=== PATIENT | male | born 1930 | race Caucasian/White ===

== ENCOUNTER 2018-05-27 07:17 | Day surgery (SDC) | payer OTHER, MEDICARE ==
[2018-05-24 15:03] VITALS: BMI 25.7
[2018-05-27 07:59] VITALS: BP 140/59; PULSE 53; TEMP 97.9
== END 2018-05-27 08:35 | disposition home or self-care (01) ==
LOC: JRADIR 07:17
PROVIDERS: ATTEND Internal Medicine
PROC: BB24YZZ Computerized Tomography (CT Scan) of Bilateral Lungs using Other Contrast (ICD-10-PCS; principal; 2018-05-27)
PROC: 0BBC3ZX Excision of Right Upper Lung Lobe, Percutaneous Approach, Diagnostic (ICD-10-PCS; 2018-05-27)
DX: D38.1 Neoplasm of uncertain behavior of trachea, bronchus and lung (principal); Z53.8 Procedure and treatment not carried out for other reasons
CPT/HCPCS: 32405; 71250-TC

== ENCOUNTER 2018-07-06 11:39 | Emergency (ER) | payer OTHER, MEDICARE ==
[2018-07-06 11:49] VITALS: BP 132/54; PULSE 60; TEMP 98.2; BMI 25.4
--- NOTE | 2018-07-06 12:06 | PDOC ---
History of Present Illness - General Chief Complaint: Wound Stated Complaint: WOUND Time Seen by Provider: 07/06/18 12:06 History Source: Patient - History of Present Illness Initial Comments: 07/06/18 12:49 88-year-old male who received an aortic valve replacement one month ago, on Coumadin and Plavix, presented to the Emergency Department for skin bleeding since yesterday. He states that he was seen by his it security engineer on Sunday, had a skin growth removed, and the wound began to bleed yesterday. He states that he was able to just use one dressing overnight. He denies chest pain, shortness of breath, lightheadedness, dizziness, palpitations. He states he was seen by Dr. Peña office yesterday, INR was checked, and it was normal. Allergies - PCN, codeine PCP - [facility] Past History - Past Medical History Allergies/Adverse Reactions: Allergies Allergy/AdvReac Type Severity Reaction Status Date / Time codeine [Codeine] Allergy Verified 05/24/18 15:03 Penicillins Allergy Verified 05/24/18 15:03 Home Medications: Ambulatory Orders Dorzolamide HCl/Timolol Maleat [Cosopt Eye Drops] 1 drop OU BID 07/21/15 Travoprost [Travatan Z] 1 drop OU HS 04/15/16 Amlodipine Besylate [Norvasc -] 5 mg PO DAILY tablet 05/01/18 Brimonidine Tartrate [Alphagan 0.15% -] 1 drop OU BID drops 05/01/18 Rivaroxaban [Xarelto -] 20 mg PO DAILY@1800 tablet 05/01/18 Tamsulosin HCl [Flomax -] 0.4 mg PO DAILY@0830 cap.er.24h 05/01/18 Anemia: No Asthma: No Cancer: Yes (LYMPHOMA) Cardiac Disorders: Yes (aortic stenosis) CVA: No COPD: No CHF: No DVT: No Dementia: No Diabetes: No GI Disorders: No Disorders: Yes (BPH) HTN: Yes Hypercholesterolemia: Yes Liver Disease: No Seizures: No Thyroid Disease: No - Surgical History Abdominal Surgery: Yes (HERNIA.) Appendectomy: Yes GI Surgery: Yes (SPLENECTOMY.) - Immunization History Immunization Up to Date: Yes - Suicide/Smoking/Psychosocial Hx Smoking Status: No Smoking History: Never smoked Have you smoked in the past 12 months: No Number of Cigarettes Smoked Daily: 0 Information on smoking cessation initiated: No Hx Alcohol Use: No Drug/Substance Use Hx: No Substance Use Type: None Hx Substance Use Treatment: No Review of Systems - Review of Systems Able to Perform ROS?: Yes Comments:: 07/06/18 12:49 General: denies fever, chills, night sweats, generalized weakness. HEENT: denies sore throat, rhinorrhea, ear pain. Heart: denies chest pain, palpitations, syncope, lower extremity swelling, diaphoresis. Respiratory: denies shortness of breath, cough, sputum production, hemoptysis. Abdomen: denies abdominal pain, nausea, vomiting, diarrhea, constipation, blood in stool. : denies dysuria, increased urinary frequency, hematuria, urinary incontinence , flank pain. Back: denies back pain. Musculoskeletal: denies joint pain, muscle pain, joint swelling. Neurological: denies headache, dizziness, numbness, tingling, weakness. Skin: admits to wound bleeding. denies rash, laceration, abrasion. *Physical Exam - Vital Signs Last Vital Signs Temp Pulse Resp BP Pulse Ox 98.2 F 60 20 132/54 L 99 07/06/18 11:43 07/06/18 11:43 07/06/18 11:43 07/06/18 11:43 07/06/18 11:43 - Physical Exam Comments: 07/06/18 12:50 Constitutional: Well-nourished, Well-developed, appearing stated age. HEENT: head is normocephalic, atraumatic. EOMI. PERRLA. Neck: supple. Full ROM. Heart: regular rhythm. gallop noted. Lungs: clear to auscultation bilaterally. no crackles, rhonchi or wheezing. no stridor. Abdomen: soft, nontender. normal bowel sounds. no rebound, guarding, masses. Extremities: Peripheral pulses intact. No lower extremity edema. Neurological: CN 2-12 grossly intact. Moves all four extremities. Psych: awake, alert, oriented x3. Follows commands. Answers questions appropriately. Skin: <1 cm puncture wound to right scapular area, oozing slowly. no surrounding erythema. no foul smell. Medical Decision Making - Medical Decision Making 07/06/18 12:36 88-year-old male who received an aortic valve replacement one month ago, on Coumadin and Plavix, presented to the Emergency Department for skin bleeding since yesterday. He states that he was seen by his it security engineer on Sunday, had a skin growth removed, and the wound began to bleed yesterday. He states that he was able to just use one dressing overnight. He denies chest pain, shortness of breath, lightheadedness, dizziness, palpitations. He states he was seen by Dr. Peña office yesterday, INR was checked, and it was normal. Initial Vital Signs Temp Pulse Resp BP Pulse Ox 98.2 F 60 20 132/54 L 99 07/06/18 11:43 07/06/18 11:43 07/06/18 11:43 07/06/18 11:43 07/06/18 11:43 Afebrile. Wound infection unlikely. No tachycardia. No hypotension. No hypoxia on room air. No indication for blood work at this time. Pt had INR checked yesterday at Dr. Solano's office, stated it was normal. Pt can ambulate well unassisted. Surgicel applied to wound site with dressing over top. Pt was observed for 10 minutes, no blood soaked through the dressing. Pt will be discharged with wound care instructions, follow up instructions and strict return precautions. I discussed the plan for care, and wound care instructions with the patient and his , they stated they understood and would have the patient follow up with his PCP. *DC/Admit/Observation/Transfer Diagnosis at time of Disposition: Mucosal bleeding, History of anticoagulant use - Discharge Dispostion Disposition: HOME Condition at time of disposition: Stable Decision to Admit order: No - Referrals Referrals: Venkatesh Sanches MD [Primary Care Provider] - - Patient Instructions Additional Instructions: DOCTOR'S INSTRUCTIONS: You were seen today for skin bleeding. We applied surgicel to the wound site, this will help the wound to clot. The surgicel will turn BLACK, this is normal. Do not remove the dressing for 24-48 hours, 48 is preferred. Do not get the dressing wet. You can apply bacitracin to the wound after the dressing is removed. As your wound heals, it will itch, this is normal. Return to the Emergency Department if the dressing is completely soaked with blood, chest pain, shortness of breath, lightheadedness, passing out, dizziness , palpitations, redness of the skin surrounding the wound site, foul smelling wound or any other new, worsening or concerning symptoms. Follow up with your primary care doctor within 3 days. Call their office Sunday and let them know you were seen in the Emergency Department. Make an appointment for as soon as available. Your care is not complete until you follow up. - Post Discharge Activity
--- NOTE | 2018-07-06 12:26 | PDOC ---
Attending Attestation - Resident Resident Name: Vivi Gaspar - ED Attending Attestation I have performed the following: I have examined & evaluated the patient, The case was reviewed & discussed with the resident, I agree w/resident's findings & plan, Exceptions are as noted - Medical Decision Making 07/06/18 12:26 I, Dr. Gloria Jamison, DO, attest that this document has been prepared under my direction and personally reviewed by me in its entirety. I further attest, that it accurately reflects all work, treatment, procedures and medical decision -making performed by me. 07/06/18 12:30 a/p: 88yo male with slow bleeding from biopsy site performed at dermatology earlier this week -on plavix and coumadin -INR checked yesterday and was normal at [facility] -no active bleeding -no surrounding erythema or subcut hematoma -will apply surgical, dressing, and pressure 07/06/18 12:46 no longer with bleeding from the site discussed local wound care discussed all reasons to return to the ed -no lightheaded or dizziness -no cp/sob -no somatic complaints stable for d/c to home and pt agree with the plan <Gloria Jamison - Last Filed: 07/06/18 12:45> - HPI HPI: 07/06/18 12:58 The patient is an 88-year-old male with past medical history significant for hx of splenic lymphoma (s/p splenectomy), Atria Valve Replacement (on Plavix and coumadin) presents to the emergency department with a bleeding wound. The patient is s/p a skin growth removed from the R. scapula region, by patients forklift technician on Sunday. The patient presents with bleeding from the biopsy site since yesterday. The patient reports following up with Dr. Solano a day prior, at the office patients INR was check, with normal result. Allergies: codeine and penicillins Social history:No past or present use of tobacco, alcohol or recreational drug use. Surgical history: Hernia, appendectomy, and splenectomy. PCP: Venkatesh Sanches MD - Physicial Exam PE: 07/06/18 12:53 GENERAL: Awake, alert, and fully oriented, in no acute distress HEAD: No signs of trauma EYES: PERRLA, EOMI, sclera anicteric, conjunctiva clear ENT: Auricles normal inspection, hearing grossly normal, nares patent, oropharynx clear without exudates. Moist mucosa NECK: Normal ROM, supple, no lymphadenopathy, JVD, or masses LUNGS: Breath sounds equal, clear to auscultation bilaterally. No wheezes, and no crackles HEART: gallop heart sounds. Regular rate and rhythm, normal S1 and S2, no murmurs, rubs or gallops ABDOMEN: Soft, nontender, normoactive bowel sounds. No guarding, no rebound. No masses EXTREMITIES: Normal range of motion, no edema. No clubbing or cyanosis. No cords, erythema, or tenderness NEUROLOGICAL: Cranial nerves II through XII grossly intact. Normal speech, normal gait SKIN: (+) R. subscapular region small biopsy from dermatology, with mild oozing. Warm, Dry, normal turgor, no rashes or lesions noted. - Medical Decision Making 07/06/18 12:55 Documentation prepared by Heide Alberts, acting as medical officer for Gloria Jamison DO. <Heide Alberts - Last Filed: 07/06/18 12:58>
== END 2018-07-06 12:55 | disposition home or self-care (01) ==
LOC: JER 11:39
PROC: 0HQBXZZ Repair Right Upper Arm Skin, External Approach (ICD-10-PCS; principal; 2018-07-06)
DX: S41.031A Puncture wound without foreign body of right shoulder, initial encounter (principal); R58 Hemorrhage, not elsewhere classified; I10 Essential (primary) hypertension; I35.0 Nonrheumatic aortic (valve) stenosis; E78.00 Pure hypercholesterolemia, unspecified; N40.0 Benign prostatic hyperplasia without lower urinary tract symptoms; C85.90 Non-Hodgkin lymphoma, unspecified, unspecified site; Z79.01 Long term (current) use of anticoagulants; Z88.0 Allergy status to penicillin; Z88.8 Allergy status to other drugs, medicaments and biological substances; X58.XXXA Exposure to other specified factors, initial encounter; Y93.89 Activity, other specified; Y92.018 Other place in single-family (private) house as the place of occurrence of the external cause
CPT/HCPCS: 12001; 99281-25

== ENCOUNTER 2018-08-02 04:46 | Inpatient (IN) | payer OTHER, MEDICARE ==
--- NOTE | 2018-08-02 05:16 | PDOC ---
History of Present Illness - General Chief Complaint: Hematuria Stated Complaint: BLOOD IN URINE Time Seen by Provider: 08/02/18 05:16 - History of Present Illness Initial Comments: 08/02/18 05:18 Mr. Magaña is an 88 yo male w/ pmh of aortic stenosis (s/p aortic valve replacement 2 months ago on coumadin and plavix until yesterday), HTN, tri- fascicular block (s/p pacemaker), lymphoma (s/p nephrectomy/splenectomy), BPH (s /o TURP 3 or 4 years ago) who presents for evaluation of hematuria. Per patient this started 5 days ago with blood noticed in urine while voiding. Patient was evaluated by urologist 2 days ago and put on ABX for UTI, also told to stop plavix (last dose yesterday, INR was 2.5 yesterday). Patient has continued to have blood in urine however presents as he has now had 1 day of very frequent urination compounded with inability to hold his urine and dysuria. Urine looked like blood. The patient denies chest pain, shortness of breath, headache and dizziness. Denies fever, chills, nausea, vomit, diarrhea and constipation. Past History - Past Medical History Allergies/Adverse Reactions: Allergies Allergy/AdvReac Type Severity Reaction Status Date / Time Penicillins Allergy Unknown Verified 08/02/18 05:37 codeine [Codeine] Allergy Verified 08/02/18 05:37 Home Medications: Ambulatory Orders Dorzolamide HCl/Timolol Maleat [Cosopt Eye Drops] 1 drop OU BID 07/21/15 Travoprost [Travatan Z] 1 drop OU HS 04/15/16 Brimonidine Tartrate [Alphagan 0.15% -] 1 drop OU BID drops 05/01/18 Tamsulosin HCl [Flomax -] 0.4 mg PO DAILY@0830 cap.er.24h 05/01/18 Amlodipine Besylate [Norvasc -] 10 mg PO DAILY 08/02/18 Metoprolol Succinate 25 mg PO DAILY 08/02/18 Warfarin Sodium [Coumadin] 2.5 mg PO DAILY 08/02/18 Anemia: No Asthma: No Cancer: Yes (LYMPHOMA) Cardiac Disorders: Yes (aortic stenosis) CVA: No COPD: No CHF: No DVT: No Dementia: No Diabetes: No GI Disorders: No Disorders: Yes (BPH) HTN: Yes Hypercholesterolemia: Yes Liver Disease: No Seizures: No Thyroid Disease: No - Surgical History Abdominal Surgery: Yes (HERNIA.) Appendectomy: Yes GI Surgery: Yes (SPLENECTOMY.) - Immunization History Immunization Up to Date: Yes - Suicide/Smoking/Psychosocial Hx Smoking Status: No Smoking History: Never smoked Have you smoked in the past 12 months: No Number of Cigarettes Smoked Daily: 0 Information on smoking cessation initiated: No Hx Alcohol Use: No Drug/Substance Use Hx: No Substance Use Type: None Hx Substance Use Treatment: No Review of Systems - Review of Systems Comments:: 08/02/18 05:44 GENERAL/CONSTITUTIONAL: No fever or chills. No weakness. HEAD, EYES, EARS, NOSE AND THROAT: No change in vision. No ear pain or discharge. No sore throat. CARDIOVASCULAR: No chest pain or shortness of breath RESPIRATORY: No cough, wheezing, or hemoptysis. GASTROINTESTINAL: No nausea, vomiting, diarrhea or constipation. GENITOURINARY: +Urinary changes as described above. MUSCULOSKELETAL: No joint or muscle swelling or pain. No neck or back pain. SKIN: No rash NEUROLOGIC: No headache, vertigo, loss of consciousness, or change in strength/ sensation. ENDOCRINE: No increased thirst. No abnormal weight change HEMATOLOGIC/LYMPHATIC: No anemia, easy bleeding, or history of blood clots. ALLERGIC/IMMUNOLOGIC: No hives or skin allergy. *Physical Exam - Vital Signs Last Vital Signs Temp Pulse Resp BP Pulse Ox 98.9 F 80 18 141/79 98 08/02/18 04:52 08/02/18 04:52 08/02/18 04:52 08/02/18 04:52 08/02/18 04:52 - Physical Exam Comments: 08/02/18 05:44 GENERAL: Awake, alert, and fully oriented, in no acute distress HEAD: No signs of trauma, normocephalic, atraumatic EYES: PERRLA, EOMI, sclera anicteric, conjunctiva clear ENT: Auricles normal inspection, hearing grossly normal, nares patent, oropharynx clear without exudates. Moist mucosa NECK: Normal ROM, supple, no lymphadenopathy, JVD, or masses LUNGS: No distress, speaks full sentences, clear to auscultation bilaterally HEART: Regular rate and rhythm, normal S1 and S2, no murmurs, rubs or gallops, peripheral pulses normal and equal bilaterally. ABDOMEN: +Suprapubic TTP. Soft, normoactive bowel sounds. No guarding, no rebound. No masses EXTREMITIES: Normal inspection, Normal range of motion, no edema. No clubbing or cyanosis. NEUROLOGICAL: Cranial nerves II through XII grossly intact. Normal speech, normal gait, no focal sensorimotor deficits SKIN: Warm, Dry, normal turgor, no rashes or lesions noted. ED Treatment Course - LABORATORY CBC & Chemistry Diagram: 08/02/18 05:05 08/02/18 05:05 Medical Decision Making - Medical Decision Making 08/02/18 05:45 Mr. Magaña is an 88 yo male w/ pmh as described who presents for evaluation of urinary symptoms. Evaluation started with laboratory evaluation and UA/UCx. 08/02/18 06:31 Patient noted to have 314cc's in bladder post void on bedside US. 3-way catheter placed for bladder irrigation. 08/02/18 06:57 Patient noted to have almost 4 point hemoglobin drop from previous of 13.1. Admitting to PCP. Laboratory Results - last 24 hr 08/02/18 08/02/18 08/02/18 05:05 05:05 05:05 WBC 5.2 RBC 2.90 L Hgb 9.2 L Hct 28.6 L D MCV 98.6 H MCH 31.7 MCHC 32.2 RDW 14.1 Plt Count 146 D MPV 10.5 D Absolute Neuts (auto) 3.2 Neutrophils % 61.8 D Lymphocytes % 18.2 D Monocytes % 14.6 H Eosinophils % 4.7 H Basophils % 0.7 Nucleated RBC % 0 PT with INR 31.80 H INR 2.67 H PTT (Actin FS) 34.3 Sodium 142 Potassium 4.1 Chloride 111 H Carbon Dioxide 24 Anion Gap 7 L BUN 27 H Creatinine 1.4 H Creat Clearance w eGFR 47.94 Random Glucose 112 H Calcium 8.3 L Total Bilirubin 0.4 AST 33 ALT 31 Alkaline Phosphatase 51 Total Protein 6.1 L Albumin 3.2 L Urine Color Urine Appearance Urine pH Ur Specific [place] Urine Protein Urine Glucose (UA) Urine Ketones Urine Blood Urine Nitrite Urine Bilirubin Urine Urobilinogen Ur Leukocyte Esterase Urine WBC (Auto) Urine RBC (Auto) 08/02/18 05:15 WBC RBC Hgb Hct MCV MCH MCHC RDW Plt Count MPV Absolute Neuts (auto) Neutrophils % Lymphocytes % Monocytes % Eosinophils % Basophils % Nucleated RBC % PT with INR INR PTT (Actin FS) Sodium Potassium Chloride Carbon Dioxide Anion Gap BUN Creatinine Creat Clearance w eGFR Random Glucose Calcium Total Bilirubin AST ALT Alkaline Phosphatase Total Protein Albumin Urine Color Red Urine Appearance Turbid Urine pH 7.0 Ur Specific [place] 1.023 Urine Protein 3+ H Urine Glucose (UA) 1+ H Urine Ketones Negative Urine Blood 3+ H Urine Nitrite Negative Urine Bilirubin Negative Urine Urobilinogen Negative Ur Leukocyte Esterase Negative Urine WBC (Auto) 2 Urine RBC (Auto) >200 *DC/Admit/Observation/Transfer Diagnosis at time of Disposition: Hematuria Qualifiers: Hematuria type: gross Qualified Code(s): R31.0 - Gross hematuria Anemia Qualifiers: Anemia type: unspecified type Qualified Code(s): D64.9 - Anemia, unspecified - Discharge Dispostion Decision to Admit order: Yes - Referrals Referrals: Venkatesh Sanches MD [Primary Care Provider] - - Patient Instructions - Post Discharge Activity
--- NOTE | 2018-08-02 05:21 | PDOC ---
Attending Attestation - Resident Resident Name: IsaacwilmerSiddharth cordero - ED Attending Attestation I have performed the following: I have examined & evaluated the patient, The case was reviewed & discussed with the resident, I agree w/resident's findings & plan, Exceptions are as noted - HPI HPI: 08/02/18 07:12 88 years old with 5 day history of hematuria worse over the last 2 days some suprapubic discomfort - Physicial Exam PE: 08/02/18 07:13 Vitals: Triage Vital signs reviewed General Appearance: no acute distress, well nourished well developed, Chest Wall: Nontender Cardiac: Regular rate and rhythym, no murmurs, no rubs, no gallops, Lungs: Clear to auscultation bilateral, good air movement bilaterally, Abdomen: Soft, non distended, normal bowel sounds, non tender to palpation Extremities: Full range of motion to all extremities, no cyanosis, clubbing, or edema Skin: Warm and dry, no rashes or lesions, no rash, no petechiae Psych: normal mood, normal affect - Medical Decision Making 08/02/18 07:13 88 years old with moderate to severe hematuria with clots Bedside ultrasound demonstrates full bladder with clots Three-way Humphreys catheter placed by KALPANA Jurado Case discussed with primary care provider on his laboratory analysis patient noted to be newly anemic packed red blood cells ordered We'll admit hospital for further management. Urology consult.
[2018-08-02 05:50] LABS: BASO % 0.7 % (0-2.0); EOS % 4.7 % (0-4.5); HEMATOCRIT 28.6 % (35.4-49); HEMOGLOBIN 9.2 GM/dL (11.7-16.9); LYMPH % 18.2 % (8-40); MCH 31.7 pg (25.7-33.7); MCHC 32.2 g/dl (32.0-35.9); MEAN CELL VOLUME 98.6 fl (80-96); MEAN PLT VOLUME 10.5 fl (7.5-11.1); MONO % 14.6 % (3.8-10.2); NEUT % 61.8 % (42.8-82.8); PLATELET COUNT 146 K/MM3 (134-434); RDW 14.1 % (11.9-15.9); WHITE BLOOD COUNT 5.2 K/mm3 (4.0-10.0)
[2018-08-02 06:02] LABS: URINE APPEARANCE TURBID; URINE BILIRUBIN NEGATIVE (<2.0 mg/dL); URINE COLOR RED; URINE GLUCOSE (UA) 1+ (NEGATIVE); URINE KETONE NEGATIVE (NEGATIVE); URINE LEUK ESTERASE NEGATIVE (NEGATIVE); URINE NITRITE NEGATIVE (NEGATIVE); URINE PROTEIN 3+ (NEGATIVE); URINE UROBILINOGEN NEGATIVE mg/dL (0.2-1.0)
[2018-08-02 06:05] LABS: INR 2.67 (0.83-1.09); PROTHROMBIN TIME (PATIENT) 31.8 SEC (9.7-13.0)
[2018-08-02 06:07] LABS: ACTIVATED PTT 34.3 SECONDS (25.2-36.5)
[2018-08-02 06:18] LABS: ALBUMIN 3.2 g/dl (3.4-5.0); ALK PHOS 51 U/L (45-117); ANION GAP 7 MMOL/L (8-16); BILIRUBIN,TOTAL 0.4 mg/dL (0.2-1); BLOOD UREA NITROGEN 27 mg/dL (7-18); CALCIUM 8.3 mg/dL (8.5-10.1); CHLORIDE 111 mmol/L (98-107); CO2 24 mmol/L (21-32); CREATININE 1.4 mg/dL (0.55-1.3); GLUCOSE,RANDOM 112 mg/dL (74-106); POTASSIUM 4.1 mmol/L (3.5-5.1); SGOT/AST 33 U/L (15-37); SGPT/ALT 31 U/L (13-61); SODIUM 142 mmol/L (136-145); TOT PROT 6.1 g/dl (6.4-8.2)
--- NOTE | 2018-08-02 10:02 | HP ---
Admitting History and Physical - Primary Care Physician PCP: Venkatesh Sanches - Admission Chief Complaint: bloody urination History of Present Illness: 88 yo pacer dependent male w/ pmh of prostatic enlargement; stable ASHD; Htn, Atrial fib (on a-c); he is also s/p aortic valve replacement [TAVR] 2 months ago ; Past Hx splenic lymphoma & Lt renal neoplasm. who presents for evaluation of gross painless hematuria that started 5 days ago with blood noticed in urine while voiding. He went to see his Urologist who may have Rx'd an antibiotic (?) , but still kept voiding blood, which grew worse in the last day or so. He was also seen by his Tactical Debriefer Officer yesterday who advised to stop plavix (rx'd post TAVR). His INR was about 2.5. He denies abd pains, CP; SOB, dizziness, n-v, chills, sweats, diarrhea. he had c/o low back pain (? mechanical) about 1 week ago (which isn't new) and had planned to do OP physioTx but did not start it yet. 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) Gastrointestinal: Yes: Other (dyspepsia (chronic)) Hepatobiliary: Yes: Cholelithiasis Renal/: Yes: Renal Inusuff (s/p Lt nephrectomy 2nd cancer), BPH, Hematuria, UTI Heme/Onc: Yes: Bleeding Disorder (occasional hematuria (while on a-c)), Cancer ( s/p splenectomy 2nd lymphoma) Psych: Yes: Anxiety Musculoskeletal: Yes: Chronic low back pain, Osteoarthritis Dermatology: Yes: Other (skin neoplasms--recurrent) - Past Surgical History Past Surgical History: Yes: Colonoscopy, Nephrectomy, Splenectomy (skin grafts) , TURP Additional Past Surgical History: removal of skin cancers - Smoking History Smoking history: Never smoked Have you smoked in the past 12 months: No Aproximately how many cigarettes per day: 0 - Alcohol/Substance Use Hx Alcohol Use: No History of Substance Use: reports: None - Social History Usual Living Arrangement: Yes: With Spouse ADL: Independent 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; 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 History of Recent Travel: No Home Medications - Allergies Allergies/Adverse Reactions: Allergies Allergy/AdvReac Type Severity Reaction Status Date / Time Penicillins Allergy Unknown Verified 08/02/18 05:37 codeine [Codeine] Allergy Verified 08/02/18 05:37 - Home Medications Home Medications: Ambulatory Orders Dorzolamide HCl/Timolol Maleat [Cosopt Eye Drops] 1 drop OU BID 07/21/15 Travoprost [Travatan Z] 1 drop OU HS 04/15/16 Brimonidine Tartrate [Alphagan 0.15% -] 1 drop OU BID drops 05/01/18 Tamsulosin HCl [Flomax -] 0.4 mg PO DAILY@0830 cap.er.24h 05/01/18 Amlodipine Besylate [Norvasc -] 10 mg PO DAILY 08/02/18 Metoprolol Succinate 25 mg PO DAILY 08/02/18 Warfarin Sodium [Coumadin] 2.5 mg PO DAILY 08/02/18 Family Disease History - Family Disease History Family History: Unremarkable Review of Systems - Review of Systems Constitutional: reports: No Symptoms Eyes: reports: Other (chroic low vision) HENT: reports: No Symptoms Neck: reports: No Symptoms Cardiovascular: reports: No Symptoms Respiratory: reports: No Symptoms Gastrointestinal: reports: No Symptoms Genitourinary: reports: Hematuria Musculoskeletal: reports: Back Pain Integumentary: reports: No Symptoms Neurological: reports: No Symptoms Endocrine: reports: No Symptoms Hematology/Lymphatic: reports: No Symptoms Psychiatric: reports: No Symptoms Physical Examination Vital Signs: Vital Signs Temperature 97.5 F L 08/02/18 09:40 Pulse Rate 72 08/02/18 09:40 Respiratory Rate 17 08/02/18 09:40 Blood Pressure 140/68 08/02/18 09:40 O2 Sat by Pulse Oximetry (%) 98 08/02/18 09:40 Findings/Remarks: found fully alert & coherent in ER bed. skin--no acute lesions, petechiae head--NC eyes--midline; anicteric oral--no gross mucosal elsions noted neck--supple, no masses lungs--grossly clear heart--RR abd--benign --with Cath draining gross blood ext--no edema; degen changes neuro--fully alert; lucid; no gross motor/sens deficits appreciated Labs: CBC, BMP 08/02/18 05:05 08/02/18 05:05 Laboratory Results - last 24 hr 08/02/18 08/02/18 08/02/18 05:05 05:05 05:05 WBC 5.2 RBC 2.90 L Hgb 9.2 L Hct 28.6 L D MCV 98.6 H MCH 31.7 MCHC 32.2 RDW 14.1 Plt Count 146 D MPV 10.5 D Absolute Neuts (auto) 3.2 Neutrophils % 61.8 D Lymphocytes % 18.2 D Monocytes % 14.6 H Eosinophils % 4.7 H Basophils % 0.7 Nucleated RBC % 0 PT with INR 31.80 H INR 2.67 H PTT (Actin FS) 34.3 Sodium 142 Potassium 4.1 Chloride 111 H Carbon Dioxide 24 Anion Gap 7 L BUN 27 H Creatinine 1.4 H Creat Clearance w eGFR 47.94 Random Glucose 112 H Calcium 8.3 L Total Bilirubin 0.4 AST 33 ALT 31 Alkaline Phosphatase 51 Total Protein 6.1 L Albumin 3.2 L Urine Color Urine Appearance Urine pH Ur Specific [place] Urine Protein Urine Glucose (UA) Urine Ketones Urine Blood Urine Nitrite Urine Bilirubin Urine Urobilinogen Ur Leukocyte Esterase Urine WBC (Auto) Urine RBC (Auto) Blood Type Antibody Screen 08/02/18 08/02/18 08/02/18 05:15 06:49 13:15 WBC 5.6 RBC 2.76 L Hgb 8.8 L Hct 27.1 L MCV 98.1 H MCH 31.9 MCHC 32.5 RDW 14.0 Plt Count 156 MPV 9.9 Absolute Neuts (auto) Neutrophils % Lymphocytes % Monocytes % Eosinophils % Basophils % Nucleated RBC % PT with INR INR PTT (Actin FS) Sodium Potassium Chloride Carbon Dioxide Anion Gap BUN Creatinine Creat Clearance w eGFR Random Glucose Calcium Total Bilirubin AST ALT Alkaline Phosphatase Total Protein Albumin Urine Color Red Urine Appearance Turbid Urine pH 7.0 Ur Specific [place] 1.023 Urine Protein 3+ H Urine Glucose (UA) 1+ H Urine Ketones Negative Urine Blood 3+ H Urine Nitrite Negative Urine Bilirubin Negative Urine Urobilinogen Negative Ur Leukocyte Esterase Negative Urine WBC (Auto) 2 Urine RBC (Auto) >200 Blood Type A POSITIVE Antibody Screen Negative Imaging - Results EKG: Pending Problem List - Problems (1) Hematuria Assessment/Plan: profuse blood loss with ensuing drop in H/h while on a/c: PLAN: stop a-c; get Urol eval Code(s): R31.9 - HEMATURIA, UNSPECIFIED Qualifiers: Hematuria type: gross Qualified Code(s): R31.0 - Gross hematuria (2) 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 Assessment/Plan: treat as needed; Hx of nephrectomy Code(s): E10.22 - TYPE 1 DIABETES MELLITUS W DIABETIC CHRONIC KIDNEY DISEASE; I12.9 - HYPERTENSIVE CHRONIC KIDNEY DISEASE W STG 1-4/UNSP CHR KDNY; N18.9 - CHRONIC KIDNEY DISEASE, UNSPECIFIED (3) Atrial fibrillation Assessment/Plan: requiring a-c & rate control PLAN: must hold a/c for now Code(s): I48.91 - UNSPECIFIED ATRIAL FIBRILLATION Qualifiers: Atrial fibrillation type: persistent Qualified Code(s): I48.1 - Persistent atrial fibrillation (4) Anemia due to blood loss, acute Assessment/Plan: via gross hematuria; PLAN: will transfuse if Hgb falls under 8.5 or if symptomatic Code(s): D62 - ACUTE POSTHEMORRHAGIC ANEMIA (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 many years ago Code(s): 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) (6) Status cardiac pacemaker Assessment/Plan: stable; placed for Mobitz 2 HB Code(s): Z95.0 - PRESENCE OF CARDIAC PACEMAKER (7) Aortic stenosis Assessment/Plan: s/p TAVR in Jun this year Code(s): I35.0 - NONRHEUMATIC AORTIC (VALVE) STENOSIS Qualifiers: Cardiac valve disease etiology: etiology unspecified Qualified Code(s): I35.0 - Nonrheumatic aortic (valve) stenosis (8) 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 Assessment/Plan: chronic condition Code(s): K31.9 - DISEASE OF STOMACH AND DUODENUM, UNSPECIFIED; R10.13 - EPIGASTRIC PAIN (9) Gallstone Assessment/Plan: asymptomatic Code(s): K80.20 - CALCULUS OF GALLBLADDER W/O CHOLECYSTITIS W/O OBSTRUCTION Qualifiers: Cholecystitis presence: without cholecystitis Biliary obstruction: without biliary obstruction Qualified Code(s): K80.20 - Calculus of gallbladder without cholecystitis without obstruction (10) History of skin cancer in adulthood Assessment/Plan: s/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 Code(s): Z85.828 - PERSONAL HISTORY OF OTHER MALIGNANT NEOPLASM OF SKIN (11) History of malignant neoplasm of kidney Assessment/Plan: s/p Lt nephrectomy Code(s): Z85.528 - PERSONAL HISTORY OF OTHER MALIGNANT NEOPLASM OF KIDNEY (12) Glaucoma Assessment/Plan: applies 3 meds Code(s): H40.9 - UNSPECIFIED GLAUCOMA Qualifiers: Glaucoma type: unspecified Laterality: bilateral Qualified Code(s): H40.9 - Unspecified glaucoma (13) 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 Assessment/Plan: recent PET showed hypo-metabolic lesion Code(s): D38.1 - NEOPLASM OF UNCERTAIN BEHAVIOR OF TRACHEA, BRONCHUS AND LUNG (14) Prostatism Assessment/Plan: significantly enlarged with bladder outlet dz; await Urol eval Code(s): N40.0 - BENIGN PROSTATIC HYPERPLASIA WITHOUT LOWER URINRY TRACT SYMP (15) History of anticoagulant use Assessment/Plan: to be put on hold Code(s): Z92.29 - PERSONAL HISTORY OF OTHER DRUG THERAPY Assessment/Plan 88 YO anticoagulated male who presented with acute gross hematuria and drop in Hgb; who will likely need further intervention when bleeding subsides ~~~~~~~~~~~~~~~~~~ Dr Sanches
--- NOTE | 2018-08-02 10:04 | CON.CARD ---
Cardiology Consult (text) - Consultation Consultation Note: Cardiology Consult Dictated IMP: Gross hematuria secondary to prostatic inflammation due to chronic BPH, possible UTI Severe s/p TAVR several months ago PAF, on warfarin High grade AV block s/p PPM REC: 1. OK to d/c Plavix (typically used 3 months post TAVR- d/w Interventional Cardiology. Given bleed, ok to d/c short of that). 2. Significant gross hematuria for 24 hours: need to hold Warfarin. Daily INR. INR 2.5 yesterday. 3. Humphreys irrigation. consult. 4. Continue home BP meds. Will follow.
[2018-08-02] MEDS: metoPROLOL SUCCINATE 25 MG TAB.SR.24H (FP) PO SCH (11:11)
--- NOTE | 2018-08-02 11:40 | CONS ---
DATE OF CONSULTATION: 08/02/2018 REQUESTING PHYSICIAN: Venkatesh Sanches MD REASON FOR CONSULTATION: Management of anticoagulation, atrial fibrillation, and gross hematuria. 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 The patient also has severe BPH, and over the last week has had intermittent hematuria for which he was diagnosed with a UTI and was planning outpatient transurethral vaporization of the prostate. Over the last 72 hours, his hematuria has increased with multiple episodes of gross hematuria occurring overnight prompting him to come to the emergency department. A Humphreys catheter was placed draining edgar blood. He denies chest pain, palpitations, PND, orthopnea. Of note, the patient was in the office yesterday before this heavy bleeding began, and his INR was 2.5. I discussed with interventional cardiology at [facility] the possibility of discontinuing his Plavix approximately 1 month early and that was approved. We had agreed for him to stop his Plavix effective today. PAST MEDICAL HISTORY: Is as above and also includes chronic hypertension. MEDICATIONS: His outpatient medications include dorzolamide/timolol eye drops, brimonidine tartrate eye drops, amlodipine 10 mg p.o. daily, warfarin 2.5 mg p.o. daily, travoprost drops, tamsulosin 0.4 mg p.o. daily, losartan 50 mg p.o. daily, and metoprolol succinate 25 mg p.o. daily. FAMILY HISTORY: Noncontributory. SOCIAL HISTORY: He is , children, lives with his . PHYSICAL EXAMINATION: General: He is in no distress. Vital signs: He is afebrile, 97.5, pulse 72, blood pressure 140/68, O2 saturation 98 on room air. He is anicteric. Neck: No carotid bruits. Heart: S1, S2, regular. Chest: Clear. Abdomen: Soft, no tenderness. Extremities: No edema. A 12-lead ECG is pending. LABORATORIES: White count 5.2, hemoglobin 9.2, hematocrit 28.6, platelets 146. INR 2.67. Sodium 142, potassium 4.1, creatinine 1.4. LFTs are normal. Urinalysis was turbid, red, with 3+ protein and 3+ blood. Urine culture is pending. IMPRESSION: 1. Gross hematuria secondary to prostatic inflammation due to chronic benign prostatic hypertrophy with possible superimposed urinary tract infection. 2. Severe aortic stenosis status post transcatheter, aortic valve replacement several months ago. 3. Paroxysmal atrial fibrillation, on warfarin, with therapeutic international normalized ratio. 4. 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 RECOMMENDATIONS: 1. After discussion with interventional cardiology, it is okay to discontinue Plavix at this time. Plavix is usually continued for 3 months status post TAVR. However, given the ongoing severe bleeding, it is reasonable to stop short of that time frame. 2. Given the significant gross hematuria for the last 24 hours and relative drop in hemoglobin, will need to hold warfarin. Daily INR. 3. Humphreys irrigation, consultation. 4. Continue home blood pressure medications. Thank you for the consultation. Rhiannon [id number]
[2018-08-02 13:26] LABS: HEMATOCRIT 27.1 % (35.4-49); HEMOGLOBIN 8.8 GM/dL (11.7-16.9); MCH 31.9 pg (25.7-33.7); MCHC 32.5 g/dl (32.0-35.9); MEAN CELL VOLUME 98.1 fl (80-96); MEAN PLT VOLUME 9.9 fl (7.5-11.1); PLATELET COUNT 156 K/MM3 (134-434); RBC 2.76 M/mm3 (4.00-5.60); WHITE BLOOD COUNT 5.6 K/mm3 (4.0-10.0)
[2018-08-02 19:27] VITALS: BMI 25.1
[2018-08-02 22:15] LABS: HEMATOCRIT 25.9 % (35.4-49); HEMOGLOBIN 8.8 GM/dL (11.7-16.9); MCH 33.6 pg (25.7-33.7); MEAN CELL VOLUME 98.8 fl (80-96); MEAN PLT VOLUME 11.1 fl (7.5-11.1); PLATELET COUNT 155 K/MM3 (134-434); RBC 2.63 M/mm3 (4.00-5.60); WHITE BLOOD COUNT 5.8 K/mm3 (4.0-10.0)
[2018-08-03] MEDS ORDERED: MORPHINE SULFATE 2 MG/ML VIAL IVPUSH ONE (06:00)
[2018-08-03 08:16] LABS: HEMATOCRIT 29.6 % (35.4-49); HEMOGLOBIN 10.3 GM/dL (11.7-16.9); MCH 34.2 pg (25.7-33.7); MCHC 34.7 g/dl (32.0-35.9); MEAN CELL VOLUME 98.5 fl (80-96); PLATELET COUNT 168 K/MM3 (134-434); RBC 3.01 M/mm3 (4.00-5.60); RDW 14.5 % (11.9-15.9); WHITE BLOOD COUNT 6.4 K/mm3 (4.0-10.0)
[2018-08-03 08:47] LABS: INR 2.05 (0.83-1.09); PROTHROMBIN TIME (PATIENT) 24.4 SEC (9.7-13.0)
[2018-08-03 08:53] LABS: ANION GAP 10 MMOL/L (8-16); BLOOD UREA NITROGEN 21 mg/dL (7-18); CALCIUM 8.5 mg/dL (8.5-10.1); CHLORIDE 112 mmol/L (98-107); CO2 22 mmol/L (21-32); CREATININE 1.3 mg/dL (0.55-1.3); GLUCOSE,RANDOM 95 mg/dL (74-106); POTASSIUM 3.9 mmol/L (3.5-5.1); SODIUM 143 mmol/L (136-145)
[2018-08-03] MEDS: metoPROLOL SUCCINATE 25 MG TAB.SR.24H (FP) PO SCH (09:38)
--- NOTE | 2018-08-03 11:02 | PN ---
Progress Note, Physician Chief Complaint: still edgar blood in catalan bag H/H stable, BP stable Denies CP or SOB C/o pain at catalan site, suprapubic - Current Medication List Current Medications: Active Medications Brimonidine Tartrate (Alphagan 0.15% -) 1 drop OU BID [facility] Dorzolamide HCl (Trusopt 2%) 1 drop OU BID [facility] Metoprolol Succinate (Toprol Xl -) 25 mg PO DAILY [facility] Last Admin: 08/03/18 09:38 Dose: 25 mg - Objective Vital Signs: Vital Signs Temperature 97.8 F 08/03/18 09:30 Pulse Rate 74 08/03/18 09:30 Respiratory Rate 20 08/03/18 09:30 Blood Pressure 142/72 08/03/18 09:30 O2 Sat by Pulse Oximetry (%) 98 08/02/18 21:00 Constitutional: Yes: No Distress, Calm Eyes: Yes: Conjunctiva Clear, EOM Intact HENT: Yes: Atraumatic, Normocephalic Neck: Yes: Supple, Trachea Midline Cardiovascular: Yes: Regular Rate and Rhythm Respiratory: Yes: CTA Bilaterally (no rales) Gastrointestinal: Yes: Soft Edema: No Neurological: Yes: Alert, Oriented ...Motor Strength: WNL Labs: CBC, BMP 08/03/18 07:00 08/03/18 07:00 INR, PTT INR 2.05 (0.83-1.09) H 08/03/18 07:00 Laboratory Tests 08/03/18 08/03/18 08/03/18 07:00 07:00 07:00 WBC 6.4 Hgb 10.3 L Hct 29.6 L Plt Count 168 INR 2.05 H Sodium 143 Potassium 3.9 BUN 21 H Creatinine 1.3 Assessment/Plan IMP: Gross hematuria secondary to prostatic inflammation due to chronic BPH, possible UTI Severe s/p TAVR several months ago PAF, on warfarin High grade AV block s/p PPM REC: 1. OK to d/c Plavix (typically used 3 months post TAVR- d/w Interventional Cardiology. Given bleed, ok to d/c short of that). 2. Significant gross hematuria : need to hold Warfarin. Daily INR drifting down (2.5 Thurs now just about 2) 3. Catalan irrigation. consult. 4. Follow H/H Will follow
--- NOTE | 2018-08-03 12:33 | EKG ---
Test Reason : Blood Pressure : / mmHG Vent. Rate : 084 BPM Atrial Rate : 055 BPM P-R Int : 000 ms QRS Dur : 176 ms QT Int : 472 ms P-R-T Axes : 000 017 103 degrees QTc Int : 557 ms Ventricular-paced rhythm WITH PREMATURE VENTRICULAR OR ABERRANTLY CONDUCTED COMPLEXES Underlying rhythm is atrial fibrillation Confirmed by VICTOR HUGO RAM MD ([id number]) on 08/03/2018 12:33:23 PM Referred By: Chelsea MONTERO Confirmed By:VICTOR HUGO RAM MD
[2018-08-03] MEDS: DORZOLAMIDE 2% HCL OPHTHALMIC SOLUTION 10 ML BOTTLE OU SCH ×2 (13:00→21:20)
[2018-08-03] MEDS: BRIMONIDINE TARTRATE 0.15% OPHTHALMIC 5 ML BOTTLE OU SCH ×2 (13:01→21:21)
[2018-08-03] MEDS ORDERED: ALPRAZolam 0.25 MG TABLET PO PRN (13:07)
[2018-08-03] MEDS: POLYETHYLENE GLYCOL 3350 255 GM BTL PO SCH (13:21)
--- NOTE | 2018-08-03 16:08 | PN ---
Progress Note (short form) - Note Progress Note: Current Medications Alprazolam (Xanax -) 0.25 mg PO DAILY PRN PRN Reason: PRN Brimonidine Tartrate (Alphagan 0.15% -) 1 drop OU BID [facility] Last Admin: 08/03/18 13:01 Dose: 1 drop Dorzolamide HCl (Trusopt 2%) 1 drop OU BID [facility] Last Admin: 08/03/18 13:00 Dose: 1 drop Metoprolol Succinate (Toprol Xl -) 25 mg PO DAILY [facility] Last Admin: 08/03/18 09:38 Dose: 25 mg Polyethylene Glycol (Miralax (For Bowel Prep) -) 17 gm PO DAILY [facility] Last Admin: 08/03/18 13:21 Dose: 17 gm Laboratory Results - last 24 hr 08/02/18 08/03/18 08/03/18 21:00 07:00 07:00 WBC 5.8 6.4 RBC 2.63 L 3.01 L Hgb 8.8 L 10.3 L Hct 25.9 L 29.6 L MCV 98.8 H 98.5 H MCH 33.6 34.2 H MCHC 34.0 34.7 RDW 14.0 14.5 Plt Count 155 168 MPV 11.1 D 11.0 PT with INR 24.40 H INR 2.05 H Sodium Potassium Chloride Carbon Dioxide Anion Gap BUN Creatinine Creat Clearance w eGFR Random Glucose Calcium 08/03/18 07:00 WBC RBC Hgb Hct MCV MCH MCHC RDW Plt Count MPV PT with INR INR Sodium 143 Potassium 3.9 Chloride 112 H Carbon Dioxide 22 Anion Gap 10 BUN 21 H Creatinine 1.3 Creat Clearance w eGFR 52.22 Random Glucose 95 Calcium 8.5 Vital Signs Temperature 98.2 F 08/03/18 15:30 Pulse Rate 78 08/03/18 15:30 Respiratory Rate 18 08/03/18 15:30 Blood Pressure 127/71 08/03/18 15:30 O2 Sat by Pulse Oximetry (%) 99 08/03/18 09:00 CC: had suprapubic pains early this AM ~~~~~~~~~~~~~~~~~ skin--NL color heart--Irreg abd--soft lungs--grossly clear neuro--alert; coherent in NAD ``````````````````````````````` Summ > Gross hematuria--ongoing; INR still at 2.0; a/c on hold and is off Plavix; Urol consult ordered; urine culture negative > ATF--rate controlled; must put a/c on hold given severity of hematuria > Prostatism--w/ bladder outlet impingement; May need surg intervention; Pain control > Glaucoma--resume usual eye Gtts > anemia--stable; not requiring transfusion; will check daily. 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 Code(s): E10.22 - TYPE 1 DIABETES MELLITUS W DIABETIC CHRONIC KIDNEY DISEASE; I12.9 - HYPERTENSIVE CHRONIC KIDNEY DISEASE W STG 1-4/UNSP CHR KDNY; N18.9 - CHRONIC KIDNEY DISEASE, UNSPECIFIED (3) Atrial fibrillation Code(s): I48.91 - UNSPECIFIED ATRIAL FIBRILLATION Qualifiers: Atrial fibrillation type: persistent Qualified Code(s): I48.1 - Persistent atrial fibrillation (4) Anemia due to blood loss, acute Code(s): D62 - ACUTE POSTHEMORRHAGIC ANEMIA (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) (6) Status cardiac pacemaker Code(s): Z95.0 - PRESENCE OF CARDIAC PACEMAKER (7) Aortic stenosis Code(s): I35.0 - NONRHEUMATIC AORTIC (VALVE) STENOSIS Qualifiers: Cardiac valve disease etiology: etiology unspecified Qualified Code(s): I35.0 - Nonrheumatic aortic (valve) stenosis (8) 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 Code(s): K31.9 - DISEASE OF STOMACH AND DUODENUM, UNSPECIFIED; R10.13 - EPIGASTRIC PAIN (9) Gallstone Code(s): K80.20 - CALCULUS OF GALLBLADDER W/O CHOLECYSTITIS W/O OBSTRUCTION Qualifiers: Cholecystitis presence: without cholecystitis Biliary obstruction: without biliary obstruction Qualified Code(s): K80.20 - Calculus of gallbladder without cholecystitis without obstruction (10) History of skin cancer in adulthood Code(s): Z85.828 - PERSONAL HISTORY OF OTHER MALIGNANT NEOPLASM OF SKIN (11) History of malignant neoplasm of kidney Code(s): Z85.528 - PERSONAL HISTORY OF OTHER MALIGNANT NEOPLASM OF KIDNEY (12) Glaucoma Code(s): H40.9 - UNSPECIFIED GLAUCOMA Qualifiers: Glaucoma type: unspecified Laterality: bilateral Qualified Code(s): H40.9 - Unspecified glaucoma (13) 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
[2018-08-03] MEDS ORDERED: MORPHINE SULFATE 2 MG/ML VIAL IVPUSH PRN (16:13)
--- NOTE | 2018-08-03 16:59 | CONSULT ---
Consult - text type - Consultation Consultation Note: cc: clot retention with hemorrhagic prostate on anticoagulation HPI: Patient with long standing history of gross hematuria. The patient came into the ER and was anemic with gross hematuria and clots. CBI was started. Patient was taken off of anticoagulation and admitted. Nursing has performed multiple irrigation of catalan for clots. Patient is currently in distress with poor drainage of catalan catheter. PE afeb abd- soft with distended bladder genitalia-asif phallus and testes; catalan with cbi with poor inflow and outflow ; grossly bloody urine in catheter bag procedure note [address] catalan removed; [address] catalan placed and bladder irrigated with significant clot volume removed; [address] catalan placed to CBI with minimally hematuric drainage noted; bladder not distended imp bph with hemorrhagic prostate removed off of coumadin and plavix yesterday anemia clot retention plan cbi cipro consider vaporization of prostate in one weeek 45 minutes spent with patient and family ( and daughter)
[2018-08-03] MEDS ORDERED: PT OWN MED DRAWER 7, Y5N ONE (20:32)
[2018-08-03] MEDS: TRAVATAN Z EYE OU SCH (21:20)
[2018-08-03] MEDS ORDERED: CIPROFLOXACIN 500 MG TABLET (RESTRICTED TO ID) PO SCH (22:00)
[2018-08-04 07:28] LABS: BASO % 0.6 % (0-2.0); EOS % 5.6 % (0-4.5); HEMATOCRIT 26.5 % (35.4-49); HEMOGLOBIN 9.4 GM/dL (11.7-16.9); LYMPH % 19.6 % (8-40); MCH 34.8 pg (25.7-33.7); MCHC 35.3 g/dl (32.0-35.9); MEAN CELL VOLUME 98.4 fl (80-96); MEAN PLT VOLUME 10.8 fl (7.5-11.1); MONO % 18.8 % (3.8-10.2); NEUT % 55.4 % (42.8-82.8); PLATELET COUNT 160 K/MM3 (134-434); RBC 2.69 M/mm3 (4.00-5.60); RDW 14.5 % (11.9-15.9); WHITE BLOOD COUNT 6.9 K/mm3 (4.0-10.0)
[2018-08-04 07:31] LABS: INR 1.97 (0.83-1.09); PROTHROMBIN TIME (PATIENT) 23.4 SEC (9.7-13.0)
[2018-08-04 08:03] LABS: ANION GAP 5 MMOL/L (8-16); BLOOD UREA NITROGEN 17 mg/dL (7-18); CALCIUM 8.1 mg/dL (8.5-10.1); CHLORIDE 112 mmol/L (98-107); CO2 25 mmol/L (21-32); CREATININE 1.3 mg/dL (0.55-1.3); GLUCOSE,RANDOM 85 mg/dL (74-106); SODIUM 143 mmol/L (136-145)
--- NOTE | 2018-08-04 10:24 | PN ---
Progress Note, Physician Chief Complaint: catalan now starting to clear- pink drainage, no edgar blood BP stable. H/H stable - Current Medication List Current Medications: Active Medications Alprazolam (Xanax -) 0.25 mg PO DAILY PRN PRN Reason: PRN Brimonidine Tartrate (Alphagan 0.15% -) 1 drop OU BID [facility] Last Admin: 08/03/18 21:21 Dose: 1 drop Dorzolamide HCl (Trusopt 2%) 1 drop OU BID [facility] Last Admin: 08/03/18 21:20 Dose: 1 drop Levofloxacin (Levaquin -) 250 mg PO DAILY@0600 [facility] Stop: 08/05/18 06:01 Last Admin: 08/04/18 05:54 Dose: 250 mg Metoprolol Succinate (Toprol Xl -) 25 mg PO DAILY [facility] Last Admin: 08/03/18 09:38 Dose: 25 mg Morphine Sulfate (Morphine Sulfate) 2 mg IVPUSH Q6H PRN PRN Reason: PAIN LEVEL 6-10 Travatan Z Eye Drops (Non-Formulary Med) 1 each OU HS [facility] Last Admin: 08/03/18 21:20 Dose: 1 each Polyethylene Glycol (Miralax (For Bowel Prep) -) 17 gm PO DAILY [facility] Last Admin: 08/03/18 13:21 Dose: 17 gm - Objective Vital Signs: Vital Signs Temperature 97.6 F 08/04/18 03:00 Pulse Rate 62 08/04/18 03:00 Respiratory Rate 18 08/04/18 03:00 Blood Pressure 149/74 08/04/18 03:00 O2 Sat by Pulse Oximetry (%) 99 08/03/18 09:00 Constitutional: Yes: Calm Cardiovascular: Yes: Regular Rate and Rhythm Respiratory: Yes: CTA Bilaterally Gastrointestinal: Yes: Soft Edema: No Neurological: Yes: Alert, Oriented Labs: CBC, BMP 08/04/18 06:00 08/04/18 06:00 INR, PTT INR 1.97 (0.83-1.09) H 08/04/18 06:00 Laboratory Tests 08/04/18 08/04/18 08/04/18 06:00 06:00 06:00 WBC 6.9 Hgb 9.4 L Plt Count 160 INR 1.97 H Sodium 143 Potassium 4.0 Creatinine 1.3 Assessment/Plan IMP: Gross hematuria secondary to prostatic inflammation due to chronic BPH, possible UTI Severe s/p TAVR several months ago PAF, on warfarin High grade AV block s/p PPM REC: 1. OK to d/c Plavix (typically used 3 months post TAVR- d/w Interventional Cardiology. Given bleed, ok to d/c short of that). 2. Significant gross hematuria : need to hold Warfarin. Daily INR drifting down (2.5 Thurs now just about 2) 3. Catalan irrigation. consult. 4. Follow H/H 5. No cardiac contraindications to TUVP procedure. [id number] score = 3 with no prior CVA : Does not require bridge therapy and risk of bleeding is elevated. Today is day # 3 off Plavix thus procedure could be performed as early as Sunday
[2018-08-04] MEDS: POLYETHYLENE GLYCOL 3350 255 GM BTL PO SCH (10:38)
[2018-08-04] MEDS: metoPROLOL SUCCINATE 25 MG TAB.SR.24H (FP) PO SCH (10:38)
[2018-08-04] MEDS: DORZOLAMIDE 2% HCL OPHTHALMIC SOLUTION 10 ML BOTTLE OU SCH ×2 (10:39→21:14)
[2018-08-04] MEDS: BRIMONIDINE TARTRATE 0.15% OPHTHALMIC 5 ML BOTTLE OU SCH ×2 (10:39→21:14)
--- NOTE | 2018-08-04 16:03 | PN ---
Progress Note (short form) - Note Progress Note: Current Medications Alprazolam (Xanax -) 0.25 mg PO DAILY PRN PRN Reason: PRN Brimonidine Tartrate (Alphagan 0.15% -) 1 drop OU BID [facility] Last Admin: 08/04/18 10:39 Dose: 1 drop Dorzolamide HCl (Trusopt 2%) 1 drop OU BID [facility] Last Admin: 08/04/18 10:39 Dose: 1 drop Levofloxacin (Levaquin -) 250 mg PO DAILY@0600 [facility] Stop: 08/05/18 06:01 Last Admin: 08/04/18 05:54 Dose: 250 mg Metoprolol Succinate (Toprol Xl -) 25 mg PO DAILY [facility] Last Admin: 08/04/18 10:38 Dose: 25 mg Morphine Sulfate (Morphine Sulfate) 2 mg IVPUSH Q6H PRN PRN Reason: PAIN LEVEL 6-10 Travatan Z Eye Drops (Non-Formulary Med) 1 each OU HS [facility] Last Admin: 08/03/18 21:20 Dose: 1 each Polyethylene Glycol (Miralax (For Bowel Prep) -) 17 gm PO DAILY [facility] Last Admin: 08/04/18 10:38 Dose: 17 gm Laboratory Results - last 24 hr 08/04/18 08/04/18 08/04/18 06:00 06:00 06:00 WBC 6.9 RBC 2.69 L Hgb 9.4 L Hct 26.5 L MCV 98.4 H MCH 34.8 H MCHC 35.3 RDW 14.5 Plt Count 160 MPV 10.8 Absolute Neuts (auto) 3.8 Neutrophils % 55.4 Lymphocytes % 19.6 Monocytes % 18.8 H Eosinophils % 5.6 H Basophils % 0.6 Nucleated RBC % 0 PT with INR 23.40 H INR 1.97 H Sodium 143 Potassium 4.0 Chloride 112 H Carbon Dioxide 25 Anion Gap 5 L BUN 17 Creatinine 1.3 Creat Clearance w eGFR 52.22 Random Glucose 85 Calcium 8.1 L Vital Signs Temperature 98.3 F 08/04/18 15:05 Pulse Rate 65 08/04/18 15:05 Respiratory Rate 18 08/04/18 15:05 Blood Pressure 137/64 08/04/18 15:05 O2 Sat by Pulse Oximetry (%) 99 08/04/18 09:00 CC: some episodic lower abd pains ~~~~~~~~~~~~~~~~~ skin--NL color heart--Irreg abd--soft lungs--grossly clear neuro--alert; coherent in NAD ``````````````````````````````` Summ > Gross hematuria--seems to be abating, as urine is only "light pink" now. INR @ 1.97; has [address] irrig cath in place; may need surg intervention > ATF--rate controlled; a/c on hold for now (see Cardiology note) > Htn--BP in acceptable range without Norvasc or ARB > Prostatism--w/ bladder outlet impingement: PLAN: as per Urology; pain control as needed > Glaucoma--resume usual eye Gtts > anemia--not requiring transfusion; will check daily. 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 Code(s): E10.22 - TYPE 1 DIABETES MELLITUS W DIABETIC CHRONIC KIDNEY DISEASE; I12.9 - HYPERTENSIVE CHRONIC KIDNEY DISEASE W STG 1-4/UNSP CHR KDNY; N18.9 - CHRONIC KIDNEY DISEASE, UNSPECIFIED (3) Atrial fibrillation Code(s): I48.91 - UNSPECIFIED ATRIAL FIBRILLATION Qualifiers: Atrial fibrillation type: persistent Qualified Code(s): I48.1 - Persistent atrial fibrillation (4) Anemia due to blood loss, acute Code(s): D62 - ACUTE POSTHEMORRHAGIC ANEMIA (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) (6) Status cardiac pacemaker Code(s): Z95.0 - PRESENCE OF CARDIAC PACEMAKER (7) Aortic stenosis Code(s): I35.0 - NONRHEUMATIC AORTIC (VALVE) STENOSIS Qualifiers: Cardiac valve disease etiology: etiology unspecified Qualified Code(s): I35.0 - Nonrheumatic aortic (valve) stenosis (8) 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 Code(s): K31.9 - DISEASE OF STOMACH AND DUODENUM, UNSPECIFIED; R10.13 - EPIGASTRIC PAIN (9) Gallstone Code(s): K80.20 - CALCULUS OF GALLBLADDER W/O CHOLECYSTITIS W/O OBSTRUCTION Qualifiers: Cholecystitis presence: without cholecystitis Biliary obstruction: without biliary obstruction Qualified Code(s): K80.20 - Calculus of gallbladder without cholecystitis without obstruction (10) History of skin cancer in adulthood Code(s): Z85.828 - PERSONAL HISTORY OF OTHER MALIGNANT NEOPLASM OF SKIN (11) History of malignant neoplasm of kidney Code(s): Z85.528 - PERSONAL HISTORY OF OTHER MALIGNANT NEOPLASM OF KIDNEY (12) Glaucoma Code(s): H40.9 - UNSPECIFIED GLAUCOMA Qualifiers: Glaucoma type: unspecified Laterality: bilateral Qualified Code(s): H40.9 - Unspecified glaucoma (13) 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
[2018-08-04] MEDS ORDERED: PT OWN MED DRAWER 7, Y5N ONE (20:24)
[2018-08-04] MEDS: TRAVATAN Z EYE OU SCH (21:15)
[2018-08-05 07:24] LABS: HEMATOCRIT 27.3 % (35.4-49); HEMOGLOBIN 9.6 GM/dL (11.7-16.9); MCH 34.6 pg (25.7-33.7); MCHC 35.1 g/dl (32.0-35.9); MEAN CELL VOLUME 98.7 fl (80-96); PLATELET COUNT 177 K/MM3 (134-434); RBC 2.77 M/mm3 (4.00-5.60); RDW 14.3 % (11.9-15.9); WHITE BLOOD COUNT 6.6 K/mm3 (4.0-10.0)
[2018-08-05 07:52] LABS: INR 1.56 (0.83-1.09); PROTHROMBIN TIME (PATIENT) 18.5 SEC (9.7-13.0)
[2018-08-05] MEDS ORDERED: PT OWN MED DRAWER 7, Y5N ONE ×3 (09:32→23:15)
[2018-08-05] MEDS: POLYETHYLENE GLYCOL 3350 255 GM BTL PO SCH (09:33)
[2018-08-05] MEDS: BRIMONIDINE TARTRATE 0.15% OPHTHALMIC 5 ML BOTTLE OU SCH ×2 (09:34→21:02)
[2018-08-05] MEDS: metoPROLOL SUCCINATE 25 MG TAB.SR.24H (FP) PO SCH (09:35)
[2018-08-05] MEDS: DORZOLAMIDE 2% HCL OPHTHALMIC SOLUTION 10 ML BOTTLE OU SCH ×2 (09:35→21:02)
[2018-08-05] MEDS ORDERED: DOCUSATE SODIUM 100 MG CAPSULE (FP) PO PRN (12:41)
--- NOTE | 2018-08-05 12:44 | PN ---
Progress Note (short form) - Note Progress Note: Current Medications Alprazolam (Xanax -) 0.25 mg PO DAILY PRN PRN Reason: PRN Last Admin: 08/05/18 09:52 Dose: 0.25 mg Brimonidine Tartrate (Alphagan 0.15% -) 1 drop OU BID [facility] Last Admin: 08/05/18 09:34 Dose: 1 drop Docusate Sodium (Colace -) 100 mg PO BID PRN PRN Reason: CONSTIPATION Dorzolamide HCl (Trusopt 2%) 1 drop OU BID [facility] Last Admin: 08/05/18 09:35 Dose: 1 drop Metoprolol Succinate (Toprol Xl -) 25 mg PO DAILY [facility] Last Admin: 08/05/18 09:35 Dose: 25 mg Morphine Sulfate (Morphine Sulfate) 2 mg IVPUSH Q6H PRN PRN Reason: PAIN LEVEL 6-10 Travatan Z Eye Drops (Non-Formulary Med) 1 each OU HS [facility] Last Admin: 08/04/18 21:15 Dose: 1 each Polyethylene Glycol (Miralax (For Bowel Prep) -) 17 gm PO DAILY [facility] Last Admin: 08/05/18 09:33 Dose: 17 gm Laboratory Results - last 24 hr 08/05/18 08/05/18 07:00 07:00 WBC 6.6 RBC 2.77 L Hgb 9.6 L Hct 27.3 L MCV 98.7 H MCH 34.6 H MCHC 35.1 RDW 14.3 Plt Count 177 MPV 10.0 PT with INR 18.50 H INR 1.56 H Vital Signs Temperature 97.8 F 08/05/18 10:00 Pulse Rate 60 08/05/18 10:00 Respiratory Rate 20 08/05/18 10:00 Blood Pressure 157/69 08/05/18 10:00 O2 Sat by Pulse Oximetry (%) 99 08/04/18 21:00 CC: feels anxious ~~~~~~~~~~~~~~~~~ skin--NL color heart--Irreg abd--soft lungs--grossly clear neuro--alert; coherent in NAD ``````````````````````````````` Summ > Gross hematuria--Urine faintly pink. INR @ 1.5; has 3 way irrig cath in place ; cleared Cardiac foley > ATF--rate controlled; a/c on hold for now (see Cardiology note) > Htn--SBP high, will restart Norvasc > Prostatism--w/ bladder outlet impingement: PLAN: as per Urology; pain control as needed > Glaucoma--resume usual eye Gtts > anemia--not requiring transfusion; will check daily. 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 Code(s): E10.22 - TYPE 1 DIABETES MELLITUS W DIABETIC CHRONIC KIDNEY DISEASE; I12.9 - HYPERTENSIVE CHRONIC KIDNEY DISEASE W STG 1-4/UNSP CHR KDNY; N18.9 - CHRONIC KIDNEY DISEASE, UNSPECIFIED (3) Atrial fibrillation Code(s): I48.91 - UNSPECIFIED ATRIAL FIBRILLATION Qualifiers: Atrial fibrillation type: persistent Qualified Code(s): I48.1 - Persistent atrial fibrillation (4) Anemia due to blood loss, acute Code(s): D62 - ACUTE POSTHEMORRHAGIC ANEMIA (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) (6) Status cardiac pacemaker Code(s): Z95.0 - PRESENCE OF CARDIAC PACEMAKER (7) Aortic stenosis Code(s): I35.0 - NONRHEUMATIC AORTIC (VALVE) STENOSIS Qualifiers: Cardiac valve disease etiology: etiology unspecified Qualified Code(s): I35.0 - Nonrheumatic aortic (valve) stenosis (8) 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 Code(s): K31.9 - DISEASE OF STOMACH AND DUODENUM, UNSPECIFIED; R10.13 - EPIGASTRIC PAIN (9) Gallstone Code(s): K80.20 - CALCULUS OF GALLBLADDER W/O CHOLECYSTITIS W/O OBSTRUCTION Qualifiers: Cholecystitis presence: without cholecystitis Biliary obstruction: without biliary obstruction Qualified Code(s): K80.20 - Calculus of gallbladder without cholecystitis without obstruction (10) History of skin cancer in adulthood Code(s): Z85.828 - PERSONAL HISTORY OF OTHER MALIGNANT NEOPLASM OF SKIN (11) History of malignant neoplasm of kidney Code(s): Z85.528 - PERSONAL HISTORY OF OTHER MALIGNANT NEOPLASM OF KIDNEY (12) Glaucoma Code(s): H40.9 - UNSPECIFIED GLAUCOMA Qualifiers: Glaucoma type: unspecified Laterality: bilateral Qualified Code(s): H40.9 - Unspecified glaucoma (13) 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
[2018-08-05] MEDS: amLODIPine BESYLATE 2.5 MG TABLET (FP) PO SCH (13:02)
[2018-08-05] MEDS: TRAVATAN Z EYE OU SCH (21:02)
[2018-08-06 07:55] LABS: HEMATOCRIT 29.5 % (35.4-49); HEMOGLOBIN 9.8 GM/dL (11.7-16.9); MCH 32.7 pg (25.7-33.7); MCHC 33.2 g/dl (32.0-35.9); MEAN CELL VOLUME 98.6 fl (80-96); MEAN PLT VOLUME 10.3 fl (7.5-11.1); PLATELET COUNT 182 K/MM3 (134-434); RDW 14.3 % (11.9-15.9); WHITE BLOOD COUNT 6.7 K/mm3 (4.0-10.0)
[2018-08-06 08:08] LABS: INR 1.31 (0.83-1.09); PROTHROMBIN TIME (PATIENT) 15.5 SEC (9.7-13.0)
[2018-08-06 08:24] LABS: ANION GAP 7 MMOL/L (8-16); BLOOD UREA NITROGEN 19 mg/dL (7-18); CALCIUM 8.6 mg/dL (8.5-10.1); CHLORIDE 111 mmol/L (98-107); CO2 25 mmol/L (21-32); CREATININE 1.4 mg/dL (0.55-1.3); GLUCOSE,RANDOM 85 mg/dL (74-106); POTASSIUM 4.1 mmol/L (3.5-5.1); SODIUM 142 mmol/L (136-145)
--- NOTE | 2018-08-06 09:45 | PN ---
Progress Note, Physician Chief Complaint: + urinary retention, + 500cc bladder volume taking to OR today - Current Medication List Current Medications: Active Medications Alprazolam (Xanax -) 0.25 mg PO DAILY PRN PRN Reason: PRN Last Admin: 08/05/18 09:52 Dose: 0.25 mg Amlodipine Besylate (Norvasc -) 2.5 mg PO DAILY [facility] Last Admin: 08/05/18 13:02 Dose: 2.5 mg Brimonidine Tartrate (Alphagan 0.15% -) 1 drop OU BID [facility] Last Admin: 08/05/18 21:02 Dose: 1 drop Docusate Sodium (Colace -) 100 mg PO BID PRN PRN Reason: CONSTIPATION Dorzolamide HCl (Trusopt 2%) 1 drop OU BID [facility] Last Admin: 08/05/18 21:02 Dose: 1 drop Levofloxacin (Levaquin 500 Mg Premixed Ivpb -) 500 mg in 100 mls @ 100 mls/hr IVPB ONCE ONE; Protocol Stop: 08/06/18 10:42 Metoprolol Succinate (Toprol Xl -) 25 mg PO DAILY [facility] Last Admin: 08/05/18 09:35 Dose: 25 mg Morphine Sulfate (Morphine Sulfate) 2 mg IVPUSH Q6H PRN PRN Reason: PAIN LEVEL 6-10 Last Admin: 08/06/18 06:58 Dose: 2 mg Travatan Z Eye Drops (Non-Formulary Med) 1 each OU HS [facility] Last Admin: 08/05/18 21:02 Dose: 1 each Polyethylene Glycol (Miralax (For Bowel Prep) -) 17 gm PO DAILY [facility] Last Admin: 08/05/18 09:33 Dose: 17 gm - Objective Vital Signs: Vital Signs Temperature 98.0 F 08/06/18 05:00 Pulse Rate 60 08/06/18 05:00 Respiratory Rate 20 08/06/18 05:00 Blood Pressure 147/67 08/06/18 05:00 O2 Sat by Pulse Oximetry (%) 98 08/05/18 21:00 Constitutional: Yes: No Distress Cardiovascular: Yes: Regular Rate and Rhythm Respiratory: Yes: CTA Bilaterally Gastrointestinal: Yes: Soft Edema: No Neurological: Yes: Alert, Oriented Labs: CBC, BMP 08/06/18 07:00 08/06/18 07:00 INR, PTT INR 1.31 (0.83-1.09) H 08/06/18 07:00 Assessment/Plan IMP: Gross hematuria secondary to prostatic inflammation due to chronic BPH, possible UTI, Inability to void: Coumadin held (INR 1.3), day #5 off Plavix. Severe s/p TAVR several months ago PAF, on warfarin High grade AV block s/p PPM REC: No absolute cardiac contraindications to surgery/TUVP/TURP/cysto Levaquin 500mg IVPB x1 recreational therapist to OR (likely infected prostate, recent TAVR for IE prophylaxis). To resume Warfarin post op when feasible from standpoint.
[2018-08-06] MEDS: metoPROLOL SUCCINATE 25 MG TAB.SR.24H (FP) PO SCH (09:52)
[2018-08-06] MEDS: amLODIPine BESYLATE 2.5 MG TABLET (FP) PO SCH (09:52)
[2018-08-06] MEDS: DORZOLAMIDE 2% HCL OPHTHALMIC SOLUTION 10 ML BOTTLE OU SCH ×2 (09:52→21:37)
[2018-08-06] MEDS: BRIMONIDINE TARTRATE 0.15% OPHTHALMIC 5 ML BOTTLE OU SCH ×2 (09:54→21:37)
[2018-08-06] MEDS: POLYETHYLENE GLYCOL 3350 255 GM BTL PO SCH (09:55)
--- NOTE | 2018-08-06 15:16 | PN ---
Progress Note (short form) - Note Progress Note: Current Medications Alprazolam (Xanax -) 0.25 mg PO DAILY PRN PRN Reason: PRN Last Admin: 08/05/18 09:52 Dose: 0.25 mg Amlodipine Besylate (Norvasc -) 2.5 mg PO DAILY [facility] Last Admin: 08/06/18 09:52 Dose: 2.5 mg Brimonidine Tartrate (Alphagan 0.15% -) 1 drop OU BID [facility] Last Admin: 08/06/18 09:54 Dose: 1 drop Docusate Sodium (Colace -) 100 mg PO BID PRN PRN Reason: CONSTIPATION Dorzolamide HCl (Trusopt 2%) 1 drop OU BID [facility] Last Admin: 08/06/18 09:52 Dose: 1 drop Metoprolol Succinate (Toprol Xl -) 25 mg PO DAILY [facility] Last Admin: 08/06/18 09:52 Dose: 25 mg Morphine Sulfate (Morphine Sulfate) 2 mg IVPUSH Q6H PRN PRN Reason: PAIN LEVEL 6-10 Last Admin: 08/06/18 06:58 Dose: 2 mg Travatan Z Eye Drops (Non-Formulary Med) 1 each OU HS [facility] Last Admin: 08/05/18 21:02 Dose: 1 each Polyethylene Glycol (Miralax (For Bowel Prep) -) 17 gm PO DAILY [facility] Last Admin: 08/06/18 09:55 Dose: Not Given Laboratory Results - last 24 hr 08/06/18 08/06/18 08/06/18 07:00 07:00 07:00 WBC 6.7 RBC 3.00 L Hgb 9.8 L Hct 29.5 L MCV 98.6 H MCH 32.7 MCHC 33.2 RDW 14.3 Plt Count 182 MPV 10.3 PT with INR 15.50 H INR 1.31 H Sodium 142 Potassium 4.1 Chloride 111 H Carbon Dioxide 25 Anion Gap 7 L BUN 19 H Creatinine 1.4 H Creat Clearance w eGFR 47.94 Random Glucose 85 Calcium 8.6 Vital Signs Period Temp Pulse Resp BP Sys/Juárez Pulse Ox Last 24 Hr 97.6 F-98.5 F 60-72 20-20 126-147/54-67 98 CC: suprapubic pain overnight; unable to void ~~~~~~~~~~~~~~~~~ skin--NL color heart--Irreg abd--soft lungs--grossly clear neuro--alert; coherent in NAD ``````````````````````````````` CXR-PA&LAT; benign, no artifact or PNeumothroax ``````````````````````````````````````````````````````` Summ > Gross hematuria--2nd prostatic dz; will need surg intervention. He seems to be sufficiently stable for the up coming procedure > ATF--rate controlled; a/c on hold for now; INR down to 1.3; should be low enough to perform surg procedure without undue bleeding > Htn--improved w/ CCB > Prostatism--w/ bladder outlet impingement; was unable to void and Humphreys had to be re-inserted: PLAN: surg intervention as per Urology > Glaucoma--resume usual eye Gtts > anemia--not requiring transfusion; will check daily. 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 Code(s): E10.22 - TYPE 1 DIABETES MELLITUS W DIABETIC CHRONIC KIDNEY DISEASE; I12.9 - HYPERTENSIVE CHRONIC KIDNEY DISEASE W STG 1-4/UNSP CHR KDNY; N18.9 - CHRONIC KIDNEY DISEASE, UNSPECIFIED (3) Atrial fibrillation Code(s): I48.91 - UNSPECIFIED ATRIAL FIBRILLATION Qualifiers: Atrial fibrillation type: persistent Qualified Code(s): I48.1 - Persistent atrial fibrillation (4) Anemia due to blood loss, acute Code(s): D62 - ACUTE POSTHEMORRHAGIC ANEMIA (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) (6) Status cardiac pacemaker Code(s): Z95.0 - PRESENCE OF CARDIAC PACEMAKER (7) Aortic stenosis Code(s): I35.0 - NONRHEUMATIC AORTIC (VALVE) STENOSIS Qualifiers: Cardiac valve disease etiology: etiology unspecified Qualified Code(s): I35.0 - Nonrheumatic aortic (valve) stenosis (8) 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 Code(s): K31.9 - DISEASE OF STOMACH AND DUODENUM, UNSPECIFIED; R10.13 - EPIGASTRIC PAIN (9) Gallstone Code(s): K80.20 - CALCULUS OF GALLBLADDER W/O CHOLECYSTITIS W/O OBSTRUCTION Qualifiers: Cholecystitis presence: without cholecystitis Biliary obstruction: without biliary obstruction Qualified Code(s): K80.20 - Calculus of gallbladder without cholecystitis without obstruction (10) History of skin cancer in adulthood Code(s): Z85.828 - PERSONAL HISTORY OF OTHER MALIGNANT NEOPLASM OF SKIN (11) History of malignant neoplasm of kidney Code(s): Z85.528 - PERSONAL HISTORY OF OTHER MALIGNANT NEOPLASM OF KIDNEY (12) Glaucoma Code(s): H40.9 - UNSPECIFIED GLAUCOMA Qualifiers: Glaucoma type: unspecified Laterality: bilateral Qualified Code(s): H40.9 - Unspecified glaucoma (13) 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
[2018-08-06] MEDS ORDERED: PROPOFOL 20 ML ONE (17:51)
[2018-08-06] MEDS ORDERED: GENTAMICIN SO4 80 MG/2 ML VIAL ONE (17:59)
[2018-08-06] MEDS ORDERED: GENTAMICIN SO4 80 MG/2 ML VIAL IVPB ONE (18:01)
--- NOTE | 2018-08-06 19:22 | OP ---
Operative Note - Note: Operative Date: 08/06/18 Pre-Operative Diagnosis: urinary retention/clot retention/bph Operation: transurethral resection and vaporization of the prostate Post-Operative Diagnosis: Same as Pre-op Surgeon: Dwayne Samuel Anesthesia: General Operative Report Dictated: Yes
[2018-08-06] MEDS ORDERED: ALPRAZolam 0.25 MG TABLET PO PRN (19:48)
[2018-08-06] MEDS ORDERED: DOCUSATE SODIUM 100 MG CAPSULE (FP) PO PRN (19:48)
[2018-08-06] MEDS ORDERED: MORPHINE SULFATE 2 MG/ML VIAL IVPUSH PRN (19:48)
[2018-08-06] MEDS ORDERED: ONDANSETRON 4 MG/2 ML VIAL ONE (20:42)
[2018-08-06] MEDS ORDERED: PT OWN MED DRAWER 7, Y5N ONE (21:08)
[2018-08-06] MEDS ORDERED: ONDANSETRON 4 MG/2 ML VIAL IVPUSH PRN (21:35)
[2018-08-06] MEDS: NON-FORMULARY MED OU SCH (21:38)
--- NOTE | 2018-08-06 23:51 | OP ---
DATE OF OPERATION: 08/06/2018 PREOPERATIVE DIAGNOSIS: Clot retention, benign prostatic hypertrophy, hemorrhagic prostate, and urinary retention. ATTENDING PHYSICIAN: Karis Vasquez MD ANESTHESIA: General. PROCEDURE: Transurethral resection and transurethral vaporization of prostate utilizing plasma kinetic system. DESCRIPTION OF PROCEDURE: Patient has a history of recurrent gross hematuria who is status post an episode of severe clot retention. The patient was discontinued off of his Coumadin and Plavix. The hematuria resolved. However, then the patient subsequently failed a trial of voiding. Patient was taken to the operating room for resection and vaporization of the prostate to remedy the hemorrhagic prostate as well as to correct the urinary retention. Patient understands the risks and benefits of the procedure, given the fact that he must start Coumadin within a week. The patient also understands that the risk of urinary incontinence is increased on a second resection of the prostate. The patient undertakes this operation with those considerations in mind. The patient was brought to the operating room and placed in the supine position on the operating room table. Anesthesia was administered. The patient was then placed in the dorsal lithotomy position, prepped and draped in the usual sterile manner. A loop element for the plasma kinetic system was utilized in the resectoscope initially. Resection of the inflammatory tissue was resected in order to come down to healthier tissue. This tissue was evacuated from the bladder utilizing an evacuator and sent to Pathology. The resection centered primarily at the level of the bladder neck. At this point, vaporization of the prostate was performed from the bladder neck to the verumontanum in a 360-degree fashion. It was not taken to the level of the pseudocapsule of the prostate as hemostasis was necessary, given the fact that he will start anticoagulation soon. The margins of the vaporization were the verumontanum distally and the bladder neck proximally. The vaporization was done multiple times in a 360-degree fashion in order to ensure adequate hemostasis. No complications were noted. The bladder was noted to have 3+ bladder trabeculation with diverticula. The patient will have a 3-way catheter placed to light traction with continuous bladder irrigation started. Patient will be followed in the postanesthesia care unit and taken to the floor for further evaluation. KARIS VASQUEZ M.D. /[id number]
[2018-08-07 07:24] LABS: HEMATOCRIT 27.9 % (35.4-49); HEMOGLOBIN 9.1 GM/dL (11.7-16.9); MCH 32.5 pg (25.7-33.7); MCHC 32.8 g/dl (32.0-35.9); MEAN CELL VOLUME 99.2 fl (80-96); MEAN PLT VOLUME 9.9 fl (7.5-11.1); PLATELET COUNT 186 K/MM3 (134-434); RBC 2.81 M/mm3 (4.00-5.60); RDW 14.4 % (11.9-15.9); WHITE BLOOD COUNT 7.3 K/mm3 (4.0-10.0)
[2018-08-07 07:42] LABS: INR 1.2 (0.83-1.09); PROTHROMBIN TIME (PATIENT) 14.2 SEC (9.7-13.0)
[2018-08-07 08:05] LABS: ANION GAP 8 MMOL/L (8-16); BLOOD UREA NITROGEN 21 mg/dL (7-18); CALCIUM 8.4 mg/dL (8.5-10.1); CHLORIDE 108 mmol/L (98-107); CO2 25 mmol/L (21-32); CREATININE 1.3 mg/dL (0.55-1.3); GLUCOSE,RANDOM 94 mg/dL (74-106); POTASSIUM 4.1 mmol/L (3.5-5.1); SODIUM 142 mmol/L (136-145)
--- NOTE | 2018-08-07 08:15 | CONSULT ---
Consult - text type - Consultation Consultation Note: cc: s/p turp/tuvp hpi: patient is comfortable without significant complaints PE afeb: vss abd-soft/non-tender genitalia-nl phallus with lightly blood tinged urine imp s/p turp/tuvp doing well plan continue cbi
--- NOTE | 2018-08-07 09:22 | PN ---
Progress Note, Physician Chief Complaint: s/p TUVP [place] draining, + [place] to red - Current Medication List Current Medications: Active Medications Alprazolam (Xanax -) 0.25 mg PO DAILY PRN PRN Reason: ANXIETY Amlodipine Besylate (Norvasc -) 2.5 mg PO DAILY [facility] Brimonidine Tartrate (Alphagan 0.15% -) 1 drop OU BID [facility] Last Admin: 08/06/18 21:37 Dose: 1 drop Docusate Sodium (Colace -) 100 mg PO BID PRN PRN Reason: CONSTIPATION Dorzolamide HCl (Trusopt 2%) 1 drop OU BID [facility] Last Admin: 08/06/18 21:37 Dose: 1 drop Levofloxacin (Levaquin -) 500 mg PO DAILY [facility] Stop: 08/08/18 09:59 Metoprolol Succinate (Toprol Xl -) 25 mg PO DAILY [facility] Morphine Sulfate (Morphine Sulfate) 2 mg IVPUSH Q6H PRN PRN Reason: PAIN LEVEL 6-10 Non-Formulary Medication (Non-Formulary Med) 1 each OU HS [facility] Last Admin: 08/06/18 21:38 Dose: 1 each Ondansetron HCl (Zofran Injection) 4 mg IVPUSH Q6H PRN PRN Reason: NAUSEA AND/OR VOMITING Last Admin: 08/06/18 20:45 Dose: 4 mg Polyethylene Glycol (Miralax (For Bowel Prep) -) 17 gm PO DAILY [facility] - Objective Vital Signs: Vital Signs Temperature 97.5 F L 08/07/18 06:00 Pulse Rate 64 08/07/18 06:00 Respiratory Rate 18 08/07/18 06:00 Blood Pressure 117/58 L 08/07/18 06:00 O2 Sat by Pulse Oximetry (%) 100 08/06/18 21:00 Constitutional: Yes: No Distress, Calm Cardiovascular: Yes: Regular Rate and Rhythm Respiratory: Yes: CTA Bilaterally Gastrointestinal: Yes: Soft Edema: No Neurological: Yes: Alert, Oriented ...Motor Strength: WNL Labs: CBC, BMP 08/07/18 06:25 08/07/18 06:25 INR, PTT INR 1.20 (0.83-1.09) H 08/07/18 06:25 - ....Imaging EKG: Image Reviewed Assessment/Plan IMP: Gross hematuria secondary to prostatic inflammation due to chronic BPH, possible UTI s/p TUVP Severe s/p TAVR several months ago PAF, on warfarin High grade AV block s/p PPM REC: Tolerated procedure well. Will discuss with timing of resumption of Coumadin- catalan still draining bloody urine, although less than 48 hours ago. Will follow.
[2018-08-07] MEDS ORDERED: POLYETHYLENE GLYCOL 3350 255 GM BTL PO SCH (10:00)
[2018-08-07] MEDS: metoPROLOL SUCCINATE 25 MG TAB.SR.24H (FP) PO SCH (10:13)
[2018-08-07] MEDS: amLODIPine BESYLATE 2.5 MG TABLET (FP) PO SCH (10:13)
[2018-08-07] MEDS: DORZOLAMIDE 2% HCL OPHTHALMIC SOLUTION 10 ML BOTTLE OU SCH ×2 (10:14→22:40)
[2018-08-07] MEDS: BRIMONIDINE TARTRATE 0.15% OPHTHALMIC 5 ML BOTTLE OU SCH ×2 (10:14→22:39)
[2018-08-07] MEDS: POLYETHYLENE GLYCOL 3350 119 GM BTL PO SCH (10:24)
--- NOTE | 2018-08-07 14:50 | PN ---
Progress Note (short form) - Note Progress Note: Anesthesia postop note 88 y/o M s/p GA for cystoscopy POD#1 vss, aaox3, no complaints. No anesthesia complications.
--- NOTE | 2018-08-07 16:42 | PN ---
Progress Note (short form) - Note Progress Note: Current Medications Alprazolam (Xanax -) 0.25 mg PO DAILY PRN PRN Reason: ANXIETY Amlodipine Besylate (Norvasc -) 2.5 mg PO DAILY [facility] Last Admin: 08/07/18 10:13 Dose: 2.5 mg Brimonidine Tartrate (Alphagan 0.15% -) 1 drop OU BID [facility] Last Admin: 08/07/18 10:14 Dose: 1 drop Docusate Sodium (Colace -) 100 mg PO BID PRN PRN Reason: CONSTIPATION Dorzolamide HCl (Trusopt 2%) 1 drop OU BID [facility] Last Admin: 08/07/18 10:14 Dose: 1 drop Levofloxacin (Levaquin -) 500 mg PO DAILY [facility] Stop: 08/08/18 09:59 Last Admin: 08/07/18 10:22 Dose: 500 mg Metoprolol Succinate (Toprol Xl -) 25 mg PO DAILY [facility] Last Admin: 08/07/18 10:13 Dose: 25 mg Morphine Sulfate (Morphine Sulfate) 2 mg IVPUSH Q6H PRN PRN Reason: PAIN LEVEL 6-10 Non-Formulary Medication (Non-Formulary Med) 1 each OU HS [facility] Last Admin: 08/06/18 21:38 Dose: 1 each Ondansetron HCl (Zofran Injection) 4 mg IVPUSH Q6H PRN PRN Reason: NAUSEA AND/OR VOMITING Last Admin: 08/06/18 20:45 Dose: 4 mg Polyethylene Glycol (Miralax (For Daily Use) -) 17 gm PO DAILY [facility] Last Admin: 08/07/18 10:24 Dose: 17 gm Abnormal Lab Results 08/07/18 08/07/18 08/07/18 06:25 06:25 06:25 RBC 2.81 L Hgb 9.1 L Hct 27.9 L MCV 99.2 H PT with INR 14.20 H INR 1.20 H Chloride 108 H BUN 21 H Calcium 8.4 L Vital Signs Temperature 98.2 F 08/07/18 14:01 Pulse Rate 63 08/07/18 14:01 Respiratory Rate 18 08/07/18 14:01 Blood Pressure 141/60 08/07/18 14:01 O2 Sat by Pulse Oximetry (%) 100 08/07/18 09:00 CC: anxious ~~~~~~~~~~~~~~~~~ skin--NL color heart--Irreg abd--soft lungs--grossly clear --with 3 way irrig cath; draining light pink urine neuro--alert; coherent in NAD ``````````````````````````````````````````````````````` Summ > Gross hematuria--2nd prostatic dz; now s/p TUVP > ATF--rate controlled; a/c on hold for now; INR down to 1.2; warfarin still on hold given ongoing bleeding post Op > Htn--improved w/ CCB > Glaucoma--resume usual eye Gtts > anemia--not requiring transfusion; will check daily. 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 Code(s): E10.22 - TYPE 1 DIABETES MELLITUS W DIABETIC CHRONIC KIDNEY DISEASE; I12.9 - HYPERTENSIVE CHRONIC KIDNEY DISEASE W STG 1-4/UNSP CHR KDNY; N18.9 - CHRONIC KIDNEY DISEASE, UNSPECIFIED (3) Atrial fibrillation Code(s): I48.91 - UNSPECIFIED ATRIAL FIBRILLATION Qualifiers: Atrial fibrillation type: persistent Qualified Code(s): I48.1 - Persistent atrial fibrillation (4) Anemia due to blood loss, acute Code(s): D62 - ACUTE POSTHEMORRHAGIC ANEMIA (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) (6) Status cardiac pacemaker Code(s): Z95.0 - PRESENCE OF CARDIAC PACEMAKER (7) Aortic stenosis Code(s): I35.0 - NONRHEUMATIC AORTIC (VALVE) STENOSIS Qualifiers: Cardiac valve disease etiology: etiology unspecified Qualified Code(s): I35.0 - Nonrheumatic aortic (valve) stenosis (8) 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 Code(s): K31.9 - DISEASE OF STOMACH AND DUODENUM, UNSPECIFIED; R10.13 - EPIGASTRIC PAIN (9) Gallstone Code(s): K80.20 - CALCULUS OF GALLBLADDER W/O CHOLECYSTITIS W/O OBSTRUCTION Qualifiers: Cholecystitis presence: without cholecystitis Biliary obstruction: without biliary obstruction Qualified Code(s): K80.20 - Calculus of gallbladder without cholecystitis without obstruction (10) History of skin cancer in adulthood Code(s): Z85.828 - PERSONAL HISTORY OF OTHER MALIGNANT NEOPLASM OF SKIN (11) History of malignant neoplasm of kidney Code(s): Z85.528 - PERSONAL HISTORY OF OTHER MALIGNANT NEOPLASM OF KIDNEY (12) Glaucoma Code(s): H40.9 - UNSPECIFIED GLAUCOMA Qualifiers: Glaucoma type: unspecified Laterality: bilateral Qualified Code(s): H40.9 - Unspecified glaucoma (13) 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
[2018-08-07] MEDS: NON-FORMULARY MED OU SCH (22:40)
[2018-08-08 07:23] LABS: HEMATOCRIT 26.8 % (35.4-49); MCHC 33.4 g/dl (32.0-35.9); MEAN CELL VOLUME 98.9 fl (80-96); MEAN PLT VOLUME 9.5 fl (7.5-11.1); PLATELET COUNT 175 K/MM3 (134-434); RBC 2.71 M/mm3 (4.00-5.60); RDW 14.4 % (11.9-15.9); WHITE BLOOD COUNT 6.9 K/mm3 (4.0-10.0)
[2018-08-08 07:45] LABS: ANION GAP 8 MMOL/L (8-16); BLOOD UREA NITROGEN 26 mg/dL (7-18); CALCIUM 8.1 mg/dL (8.5-10.1); CHLORIDE 109 mmol/L (98-107); CO2 25 mmol/L (21-32); CREATININE 1.5 mg/dL (0.55-1.3); GLUCOSE,RANDOM 87 mg/dL (74-106); POTASSIUM 3.8 mmol/L (3.5-5.1); SODIUM 142 mmol/L (136-145)
[2018-08-08 08:51] LABS: INR 1.17 (0.83-1.09); PROTHROMBIN TIME (PATIENT) 13.8 SEC (9.7-13.0)
--- NOTE | 2018-08-08 09:03 | PN ---
Progress Note, Physician Chief Complaint: Ambulating, feels well Urine is clear today. History of Present Illness: He has no chest pain, SOB or palpitations with exertion. - Current Medication List Current Medications: Active Medications Alprazolam (Xanax -) 0.25 mg PO DAILY PRN PRN Reason: ANXIETY Amlodipine Besylate (Norvasc -) 2.5 mg PO DAILY [facility] Last Admin: 08/07/18 10:13 Dose: 2.5 mg Brimonidine Tartrate (Alphagan 0.15% -) 1 drop OU BID [facility] Last Admin: 08/07/18 22:39 Dose: 1 drop Docusate Sodium (Colace -) 100 mg PO BID PRN PRN Reason: CONSTIPATION Dorzolamide HCl (Trusopt 2%) 1 drop OU BID [facility] Last Admin: 08/07/18 22:40 Dose: 1 drop Levofloxacin (Levaquin -) 500 mg PO DAILY [facility] Stop: 08/08/18 09:59 Last Admin: 08/07/18 10:22 Dose: 500 mg Metoprolol Succinate (Toprol Xl -) 25 mg PO DAILY [facility] Last Admin: 08/07/18 10:13 Dose: 25 mg Morphine Sulfate (Morphine Sulfate) 2 mg IVPUSH Q6H PRN PRN Reason: PAIN LEVEL 6-10 Non-Formulary Medication (Non-Formulary Med) 1 each OU HS [facility] Last Admin: 08/07/18 22:40 Dose: 1 each Ondansetron HCl (Zofran Injection) 4 mg IVPUSH Q6H PRN PRN Reason: NAUSEA AND/OR VOMITING Last Admin: 08/06/18 20:45 Dose: 4 mg Polyethylene Glycol (Miralax (For Daily Use) -) 17 gm PO DAILY [facility] Last Admin: 08/07/18 10:24 Dose: 17 gm - Objective Vital Signs: Vital Signs Temperature 98.0 F 08/08/18 06:00 Pulse Rate 61 08/08/18 06:00 Respiratory Rate 20 08/08/18 06:00 Blood Pressure 131/61 08/08/18 06:00 O2 Sat by Pulse Oximetry (%) 100 08/07/18 21:00 Constitutional: Yes: No Distress, Calm Cardiovascular: Yes: Regular Rate and Rhythm Respiratory: Yes: CTA Bilaterally Gastrointestinal: Yes: Soft Edema: No Neurological: Yes: Alert, Oriented ...Motor Strength: WNL Labs: CBC, BMP 08/08/18 06:25 08/08/18 06:25 INR, PTT INR 1.17 (0.83-1.09) H 08/08/18 08:00 Laboratory Tests 08/07/18 08/07/18 08/07/18 06:25 06:25 06:25 WBC 7.3 Hgb 9.1 L Plt Count 186 INR 1.20 H Sodium 142 Potassium 4.1 BUN Creatinine 1.3 08/08/18 08/08/18 08/08/18 06:25 06:25 08:00 WBC 6.9 Hgb 9.0 L Plt Count 175 INR 1.17 H Sodium 142 Potassium 3.8 BUN 26 H Creatinine 1.5 H Assessment/Plan IMP: Gross hematuria secondary to prostatic inflammation due to chronic BPH, possible UTI s/p TUVP Severe s/p TAVR several months ago PAF, on warfarin chronically: 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 D/W yesterday: Plan to resume AC with Warfarin Sunday. Plavix can be discontinued.
[2018-08-08] MEDS ORDERED: PT OWN MED DRAWER 7, Y5N ONE ×3 (09:26→20:27)
[2018-08-08] MEDS: amLODIPine BESYLATE 2.5 MG TABLET (FP) PO SCH (09:33)
[2018-08-08] MEDS: metoPROLOL SUCCINATE 25 MG TAB.SR.24H (FP) PO SCH (09:33)
[2018-08-08] MEDS: DORZOLAMIDE 2% HCL OPHTHALMIC SOLUTION 10 ML BOTTLE OU SCH ×2 (09:34→21:09)
[2018-08-08] MEDS: BRIMONIDINE TARTRATE 0.15% OPHTHALMIC 5 ML BOTTLE OU SCH ×2 (09:34→21:08)
[2018-08-08] MEDS: POLYETHYLENE GLYCOL 3350 119 GM BTL PO SCH (10:51)
--- NOTE | 2018-08-08 13:13 | PN ---
Progress Note (short form) - Note Progress Note: Current Medications Alprazolam (Xanax -) 0.25 mg PO DAILY PRN PRN Reason: ANXIETY Amlodipine Besylate (Norvasc -) 2.5 mg PO DAILY [facility] Last Admin: 08/08/18 09:33 Dose: 2.5 mg Brimonidine Tartrate (Alphagan 0.15% -) 1 drop OU BID [facility] Last Admin: 08/08/18 09:34 Dose: 1 drop Docusate Sodium (Colace -) 100 mg PO BID PRN PRN Reason: CONSTIPATION Dorzolamide HCl (Trusopt 2%) 1 drop OU BID [facility] Last Admin: 08/08/18 09:34 Dose: 1 drop Metoprolol Succinate (Toprol Xl -) 25 mg PO DAILY [facility] Last Admin: 08/08/18 09:33 Dose: 25 mg Morphine Sulfate (Morphine Sulfate) 2 mg IVPUSH Q6H PRN PRN Reason: PAIN LEVEL 6-10 Non-Formulary Medication (Non-Formulary Med) 1 each OU HS [facility] Last Admin: 08/07/18 22:40 Dose: 1 each Ondansetron HCl (Zofran Injection) 4 mg IVPUSH Q6H PRN PRN Reason: NAUSEA AND/OR VOMITING Last Admin: 08/06/18 20:45 Dose: 4 mg Polyethylene Glycol (Miralax (For Daily Use) -) 17 gm PO DAILY [facility] Last Admin: 08/08/18 10:51 Dose: 17 gm Laboratory Results - last 24 hr 08/08/18 08/08/18 08/08/18 06:25 06:25 08:00 WBC 6.9 RBC 2.71 L Hgb 9.0 L Hct 26.8 L MCV 98.9 H MCH 33.0 MCHC 33.4 RDW 14.4 Plt Count 175 MPV 9.5 PT with INR 13.80 H INR 1.17 H Sodium 142 Potassium 3.8 Chloride 109 H Carbon Dioxide 25 Anion Gap 8 BUN 26 H Creatinine 1.5 H Creat Clearance w eGFR 44.27 Random Glucose 87 Calcium 8.1 L Vital Signs Temperature 97.5 F L 08/08/18 10:00 Pulse Rate 61 08/08/18 10:00 Respiratory Rate 18 08/08/18 10:00 Blood Pressure 142/66 08/08/18 10:00 O2 Sat by Pulse Oximetry (%) 100 08/07/18 21:00 CC: anxious, no new complaints ~~~~~~~~~~~~~~~~~ skin--NL color heart--Irreg abd--soft lungs--grossly clear --with 3 way irrig cath; draining clear urine neuro--alert; coherent in NAD ``````````````````````````````````````````````````````` Summ > Gross hematuria--2nd prostatic dz; now s/p TUVP; await Urology orders > ATF--rate controlled; a/c on hold for now; INR down below 1.2; warfarin to be restarted in AM > Htn--improved w/ CCB > Glaucoma--on usual eye Gtts > anemia--not requiring transfusion; will check daily. 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 Code(s): E10.22 - TYPE 1 DIABETES MELLITUS W DIABETIC CHRONIC KIDNEY DISEASE; I12.9 - HYPERTENSIVE CHRONIC KIDNEY DISEASE W STG 1-4/UNSP CHR KDNY; N18.9 - CHRONIC KIDNEY DISEASE, UNSPECIFIED (3) Atrial fibrillation Code(s): I48.91 - UNSPECIFIED ATRIAL FIBRILLATION Qualifiers: Atrial fibrillation type: persistent Qualified Code(s): I48.1 - Persistent atrial fibrillation (4) Anemia due to blood loss, acute Code(s): D62 - ACUTE POSTHEMORRHAGIC ANEMIA (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) (6) Status cardiac pacemaker Code(s): Z95.0 - PRESENCE OF CARDIAC PACEMAKER (7) Aortic stenosis Code(s): I35.0 - NONRHEUMATIC AORTIC (VALVE) STENOSIS Qualifiers: Cardiac valve disease etiology: etiology unspecified Qualified Code(s): I35.0 - Nonrheumatic aortic (valve) stenosis (8) 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 Code(s): K31.9 - DISEASE OF STOMACH AND DUODENUM, UNSPECIFIED; R10.13 - EPIGASTRIC PAIN (9) Gallstone Code(s): K80.20 - CALCULUS OF GALLBLADDER W/O CHOLECYSTITIS W/O OBSTRUCTION Qualifiers: Cholecystitis presence: without cholecystitis Biliary obstruction: without biliary obstruction Qualified Code(s): K80.20 - Calculus of gallbladder without cholecystitis without obstruction (10) History of skin cancer in adulthood Code(s): Z85.828 - PERSONAL HISTORY OF OTHER MALIGNANT NEOPLASM OF SKIN (11) History of malignant neoplasm of kidney Code(s): Z85.528 - PERSONAL HISTORY OF OTHER MALIGNANT NEOPLASM OF KIDNEY (12) Glaucoma Code(s): H40.9 - UNSPECIFIED GLAUCOMA Qualifiers: Glaucoma type: unspecified Laterality: bilateral Qualified Code(s): H40.9 - Unspecified glaucoma (13) 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
[2018-08-08] MEDS: NON-FORMULARY MED OU SCH (21:08)
[2018-08-09 07:16] LABS: HEMATOCRIT 28.5 % (35.4-49); HEMOGLOBIN 9.4 GM/dL (11.7-16.9); MCH 32.5 pg (25.7-33.7); MCHC 32.8 g/dl (32.0-35.9); MEAN CELL VOLUME 98.9 fl (80-96); MEAN PLT VOLUME 9.6 fl (7.5-11.1); PLATELET COUNT 179 K/MM3 (134-434); RBC 2.89 M/mm3 (4.00-5.60); RDW 13.9 % (11.9-15.9); WHITE BLOOD COUNT 6.2 K/mm3 (4.0-10.0)
[2018-08-09 08:02] LABS: ANION GAP 7 MMOL/L (8-16); BLOOD UREA NITROGEN 25 mg/dL (7-18); CALCIUM 8.5 mg/dL (8.5-10.1); CHLORIDE 109 mmol/L (98-107); CO2 25 mmol/L (21-32); CREATININE 1.3 mg/dL (0.55-1.3); GLUCOSE,RANDOM 84 mg/dL (74-106); POTASSIUM 3.8 mmol/L (3.5-5.1); SODIUM 142 mmol/L (136-145)
--- NOTE | 2018-08-09 08:11 | CONSULT ---
Consult - text type - Consultation Consultation Note: CC: s/p turp/tuvp hpi: Patient is doing well without significant complaints PE vss; afeb catalan draining clear urine imp s/p turp/tuvp s/p catalan catheter removal plan urologically cleared for d/c if patient voids anticoagulation as per cardiology
[2018-08-09 09:16] LABS: INR 1.13 (0.83-1.09); PROTHROMBIN TIME (PATIENT) 13.4 SEC (9.7-13.0)
--- NOTE | 2018-08-09 09:45 | PN ---
Progress Note, Physician Chief Complaint: catheter out - Current Medication List Current Medications: Active Medications Alprazolam (Xanax -) 0.25 mg PO DAILY PRN PRN Reason: ANXIETY Amlodipine Besylate (Norvasc -) 2.5 mg PO DAILY [facility] Last Admin: 08/08/18 09:33 Dose: 2.5 mg Brimonidine Tartrate (Alphagan 0.15% -) 1 drop OU BID [facility] Last Admin: 08/08/18 21:08 Dose: 1 drop Docusate Sodium (Colace -) 100 mg PO BID PRN PRN Reason: CONSTIPATION Dorzolamide HCl (Trusopt 2%) 1 drop OU BID [facility] Last Admin: 08/08/18 21:09 Dose: 1 drop Metoprolol Succinate (Toprol Xl -) 25 mg PO DAILY [facility] Last Admin: 08/08/18 09:33 Dose: 25 mg Morphine Sulfate (Morphine Sulfate) 2 mg IVPUSH Q6H PRN PRN Reason: PAIN LEVEL 6-10 Non-Formulary Medication (Non-Formulary Med) 1 each OU HS [facility] Last Admin: 08/08/18 21:08 Dose: 1 each Ondansetron HCl (Zofran Injection) 4 mg IVPUSH Q6H PRN PRN Reason: NAUSEA AND/OR VOMITING Last Admin: 08/06/18 20:45 Dose: 4 mg Polyethylene Glycol (Miralax (For Daily Use) -) 17 gm PO DAILY [facility] Last Admin: 08/08/18 10:51 Dose: 17 gm - Objective Vital Signs: Vital Signs Temperature 98.4 F 08/09/18 06:00 Pulse Rate 62 08/09/18 06:00 Respiratory Rate 18 08/09/18 06:00 Blood Pressure 148/62 08/09/18 06:00 O2 Sat by Pulse Oximetry (%) 100 08/07/18 21:00 Constitutional: Yes: No Distress, Calm Eyes: Yes: Conjunctiva Clear Cardiovascular: Yes: Regular Rate and Rhythm Respiratory: Yes: CTA Bilaterally Gastrointestinal: Yes: Soft Edema: No Neurological: Yes: Alert Labs: CBC, BMP 08/09/18 06:00 08/09/18 06:00 INR, PTT INR 1.13 (0.83-1.09) H 08/09/18 06:00 Assessment/Plan IMP: Hematuria secondary to BPH s/p TUVP REC: To resume Coumadin at 2.5mg tonight and then previous home schedule Follow clinically and INR closely D/W PMD and
[2018-08-09] MEDS ORDERED: PT OWN MED DRAWER 7, Y5N ONE (10:09)
[2018-08-09] MEDS: POLYETHYLENE GLYCOL 3350 119 GM BTL PO SCH (10:12)
[2018-08-09] MEDS: metoPROLOL SUCCINATE 25 MG TAB.SR.24H (FP) PO SCH (10:12)
[2018-08-09] MEDS: amLODIPine BESYLATE 2.5 MG TABLET (FP) PO SCH (10:12)
[2018-08-09] MEDS: DORZOLAMIDE 2% HCL OPHTHALMIC SOLUTION 10 ML BOTTLE OU SCH (10:13)
[2018-08-09] MEDS: BRIMONIDINE TARTRATE 0.15% OPHTHALMIC 5 ML BOTTLE OU SCH (10:13)
[2018-08-09 15:36] VITALS: BP 145/64; PULSE 60; TEMP 97.3
--- NOTE | 2018-08-09 16:46 | DS ---
Physical Examination Vital Signs: Vital Signs Temperature 97.3 F L 08/09/18 15:34 Pulse Rate 60 08/09/18 15:34 Respiratory Rate 18 08/09/18 15:34 Blood Pressure 145/64 08/09/18 15:34 O2 Sat by Pulse Oximetry (%) 100 08/07/18 21:00 Findings/Remarks: skin--no acute lesions lungs--clear heart--Irreg abd--soft, BS+ ext--no edema neuro--alert, coherent, no focal deficits Labs: CBC, BMP 08/09/18 06:00 08/09/18 06:00 Laboratory Results - last 24 hr 08/09/18 08/09/18 08/09/18 06:00 06:00 06:00 WBC 6.2 RBC 2.89 L Hgb 9.4 L Hct 28.5 L MCV 98.9 H MCH 32.5 MCHC 32.8 RDW 13.9 Plt Count 179 MPV 9.6 PT with INR 13.40 H INR 1.13 H Sodium 142 Potassium 3.8 Chloride 109 H Carbon Dioxide 25 Anion Gap 7 L BUN 25 H Creatinine 1.3 Creat Clearance w eGFR 52.22 Random Glucose 84 Calcium 8.5 Discharge Summary Reason For Visit: HEMATURIA ANEMIA Current Active Problems Anemia due to blood loss, acute (Acute) Atrial fibrillation (Acute) Hematuria (Acute) prostatism macular degeneration glaucoma hypertension artificial valve status pacemaker status fdc anticoagulation asplenia Procedures: Principal: TURP Hospital Course: admitted for gross hematuria while on warfarin (for ATF); placed on bladder irrigation and stopped the anticoagulant; once the INR normalized he underwent TUVP by his Urologist. Urine culture was negative; the Bladder was irrigated for another day, the bleeding resolved; the catheter was pulled out and he voided freely without blood. the warfain was resumed at low dose on the day of discharge; he was pain free, and his vitals remained stable. he is to f/u with Urologist & biometric fingerprinting technician Condition: Improved - Instructions Diet, Activity, Other Instructions: low salt diet as before Referrals: Venkatesh Sanches MD [Primary Care Provider] - Disposition: HOME - Home Medications Comprehensive Discharge Medication List: Ambulatory Orders Dorzolamide HCl/Timolol Maleat [Cosopt Eye Drops] 1 drop OU BID 07/21/15 Travoprost [Travatan Z] 1 drop OU HS 04/15/16 Brimonidine Tartrate [Alphagan 0.15% -] 1 drop OU BID drops 05/01/18 Amlodipine Besylate [Norvasc -] 10 mg PO DAILY 08/02/18 Losartan Potassium 50 mg PO HS 08/02/18 Metoprolol Succinate 25 mg PO DAILY 08/02/18 Tamsulosin HCl [Flomax -] 0.4 mg PO BID 08/02/18 Warfarin Sodium [Coumadin] 2.5 mg PO DAILY 08/02/18 Levaquin 500mg daily x 7 days
[2018-08-09] MEDS ORDERED: WARFARIN NA 2.5 MG TABLET (FP) PO SCH (18:00)
--- NOTE | 2018-08-15 10:35 | PATH ---
Surgical Pathology Report Patient Name: JACEY DOLAN Med. Rec. #: [id number] /Age/Gender: 1930 (Age: 88) / M Account: [id number] Location: [address] [place] [address]/[facility] [place] Taken: 08/06/2018 Received: 08/07/2018 Reported: 08/15/2018 Physicians: Dwayne Sanches M.D. Specimen(s) Received PROSTATE CHIPS Clinical History Hematuria, urinary retention Final Diagnosis PROSTATE CHIPS, TRANSURETHRAL RESECTION OF THE PROSTATE: BENIGN PROSTATE TISSUE SHOWING GLANDULAR AND STROMAL HYPERPLASIA, ACUTE PROSTATITIS, AND GRANULOMATOUS INFLAMMATION. ADJACENT UROTHELIAL MUCOSA SHOWING EXTENSIVE EPITHELIAL EROSION, ACUTE AND CHRONIC INFLAMMATION, AND NEPHROGENIC METAPLASIA (NEPHROGENIC ADENOMA). SEE COMMONT. COMMENT: Immunohistochemical stained slides demonstrate the glandular lesional cells to be positive for AE1/AE3, PAX8, CKHMW(cytokeratin high molecular weight), P504S, while negative for NKX3.1 and P63. 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 Immunohistochemistry stains P504S, NKX3.1, PAX8, and CKHMW performed at [place], [place] ([id number]) interpreted at [facility]. Immunohistochemistry stains AE1/AE3 and P63 performed and interpreted at [facility]. GMS stain for fungi and AFB stain are negative on selected slide. Positive and negative controls (internal if applicable) show appropriate results. Electronically Signed Barrett Bartholomew M.D. Gross Description Received in formalin labeled "prostate chips," is an 8 g, 7.0 x 6.5 x 0.5 cm aggregate of dover, firm to rubbery portions of tissue, consistent with prostate chips. The specimen is entirely submitted in 9 cassettes. DL/08/07/2018 saudi08/07/2018
== END 2018-08-09 17:26 | disposition home or self-care (01) | DRG 713 ==
LOC: JER 04:46 → JERBED 07:01 → J5S 14:46
PROVIDERS: ADMIT Internal Medicine; ATTEND Internal Medicine
PROC: 0T9B70Z Drainage of Bladder with Drainage Device, Via Natural or Artificial Opening (ICD-10-PCS; 2018-08-03)
PROC: 0TPB70Z Removal of Drainage Device from Bladder, Via Natural or Artificial Opening (ICD-10-PCS; 2018-08-03)
PROC: 0V508ZZ Destruction of Prostate, Via Natural or Artificial Opening Endoscopic (ICD-10-PCS; 2018-08-06)
PROC: 0VT08ZZ Resection of Prostate, Via Natural or Artificial Opening Endoscopic (ICD-10-PCS; principal; 2018-08-06 17:30)
DX: N40.1 Benign prostatic hyperplasia with lower urinary tract symptoms (principal); D62 Acute posthemorrhagic anemia; N39.0 Urinary tract infection, site not specified; I48.1 Persistent atrial fibrillation; N32.3 Diverticulum of bladder; N32.89 Other specified disorders of bladder; R31.0 Gross hematuria; R33.8 Other retention of urine; Z85.528 Personal history of other malignant neoplasm of kidney; Z90.81 Acquired absence of spleen; Z90.5 Acquired absence of kidney; Z95.0 Presence of cardiac pacemaker; D64.9 Anemia, unspecified; Z85.72 Personal history of non-Hodgkin lymphomas; I10 Essential (primary) hypertension; Z95.4 Presence of other heart-valve replacement; Z79.01 Long term (current) use of anticoagulants; E78.5 Hyperlipidemia, unspecified; I25.10 Atherosclerotic heart disease of native coronary artery without angina pectoris; M54.5 Low back pain; H40.9 Unspecified glaucoma
CPT/HCPCS: 36415; 71045-TC-FY; 71046-TC-FY; 76775-TC; 76856-TC; 80048; 80053; 81003; 81015; 85025; 85027; 85610; 85730; 86850; 86900; 86901; 87086; 88305-TC; 88341-TC; 93005; 93010; 94760; 99283-25

== ENCOUNTER 2018-09-02 09:50 | Inpatient (IN) | payer OTHER, MEDICARE ==
--- NOTE | 2018-09-02 10:35 | PDOC ---
History of Present Illness - General Chief Complaint: Hematuria Stated Complaint: REVISIT, BLOOD IN URINE Time Seen by Provider: 09/02/18 10:07 History Source: Patient, Spouse Exam Limitations: Clinical Condition - History of Present Illness Initial Comments: 88 yo M history glaucoma, HTN, HL, BPH, aortic stenosis presents with urinary retention. He has had bleeding with the warfarin in the past, stopped it for the past few days. C/o severe suprapubic pain, inability to urinate. No fever, chills, N/V/D. Past History - Past Medical History Allergies/Adverse Reactions: Allergies Allergy/AdvReac Type Severity Reaction Status Date / Time Penicillins Allergy Unknown Verified 09/02/18 10:00 codeine [Codeine] Allergy Verified 09/02/18 10:00 Home Medications: Ambulatory Orders Dorzolamide HCl/Timolol Maleat [Cosopt Eye Drops] 1 drop OU BID 07/21/15 Travoprost [Travatan Z] 1 drop OU HS 04/15/16 Brimonidine Tartrate [Alphagan 0.15% -] 1 drop OU BID drops 05/01/18 Amlodipine Besylate [Norvasc -] 10 mg PO DAILY 08/02/18 Losartan Potassium 50 mg PO HS 08/02/18 Tamsulosin HCl [Flomax -] 0.4 mg PO BID 08/02/18 Metoprolol Succinate [Toprol XL -] 25 mg PO DAILY tab.sr.24h 08/09/18 Warfarin Na [Coumadin -] 2.5 mg PO DAILY@1800 tablet 08/09/18 Anemia: No Asthma: No Cancer: Yes (LYMPHOMA) Cardiac Disorders: Yes (aortic stenosis) CVA: No COPD: No CHF: No DVT: No Dementia: No Diabetes: No GI Disorders: No Disorders: Yes (BPH) HTN: Yes Hypercholesterolemia: Yes Liver Disease: No Seizures: No Thyroid Disease: No - Surgical History Abdominal Surgery: Yes (HERNIA.) Appendectomy: Yes GI Surgery: Yes (SPLENECTOMY.) - Immunization History Immunization Up to Date: Yes - Suicide/Smoking/Psychosocial Hx Smoking Status: No Smoking History: Unknown if ever smoked Have you smoked in the past 12 months: No Number of Cigarettes Smoked Daily: 0 Hx Alcohol Use: No Drug/Substance Use Hx: No Substance Use Type: None Hx Substance Use Treatment: No Review of Systems - Review of Systems Able to Perform ROS?: Yes Comments:: GENERAL/CONSTITUTIONAL: No fever or chills. No weakness. HEAD, EYES, EARS, NOSE AND THROAT: No change in vision. No ear pain or discharge. No sore throat. CARDIOVASCULAR: +Chest pain. No shortness of breath. RESPIRATORY: No cough, wheezing, or hemoptysis. GASTROINTESTINAL: No nausea, vomiting, diarrhea or constipation. GENITOURINARY: No dysuria, frequency, or change in urination. MUSCULOSKELETAL: No joint or muscle swelling or pain. No neck or back pain. SKIN: No rash NEUROLOGIC: No headache, vertigo, loss of consciousness, or change in strength/ sensation. ENDOCRINE: No increased thirst. No abnormal weight change. HEMATOLOGIC/LYMPHATIC: No anemia, easy bleeding, or history of blood clots. ALLERGIC/IMMUNOLOGIC: No hives or skin allergy. *Physical Exam - Vital Signs Last Vital Signs Temp Pulse Resp BP Pulse Ox 98.1 F 80 22 H 154/71 98 09/02/18 10:01 09/02/18 10:01 09/02/18 10:01 09/02/18 10:01 09/02/18 10:01 - Physical Exam Comments: GENERAL: Awake, alert, and fully oriented. Appears uncomfortable. HEAD: No signs of trauma EYES: PERRLA, EOMI, sclera anicteric, conjunctiva clear ENT: Auricles normal inspection, hearing grossly normal, nares patent, oropharynx clear without exudates. Moist mucosa NECK: Normal ROM, supple, no lymphadenopathy, JVD, or masses LUNGS: Breath sounds equal, clear to auscultation bilaterally. No wheezes, and no crackles HEART: Regular rate and rhythm, normal S1 and S2, no murmurs, rubs or gallops ABDOMEN: +Lower abdominal tenderness with distension, firm bladder. Normoactive bowel sounds. No masses EXTREMITIES: Normal range of motion, no edema. No clubbing or cyanosis. No cords, erythema, or tenderness NEUROLOGICAL: Cranial nerves II through XII grossly intact. Normal speech. Motor and sensation intact. SKIN: Warm, Dry, normal turgor, no rashes or lesions noted. Moderate Sedation - Procedure Monitoring Vital Signs: Procedure Monitoring Vital Signs Temperature 98.1 F 09/02/18 10:01 Pulse Rate 80 09/02/18 10:01 Respiratory Rate 22 H 09/02/18 10:01 Blood Pressure 154/71 09/02/18 10:01 O2 Sat by Pulse Oximetry (%) 98 09/02/18 10:01 Heart Score/ECG Review - ECG Impressions Comment:: EKG 11:56- AV-paced at 60 bpm ED Treatment Course - LABORATORY CBC & Chemistry Diagram: 09/02/18 11:10 09/02/18 11:10 Medical Decision Making - Medical Decision Making 09/02/18 12:06 Initially, 18Fr catlaan placed, with passage of small amounts of bloody urine, unable to irrigate. Larger catalan was placed (22Fr), able to irrigate, with small amounts of bloody urine return, but with bladder spasms. Contacted Dr. Nahomi Pierson to evaluate. 09/02/18 12:36 Dr. Samuel at bedside, successfully placed a catalan with a more rigid tubing, now able to irrigate and drain urine- grossly bloody. CBI connected. 09/02/18 13:30 Case d/w Dr. Sanches. Patient accepted for admission. *DC/Admit/Observation/Transfer Diagnosis at time of Disposition: Urinary retention Hematuria Qualifiers: Hematuria type: unspecified type Qualified Code(s): R31.9 - Hematuria, unspecified - Discharge Dispostion Condition at time of disposition: Guarded Decision to Admit order: Yes - Referrals Referrals: Venkatesh Sanches MD [Primary Care Provider] - - Patient Instructions - Post Discharge Activity
[2018-09-02 11:26] LABS: BASO % 0.9 % (0-2.0); EOS % 4.3 % (0-4.5); HEMATOCRIT 30.1 % (35.4-49); HEMOGLOBIN 10.4 GM/dL (11.7-16.9); LYMPH % 21.1 % (8-40); MCH 33.6 pg (25.7-33.7); MCHC 34.6 g/dl (32.0-35.9); MEAN CELL VOLUME 97.3 fl (80-96); MEAN PLT VOLUME 10.1 fl (7.5-11.1); MONO % 15.1 % (3.8-10.2); NEUT % 58.6 % (42.8-82.8); PLATELET COUNT 190 K/MM3 (134-434); RBC 3.09 M/mm3 (4.00-5.60); RDW 14.1 % (11.9-15.9); WHITE BLOOD COUNT 3.3 K/mm3 (4.0-10.0)
[2018-09-02 11:38] LABS: INR 2.13 (0.83-1.09); PROTHROMBIN TIME (PATIENT) 25.3 SEC (9.7-13.0)
[2018-09-02 11:41] LABS: ACTIVATED PTT 31.5 SECONDS (25.2-36.5)
[2018-09-02] MEDS ORDERED: morphine SULFATE 4 MG/ML VIAL ONE (11:43)
[2018-09-02 11:44] LABS: ALBUMIN 3.5 g/dl (3.4-5.0); ALK PHOS 51 U/L (45-117); ANION GAP 9 MMOL/L (8-16); BILIRUBIN,TOTAL 0.6 mg/dL (0.2-1); BLOOD UREA NITROGEN 29 mg/dL (7-18); CHLORIDE 108 mmol/L (98-107); CO2 24 mmol/L (21-32); CREATININE 1.5 mg/dL (0.55-1.3); GLUCOSE,RANDOM 141 mg/dL (74-106); POTASSIUM 3.9 mmol/L (3.5-5.1); SGOT/AST 26 U/L (15-37); SGPT/ALT 21 U/L (13-61); SODIUM 141 mmol/L (136-145); TOT PROT 6.8 g/dl (6.4-8.2)
[2018-09-02] MEDS ORDERED: morphine CARPU-JECT 4 MG/1 ML DISP.SYRIN IVPUSH ONE (11:50)
[2018-09-02] MEDS ORDERED: ONDANSETRON 4 MG/2 ML VIAL ONE ×2 (14:03→17:23)
[2018-09-02] MEDS ORDERED: ONDANSETRON 4 MG/2 ML VIAL IVPUSH ONE ×2 (14:03→17:23)
[2018-09-02] MEDS ORDERED: SODIUM CHLORIDE 500 ML IV STA (14:04)
[2018-09-02 14:07] LABS: BASO % 0.4 % (0-2.0); EOS % 0.4 % (0-4.5); HEMATOCRIT 25.4 % (35.4-49); HEMOGLOBIN 8.7 GM/dL (11.7-16.9); LYMPH % 5.8 % (8-40); MCH 33.5 pg (25.7-33.7); MCHC 34.2 g/dl (32.0-35.9); MEAN CELL VOLUME 98.1 fl (80-96); MEAN PLT VOLUME 9.8 fl (7.5-11.1); MONO % 4.5 % (3.8-10.2); NEUT % 88.9 % (42.8-82.8); PLATELET COUNT 161 K/MM3 (134-434); RBC 2.59 M/mm3 (4.00-5.60); RDW 13.9 % (11.9-15.9); WHITE BLOOD COUNT 7.8 K/mm3 (4.0-10.0)
--- NOTE | 2018-09-02 15:02 | CON.GU ---
Consult Consult Specialty:: urology Referred by:: ER Reason for Consultation:: clot retention - History of Present Illness Chief Complaint: clot retention History of Present Illness: Patient is an 88 year old male with history of aortic stenosis s/p valve on coumadin. The patient is s/p vaporization of prostate for recurrent clot retention. The patient did well post op however has resumed bleeding 3 weeks after resuming coumadin. Patient presents in severe distress due to clot retention with grossly bloody urine noted with overflow incontinence. Patient denies fever and chills. 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), BPH, Hematuria, UTI Psych: Yes: Anxiety Musculoskeletal: Yes: Chronic low back pain, Osteoarthritis Dermatology: Yes: Other (skin neoplasms--recurrent) - Past Surgical History Past Surgical History: Yes: Colonoscopy, Nephrectomy, Splenectomy (skin grafts) , TURP - Alcohol/Substance Use Hx Alcohol Use: No History of Substance Use: reports: None - Smoking History Smoking history: Unknown if ever smoked Have you smoked in the past 12 months: No Aproximately how many cigarettes per day: 0 - Social History ADL: Independent 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; 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 History of Recent Travel: No Home Medications - Allergies Allergies/Adverse Reactions: Allergies Allergy/AdvReac Type Severity Reaction Status Date / Time Penicillins Allergy Unknown Verified 09/02/18 10:00 codeine [Codeine] Allergy Verified 09/02/18 10:00 - Home Medications Home Medications: Ambulatory Orders Dorzolamide HCl/Timolol Maleat [Cosopt Eye Drops] 1 drop OU BID 07/21/15 Travoprost [Travatan Z] 1 drop OU HS 04/15/16 Brimonidine Tartrate [Alphagan 0.15% -] 1 drop OU BID drops 05/01/18 Amlodipine Besylate [Norvasc -] 10 mg PO DAILY 08/02/18 Losartan Potassium 50 mg PO HS 08/02/18 Tamsulosin HCl [Flomax -] 0.4 mg PO BID 08/02/18 Metoprolol Succinate [Toprol XL -] 25 mg PO DAILY tab.sr.24h 08/09/18 Warfarin Na [Coumadin -] 2.5 mg PO DAILY@1800 tablet 08/09/18 Physical Exam- Vital Signs: Vital Signs Temperature 96.8 F L 09/02/18 14:18 Pulse Rate 60 09/02/18 14:09 Respiratory Rate 16 09/02/18 14:09 Blood Pressure 86/51 L 09/02/18 14:09 O2 Sat by Pulse Oximetry (%) 99 09/02/18 14:09 Constitutional: Yes: Well Nourished, Anxious, Severe Distress Eyes: Yes: WNL, Conjunctiva Clear, EOM Intact HENT: Yes: WNL, Atraumatic, Normocephalic Neck: Yes: WNL, Supple, Trachea Midline Cardiovascular: Yes: WNL, Regular Rate and Rhythm Respiratory: Yes: WNL, Regular Gastrointestinal: Yes: WNL, Normal Bowel Sounds, Soft Renal/: Yes: WNL Kidneys: Yes: WNL Pelvis: Yes: Bladder Palpable Testicles: Yes: WNL Scrotum: Yes: WNL Penis: Yes: WNL Prostate Exam: Yes: Deferred Labs: CBC, BMP 09/02/18 14:00 09/02/18 11:10 Assessment/Plan impression gross hematuria clot retention procedure note bladder irrigated with two way 24 fr silastic catheter; large volume of clots removed 3-way 24 fr catheter utilized for CBI plan continue cbi 45 minutes devoted to patient care
[2018-09-02] MEDS ORDERED: SODIUM CHLORIDE 1,500 ML IV STA (15:34)
[2018-09-02] MEDS ORDERED: TRANEXAMIC ACID 1000 MG/10 ML VIAL IVPUSH ONE (15:43)
--- NOTE | 2018-09-02 15:51 | CONSULT ---
Consultation: REQUESTING PROVIDER: CONSULT REQUEST: We have been asked to medically evaluate this patient for persistent gross hematuria. Pt has been accepted to the ICU, awaiting ICU bed. HISTORY OF PRESENT ILLNESS: 88M w/ pmhx of HTN, HLD, BPH s/p TURP/TUVP, NHL (s/p chemo years ago), aortic valve replacement, glaucoma, pacemaker placement presents with severe hematuria. Prior to arrival, pt was able to urinate normally with no pain or blood this morning twice, and then around 9am, he started experiencing urinary retention. This prompted his to bring the pt to the hospital as the pt started experiencing severe abdominal pain due to bladder distension. Of note, pt was recently discharged from the hospital for similar symptoms of gross hematuria last month. During this previous hospital admission, he was placed on bladder irrigation and AC was stopped. After normalization of his INR, he underwent transurethral resection and vaporization of the prostate on 08/06/18 after which his bladder was irrigated for another day and bleeding resolved. Pt was subsequently cleared by cardio to continue taking Coumadin for A. fib and s/ p aortic valve replacement. Per , last known coumadin dose was taken about 2 days ago. Today, in the ED, 18Fr catalan was placed with passage of small amounts of bloody urine, but with inability to irrigate. A larger 22Fr catalan was then placed, with successful irrigation, however due to bladder spasms, uro was consulted for further evaluation. At bedside, Dr. Samuel successfully placed a rigid catalan, with successful irrigation and urinary drainage; CBI was connected. Hgb 10.4 > 8.7. 2U pRBCs and FFP ordered. Pt is admitted to the ICU for close monitoring. PMHx: Glaucoma, HTN, HLD, BPH, aortic valve replacement, pacemaker, NHL (s/p chemo years ago), SCC PSHx: L nephrectomy, splenectomy, skin biopsy, TURP/TUVP, aortic valvular replacement, pacemaker placement Social: Denies tobacco, alcohol, rec drug use REVIEW OF SYSTEMS: CONSTITUTIONAL: Denies fever/chills, weakness, loss of appetite HEENT: Denies sore throat, visual changes CARDIOVASCULAR: Denies chest pain, palpitations, irregular heart rate, lightheadedness RESPIRATORY: Denies cough, sob, oquendo, orthopnea, wheezing GASTROINTESTINAL: Admits to lower abd pain, nausea, chronic constipation; Denies vomiting, diarrhea, GENITOURINARY: Admits to dysuria, urgency, hesitancy, hematuria MUSCULOSKELETAL: Denies joint swelling, back pain, neck pain ENDOCRINE: unexplained weight gain, unexplained weight loss, heat intolerance, cold intolerance NEUROLOGIC: Denies headaches, unsteady gait, seizure, mental status changes, bladder or bowel incontinence Absent: headache, focal weakness or paresthesias, dizziness, unsteady gait, seizure, mental status changes, bladder or bowel incontinence PHYSICAL EXAMINATION Vital Signs - 24 hr 09/02/18 09/02/18 09/02/18 10:01 14:09 14:18 Temperature 98.1 F 96.8 F L Pulse Rate 80 Pulse Rate [ 60 Apical] Respiratory 22 H 16 Rate Blood Pressure 154/71 Blood Pressure 86/51 L [Right Arm] O2 Sat by Pulse 98 99 Oximetry (%) 09/02/18 15:17 Temperature 97.1 F L Pulse Rate Pulse Rate [ 60 Apical] Respiratory 18 Rate Blood Pressure Blood Pressure 100/57 L [Right Arm] O2 Sat by Pulse 100 Oximetry (%) GENERAL: AAOx3. NAD. Resting comfortably. Generalized pallor. HEENT: AT/NC. EOMI. YANY. Conjunctival pallor. Dry mucus membranes. NECK: Normal range of motion, supple without lymphadenopathy, JVD, or masses. LUNGS: CTA B/L. No wheezes noted. HEART: RRR. Normal S1, S2. No murmurs noted. ABDOMEN: Soft, ND. Tender in lower abd region. +BS in all 4Qs. : Catalan catheter in place draining bright red blood MUSCULOSKELETAL: Normal range of motion at all joints. No bony deformities or tenderness. No CVA tenderness. EXTREMITIES: No peripheral edema noted. 2+ dorsalis pedis pulses b/l. NEUROLOGICAL: Facial symmetry. Normal speech. Moves all extremities. PSYCHIATRIC: Cooperative. Good eye contact. Appropriate mood and affect. Laboratory Results - last 24 hr 09/02/18 09/02/18 09/02/18 11:10 11:10 11:10 WBC 3.3 L RBC 3.09 L Hgb 10.4 L Hct 30.1 L MCV 97.3 H MCH 33.6 MCHC 34.6 RDW 14.1 Plt Count 190 MPV 10.1 Absolute Neuts (auto) 1.9 Neutrophils % 58.6 Lymphocytes % 21.1 Monocytes % 15.1 H Eosinophils % 4.3 Basophils % 0.9 Nucleated RBC % 0 PT with INR 25.30 H INR 2.13 H PTT (Actin FS) 31.5 Sodium 141 Potassium 3.9 Chloride 108 H Carbon Dioxide 24 Anion Gap 9 BUN 29 H Creatinine 1.5 H Creat Clearance w eGFR 44.27 Random Glucose 141 H Calcium 9.0 Total Bilirubin 0.6 AST 26 ALT 21 Alkaline Phosphatase 51 Creatine Kinase Troponin I Total Protein 6.8 Albumin 3.5 Blood Type Antibody Screen Crossmatch 09/02/18 09/02/18 09/02/18 11:10 14:00 14:03 WBC 7.8 RBC 2.59 L Hgb 8.7 L Hct 25.4 L D MCV 98.1 H MCH 33.5 MCHC 34.2 RDW 13.9 Plt Count 161 MPV 9.8 Absolute Neuts (auto) 6.9 Neutrophils % 88.9 H D Lymphocytes % 5.8 L D Monocytes % 4.5 Eosinophils % 0.4 D Basophils % 0.4 Nucleated RBC % 0 PT with INR INR PTT (Actin FS) Sodium Potassium Chloride Carbon Dioxide Anion Gap BUN Creatinine Creat Clearance w eGFR Random Glucose Calcium Total Bilirubin AST ALT Alkaline Phosphatase Creatine Kinase 61 Troponin I 0.02 Total Protein Albumin Blood Type A POSITIVE Antibody Screen Negative Crossmatch See Detail ASSESSMENT/PLAN: 88M w/ pmhx of HTN, HLD, BPH s/p TURP/TUVP, NHL (s/p chemo years ago), aortic valve replacement, glaucoma, pacemaker placement presents with severe hematuria. Neurology -Currently stable. AAOx3. Cardiology #A. fib -hold all ACs for now due to blood loss -cont Metoprolol; hold if HR <110, sys BP <90 -EKG showed, AV dual-paced rhythm. QTc 508 ms; avoid all QT-prolonging meds -Cardio consult ordered #Aortic Valve replacement -s/p TAVR -hold all ACs #HTN -hold all BP meds to avoid hypotension #HLD -meds per primary team GI #GERD -meds per primary team Renal #Gross hematuria, s/p TURP/TUVP -catalan catheter in place draining blood clots, maintain -CBI in place, continue irrigation -f/u CBC after pRBCs given -UCx ordered -Uro following #BPH s/p TURP/TUVP -hold home med to avoid hypotension -Uro following Hematology #Anemia 2/2 persistent hematuria -Hgb 10.4 > 8.7, INR 2.13; on PE, noticeable pallor, significant blood seen in catalan bag -2U pRBCs and 1 FFP ordered for AC reversal -recheck CBC -hold all ACs Dermatology #Squamous Cell Carcinoma -s/p recent excision -outpatient follow up Prophylaxis DVT- SCDs, hold ACs FEN -no IVf -recheck lytes in AM -NPO dispo -Pt accepted to the ICU for admission; awaiting ICU bed. Visit type - Emergency Visit Emergency Visit: Yes ED Registration Date: 09/02/18 Care time: The patient presented to the Emergency Department on the above date and was hospitalized for further evaluation of their emergent condition. - New Patient This patient is new to me today: Yes Date on this admission: 09/02/18 - Critical Care Critical Care patient: Yes Total Critical Care Time (in minutes): 40 Critical Care Statement: The care of this patient involved high complexity decision making to prevent further life threatening deterioration of the patient 's condition and/or to evaluate & treat vital organ system(s) failure or risk of failure.
--- NOTE | 2018-09-02 15:56 | HP ---
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 I the ER, an irrigation catheter was placed but the bleeding continued; initial Hgb was about but several hrs later it dropped to the low 8's. His BP also began to drop. 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), BPH, Hematuria, UTI Heme/Onc: Yes: Bleeding Disorder (occasional hematuria (while on a-c)), Cancer ( s/p splenectomy 2nd lymphoma) Psych: Yes: Anxiety Musculoskeletal: Yes: Chronic low back pain, Osteoarthritis Dermatology: Yes: Other (skin neoplasms--recurrent) - Past Surgical History Past Surgical History: Yes: Colonoscopy, Nephrectomy, Splenectomy (skin grafts) , TURP - Smoking History Smoking history: Unknown if ever smoked Have you smoked in the past 12 months: No Aproximately how many cigarettes per day: 0 - Alcohol/Substance Use Hx Alcohol Use: No History of Substance Use: reports: None - Social History Usual Living Arrangement: Yes: With Spouse ADL: Independent 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; 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 History of 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 Travel: No Home Medications - Allergies Allergies/Adverse Reactions: Allergies Allergy/AdvReac Type Severity Reaction Status Date / Time Penicillins Allergy Unknown Verified 09/02/18 10:00 codeine [Codeine] Allergy Verified 09/02/18 10:00 - Home Medications Home Medications: Ambulatory Orders Dorzolamide HCl/Timolol Maleat [Cosopt Eye Drops] 1 drop OU BID 07/21/15 Travoprost [Travatan Z] 1 drop OU HS 04/15/16 Brimonidine Tartrate [Alphagan 0.15% -] 1 drop OU BID drops 05/01/18 Amlodipine Besylate [Norvasc -] 10 mg PO DAILY 08/02/18 Losartan Potassium 50 mg PO HS 08/02/18 Tamsulosin HCl [Flomax -] 0.4 mg PO BID 08/02/18 Metoprolol Succinate [Toprol XL -] 25 mg PO DAILY tab.sr.24h 08/09/18 Warfarin Na [Coumadin -] 2.5 mg PO DAILY@1800 tablet 08/09/18 Family Disease History - Family Disease History Family History: Unremarkable Review of Systems - Review of Systems Constitutional: reports: Weakness Eyes: reports: No Symptoms HENT: reports: No Symptoms Neck: reports: No Symptoms Cardiovascular: reports: No Symptoms Respiratory: reports: No Symptoms Gastrointestinal: reports: Abdominal Pain Genitourinary: reports: Hematuria Musculoskeletal: reports: No Symptoms Integumentary: reports: Pallor Neurological: reports: No Symptoms Endocrine: reports: No Symptoms Hematology/Lymphatic: reports: No Symptoms Psychiatric: reports: No Symptoms Physical Examination Vital Signs: Vital Signs Temperature 97.1 F L 09/02/18 15:17 Pulse Rate 60 09/02/18 15:34 Respiratory Rate 16 09/02/18 15:34 Blood Pressure 77/33 L 09/02/18 15:34 O2 Sat by Pulse Oximetry (%) 100 09/02/18 15:17 Findings/Remarks: found in ER bed; fully awake in NAD skin--pale; sutured area below Rt ear. eyes--midline; EOMI neck--No masses lungs--no adv sounds heart--RR abd--soft, NT, ND --with catheter draining bright red blood ext--no edema; DP palpated well. neuro--awake; coherent; able to recount events; no gross motor/sens deficits; moves all extrem purposefully Laboratory Tests 09/02/18 09/02/18 09/02/18 11:10 11:10 11:10 WBC 3.3 L RBC 3.09 L Hgb 10.4 L Hct 30.1 L MCV 97.3 H MCH 33.6 MCHC 34.6 RDW 14.1 Plt Count 190 MPV 10.1 Absolute Neuts (auto) 1.9 Neutrophils % 58.6 Lymphocytes % 21.1 Monocytes % 15.1 H Eosinophils % 4.3 Basophils % 0.9 Nucleated RBC % 0 PT with INR 25.30 H INR 2.13 H PTT (Actin FS) 31.5 Sodium 141 Potassium 3.9 Chloride 108 H Carbon Dioxide 24 Anion Gap 9 BUN 29 H Creatinine 1.5 H Creat Clearance w eGFR 44.27 Random Glucose 141 H Calcium 9.0 Total Bilirubin 0.6 AST 26 ALT 21 Alkaline Phosphatase 51 Creatine Kinase Troponin I Total Protein 6.8 Albumin 3.5 Blood Type Antibody Screen Crossmatch 09/02/18 09/02/18 09/02/18 11:10 14:00 14:03 WBC 7.8 RBC 2.59 L Hgb 8.7 L Hct 25.4 L D MCV 98.1 H MCH 33.5 MCHC 34.2 RDW 13.9 Plt Count 161 MPV 9.8 Absolute Neuts (auto) 6.9 Neutrophils % 88.9 H D Lymphocytes % 5.8 L D Monocytes % 4.5 Eosinophils % 0.4 D Basophils % 0.4 Nucleated RBC % 0 PT with INR INR PTT (Actin FS) Sodium Potassium Chloride Carbon Dioxide Anion Gap BUN Creatinine Creat Clearance w eGFR Random Glucose Calcium Total Bilirubin AST ALT Alkaline Phosphatase Creatine Kinase 61 Troponin I 0.02 Total Protein Albumin Blood Type A POSITIVE Antibody Screen Negative Crossmatch See Detail Labs: CBC, BMP 09/02/18 14:00 09/02/18 11:10 Imaging - Results Chest X-ray: Pending EKG: Pending Assessment/Plan Summ >Gross hematuria--with bladder outlet obstruction, of relatively acute onset; while on anti-coags. he had been "well" over the past few weeks following his discharge; His Warfarin was resumed without noting visible blood or abd pains; until this past weekend when he again noted some red elements in his urine. he chose not to seek medical attention, and was voiding fairly well until this AM. In the ER, he required a 3 way catheter with irrigation but this did not mitigate the bleeding. PLAN: use of FFP (or other method of a/c reversal. > Prostatism--s/p TUVP on prior admission. > anemia--2nd acute blood loss; PLAN transfuse > Hypotension--developed post arrival to ER; in conjunction with ongoing bleeding and further drop of his Hgb by 2 grams; PLAN: IVF support; PC transfusion; hold all BP meds; reversal of his a/c (Cardiology was informed; and gave approval). > ATF--Rate has usually been well controlled; must now stop a/c for stated reasons > Valve heart repl status--s/p TAVR > Pacemaker status--last check was Okay > Hx of splenectomy--many yrs ago > s/p Lt nephrectomy status--several yrs ago; with minimal rise in Bun/cr > HX SKIN CANCERS--recurrent; s/p recent excision below right ear ~~~~~~~~~~~~~~~~~~~~~~~~~~~~~~~~~~~~~~~~~~~ Dr Sanches
--- NOTE | 2018-09-02 17:08 | EKG ---
Test Reason : Blood Pressure : / mmHG Vent. Rate : 060 BPM Atrial Rate : 060 BPM P-R Int : 000 ms QRS Dur : 168 ms QT Int : 508 ms P-R-T Axes : 072 028 068 degrees QTc Int : 508 ms AV dual-paced rhythm ABNORMAL ECG WHEN COMPARED WITH ECG OF 03-AUG-2018 09:07, VENT. RATE HAS DECREASED BY 24 BPM Confirmed by AMERICA FERRER MD ([id number]) on 09/02/2018 5:08:27 PM Referred By: Confirmed By:AMERICA FERRER MD
[2018-09-02 17:57] LABS: HEMOGLOBIN 8.4 GM/dL (11.7-16.9); MCH 33.4 pg (25.7-33.7); MEAN CELL VOLUME 95.4 fl (80-96); MEAN PLT VOLUME 9.6 fl (7.5-11.1); PLATELET COUNT 112 K/MM3 (134-434); RBC 2.52 M/mm3 (4.00-5.60)
[2018-09-02] MEDS ORDERED: PHYTONADIONE 10 MG/1 ML AMP IM ONE ×2 (18:37)
[2018-09-02] MEDS ORDERED: PHYTONADIONE 10 MG/1 ML AMP ONE (18:49)
[2018-09-02] MEDS ORDERED: morphine SULFATE 4 MG/ML VIAL IVPUSH PRN (21:04)
[2018-09-03 06:21] LABS: HEMATOCRIT 29.5 % (35.4-49); HEMOGLOBIN 10.1 GM/dL (11.7-16.9); MCH 31.7 pg (25.7-33.7); MEAN CELL VOLUME 93.1 fl (80-96); MEAN PLT VOLUME 9.7 fl (7.5-11.1); PLATELET COUNT 89 K/MM3 (134-434); RBC 3.17 M/mm3 (4.00-5.60); RDW 15.5 % (11.9-15.9); WHITE BLOOD COUNT 8.5 K/mm3 (4.0-10.0)
[2018-09-03 06:32] LABS: INR 1.49 (0.83-1.09); PROTHROMBIN TIME (PATIENT) 17.7 SEC (9.7-13.0)
[2018-09-03 06:46] LABS: ANION GAP 9 MMOL/L (8-16); BLOOD UREA NITROGEN 41 mg/dL (7-18); CALCIUM 8.1 mg/dL (8.5-10.1); CHLORIDE 112 mmol/L (98-107); CO2 23 mmol/L (21-32); CREATININE 1.9 mg/dL (0.55-1.3); GLUCOSE,RANDOM 132 mg/dL (74-106); POTASSIUM 4.8 mmol/L (3.5-5.1); SODIUM 143 mmol/L (136-145)
--- NOTE | 2018-09-03 07:28 | PN ---
Physical Exam: SUBJECTIVE: Patient seen and examined at bedside. No acute events overnight. Pt has no complaints today. Denies cordova/d, f/c, n/v, chest pain, sob, abd pain, leg swelling. He states he is hungry and wants to eat. Catalan seen with red urine, although clearing since yesterday. OBJECTIVE: Vital Signs Period Temp Pulse Resp BP Sys/Juárez Pulse Ox Last 24 Hr 96.8 F-98.3 F 60-90 14-22 77-154/33-81 98-100 GENERAL: AAOx3. NAD. Resting comfortably. Generalized pallor. HEENT: AT/NC. EOMI. YANY. Conjunctival pallor. Dry mucus membranes. NECK: Normal range of motion, supple without lymphadenopathy, JVD, or masses. LUNGS: CTA B/L. No wheezes noted. HEART: RRR. Normal S1, S2. No murmurs noted. ABDOMEN: Soft, ND. Tender in lower abd region. +BS in all 4Qs. : Catalan catheter in place draining red urine, minimal clots, improved since yesterday. No bladder distension. MUSCULOSKELETAL: Normal range of motion at all joints. No bony deformities or tenderness. No CVA tenderness. EXTREMITIES: No peripheral edema noted. 2+ dorsalis pedis pulses b/l. NEUROLOGICAL: Facial symmetry. Normal speech. Moves all extremities. PSYCHIATRIC: Cooperative. Good eye contact. Appropriate mood and affect. Laboratory Results - last 24 hr 09/02/18 09/02/18 09/02/18 11:10 11:10 11:10 WBC 3.3 L RBC 3.09 L Hgb 10.4 L Hct 30.1 L MCV 97.3 H MCH 33.6 MCHC 34.6 RDW 14.1 Plt Count 190 MPV 10.1 Absolute Neuts (auto) 1.9 Neutrophils % 58.6 Lymphocytes % 21.1 Monocytes % 15.1 H Eosinophils % 4.3 Basophils % 0.9 Nucleated RBC % 0 PT with INR 25.30 H INR 2.13 H PTT (Actin FS) 31.5 Sodium 141 Potassium 3.9 Chloride 108 H Carbon Dioxide 24 Anion Gap 9 BUN 29 H Creatinine 1.5 H Creat Clearance w eGFR 44.27 Random Glucose 141 H Calcium 9.0 Total Bilirubin 0.6 AST 26 ALT 21 Alkaline Phosphatase 51 Creatine Kinase Troponin I Total Protein 6.8 Albumin 3.5 Blood Type Antibody Screen Crossmatch 09/02/18 09/02/18 09/02/18 11:10 14:00 14:03 WBC 7.8 RBC 2.59 L Hgb 8.7 L Hct 25.4 L D MCV 98.1 H MCH 33.5 MCHC 34.2 RDW 13.9 Plt Count 161 MPV 9.8 Absolute Neuts (auto) 6.9 Neutrophils % 88.9 H D Lymphocytes % 5.8 L D Monocytes % 4.5 Eosinophils % 0.4 D Basophils % 0.4 Nucleated RBC % 0 PT with INR INR PTT (Actin FS) Sodium Potassium Chloride Carbon Dioxide Anion Gap BUN Creatinine Creat Clearance w eGFR Random Glucose Calcium Total Bilirubin AST ALT Alkaline Phosphatase Creatine Kinase 61 Troponin I 0.02 Total Protein Albumin Blood Type A POSITIVE Antibody Screen Negative Crossmatch See Detail 09/02/18 09/03/18 09/03/18 17:50 05:30 05:30 WBC 5.0 8.5 RBC 2.52 L 3.17 L Hgb 8.4 L 10.1 L Hct 24.0 L 29.5 L D MCV 95.4 93.1 MCH 33.4 31.7 MCHC 35.0 34.0 RDW 15.0 15.5 Plt Count 112 L D 89 L D MPV 9.6 9.7 Absolute Neuts (auto) Neutrophils % Lymphocytes % Monocytes % Eosinophils % Basophils % Nucleated RBC % PT with INR 17.70 H INR 1.49 H PTT (Actin FS) Sodium Potassium Chloride Carbon Dioxide Anion Gap BUN Creatinine Creat Clearance w eGFR Random Glucose Calcium Total Bilirubin AST ALT Alkaline Phosphatase Creatine Kinase Troponin I Total Protein Albumin Blood Type Antibody Screen Crossmatch 09/03/18 09/03/18 05:30 05:30 WBC RBC Hgb Hct MCV MCH MCHC RDW Plt Count MPV Absolute Neuts (auto) Neutrophils % Lymphocytes % Monocytes % Eosinophils % Basophils % Nucleated RBC % PT with INR INR PTT (Actin FS) Sodium 143 Potassium 4.8 Chloride 112 H Carbon Dioxide 23 Anion Gap 9 BUN 41 H Creatinine 1.9 H Creat Clearance w eGFR 33.70 Random Glucose 132 H Calcium 8.1 L Total Bilirubin AST ALT Alkaline Phosphatase Creatine Kinase 54 Troponin I 0.06 H Total Protein Albumin Blood Type Antibody Screen Crossmatch Active Medications Generic Name Dose Route Start Last Admin Trade Name Freq PRN Reason Stop Dose Admin Morphine Sulfate 4 mg 09/02/18 21:04 Morphine Sulfate IVPUSH Q4H PRN PAIN LEVEL 6-10 ASSESSMENT/PLAN: 88M w/ pmhx of HTN, HLD, BPH s/p TURP/TUVP, NHL (s/p chemo years ago), aortic valve replacement, glaucoma, pacemaker placement presents with severe hematuria. Neurology -Currently stable. AAOx3. Cardiology #A. fib -hold all ACs for now due to blood loss -meds per primary team -EKG showed, AV dual-paced rhythm. QTc 508 ms; avoid all QT-prolonging meds -Cardio following #Aortic Valve replacement -s/p TAVR -hold all ACs #HTN -hold all BP meds to avoid hypotension #HLD -meds per primary team GI #GERD -meds per primary team Renal #Gross hematuria, s/p TURP/TUVP -catalan catheter in place, minimal clots, urine now clearing, but still red -CBI in place, continue irrigation -f/u CBC after pRBCs given -UCx ordered -Uro following #BPH s/p TURP/TUVP -hold home med to avoid hypotension -Uro following Hematology #Anemia 2/2 persistent hematuria -Hgb 10.1 s/p 4U pRBCs; stable. -INR now 1.49 -recheck CBC -hold all ACs Dermatology #Squamous Cell Carcinoma -s/p recent excision -outpatient follow up Prophylaxis DVT- SCDs, hold ACs FEN -no IVf -recheck lytes in AM -sodium-controlled diet dispo -transfer to med/surg Visit type - Emergency Visit Emergency Visit: Yes ED Registration Date: 09/02/18 Care time: The patient presented to the Emergency Department on the above date and was hospitalized for further evaluation of their emergent condition. - New Patient This patient is new to me today: No - Critical Care Critical Care patient: Yes Total Critical Care Time (in minutes): 40 Critical Care Statement: The care of this patient involved high complexity decision making to prevent further life threatening deterioration of the patient 's condition and/or to evaluate & treat vital organ system(s) failure or risk of failure.
[2018-09-03] MEDS ORDERED: SODIUM CHLORIDE 1,000 ML IV SCH ×2 (08:30→17:30)
--- NOTE | 2018-09-03 08:48 | CONSULT ---
Consult - text type - Consultation Consultation Note: CC: gross hematuria HPI: Patient is s/p clot irrigation and doing well on CBI. PE vss; afet abd-soft, NT; no palpable bladder genitalia-nl. phallus and testes; catalan with CBI draining clear urine imp gross hematuria s/p clot retention plan continue CBI for today will reassess in the morning
--- NOTE | 2018-09-03 08:52 | PN ---
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 He was admitted at that time, coumadin stopped and required several units PRBCS He now returns with gross hematuria, episode of hypotension requiring several units PRBCs, FFP and Vitamin K. He was strongly advised to come to ER Sunday when he called the service with recurrent hematuria, but he opted to try and wait through the weekend. Seen and examined in ICU Alert, oriented No CP or SOB BP is normal. Humphreys with irrigation shows pink urine, seems to be clearing. History of Present Illness: TELE: Underlying AF with intermittent pacing - Current Medication List Current Medications: Active Medications Sodium Chloride (Normal Saline -) 1,000 mls @ 50 mls/hr IV ASDIR MARY Stop: 09/04/18 08:18 Morphine Sulfate (Morphine Sulfate) 4 mg IVPUSH Q4H PRN PRN Reason: PAIN LEVEL 6-10 - Objective Vital Signs: Vital Signs Temperature 98.2 F 09/03/18 06:00 Pulse Rate 83 09/03/18 08:00 Respiratory Rate 23 H 09/03/18 08:00 Blood Pressure 148/85 09/03/18 08:00 O2 Sat by Pulse Oximetry (%) 100 09/02/18 21:00 Constitutional: Yes: No Distress, Calm Eyes: Yes: Conjunctiva Clear Cardiovascular: Yes: Pulse Irregular Respiratory: Yes: CTA Bilaterally (no rales or wheezing) Gastrointestinal: Yes: Soft (NT) Edema: No Neurological: Yes: Alert, Oriented ...Motor Strength: WNL Labs: CBC, BMP 09/03/18 05:30 09/03/18 05:30 INR, PTT INR 1.49 (0.83-1.09) H 09/03/18 05:30 - ....Imaging Chest X-ray: Image Reviewed EKG: Image Reviewed Assessment/Plan IMP: Recurrent gross hematuria and hyotension, anemia requiring PRBCS, FFP and Vitamin K PAF s/p PPM Severe s/p TAVR Acute on chronic renal failure REC: 1. Hold all BP meds for now as BP is now normalizing after periods of hypotension yesterday 2. Follow H/H, transfuse as needed. 3. f/u 4. Hold coumadin 5. 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 We may need to simply opt for low dose ASA 81mg. 6. Follow renal fxn, bump in creatinine likely due to ATN from hypotension: BP meds on hold. Will follow.
--- NOTE | 2018-09-03 12:55 | PN ---
Teaching Attending Note Name of Resident: Alisha Branham ATTENDING PHYSICIAN STATEMENT I saw and evaluated the patient. I reviewed the resident's note and discussed the case with the resident. I agree with the resident's findings and plan as documented. SUBJECTIVE: Patient seen and examined in ICU. Awake and alert. Denies CP or SOB. Hematuria is improving. Still on CBI. Intake & Output 08/31/18 09/01/18 09/02/18 09/03/18 23:59 23:59 23:59 23:59 Intake Total 2350 98520 Output Total 1999 85918 Balance 350 1250 Weight 157 lb 5 oz 161 lb 9.6 oz Last Vital Signs Temp Pulse Resp BP Pulse Ox 99.4 F 75 16 136/70 100 09/03/18 10:00 09/03/18 12:00 09/03/18 12:00 09/03/18 12:00 09/03/18 09:00 Active Medications Sodium Chloride (Normal Saline -) 1,000 mls @ 50 mls/hr IV ASDIR MARY Stop: 09/04/18 08:18 Morphine Sulfate (Morphine Sulfate) 4 mg IVPUSH Q4H PRN PRN Reason: PAIN LEVEL 6-10 GENERAL: AAOx3. NAD. HEENT: Conjunctival pallor. Dry mucus membranes. NECK: Normal range of motion, supple without lymphadenopathy, JVD, or masses. LUNGS: CTA. No wheezes noted. HEART: RRR. Normal S1, S2. No murmurs noted. ABDOMEN: Soft, ND. Mild Tenderness in lower abd region. +BS : Humphreys catheter in place draining bright red blood MUSCULOSKELETAL: Normal range of motion at all joints. No bony deformities or tenderness. No CVA tenderness. EXTREMITIES: No peripheral edema noted. 2+ dorsalis pedis pulses b/l. NEUROLOGICAL: Non-focal PSYCHIATRIC: Cooperative. Good eye contact. Appropriate mood and affect. Laboratory Results - last 24 hr 09/02/18 09/02/18 09/02/18 11:10 14:00 14:03 WBC 7.8 RBC 2.59 L Hgb 8.7 L Hct 25.4 L D MCV 98.1 H MCH 33.5 MCHC 34.2 RDW 13.9 Plt Count 161 MPV 9.8 Absolute Neuts (auto) 6.9 Neutrophils % 88.9 H D Lymphocytes % 5.8 L D Monocytes % 4.5 Eosinophils % 0.4 D Basophils % 0.4 Nucleated RBC % 0 PT with INR INR Sodium Potassium Chloride Carbon Dioxide Anion Gap BUN Creatinine Creat Clearance w eGFR Random Glucose Calcium Creatine Kinase 61 Troponin I 0.02 Blood Type A POSITIVE Antibody Screen Negative Crossmatch See Detail 09/02/18 09/03/18 09/03/18 17:50 05:30 05:30 WBC 5.0 8.5 RBC 2.52 L 3.17 L Hgb 8.4 L 10.1 L Hct 24.0 L 29.5 L D MCV 95.4 93.1 MCH 33.4 31.7 MCHC 35.0 34.0 RDW 15.0 15.5 Plt Count 112 L D 89 L D MPV 9.6 9.7 Absolute Neuts (auto) Neutrophils % Lymphocytes % Monocytes % Eosinophils % Basophils % Nucleated RBC % PT with INR 17.70 H INR 1.49 H Sodium Potassium Chloride Carbon Dioxide Anion Gap BUN Creatinine Creat Clearance w eGFR Random Glucose Calcium Creatine Kinase Troponin I Blood Type Antibody Screen Crossmatch 09/03/18 09/03/18 05:30 05:30 WBC RBC Hgb Hct MCV MCH MCHC RDW Plt Count MPV Absolute Neuts (auto) Neutrophils % Lymphocytes % Monocytes % Eosinophils % Basophils % Nucleated RBC % PT with INR INR Sodium 143 Potassium 4.8 Chloride 112 H Carbon Dioxide 23 Anion Gap 9 BUN 41 H Creatinine 1.9 H Creat Clearance w eGFR 33.70 Random Glucose 132 H Calcium 8.1 L Creatine Kinase 54 Troponin I 0.06 H Blood Type Antibody Screen Crossmatch IMP: Gross Hematuria Anemia HTN HLD BPH S/P TURP/TUVP NHL (s/p chemo years ago) Aortic valve replacement Glaucoma 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
[2018-09-03] MEDS ORDERED: morphine SULFATE 4 MG/ML VIAL IVPUSH PRN (13:47)
--- NOTE | 2018-09-03 17:46 | PN ---
Progress Note (short form) - Note Progress Note: Current Medications Sodium Chloride (Normal Saline -) 1,000 mls @ 50 mls/hr IV ASDIR MARY Stop: 09/04/18 17:26 Morphine Sulfate (Morphine Sulfate) 4 mg IVPUSH Q4H PRN PRN Reason: PAIN LEVEL 6-10 Laboratory Results - last 24 hr 09/02/18 09/02/18 09/03/18 11:10 17:50 05:30 WBC 5.0 8.5 RBC 2.52 L 3.17 L Hgb 8.4 L 10.1 L Hct 24.0 L 29.5 L D MCV 95.4 93.1 MCH 33.4 31.7 MCHC 35.0 34.0 RDW 15.0 15.5 Plt Count 112 L D 89 L D MPV 9.6 9.7 PT with INR INR Sodium Potassium Chloride Carbon Dioxide Anion Gap BUN Creatinine Creat Clearance w eGFR Random Glucose Calcium Creatine Kinase Troponin I Blood Type A POSITIVE Antibody Screen Negative Crossmatch See Detail 09/03/18 09/03/18 09/03/18 05:30 05:30 05:30 WBC RBC Hgb Hct MCV MCH MCHC RDW Plt Count MPV PT with INR 17.70 H INR 1.49 H Sodium 143 Potassium 4.8 Chloride 112 H Carbon Dioxide 23 Anion Gap 9 BUN 41 H Creatinine 1.9 H Creat Clearance w eGFR 33.70 Random Glucose 132 H Calcium 8.1 L Creatine Kinase 54 Troponin I 0.06 H Blood Type Antibody Screen Crossmatch Vital Signs Temperature 98.2 F 09/03/18 14:00 Pulse Rate 77 09/03/18 14:00 Respiratory Rate 18 09/03/18 14:00 Blood Pressure 133/60 09/03/18 14:00 O2 Sat by Pulse Oximetry (%) 100 09/03/18 09:00 CC: offers no specific complaints today ```````````````````````````````````````` skin--numerous surg scars; no acute lesions appreciated heart--RR lungs--grossly clear ext--trtace edema neuro--fully alert; coherent, in NAD; moves all extrems purposefully `````````````````````````````````````````````````````````````` Summ > Gross hematuria--with bladder outlet obstruction, of relatively acute onset; while on anti-coags. a/c reversed; bleeding has much subsided; on 3 way irrig cath. > Prostatism--s/p TUVP on prior admission; seen by Urology (see notation). > anemia--2nd acute blood loss; transfused 2 U of PC; Hgb much better; will remain off a/c > Hypotension--reversed; post transfusion & IVF; but Bun/cr a bit higher than baseline (likely due to hypotensive state): PLAN temp IVF; repeat in AM. > ATF--HR appears to be in NL range; will not be restarted on a/c inview of his repeated (severe) hemorrhagic episodes; as the risks of doing so will probably be greater than the benefit at this juncture. > Valve heart repl status--s/p TAVR > High Troponin--mild; denies CP; likely 2nd demand ischemia from his prolonged bout of Low BP; will repeat in AM ~~~~~~~~~~~~~~~~~~ Dr Sanches
[2018-09-04 07:27] LABS: HEMATOCRIT 26.6 % (35.4-49); HEMOGLOBIN 9.1 GM/dL (11.7-16.9); MCH 31.7 pg (25.7-33.7); MEAN CELL VOLUME 93.1 fl (80-96); MEAN PLT VOLUME 9.8 fl (7.5-11.1); PLATELET COUNT 100 K/MM3 (134-434); RBC 2.86 M/mm3 (4.00-5.60); RDW 15.5 % (11.9-15.9); WHITE BLOOD COUNT 9.7 K/mm3 (4.0-10.0)
[2018-09-04 08:04] LABS: ANION GAP 6 MMOL/L (8-16); BLOOD UREA NITROGEN 36 mg/dL (7-18); CALCIUM 8.1 mg/dL (8.5-10.1); CHLORIDE 112 mmol/L (98-107); CO2 23 mmol/L (21-32); CREATININE 1.7 mg/dL (0.55-1.3); GLUCOSE,RANDOM 91 mg/dL (74-106); POTASSIUM 4.2 mmol/L (3.5-5.1); SODIUM 142 mmol/L (136-145)
--- NOTE | 2018-09-04 08:15 | CONSULT ---
Consult - text type - Consultation Consultation Note: CC: gross hematuria hpi: Patient is doing well with CBI. CBI is currently lightly blood tinged. Patient is comfortable VSS: afeb PE without change labs reviewed discsussed with patient and nursing x 15 minutes imp gross hematuria secondary to anticoagulation plan coumadin held and vit K given follow hct will consider stopping cbi later today if CBI is clear
[2018-09-04 08:28] LABS: INR 1.1 (0.83-1.09)
--- NOTE | 2018-09-04 09:30 | PN ---
Progress Note, Physician Chief Complaint: Humphreys with pink urine. Denies chest pain or SOB - Current Medication List Current Medications: Active Medications Sodium Chloride (Normal Saline -) 1,000 mls @ 50 mls/hr IV ASDIR MARY Stop: 09/04/18 17:26 Morphine Sulfate (Morphine Sulfate) 4 mg IVPUSH Q4H PRN PRN Reason: PAIN LEVEL 6-10 - Objective Vital Signs: Vital Signs Temperature 97.6 F 09/04/18 09:00 Pulse Rate 80 09/04/18 09:00 Respiratory Rate 20 09/04/18 09:00 Blood Pressure 119/65 09/04/18 09:00 O2 Sat by Pulse Oximetry (%) 100 09/03/18 09:00 Constitutional: Yes: No Distress, Calm Cardiovascular: Yes: Regular Rate and Rhythm Respiratory: Yes: CTA Bilaterally (no wheezing or Rales.) Gastrointestinal: Yes: Soft (NT) Edema: No Neurological: Yes: Alert, Oriented Labs: CBC, BMP 09/04/18 06:36 09/04/18 06:36 INR, PTT INR 1.10 (0.83-1.09) H 09/04/18 06:36 - ....Imaging EKG: Image Reviewed Assessment/Plan IMP: Recurrent gross hematuria and hyotension, anemia requiring PRBCS, FFP and Vitamin K. Hematuria secondary to chronic prostatic enlargement/inflammation and unmasked by the presence of anticoagulation PAF s/p PPM Severe s/p TAVR Acute on chronic renal failure REC: 1. Hold all BP meds for now as BP is now normalizing after periods of hypotension initially on admission in setting of acute blood loss 2. Follow H/H, transfuse as needed. 3. f/u appreciated. 4. Hold coumadin 5. 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 We may need to simply opt for low dose ASA 81mg. 6. Follow renal fxn, bump in creatinine likely due to ATN from hypotension: BP meds on hold. 7. The mild elevation in TnI is noted- does not represent an acute coronary syndrome. Likely secondary to demand ischemia secondary to hypotension and anemia that are now resolved. No specific treatment other than supportive care: -Follow H/H, keep Hb > 8 -Avoid hypotension
[2018-09-04] MEDS ORDERED: ACETAMINOPHEN 325 MG TABLET (FP) PO ONE (15:30)
--- NOTE | 2018-09-04 16:03 | PN ---
Progress Note (short form) - Note Progress Note: Current Medications Sodium Chloride (Normal Saline -) 1,000 mls @ 50 mls/hr IV ASDIR MARY Stop: 09/04/18 17:26 Morphine Sulfate (Morphine Sulfate) 4 mg IVPUSH Q4H PRN PRN Reason: PAIN LEVEL 6-10 Laboratory Results - last 24 hr 09/04/18 09/04/18 09/04/18 06:36 06:36 06:36 WBC 9.7 RBC 2.86 L Hgb 9.1 L Hct 26.6 L MCV 93.1 MCH 31.7 MCHC 34.0 RDW 15.5 Plt Count 100 L MPV 9.8 PT with INR 13.00 INR 1.10 H Sodium 142 Potassium 4.2 Chloride 112 H Carbon Dioxide 23 Anion Gap 6 L BUN 36 H Creatinine 1.7 H Creat Clearance w eGFR 38.32 Random Glucose 91 Calcium 8.1 L Creatine Kinase 89 Troponin I 0.10 H Vital Signs Temperature 98.1 F 09/04/18 15:58 Pulse Rate 80 09/04/18 15:58 Respiratory Rate 18 09/04/18 15:58 Blood Pressure 129/66 09/04/18 15:58 O2 Sat by Pulse Oximetry (%) 100 09/03/18 09:00 CC: with some supra-pubic discomfort ```````````````````````````````````````` skin--numerous surg scars; no acute lesions appreciated heart--RR lungs--grossly clear abd--soft, NT ext--trtace edema neuro--fully alert; coherent, in NAD; moves all extrems purposefully `````````````````````````````````````````````````````````````` Summ > Gross hematuria--with bladder outlet obstruction, while on anti-coags. a/c reversed; bleeding has much subsided; 3 way clamped; still has catalan, c/o transient suprapubic spasms. > Prostatism--s/p TUVP on prior admission; seen by Urology (see notation). > anemia--2nd acute blood loss; transfused 2 U of PC; Hgb much better; will remain off a/c, and check daily > Hypotension--reversed; post transfusion & IVF. > ATF--HR appears to be in NL range; will not be restarted on a/c inview of his repeated (severe) hemorrhagic episodes; as the risks of doing so will probably be greater than the benefit at this juncture. May Rx ASa when appropriate > Valve heart repl status--s/p TAVR > High Troponin--mild; denies CP; likely 2nd demand ischemia from his prolonged bout of Low BP; see Cardio note ~~~~~~~~~~~~~~~~~~ Dr Sanches
[2018-09-04] MEDS: MORPHINE SULFATE 2 MG/ML VIAL IVPUSH PRN (23:53)
[2018-09-05 08:12] LABS: HEMATOCRIT 24.5 % (35.4-49); HEMOGLOBIN 8.7 GM/dL (11.7-16.9); MCH 33.2 pg (25.7-33.7); MCHC 35.5 g/dl (32.0-35.9); MEAN CELL VOLUME 93.5 fl (80-96); MEAN PLT VOLUME 9.7 fl (7.5-11.1); PLATELET COUNT 115 K/MM3 (134-434); RBC 2.62 M/mm3 (4.00-5.60); RDW 15.4 % (11.9-15.9); WHITE BLOOD COUNT 7.5 K/mm3 (4.0-10.0)
[2018-09-05 08:44] LABS: ANION GAP 7 MMOL/L (8-16); BLOOD UREA NITROGEN 25 mg/dL (7-18); CALCIUM 7.8 mg/dL (8.5-10.1); CHLORIDE 113 mmol/L (98-107); CO2 25 mmol/L (21-32); CREATININE 1.4 mg/dL (0.55-1.3); GLUCOSE,RANDOM 86 mg/dL (74-106); POTASSIUM 3.7 mmol/L (3.5-5.1); SODIUM 145 mmol/L (136-145)
--- NOTE | 2018-09-05 09:29 | PN ---
Progress Note, Physician Chief Complaint: no acute distress No CP or SOB - Current Medication List Current Medications: Active Medications Morphine Sulfate (Morphine Sulfate) 2 mg IVPUSH Q4H PRN PRN Reason: PAIN LEVEL 4 - 6 Last Admin: 09/04/18 23:53 Dose: 2 mg - Objective Vital Signs: Vital Signs Temperature 97.6 F 09/05/18 08:30 Pulse Rate 79 09/05/18 08:30 Respiratory Rate 20 09/05/18 08:30 Blood Pressure 148/76 09/05/18 08:30 O2 Sat by Pulse Oximetry (%) 100 09/04/18 21:00 Constitutional: Yes: No Distress, Calm Cardiovascular: Yes: Regular Rate and Rhythm Respiratory: Yes: CTA Bilaterally Gastrointestinal: Yes: Soft (nontender) Edema: No Neurological: Yes: Alert, Oriented ...Motor Strength: WNL Labs: CBC, BMP 09/05/18 07:00 09/05/18 07:00 INR, PTT INR 1.10 (0.83-1.09) H 09/04/18 06:36 Laboratory Tests 08/09/18 08/09/18 08/09/18 06:00 06:00 06:00 WBC 6.2 Hgb 9.4 L Plt Count 179 PT with INR INR 1.13 H Sodium 142 Potassium 3.8 BUN 25 H Creatinine 1.3 Calcium Creatine Kinase Troponin I 09/02/18 09/02/18 09/03/18 11:10 14:03 05:30 WBC 8.5 Hgb 10.1 L Plt Count 89 L D PT with INR 25.30 H INR 2.13 H Sodium Potassium BUN Creatinine Calcium Creatine Kinase Troponin I 0.02 09/03/18 09/03/18 09/03/18 05:30 05:30 05:30 WBC Hgb Plt Count PT with INR 17.70 H INR 1.49 H Sodium 143 Potassium 4.8 BUN 41 H Creatinine 1.9 H Calcium Creatine Kinase 54 Troponin I 0.06 H 09/04/18 09/04/18 09/04/18 06:36 06:36 06:36 WBC 9.7 Hgb 9.1 L Plt Count 100 L PT with INR INR 1.10 H Sodium 142 Potassium 4.2 BUN 36 H Creatinine 1.7 H Calcium Creatine Kinase 89 Troponin I 0.10 H 09/05/18 09/05/18 07:00 07:00 WBC 7.5 Hgb 8.7 L Plt Count 115 L PT with INR INR Sodium 145 Potassium 3.7 BUN 25 H Creatinine 1.4 H Calcium 7.8 L Creatine Kinase Troponin I 0.08 H Assessment/Plan IMP: Recurrent gross hematuria and hyotension, anemia requiring PRBCS, FFP and Vitamin K. Hematuria secondary to chronic prostatic enlargement/inflammation and unmasked by the presence of anticoagulation PAF s/p PPM Severe s/p TAVR Acute on chronic renal failure REC: 1. Hold all BP meds for now as BP is now normalizing after periods of hypotension initially on admission in setting of acute blood loss 2. Follow H/H, transfuse as needed, has been stable. 3. f/u appreciated. 4. Hold coumadin 5. Will need to revisit his suitability for long-term full AC moving forward as this is the second episode of gross hematuria requiring transfusion. We may need to simply opt for low dose ASA 81mg. 6. Follow renal fxn, bump in creatinine likely due to ATN from hypotension: BP meds on hold. Not requiring BP meds and renal function is improving. 7. The mild elevation in TnI is noted- does not represent an acute coronary syndrome. Likely secondary to demand ischemia secondary to hypotension and anemia that are now resolved. No specific treatment other than supportive care: -Follow H/H, keep Hb > 8 -Avoid hypotension Will follow.
--- NOTE | 2018-09-05 11:49 | PN ---
Progress Note (short form) - Note Progress Note: PULMONARY Denies shortness of breath, cough or wheezing. Further history from family pt with PET positive RUL nodule which was to be biopsied but unable to get appropriate window and there was some improvement. No follow up thus far. Vital Signs Period Temp Pulse Resp BP Sys/Juárez Pulse Ox Last 24 Hr 97.6 F-98.3 F 79-80 18-20 129-148/66-76 100 Gen: NAD at rest Heart: RRR Lung: decreased breath sounds at the bases Abd: soft, nontender Ext: no edema CBC, BMP 09/05/18 07:00 09/05/18 07:00 Active Medications Morphine Sulfate (Morphine Sulfate) 2 mg IVPUSH Q4H PRN PRN Reason: PAIN LEVEL 4 - 6 Last Admin: 09/04/18 23:53 Dose: 2 mg A/P Recurrent Hematuria Acute Blood Loss Anemia Thrombocytopenia Acute on Chronic Renal Failure BPH Paroxysmal Atrial Fibrillation s/p PPM Aortic Stenosis s/p TAVR Lung Nodule - monitor H/H - transfuse as needed - CBI in progress - rate control - holding anticoagulation - will order CT chest noncontrast for tomorrow per pt request
[2018-09-05] MEDS ORDERED: TAMSULOSIN HCL 0.4 MG CAP PO ONE (16:10)
--- NOTE | 2018-09-05 17:53 | PN ---
Progress Note (short form) - Note Progress Note: Current Medications Morphine Sulfate (Morphine Sulfate) 2 mg IVPUSH Q4H PRN PRN Reason: PAIN LEVEL 4 - 6 Last Admin: 09/04/18 23:53 Dose: 2 mg Laboratory Results - last 24 hr 09/02/18 09/05/18 09/05/18 11:10 07:00 07:00 WBC 7.5 RBC 2.62 L Hgb 8.7 L Hct 24.5 L MCV 93.5 MCH 33.2 MCHC 35.5 RDW 15.4 Plt Count 115 L MPV 9.7 Sodium 145 Potassium 3.7 Chloride 113 H Carbon Dioxide 25 Anion Gap 7 L BUN 25 H Creatinine 1.4 H Creat Clearance w eGFR 47.94 Random Glucose 86 Calcium 7.8 L Creatine Kinase 43 Troponin I 0.08 H Blood Type A POSITIVE Antibody Screen Negative Crossmatch See Detail Vital Signs Temperature 97.7 F 09/05/18 14:31 Pulse Rate 80 09/05/18 14:31 Respiratory Rate 20 09/05/18 14:31 Blood Pressure 132/70 09/05/18 14:31 O2 Sat by Pulse Oximetry (%) 100 09/05/18 09:00 CC: recurrence of bleeding ```````````````````````````````````````` skin--numerous surg scars; no acute lesions appreciated heart--RR lungs--grossly clear abd--soft, NT --with cath draining faintly red urine ext--trace edema neuro--fully alert; coherent, in NAD; moves all extrems purposefully `````````````````````````````````````````````````````````````` Summ > Gross hematuria--recurrence noted; worse when walking; still has catalan and CBI resumed; seen by Urology; off a/c; resume flomax. > Prostatism--s/p TUVP on prior admission. > anemia--2nd acute blood loss; transfused 2 U of PC; Hgb on downtrend; will check daily > constip--start laxatives > Hypotension--reversed; post transfusion & IVF. > ATF--HR appears to be in NL range; will not be restarted on a/c inview of his repeated (severe) hemorrhagic episodes; as the risks of doing so will probably be greater than the benefit at this juncture. May Rx ASa when appropriate > Valve heart repl status--s/p TAVR > High Troponin--mild; now downtrending. ~~~~~~~~~~~~~~~~~~ Dr Sanches
[2018-09-05] MEDS: SODIUM CHLORIDE 1,000 ML IV SCH (20:45)
[2018-09-05] MEDS: POLYETHYLENE GLYCOL 3350 119 GM BTL PO SCH (22:00)
--- NOTE | 2018-09-06 08:07 | CONSULT ---
Consult - text type - Consultation Consultation Note: CC: gross hematuria secondary to anticoagulation HPI: Patient doing well with CBI. Patient is comfortable with no recent clot formation. CBI is running well VSS; afeb no change in PE CBI lightly blood tinged Creatinine 1.4 HCT 24-25 imp gross hematuria secondary to coumadin plan will observe urinary drainage without CBI 20 minutes spent with patient
[2018-09-06 08:18] LABS: ANION GAP 8 MMOL/L (8-16); BLOOD UREA NITROGEN 19 mg/dL (7-18); CALCIUM 7.8 mg/dL (8.5-10.1); CHLORIDE 112 mmol/L (98-107); CO2 26 mmol/L (21-32); CREATININE 1.4 mg/dL (0.55-1.3); GLUCOSE,RANDOM 87 mg/dL (74-106); HEMATOCRIT 25.5 % (35.4-49); HEMOGLOBIN 8.4 GM/dL (11.7-16.9); MCHC 33.1 g/dl (32.0-35.9); MEAN CELL VOLUME 96.5 fl (80-96); MEAN PLT VOLUME 9.6 fl (7.5-11.1); PLATELET COUNT 122 K/MM3 (134-434); POTASSIUM 3.7 mmol/L (3.5-5.1); RBC 2.64 M/mm3 (4.00-5.60); RDW 15.4 % (11.9-15.9); SODIUM 145 mmol/L (136-145)
[2018-09-06] MEDS: TAMSULOSIN HCL 0.4 MG CAP PO SCH (08:37)
[2018-09-06 09:02] LABS: INR 1.03 (0.83-1.09); PROTHROMBIN TIME (PATIENT) 12.2 SEC (9.7-13.0)
[2018-09-06] MEDS: DOCUSATE SODIUM 100 MG CAPSULE (FP) PO SCH (10:12)
[2018-09-06] MEDS: POLYETHYLENE GLYCOL 3350 119 GM BTL PO SCH ×2 (10:17→21:49)
--- NOTE | 2018-09-06 13:55 | PN ---
Progress Note (short form) - Note Progress Note: PULMONARY Has CBI in place Gen: NAD at rest Heart: RRR Lung: decreased breath sounds at the bases Abd: soft, nontender Ext: no edema Active Medications reviewed meds/labs/images reviewed PET positive RUL nodule not biopsied thus far. Repeat ct chest no significant increase in size as compared to previous 03/2018 Recurrent Hematuria Acute Blood Loss Anemia Thrombocytopenia Acute on Chronic Renal Failure BPH Paroxysmal Atrial Fibrillation s/p PPM Aortic Stenosis s/p TAVR Lung Nodule - monitor H/H - transfuse as needed - CBI in progress - rate control - holding anticoagulation - will continue work up as outpatient for nodule Roosevelt VARGAS MD
[2018-09-06 15:24] VITALS: BMI 26.6
--- NOTE | 2018-09-06 17:30 | PN ---
Progress Note (short form) - Note Progress Note: Current Medications Docusate Sodium (Colace -) 100 mg PO DAILY [facility] Last Admin: 09/06/18 10:12 Dose: 100 mg Sodium Chloride (Normal Saline -) 1,000 mls @ 42 mls/hr IV ASDIR [facility] Last Admin: 09/05/18 20:45 Dose: 42 mls/hr Morphine Sulfate (Morphine Sulfate) 2 mg IVPUSH Q4H PRN PRN Reason: PAIN LEVEL 4 - 6 Last Admin: 09/04/18 23:53 Dose: 2 mg Polyethylene Glycol (Miralax (For Daily Use) -) 17 gm PO BID [facility] Last Admin: 09/06/18 10:17 Dose: 17 gm Tamsulosin HCl (Flomax -) 0.4 mg PO DAILY@0830 [facility] Last Admin: 09/06/18 08:37 Dose: 0.4 mg Laboratory Results - last 24 hr 09/02/18 09/06/18 09/06/18 11:10 07:00 07:00 WBC 7.0 RBC 2.64 L Hgb 8.4 L Hct 25.5 L MCV 96.5 H MCH 32.0 MCHC 33.1 RDW 15.4 Plt Count 122 L MPV 9.6 PT with INR 12.20 INR 1.03 Sodium Potassium Chloride Carbon Dioxide Anion Gap BUN Creatinine Creat Clearance w eGFR Random Glucose Calcium Blood Type A POSITIVE Antibody Screen Negative Crossmatch See Detail 09/06/18 07:00 WBC RBC Hgb Hct MCV MCH MCHC RDW Plt Count MPV PT with INR INR Sodium 145 Potassium 3.7 Chloride 112 H Carbon Dioxide 26 Anion Gap 8 BUN 19 H Creatinine 1.4 H Creat Clearance w eGFR 47.94 Random Glucose 87 Calcium 7.8 L Blood Type Antibody Screen Crossmatch Vital Signs Temperature 98.0 F 09/06/18 14:37 Pulse Rate 80 09/06/18 14:37 Respiratory Rate 18 09/06/18 14:37 Blood Pressure 146/85 09/06/18 14:37 O2 Sat by Pulse Oximetry (%) 100 09/06/18 09:00 CC: bleeding; with suprapubic spasms ```````````````````````````````````````` skin--numerous surg scars; no acute lesions appreciated heart--RR lungs--grossly clear abd--soft, NT --with cath draining dark red urine ext--trace edema neuro--fully alert; coherent, in NAD; moves all extrems purposefully `````````````````````````````````````````````````````````````` Summ > Gross hematuria--seen by Urology, stopped CBI; dark red blood without clotting in urine; ? represents old/decomposed blood; off a/c; on flomax. > Prostatism--s/p TUVP on prior admission. > anemia--2nd acute blood loss; transfused 2 U of PC; Hgb still on downtrend; will check daily > constip--on laxatives > pATF--HR appears to be in NL range; will not be restarted on a/c inview of his repeated (severe) hemorrhagic episodes; as the risks of doing so will probably be greater than the benefit at this juncture. 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
[2018-09-06] MEDS: SODIUM CHLORIDE 1,000 ML IV SCH (21:48)
[2018-09-07 08:24] LABS: HEMATOCRIT 25.5 % (35.4-49); HEMOGLOBIN 8.4 GM/dL (11.7-16.9); MCH 31.9 pg (25.7-33.7); MEAN CELL VOLUME 96.6 fl (80-96); MEAN PLT VOLUME 9.1 fl (7.5-11.1); PLATELET COUNT 131 K/MM3 (134-434); RBC 2.65 M/mm3 (4.00-5.60); RDW 15.1 % (11.9-15.9); WHITE BLOOD COUNT 5.7 K/mm3 (4.0-10.0)
[2018-09-07] MEDS: TAMSULOSIN HCL 0.4 MG CAP PO SCH (09:11)
[2018-09-07] MEDS: DOCUSATE SODIUM 100 MG CAPSULE (FP) PO SCH (09:11)
[2018-09-07] MEDS: POLYETHYLENE GLYCOL 3350 119 GM BTL PO SCH ×2 (09:11→21:54)
[2018-09-07 09:54] LABS: ANION GAP 8 MMOL/L (8-16); BLOOD UREA NITROGEN 15 mg/dL (7-18); CALCIUM 7.9 mg/dL (8.5-10.1); CHLORIDE 113 mmol/L (98-107); CO2 24 mmol/L (21-32); CREATININE 1.3 mg/dL (0.55-1.3); GLUCOSE,RANDOM 88 mg/dL (74-106); POTASSIUM 3.9 mmol/L (3.5-5.1); SODIUM 145 mmol/L (136-145)
--- NOTE | 2018-09-07 10:42 | PN ---
Progress Note (short form) - Note Progress Note: Subjective: --No acute overnight events --Feels well today, no complaints Objective: Vital Signs 09/07/18 09/07/18 06:01 09:00 Temperature 98.3 F 97.8 F Pulse Rate 80 80 Respiratory 19 20 Rate Blood Pressure 141/65 138/58 L Gen: well appearing male sitting upright in NAD HEENT: NC/AT. OP Clear, MMM Cardiac: S1/S2 no murmurs Pulm: clear breath sounds bilaterally. No rales. Ext: WWP. No edema. Laboratory Results - last 24 hr 09/07/18 09/07/18 07:30 07:30 WBC 5.7 RBC 2.65 L Hgb 8.4 L Hct 25.5 L MCV 96.6 H MCH 31.9 MCHC 33.0 RDW 15.1 Plt Count 131 L MPV 9.1 Sodium 145 Potassium 3.9 Chloride 113 H Carbon Dioxide 24 Anion Gap 8 BUN 15 Creatinine 1.3 Creat Clearance w eGFR 52.22 Random Glucose 88 Calcium 7.9 L Active Medications Docusate Sodium (Colace -) 100 mg PO DAILY [facility] Last Admin: 09/07/18 09:11 Dose: 100 mg Sodium Chloride (Normal Saline -) 1,000 mls @ 42 mls/hr IV ASDIR [facility] Last Admin: 09/06/18 21:48 Dose: 42 mls/hr Morphine Sulfate (Morphine Sulfate) 2 mg IVPUSH Q4H PRN PRN Reason: PAIN LEVEL 4 - 6 Last Admin: 09/04/18 23:53 Dose: 2 mg Polyethylene Glycol (Miralax (For Daily Use) -) 17 gm PO BID [facility] Last Admin: 09/07/18 09:11 Dose: 17 gm Tamsulosin HCl (Flomax -) 0.4 mg PO DAILY@0830 [facility] Last Admin: 09/07/18 09:11 Dose: 0.4 mg A/P: IMP: Recurrent gross hematuria and hyotension, anemia requiring PRBCS, FFP and Vitamin K. Hematuria secondary to chronic prostatic enlargement/inflammation and unmasked by the presence of anticoagulation PAF s/p PPM Severe s/p TAVR Acute on chronic renal failure REC: No significant change from 09/06/18 1. Hold all BP meds in setting of acute blood loss and intermittent episodes of hypotension (currently normotensive) 2. Follow H/H, transfuse as needed per primiary team, has been stable. 3. Appreciate Recommendations 4. Continue to hold coumadin in setting of acute bleed 5. 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 Once deemed appropriate by team, can resume low dose ASA 81mg. 6. Renal function improved, Cr 1.3 7. The mild elevation in TnI is noted- does not represent an acute coronary syndrome. Likely secondary to demand ischemia secondary to hypotension and anemia that are now resolved. No specific treatment other than supportive care: -Follow H/H, keep Hb > 8 -Avoid hypotension Js Donis MD
--- NOTE | 2018-09-07 11:17 | PN ---
Progress Note (short form) - Note Progress Note: Resting in NAD. No CP or SOB. No acute events. Intake & Output 09/04/18 09/05/18 09/06/18 09/07/18 23:59 23:59 23:59 23:59 Intake Total 5940 7540 550 750 Output Total 59661 50555 4150 1350 Balance -9060 -3060 -3600 -600 Weight 160 lb 8 oz 160 lb 149 lb 9 oz Last Vital Signs Temp Pulse Resp BP Pulse Ox 97.8 F 80 20 138/58 L 100 09/07/18 09:00 09/07/18 09:00 09/07/18 09:00 09/07/18 09:00 09/06/18 21:00 Active Medications Docusate Sodium (Colace -) 100 mg PO DAILY [facility] Last Admin: 09/07/18 09:11 Dose: 100 mg Sodium Chloride (Normal Saline -) 1,000 mls @ 42 mls/hr IV ASDIR [facility] Last Admin: 09/06/18 21:48 Dose: 42 mls/hr Morphine Sulfate (Morphine Sulfate) 2 mg IVPUSH Q4H PRN PRN Reason: PAIN LEVEL 4 - 6 Last Admin: 09/04/18 23:53 Dose: 2 mg Polyethylene Glycol (Miralax (For Daily Use) -) 17 gm PO BID [facility] Last Admin: 09/07/18 09:11 Dose: 17 gm Tamsulosin HCl (Flomax -) 0.4 mg PO DAILY@0830 [facility] Last Admin: 09/07/18 09:11 Dose: 0.4 mg Gen: NAD at rest Heart: RRR Lung: decreased breath sounds at the bases Abd: soft, nontender Ext: no edema Laboratory Results - last 24 hr 09/07/18 09/07/18 07:30 07:30 WBC 5.7 RBC 2.65 L Hgb 8.4 L Hct 25.5 L MCV 96.6 H MCH 31.9 MCHC 33.0 RDW 15.1 Plt Count 131 L MPV 9.1 Sodium 145 Potassium 3.9 Chloride 113 H Carbon Dioxide 24 Anion Gap 8 BUN 15 Creatinine 1.3 Creat Clearance w eGFR 52.22 Random Glucose 88 Calcium 7.9 L A/P Recurrent Hematuria Acute Blood Loss Anemia Thrombocytopenia Acute on Chronic Renal Failure BPH Paroxysmal Atrial Fibrillation s/p PPM Aortic Stenosis s/p TAVR 1 cm Lung Nodule - monitor H/H - Normal transfusion thresholds - rate control - holding anticoagulation - Outpatient followup and workup of lung (need to get old records from PMD) Dr Read
--- NOTE | 2018-09-07 18:02 | PN ---
Progress Note (short form) - Note Progress Note: Current Medications Docusate Sodium (Colace -) 100 mg PO DAILY [facility] Last Admin: 09/07/18 09:11 Dose: 100 mg Sodium Chloride (Normal Saline -) 1,000 mls @ 42 mls/hr IV ASDIR [facility] Last Admin: 09/06/18 21:48 Dose: 42 mls/hr Morphine Sulfate (Morphine Sulfate) 2 mg IVPUSH Q4H PRN PRN Reason: PAIN LEVEL 4 - 6 Last Admin: 09/04/18 23:53 Dose: 2 mg Polyethylene Glycol (Miralax (For Daily Use) -) 17 gm PO BID [facility] Last Admin: 09/07/18 09:11 Dose: 17 gm Tamsulosin HCl (Flomax -) 0.4 mg PO DAILY@0830 [facility] Last Admin: 09/07/18 09:11 Dose: 0.4 mg Laboratory Results - last 24 hr 09/07/18 09/07/18 07:30 07:30 WBC 5.7 RBC 2.65 L Hgb 8.4 L Hct 25.5 L MCV 96.6 H MCH 31.9 MCHC 33.0 RDW 15.1 Plt Count 131 L MPV 9.1 Sodium 145 Potassium 3.9 Chloride 113 H Carbon Dioxide 24 Anion Gap 8 BUN 15 Creatinine 1.3 Creat Clearance w eGFR 52.22 Random Glucose 88 Calcium 7.9 L Vital Signs Temp 98.1 F 09/07/18 15:42 Pulse 66 09/07/18 15:42 Resp 20 09/07/18 15:42 BP 128/74 09/07/18 15:42 Pulse Ox 100 09/06/18 21:00 Intake & Output 09/06/18 09/07/18 09/07/18 23:59 11:59 23:59 Intake Total 550 750 300 Output Total 850 1350 400 Balance -300 -600 -100 Weight 160 lb 149 lb 9 oz Intake: IV 500 Normal Saline - 1,000 ml 500 @ 42 mls/hr IV ASDIR [facility] Rx#:[id number] Oral 550 250 300 Output: Urine 850 1350 400 Humphreys 850 1350 400 Other: Voiding Method Indwelling Catheter Indwelling Catheter Indwelling Catheter Bowel Movement Yes Yes # Bowel Movements 1 1 Height 5 ft 5 in Body Mass Index (BMI) 26.6 Weight Measurement Method Chair Scale CC: bleeding; with some suprapubic spasms ```````````````````````````````````````` skin--numerous surg scars; no acute lesions appreciated heart--RR lungs--grossly clear abd--soft, NT --with cath draining dark red urine ext--trace edema neuro--fully alert; coherent, in NAD; moves all extrems purposefully `````````````````````````````````````````````````````````````` Summ > Gross hematuria--dark red blood without clots present in Humphreys, ? represents old/decomposed blood; off a/c; on flomax. Await Urology F/u > Prostatism--s/p TUVP on prior admission. > renal insufficiency--seen initially (2nd Hypotension); now back to baseline > anemia--2nd acute blood loss; transfused 2 U of PC; Hgb seems to have leveled off; will check daily > constip--on laxatives > Htn--Bp appears to be in good range w/o any meds at this time > pATF--HR appears to be in NL range; will not be restarted on a/c inview of his repeated (severe) hemorrhagic episodes; as the risks of doing so will probably be greater than the benefit at this juncture. 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 ~~~~~~~~~~~~~~~~~~ Dr Sanches
[2018-09-07] MEDS: SODIUM CHLORIDE 1,000 ML IV SCH (21:56)
[2018-09-08] MEDS: MORPHINE SULFATE 2 MG/ML VIAL IVPUSH PRN (01:14)
[2018-09-08 07:36] LABS: HEMATOCRIT 28.1 % (35.4-49); HEMOGLOBIN 9.3 GM/dL (11.7-16.9); MCH 32.2 pg (25.7-33.7); MCHC 32.9 g/dl (32.0-35.9); MEAN CELL VOLUME 97.7 fl (80-96); MEAN PLT VOLUME 9.1 fl (7.5-11.1); PLATELET COUNT 156 K/MM3 (134-434); RBC 2.88 M/mm3 (4.00-5.60); RDW 15.4 % (11.9-15.9); WHITE BLOOD COUNT 6.9 K/mm3 (4.0-10.0)
[2018-09-08] MEDS: TAMSULOSIN HCL 0.4 MG CAP PO SCH (07:47)
[2018-09-08] MEDS: DOCUSATE SODIUM 100 MG CAPSULE (FP) PO SCH (09:19)
[2018-09-08] MEDS: POLYETHYLENE GLYCOL 3350 119 GM BTL PO SCH ×2 (09:19→21:38)
--- NOTE | 2018-09-08 11:43 | PN ---
Progress Note (short form) - Note Progress Note: Comfortable. No CP or SOB. No acute events overnight. Intake & Output 09/05/18 09/06/18 09/07/18 09/08/18 23:59 23:59 23:59 23:59 Intake Total 7540 550 1550 500 Output Total 89405 4150 2350 1000 Balance -3060 -3600 -800 -500 Weight 160 lb 149 lb 9 oz 150 lb 9 oz Last Vital Signs Temp Pulse Resp BP Pulse Ox 97.5 F L 80 20 141/76 100 09/08/18 10:00 09/08/18 10:00 09/08/18 10:00 09/08/18 10:00 09/07/18 20:36 Active Medications Docusate Sodium (Colace -) 100 mg PO DAILY [facility] Last Admin: 09/08/18 09:19 Dose: 100 mg Sodium Chloride (Normal Saline -) 1,000 mls @ 42 mls/hr IV ASDIR [facility] Last Admin: 09/07/18 21:56 Dose: 42 mls/hr Morphine Sulfate (Morphine Sulfate) 2 mg IVPUSH Q4H PRN PRN Reason: PAIN LEVEL 4 - 6 Last Admin: 09/08/18 01:14 Dose: 2 mg Polyethylene Glycol (Miralax (For Daily Use) -) 17 gm PO BID [facility] Last Admin: 09/08/18 09:19 Dose: 17 gm Tamsulosin HCl (Flomax -) 0.4 mg PO DAILY@0830 [facility] Last Admin: 09/08/18 07:47 Dose: 0.4 mg Gen: NAD at rest Heart: RRR Lung: decreased breath sounds at the bases Abd: soft, nontender Ext: no edema Laboratory Results - last 24 hr 09/08/18 06:40 WBC 6.9 RBC 2.88 L Hgb 9.3 L Hct 28.1 L MCV 97.7 H MCH 32.2 MCHC 32.9 RDW 15.4 Plt Count 156 MPV 9.1 A/P Recurrent Hematuria Acute Blood Loss Anemia Thrombocytopenia Acute on Chronic Renal Failure BPH Paroxysmal Atrial Fibrillation s/p PPM Aortic Stenosis s/p TAVR 1 cm Lung Nodule - monitor H/H - Normal transfusion thresholds - rate control - holding anticoagulation - Outpatient followup of lung nodule (need to get additional records from PMD: apparently stable findings) Dr Read
--- NOTE | 2018-09-08 15:34 | PN ---
Progress Note (short form) - Note Progress Note: Current Medications Docusate Sodium (Colace -) 100 mg PO DAILY [facility] Last Admin: 09/08/18 09:19 Dose: 100 mg Sodium Chloride (Normal Saline -) 1,000 mls @ 42 mls/hr IV ASDIR [facility] Last Admin: 09/07/18 21:56 Dose: 42 mls/hr Morphine Sulfate (Morphine Sulfate) 2 mg IVPUSH Q4H PRN PRN Reason: PAIN LEVEL 4 - 6 Last Admin: 09/08/18 01:14 Dose: 2 mg Polyethylene Glycol (Miralax (For Daily Use) -) 17 gm PO BID [facility] Last Admin: 09/08/18 09:19 Dose: 17 gm Tamsulosin HCl (Flomax -) 0.4 mg PO DAILY@0830 [facility] Last Admin: 09/08/18 07:47 Dose: 0.4 mg Laboratory Results - last 24 hr 09/08/18 06:40 WBC 6.9 RBC 2.88 L Hgb 9.3 L Hct 28.1 L MCV 97.7 H MCH 32.2 MCHC 32.9 RDW 15.4 Plt Count 156 MPV 9.1 Vital Signs Temp 97.5 F L 09/08/18 10:00 Pulse 80 09/08/18 10:00 Resp 20 09/08/18 10:00 BP 141/76 09/08/18 10:00 Pulse Ox 100 09/07/18 20:36 Intake & Output 09/07/18 09/08/18 09/08/18 23:59 11:59 23:59 Intake Total 800 500 Output Total 1000 1000 Balance -200 -500 Weight 150 lb 9 oz Intake: IV 500 Normal Saline - 1,000 ml 500 @ 42 mls/hr IV ASDIR [facility] Rx#:[id number] Oral 800 Output: Urine 1000 1000 Humphreys 1000 1000 Other: Voiding Method Indwelling Catheter Indwelling Catheter Indwelling Catheter Bowel Movement No # Bowel Movements 1 Weight Measurement Method Built in [facility] CC: bleeding; with some suprapubic spasms ```````````````````````````````````````` skin--numerous surg scars; no acute lesions appreciated; sutures intact; IV site clear heart--RR lungs--grossly clear abd--soft, NT --with cath draining dark red urine ext--trace edema neuro--fully alert; coherent, in NAD `````````````````````````````````````````````````````````````` Summ > Gross hematuria--dark red blood without clots in Humphreys, ? represents old/ decomposed blood; off a/c; on flomax. Await Urology F/u > Prostatism--s/p TUVP on prior admission. > renal insufficiency--seen initially (2nd Hypotension); now back to baseline > anemia--Hgb on the rise; will check daily > constip--on laxatives > Htn--Bp appears to be in good range w/o any meds at this time > pATF--HR appears to be in NL range; will not be restarted on a/c in view of his repeated (severe) hemorrhagic episodes; as the risks of doing so will probably be greater than the benefit at this juncture. 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 ~~~~~~~~~~~~~~~~~~ Dr Sanches
[2018-09-09 07:44] LABS: HEMATOCRIT 25.3 % (35.4-49); HEMOGLOBIN 8.9 GM/dL (11.7-16.9); MCH 33.9 pg (25.7-33.7); MCHC 35.2 g/dl (32.0-35.9); MEAN CELL VOLUME 96.3 fl (80-96); MEAN PLT VOLUME 9.1 fl (7.5-11.1); PLATELET COUNT 178 K/MM3 (134-434); RBC 2.62 M/mm3 (4.00-5.60); RDW 14.9 % (11.9-15.9); WHITE BLOOD COUNT 7.7 K/mm3 (4.0-10.0)
--- NOTE | 2018-09-09 09:01 | PN ---
Progress Note, Physician Chief Complaint: catalan still draining bloody urine He denies CP, SOB or other CV complaints - Current Medication List Current Medications: Active Medications Docusate Sodium (Colace -) [address] [facility] Last Admin: 09/08/18 09:19 Dose: 100 mg Morphine Sulfate (Morphine Sulfate) 2 mg IVPUSH Q4H PRN PRN Reason: PAIN LEVEL 4 - 6 Last Admin: 09/08/18 01:14 Dose: 2 mg Polyethylene Glycol (Miralax (For Daily Use) -) [address] [facility] Last Admin: 09/08/18 21:38 Dose: Not Given Tamsulosin HCl (Flomax -) 0.4 mg PO DAILY@0830 [facility] Last Admin: 09/08/18 07:47 Dose: 0.4 mg - Objective Vital Signs: Vital Signs Temperature 98.5 F 09/09/18 05:46 Pulse Rate 81 09/09/18 05:46 Respiratory Rate 20 09/09/18 05:46 Blood Pressure 148/75 09/09/18 05:46 O2 Sat by Pulse Oximetry (%) 98 09/08/18 21:00 Constitutional: Yes: No Distress, Calm Eyes: Yes: Conjunctiva Clear Cardiovascular: Yes: Regular Rate and Rhythm Respiratory: Yes: CTA Bilaterally (no rales or wheezing.) Gastrointestinal: Yes: Soft Edema: No Neurological: Yes: Alert, Oriented ...Motor Strength: WNL Labs: CBC, BMP 09/09/18 06:40 09/07/18 07:30 INR, PTT INR 1.03 (0.83-1.09) 09/06/18 07:00 Laboratory Tests 09/06/18 09/07/18 09/09/18 07:00 07:30 06:40 WBC 7.7 Hgb 8.9 L Plt Count 178 INR 1.03 Sodium 145 Potassium 3.9 BUN 15 Creatinine 1.3 Calcium 7.9 L - ....Imaging EKG: Image Reviewed Assessment/Plan IMP: Recurrent gross hematuria and hyotension, anemia requiring PRBCS, FFP and Vitamin K. Hematuria secondary to chronic prostatic enlargement/inflammation and unmasked by the presence of anticoagulation PAF s/p PPM Severe s/p TAVR Acute on chronic renal failure REC: 1. BP normal for ag group (< 150/90)- not requiring BP meds at this time. 2. Follow H/H, transfuse as needed, has been stable. 3. following. 4. Hold coumadin 5. 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 Risks seem to outweigh potential benefits. We may need to simply opt for low dose ASA 81mg, but he is still bleeding at this time. 6. Renal function back to baseline. Bump in creat on admission likely due to transient hypotension, ATN-- resolved. 7. The mild elevation in TnI is noted- does not represent an acute coronary syndrome. Likely secondary to demand ischemia secondary to hypotension and anemia that are now resolved. No specific treatment other than supportive care: -Follow H/H, keep Hb > 8 -Avoid hypotension
[2018-09-09] MEDS: TAMSULOSIN HCL 0.4 MG CAP PO SCH (09:21)
[2018-09-09] MEDS: DOCUSATE SODIUM 100 MG CAPSULE (FP) PO SCH (09:21)
[2018-09-09] MEDS: POLYETHYLENE GLYCOL 3350 119 GM BTL PO SCH ×2 (09:23→22:13)
--- NOTE | 2018-09-09 13:05 | PN ---
Progress Note (short form) - Note Progress Note: Comfortable. Still with hematuria. No CP or SOB. No acute events overnight. Intake & Output 09/06/18 09/07/18 09/08/18 09/09/18 23:59 23:59 23:59 23:59 Intake Total 550 1550 1040 Output Total 4150 2350 3100 500 Balance -3600 -800 -2060 -500 Weight 160 lb 149 lb 9 oz 150 lb 9 oz 148 lb 2 oz Last Vital Signs Temp Pulse Resp BP Pulse Ox 97.5 F L 82 20 127/66 98 09/09/18 11:41 09/09/18 11:41 09/09/18 11:41 09/09/18 11:41 09/08/18 21:00 Active Medications Docusate Sodium (Colace -) 100 mg PO DAILY [facility] Last Admin: 09/09/18 09:21 Dose: 100 mg Morphine Sulfate (Morphine Sulfate) 2 mg IVPUSH Q4H PRN PRN Reason: PAIN LEVEL 4 - 6 Last Admin: 09/08/18 01:14 Dose: 2 mg Polyethylene Glycol (Miralax (For Daily Use) -) 17 gm PO BID [facility] Last Admin: 09/09/18 09:23 Dose: Not Given Tamsulosin HCl (Flomax -) 0.4 mg PO DAILY@0830 [facility] Last Admin: 09/09/18 09:21 Dose: 0.4 mg Gen: NAD at rest Heart: RRR Lung: decreased breath sounds at the bases Abd: soft, nontender Ext: no edema Laboratory Results - last 24 hr 09/09/18 06:40 WBC 7.7 RBC 2.62 L Hgb 8.9 L Hct 25.3 L MCV 96.3 H MCH 33.9 H MCHC 35.2 RDW 14.9 Plt Count 178 MPV 9.1 A/P Recurrent Hematuria Acute Blood Loss Anemia Thrombocytopenia Acute on Chronic Renal Failure BPH Paroxysmal Atrial Fibrillation s/p PPM Aortic Stenosis s/p TAVR 1 cm Lung Nodule - monitor H/H - Normal transfusion thresholds - rate control - holding anticoagulation - Outpatient followup of lung nodule (apparently stable findings per PMD) Dr Read
--- NOTE | 2018-09-09 16:20 | PN ---
Progress Note (short form) - Note Progress Note: Current Medications Alprazolam (Xanax -) 0.25 mg PO BID [facility] Docusate Sodium (Colace -) 100 mg PO DAILY [facility] Last Admin: 09/09/18 09:21 Dose: 100 mg Polyethylene Glycol (Miralax (For Daily Use) -) 17 gm PO BID [facility] Last Admin: 09/09/18 09:23 Dose: Not Given Tamsulosin HCl (Flomax -) 0.4 mg PO DAILY@0830 [facility] Last Admin: 09/09/18 09:21 Dose: 0.4 mg Laboratory Results - last 24 hr 09/09/18 06:40 WBC 7.7 RBC 2.62 L Hgb 8.9 L Hct 25.3 L MCV 96.3 H MCH 33.9 H MCHC 35.2 RDW 14.9 Plt Count 178 MPV 9.1 Vital Signs Temperature 97.5 F L 09/09/18 11:41 Pulse Rate 82 09/09/18 11:41 Respiratory Rate 20 09/09/18 11:41 Blood Pressure 127/66 09/09/18 11:41 O2 Sat by Pulse Oximetry (%) 98 09/09/18 09:00 CC: unable to hold his urine (post removal of Catalan) ```````````````````````````````````````` skin--numerous surg scars; no acute lesions appreciated; sutures intact; IV site clear heart--RR lungs--grossly clear abd--soft, NT --catalan out ext--trace edema neuro--fully alert; coherent, in NAD `````````````````````````````````````````````````````````````` Summ > Gross hematuria--still voiding dark red urine; Catalan out; off a/c; on flomax. Await Urology F/u > Prostatism--s/p TUVP on prior admission. > renal insufficiency--seen initially (2nd Hypotension). > anemia--Hgb down again; will check daily > constip--on laxatives > Htn--Bp appears to be in good range w/o any meds at this time > pATF--HR appears to be in NL range; will not be restarted on a/c in view of on going blood loss; as the risks of doing so will probably be greater than the benefit at this juncture. 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 ~~~~~~~~~~~~~~~~~~ Dr Sanches
--- NOTE | 2018-09-09 18:50 | CONSULT ---
Consult - text type - Consultation Consultation Note: cc: gross hemauria secondary to coagullopathe hpi: patient voiding well with catalan d/rayshawn. Urine is bloody without clots. Patient is comfortable. PE afeb abd- no palpable bladder imp gross hematuria s/p clot retention plan observe overnight
--- NOTE | 2018-09-09 19:16 | CONSULT ---
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 I the ER, an irrigation catheter was placed but the bleeding continued; initial Hgb was about but several hrs later it dropped to the low 8's. His BP also began to drop. 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 Right mandible he had 10 days ago a removal of. we were asked to assess. - History Source History Provided By: Patient, Medical Record Limitations to Obtaining History: No Limitations - Past Medical History FRONT DESK COORDINATOR: Yes: Vertigo Cardio/Vascular: Yes: Aortic Stenosis, CAD, HTN, Murmur Pulmonary: Yes: Other (recent LT spont Pneumothorax; Rt mid peripheral (as of yet) undefined neoplasm) Gastrointestinal: Yes: Other (dyspepsia (chronic)) Hepatobiliary: Yes: Cholelithiasis Renal/: Yes: Renal Inusuff (s/p Lt nephrectomy 2nd cancer), BPH, Hematuria, UTI Psych: Yes: Anxiety Musculoskeletal: Yes: Chronic low back pain, Osteoarthritis Dermatology: Yes: Other (skin neoplasms--recurrent) - Past Surgical History Past Surgical History: Yes: Colonoscopy, Nephrectomy, Splenectomy (skin grafts) , TURP - Alcohol/Substance Use Hx Alcohol Use: No History of Substance Use: reports: None - Smoking History Smoking history: Unknown if ever smoked Have you smoked in the past 12 months: No Aproximately how many cigarettes per day: 0 - Social History ADL: Independent 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; 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 History of Recent Travel: No Home Medications - Allergies Allergies/Adverse Reactions: Allergies Allergy/AdvReac Type Severity Reaction Status Date / Time Penicillins Allergy Unknown Verified 09/02/18 10:00 codeine [Codeine] Allergy Verified 09/02/18 10:00 - Home Medications Home Medications: Ambulatory Orders Dorzolamide HCl/Timolol Maleat [Cosopt Eye Drops] 1 drop OU BID 07/21/15 Travoprost [Travatan Z] 1 drop OU HS 04/15/16 Brimonidine Tartrate [Alphagan 0.15% -] 1 drop OU BID drops 05/01/18 Amlodipine Besylate [Norvasc -] 10 mg PO DAILY 08/02/18 Losartan Potassium 50 mg PO HS 08/02/18 Tamsulosin HCl [Flomax -] 0.4 mg PO BID 08/02/18 Metoprolol Succinate [Toprol XL -] 25 mg PO DAILY tab.sr.24h 08/09/18 Warfarin Na [Coumadin -] 2.5 mg PO DAILY@1800 tablet 08/09/18 Physical Exam Vital Signs: Vital Signs Temperature 97.5 F L 09/09/18 11:41 Pulse Rate 82 09/09/18 11:41 Respiratory Rate 20 09/09/18 11:41 Blood Pressure 127/66 09/09/18 11:41 O2 Sat by Pulse Oximetry (%) 98 09/09/18 09:00 Labs: CBC, BMP 09/09/18 06:40 09/07/18 07:30 Problem List - Problems (1) Suture of skin wound Assessment/Plan: 88 yo male MMP with sutures due for removal discuss with surgeon suture removal Geraldine Yates MD Head Of Visual Merchandising, [facility] [phone] Code(s): T14.8XXA - OTHER INJURY OF UNSPECIFIED BODY REGION, INITIAL ENCOUNTER (2) Hematuria Code(s): R31.9 - HEMATURIA, UNSPECIFIED Qualifiers: Hematuria type: unspecified type Qualified Code(s): R31.9 - Hematuria, unspecified (3) Glaucoma Code(s): H40.9 - UNSPECIFIED GLAUCOMA Qualifiers: Glaucoma type: unspecified Laterality: bilateral Qualified Code(s): H40.9 - Unspecified glaucoma (4) History of malignant neoplasm of kidney Code(s): Z85.528 - PERSONAL HISTORY OF OTHER MALIGNANT NEOPLASM OF KIDNEY (5) 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
[2018-09-09] MEDS ORDERED: ALPRAZolam 0.25 MG TABLET PO SCH (22:00)
[2018-09-10 06:58] LABS: HEMATOCRIT 26.4 % (35.4-49); HEMOGLOBIN 9.1 GM/dL (11.7-16.9); MCH 33.2 pg (25.7-33.7); MCHC 34.4 g/dl (32.0-35.9); MEAN CELL VOLUME 96.7 fl (80-96); MEAN PLT VOLUME 9.1 fl (7.5-11.1); PLATELET COUNT 188 K/MM3 (134-434); RBC 2.73 M/mm3 (4.00-5.60); RDW 14.9 % (11.9-15.9); WHITE BLOOD COUNT 5.9 K/mm3 (4.0-10.0)
[2018-09-10 07:24] LABS: ANION GAP 7 MMOL/L (8-16); BLOOD UREA NITROGEN 19 mg/dL (7-18); CHLORIDE 111 mmol/L (98-107); CO2 25 mmol/L (21-32); CREATININE 1.4 mg/dL (0.55-1.3); GLUCOSE,RANDOM 90 mg/dL (74-106); POTASSIUM 3.8 mmol/L (3.5-5.1); SODIUM 144 mmol/L (136-145)
--- NOTE | 2018-09-10 08:15 | CONSULT ---
Consult - text type - Consultation Consultation Note: CC: gross hematuria secondary to coagulopathy s/p clot retention HPI: Patient is comfortable however has increased urinary frequency and urgency. Hematuria is improving. PE vss; afeb abd-no palpable bladder hgb 9.1 creatinine 1.4 imp gross hematuria secondary to coagulopathy plan observe
[2018-09-10] MEDS: POLYETHYLENE GLYCOL 3350 119 GM BTL PO SCH (09:19)
[2018-09-10] MEDS: TAMSULOSIN HCL 0.4 MG CAP PO SCH (09:19)
[2018-09-10] MEDS: DOCUSATE SODIUM 100 MG CAPSULE (FP) PO SCH (09:19)
[2018-09-10 10:52] VITALS: BP 142/83; PULSE 81; TEMP 97.5
--- NOTE | 2018-09-10 16:37 | DS ---
Physical Examination Vital Signs: Vital Signs Temperature 97.5 F L 09/10/18 10:00 Pulse Rate 81 09/10/18 10:00 Respiratory Rate 20 09/10/18 10:00 Blood Pressure 142/83 09/10/18 10:00 O2 Sat by Pulse Oximetry (%) 98 09/09/18 22:00 Constitutional: Yes: Well Nourished, No Distress Eyes: Yes: Conjunctiva Clear Cardiovascular: Yes: Regular Rate and Rhythm Respiratory: Yes: CTA Bilaterally Gastrointestinal: Yes: Normal Bowel Sounds, Soft Renal/: Yes: Hematuria Musculoskeletal: Yes: WNL Extremities: Yes: WNL Edema: No Integumentary: Yes: WNL Wound/Incision: Yes: Clean/Dry (Rt sub auricular sutures) Neurological: Yes: WNL ...Motor Strength: WNL Psychiatric: Yes: WNL Labs: CBC, BMP 09/10/18 06:30 09/10/18 06:30 Discharge Summary Reason For Visit: HEMATURIA; RETENTION OF URINE Current Active Problems Hematuria (Acute) Suture of skin wound Urinary retention prostatism atrial fibrillation Htn artificial valve status pacer status correction use of anticoagulation Macular degen glaucoma anemia-post bleed 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 Irrigation catheter was placed and the a/c was stopped; the acute bleeding subsided, his H/ h dropped to the point where need to be transfused (twice). The acute bleeding stopped and continued to have passage of clots and decomposed blood once the coagulation normalized. He was seen by urology who did not feel any procedure was warranted; the irrigation was stopped and the Humphreys was removed without obstruction of the urination. He is to remain off the anticoagulants of which his Promotion Manager is aware. Condition: Guarded - Instructions Diet, Activity, Other Instructions: low salt diet; drink plenty of fluids no alcoholic drinks no strenuous activity Referrals: Venkatesh Sanches MD [Primary Care Provider] - Disposition: HOME - Home Medications Comprehensive Discharge Medication List: Ambulatory Orders Dorzolamide HCl/Timolol Maleat [Cosopt Eye Drops] 1 drop OU BID 07/21/15 Travoprost [Travatan Z] 1 drop OU HS 04/15/16 Brimonidine Tartrate [Alphagan 0.15% -] 1 drop OU BID drops 05/01/18 Tamsulosin HCl [Flomax -] 0.4 mg PO BID 08/02/18 Metoprolol Succinate [Toprol XL -] 12.5 mg PO DAILY tab.sr.24h 08/09/18
== END 2018-09-10 17:10 | disposition home or self-care (01) | DRG 813 ==
LOC: JER 09:50 → JERBED 13:29 → JICU 19:06 → J6S 09-03 13:17
PROVIDERS: ADMIT Internal Medicine; ATTEND Internal Medicine
PROC: 3E1K78Z Irrigation of Genitourinary Tract using Irrigating Substance, Via Natural or Artificial Opening (ICD-10-PCS; principal; 2018-09-03)
PROC: 0TCB7ZZ Extirpation of Matter from Bladder, Via Natural or Artificial Opening (ICD-10-PCS; 2018-09-03)
PROC: 30233K1 Transfusion of Nonautologous Frozen Plasma into Peripheral Vein, Percutaneous Approach (ICD-10-PCS; 2018-09-03)
PROC: 30233N1 Transfusion of Nonautologous Red Blood Cells into Peripheral Vein, Percutaneous Approach (ICD-10-PCS; 2018-09-03)
DX: D68.32 Hemorrhagic disorder due to extrinsic circulating anticoagulants (principal); D62 Acute posthemorrhagic anemia; N17.9 Acute kidney failure, unspecified; R31.0 Gross hematuria; D68.9 Coagulation defect, unspecified; I10 Essential (primary) hypertension; E78.5 Hyperlipidemia, unspecified; N40.0 Benign prostatic hyperplasia without lower urinary tract symptoms; H40.9 Unspecified glaucoma; I35.0 Nonrheumatic aortic (valve) stenosis; R33.9 Retention of urine, unspecified; I25.10 Atherosclerotic heart disease of native coronary artery without angina pectoris; T45.515A Adverse effect of anticoagulants, initial encounter; M54.5 Low back pain; R10.13 Epigastric pain; I48.91 Unspecified atrial fibrillation; K21.9 Gastro-esophageal reflux disease without esophagitis; H35.30 Unspecified macular degeneration; D64.9 Anemia, unspecified; N28.9 Disorder of kidney and ureter, unspecified; M19.90 Unspecified osteoarthritis, unspecified site; D69.6 Thrombocytopenia, unspecified; I95.9 Hypotension, unspecified; I48.0 Paroxysmal atrial fibrillation; R91.1 Solitary pulmonary nodule; Z90.81 Acquired absence of spleen; Z90.5 Acquired absence of kidney; Z85.72 Personal history of non-Hodgkin lymphomas; Z85.528 Personal history of other malignant neoplasm of kidney; Z95.0 Presence of cardiac pacemaker; Z95.2 Presence of prosthetic heart valve; Z85.828 Personal history of other malignant neoplasm of skin
CPT/HCPCS: 36415; 36430; 71045-TC-FY; 71250-TC; 80048; 80053; 82550; 84484; 85025; 85027; 85610; 85730; 86850; 86900; 86901; 86922; 93005; 93010; 99285-25; J7030; P9017; P9038; P9058

== ENCOUNTER 2018-09-11 15:49 | Inpatient (IN) | payer OTHER, MEDICARE ==
--- NOTE | 2018-09-11 16:15 | PDOC ---
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 He had his catalan removed 2 days ago, (AC was stopped due to bleeding at since then) and since then has been urinating very little over the past 2 days. Also complaining of 10/10 pain in the penis. Was transfused twice last visit. He was seen by urology who did not feel any procedure was warranted; the irrigation was stopped and the Catalan was removed without obstruction of the urination and A/C stopped since then Past History - Past Medical History Allergies/Adverse Reactions: Allergies Allergy/AdvReac Type Severity Reaction Status Date / Time Penicillins Allergy Unknown Verified 09/11/18 16:05 codeine [Codeine] Allergy Verified 09/11/18 16:05 Home Medications: Ambulatory Orders Dorzolamide HCl/Timolol Maleat [Cosopt Eye Drops] 1 drop OU BID 07/21/15 Travoprost [Travatan Z] 1 drop OU HS 04/15/16 Brimonidine Tartrate [Alphagan 0.15% -] 1 drop OU BID drops 05/01/18 Tamsulosin HCl [Flomax -] 0.4 mg PO BID 08/02/18 Metoprolol Tartrate 12.5 mg PO DAILY #14 tablet 09/10/18 Polyethylene Glycol 3350 [Miralax 119 gm Btl -] 17 gm PO BID bottle 09/10/18 Anemia: No Asthma: No Cancer: Yes (LYMPHOMA) Cardiac Disorders: Yes (aortic stenosis) CVA: No COPD: No CHF: No DVT: No Dementia: No Diabetes: No GI Disorders: No Disorders: Yes (BPH) HTN: Yes Hypercholesterolemia: Yes Liver Disease: No Seizures: No Thyroid Disease: No - Surgical History Abdominal Surgery: Yes (HERNIA.) Appendectomy: Yes GI Surgery: Yes (SPLENECTOMY.) - Immunization History Immunization Up to Date: Yes - Suicide/Smoking/Psychosocial Hx Smoking Status: No Smoking History: Never smoked Have you smoked in the past 12 months: No Number of Cigarettes Smoked Daily: 0 Information on smoking cessation initiated: No Hx Alcohol Use: No Drug/Substance Use Hx: No Substance Use Type: None Hx Substance Use Treatment: No Review of Systems - Review of Systems Able to Perform ROS?: Yes Is the patient limited Zambian proficient: No Constitutional: No: Symptoms Reported HEENTM: No: Symptoms Reported Respiratory: No: Symptoms reported Cardiac (ROS): No: Symptoms Reported ABD/GI: Yes: See HPI : Yes: See HPI Musculoskeletal: No: Symptoms Reported Integumentary: No: Symptoms Reported All Other Systems: Reviewed and Negative *Physical Exam - Vital Signs Last Vital Signs Temp Pulse Resp BP Pulse Ox 97.8 F 80 16 80/50 L 100 09/11/18 16:02 09/11/18 16:02 09/11/18 16:02 09/11/18 16:02 09/11/18 16:02 - Physical Exam General Appearance: Yes: Appropriately Dressed, Severe Distress, Thin HEENT: positive: EOMI, YANY, Normal ENT Inspection Neck: positive: Other (sutures to the right neck) Respiratory/Chest: positive: Lungs Clear, Normal Breath Sounds. negative: Chest Tender, Respiratory Distress Cardiovascular: positive: Regular Rhythm, Regular Rate, S1, S2 Gastrointestinal/Abdominal: positive: Normal Bowel Sounds, Tender (over bladder which is firm and full. Thick blood pouring from meatus. ), Flat, Soft Male Genitalia: positive: hematuria Musculoskeletal: positive: Normal Inspection. negative: CVA Tenderness Extremity: positive: Normal Capillary Refill, Normal Inspection, Normal Range of Motion Integumentary: positive: Dry, Warm, Pale Neurologic: positive: Fully Oriented, Alert, Normal Mood/Affect, Normal Response , Motor Strength 5/5 Moderate Sedation - Procedure Monitoring Vital Signs: Procedure Monitoring Vital Signs Temperature 97.8 F 09/11/18 16:02 Pulse Rate 80 09/11/18 16:02 Respiratory Rate 16 09/11/18 16:02 Blood Pressure 80/50 L 09/11/18 16:02 O2 Sat by Pulse Oximetry (%) 100 09/11/18 16:02 ED Treatment Course - LABORATORY CBC & Chemistry Diagram: 09/11/18 17:20 09/11/18 17:20 Medical Decision Making - Medical Decision Making 09/11/18 16:[address] Gallegos Will come see the patient. 09/11/18 18:52 Dr Gallegos came in to help with CBI. Clotted blood likely the source of the urinary retention. 2L saline hooked as patient initial BP was 80/50. Pain control. Due to concern for infection/sepsis, covered with meropenem. Patient's remember that the patient had received penicillin during his cancer treatment and didn't have a reaction to it, not sure why they keep mentioning allergy in medical documents. hmg 8.5, patient being pale, we will treat anemia, transfusing 1 unit due to large amount of hematuria. Spoke to PCp Dr. Sanches and let him know we will admit the patient to ICU. *DC/Admit/Observation/Transfer Diagnosis at time of Disposition: Penile bleeding, Hematuria, Urinary retention, Atrial fibrillation - Discharge Dispostion Condition at time of disposition: Improved Decision to Admit order: Yes - Referrals Referrals: Venkatesh Sanches MD [Primary Care Provider] - - Patient Instructions - Post Discharge Activity
--- NOTE | 2018-09-11 16:16 | PDOC ---
Rapid Medical Evaluation Chief Complaint: Urinary Problem Time Seen by Provider: 09/11/18 16:00 Medical Evaluation: Allergies Allergy/AdvReac Type Severity Reaction Status Date / Time Penicillins Allergy Unknown Verified 09/11/18 16:05 codeine [Codeine] Allergy Verified 09/11/18 16:05 Vital Signs Temp Pulse Resp BP Pulse Ox 97.8 F 80 16 80/50 L 100 09/11/18 16:02 09/11/18 16:02 09/11/18 16:02 09/11/18 16:02 09/11/18 16:02 09/11/18 16:05 I have performed a brief in-person evaluation of this patient. The patient presents with a chief complaint of: Penile bleeding w/ weakness/ dizziness. S/p recent admission for same, had catalan removed 2 days ago but states only very little urine coming out. No longer on blood thinners. No abd pain Pertinent physical exam findings: pale, hypotensive w/ MAP of 60 I have ordered the following:labs The patient will proceed to the ED for further evaluation Discharge Disposition - Diagnosis Penile bleeding - Referrals - Patient Instructions - Post Discharge Activity
[2018-09-11] MEDS ORDERED: SODIUM CHLORIDE 1,000 ML IV STA (16:31)
[2018-09-11 17:41] LABS: BASO % 0.7 % (0-2.0); EOS % 1.4 % (0-4.5); HEMOGLOBIN 8.5 GM/dL (11.7-16.9); LYMPH % 10.1 % (8-40); MCH 32.9 pg (25.7-33.7); MCHC 34.1 g/dl (32.0-35.9); MEAN CELL VOLUME 96.6 fl (80-96); MEAN PLT VOLUME 9.2 fl (7.5-11.1); MONO % 10.6 % (3.8-10.2); NEUT % 77.2 % (42.8-82.8); PLATELET COUNT 208 K/MM3 (134-434); RBC 2.59 M/mm3 (4.00-5.60); RDW 15.1 % (11.9-15.9); WHITE BLOOD COUNT 4.5 K/mm3 (4.0-10.0)
[2018-09-11 17:50] LABS: VENOUS PC02 30.2 mmHg (38-52); VENOUS PH 7.45 (7.32-7.42); VENOUS PO2 31.1 mmHg (28-48)
[2018-09-11 17:53] LABS: INR 1.04 (0.83-1.09); PROTHROMBIN TIME (PATIENT) 12.3 SEC (9.7-13.0)
[2018-09-11 17:56] LABS: ACTIVATED PTT 27.1 SECONDS (25.2-36.5)
--- NOTE | 2018-09-11 18:07 | PDOC ---
Attending Attestation - Resident Resident Name: JordynRashard - ED Attending Attestation I have performed the following: I have examined & evaluated the patient, The case was reviewed & discussed with the resident, I agree w/resident's findings & plan, Exceptions are as noted - HPI HPI: 09/11/18 17:53 The patient is a 88 year old male with a significant PMH of BPH s/p TURP who presents to the emergency department with recurrent urinary retention and hematuria since this morning. Patient was seen in this ER on 09/02 for similar symptoms, was admitted then, and had a catalan placed. Patient had his catalan removed 2 days ago and was experiencing retention since this morning although states yesterday he was only able to get drops out at a time. Patient has a blood pressure of 80/50 here in the ER. The patient denies chest pain, shortness of breath, headache and dizziness. Denies fever, chills, nausea, vomit, diarrhea and constipation. Allergies: NKA Past surgical history: TURP Social history: No reported alcohol, drug or cigarette use. - Physicial Exam PE: 09/11/18 17:55 GENERAL: Awake, alert, and fully oriented, in no acute distress HEAD: No signs of trauma EYES: PERRLA, EOMI, sclera anicteric, conjunctiva clear ENT: Auricles normal inspection, hearing grossly normal, nares patent, oropharynx clear without exudates. Moist mucosa NECK: Normal ROM, supple, no lymphadenopathy, JVD, or masses LUNGS: Breath sounds equal, clear to auscultation bilaterally. No wheezes, and no crackles HEART: Regular rate and rhythm, normal S1 and S2, no murmurs, rubs or gallops ABDOMEN: Soft, nontender, normoactive bowel sounds. No guarding, no rebound. No masses EXTREMITIES: Normal range of motion, no edema. No clubbing or cyanosis. No cords , erythema, or tenderness BACK: No midline spinal tenderness in cervical/thoracic/lumbar region NEUROLOGICAL: Normal speech, cranial nerves intact, negative pronator drift, 5/ 5 strength in all 4 extremities, normal sensation to light touch in all 4 extremities, normal cerebellar exam, normal gait, normal reflexes and tone SKIN: Warm, Dry, normal turgor, no rashes or lesions noted.""" - Medical Decision Making 12/12/18 18:17 88yo M presents with recurrent urinary retention. No output with normal catalan or coude. Called Dr. Borrego who came to the bedside, able to pass 24F with aspiration of blood/urine and relief of lower abd pain. CBI initiated. Initially hypotensive to 80/50, concern for sepsis, covered with meropenem. May also be anemia, will transfuse 1 unit due to large amount of hematuria. Plan to admit to ICU. Heart Score/ECG Review #1 09/11/18 18:32 Ventricular paced rhythm, rate 80. Normal axis.
[2018-09-11 18:23] LABS: ALBUMIN 3.2 g/dl (3.4-5.0); ALK PHOS 46 U/L (45-117); ANION GAP 10 MMOL/L (8-16); BILIRUBIN,TOTAL 0.3 mg/dL (0.2-1); BLOOD UREA NITROGEN 23 mg/dL (7-18); CHLORIDE 110 mmol/L (98-107); CO2 21 mmol/L (21-32); CREATININE 1.6 mg/dL (0.55-1.3); GLUCOSE,RANDOM 156 mg/dL (74-106); POTASSIUM 4.1 mmol/L (3.5-5.1); SGOT/AST 27 U/L (15-37); SGPT/ALT 19 U/L (13-61); SODIUM 141 mmol/L (136-145); TOT PROT 6.2 g/dl (6.4-8.2)
[2018-09-11] MEDS ORDERED: MEROPENEM 1 GM in DEXTROSE 5%-WATER 100 ML IVPB ONE (18:31)
[2018-09-11] MEDS ORDERED: SODIUM CHLORIDE 1,000 ML IV SCH (20:30)
--- NOTE | 2018-09-11 20:50 | CONSULT ---
Consult Consult Specialty:: Critical Care Referred by:: ER team Reason for Consultation:: Hematuria with hypotension - History of Present Illness Chief Complaint: abdominal pain History of Present Illness: 88M w/ pmhx of HTN, HLD, BPH s/p TURP/TUVP, NHL (s/p chemo many years ago), aortic valve replacement was on coumadin and stopped on last admission due to hematuria, glaucoma, pacemaker placement presents with abdominal pain. Patient was found to be in urinary retention and had catalan [address] and is getting continuous bladder irrigation. Patient states he was juts discharged yesterday and was told by his PMD that everything "was fixed and fine". Patient has been experiencing 8-10/10abdominal pain. When catalan was placed in ER patient was noted to have hematuria. Patient was seen by in ER and CBI started. He endorses mild nausea no vomiting no fever chills chest pain or SOB. He was noted to be hypotensive intially on arrival BP 80's/50's but BP came up to 140's /70's with IVF but now BP dropped down to 90's/60's and since blood pressure has been so tenuous patient will be admitted to ICU. 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) Gastrointestinal: Yes: Other (dyspepsia (chronic)) Hepatobiliary: Yes: Cholelithiasis Renal/: Yes: Renal Inusuff (s/p Lt nephrectomy 2nd cancer), BPH, Hematuria, UTI Psych: Yes: Anxiety Musculoskeletal: Yes: Chronic low back pain, Osteoarthritis Dermatology: Yes: Other (skin neoplasms--recurrent) - Past Surgical History Past Surgical History: Yes: Colonoscopy, Nephrectomy, Splenectomy (skin grafts) , TURP - Alcohol/Substance Use Hx Alcohol Use: No History of Substance Use: reports: None - Smoking History Smoking history: Never smoked Have you smoked in the past 12 months: No Aproximately how many cigarettes per day: 0 - Social History ADL: Independent 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; 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 History of Recent Travel: No Home Medications - Allergies Allergies/Adverse Reactions: Allergies Allergy/AdvReac Type Severity Reaction Status Date / Time Penicillins Allergy Unknown Verified 09/11/18 16:05 codeine [Codeine] Allergy Verified 09/11/18 16:05 - Home Medications Home Medications: Ambulatory Orders Dorzolamide HCl/Timolol Maleat [Cosopt Eye Drops] 1 drop OU BID 07/21/15 Travoprost [Travatan Z] 1 drop OU HS 04/15/16 Brimonidine Tartrate [Alphagan 0.15% -] 1 drop OU BID drops 05/01/18 Tamsulosin HCl [Flomax -] 0.4 mg PO BID 08/02/18 Metoprolol Tartrate 12.5 mg PO DAILY #14 tablet 09/10/18 Polyethylene Glycol 3350 [Miralax 119 gm Btl -] 17 gm PO BID bottle 09/10/18 Review of Systems - Review of Systems Constitutional: reports: Loss of Appetite Eyes: reports: No Symptoms HENT: reports: No Symptoms Neck: reports: No Symptoms Cardiovascular: reports: No Symptoms Respiratory: reports: No Symptoms Gastrointestinal: reports: Abdominal Pain Genitourinary: reports: Dysuria, Hematuria, Other (retention) Musculoskeletal: reports: No Symptoms Integumentary: reports: No Symptoms Neurological: reports: No Symptoms Endocrine: reports: No Symptoms Hematology/Lymphatic: reports: Other (hematuria) Physical Exam Vital Signs: Vital Signs Temperature 97.8 F 09/11/18 18:42 Pulse Rate 88 09/11/18 20:22 Respiratory Rate 19 09/11/18 20:22 Blood Pressure 78/52 L 09/11/18 20:30 O2 Sat by Pulse Oximetry (%) 96 09/11/18 20:22 Constitutional: Yes: Mild Distress, Other (upset) Eyes: Yes: Other (conjunctival pallor) HENT: Yes: Atraumatic Neck: Yes: Supple Cardiovascular: Yes: Regular Rate and Rhythm, Other (paced. Did not hear murmur but ER was a very loud environment) Respiratory: Yes: Regular, Other (clear on right crackles on left) Gastrointestinal: Yes: Soft, Tenderness (suprapubic) Renal/: Yes: Catalan Present (3 way catalan present. large clot at urethral meatus. Clots in catalan tubing. Red urine the color of fruit punch or red cong aid. a couple of hours after ICU admission the urine is now darker more like cranberry juice). No: CVA Tenderness - Left, CVA Tenderness - Right Edema: No Wound/Incision: Yes: Clean/Dry, Well Approximated, Sutures Intact (right side of face s/p removal of skin lesion by dermatology) Neurological: Yes: Alert, Oriented Labs: CBC, BMP 09/11/18 17:20 09/11/18 17:20 Imaging - Results Chest X-ray: Report Reviewed, Image Reviewed EKG: Image Reviewed Assessment/Plan 88M with extensive PMH presents to the hospital with abdominal pain found to be in urinary retention now with hematuria. Problem List: urinary retention Hematuria Acute blood loss anemia requiring transfusion A. Fib Lactic acidosis volume depletion BPH s/p TURP/TUVP HTN HLD Aortic stenosis s/p aortic valve replacement Gross Hematuria Anemia Glaucoma RUL mass PPM ?? skin cancer-patient unsure Prolonged QTc Plan: Admit to ICU Levaquin ordered per Dr. Li Got meropenem in ER Trend CBC and transfuse PRN Transfuse PRBCs now Hold flomax given hypotension hold metoprolol given hypotension Patient was given Meropenem in ER at 7pm. will give another dose at 2AM Levaquin ordered by Dr. Li. Discussed levaquin dosing with pharmacy and given renal function will give 500mg once tomorrow then 250mg daily starting next day. Levaquin prolongs QTc. Will sign out to ICU day team about potentially starting a different agent vs speaking with ID vs not starting any antibiotics at all as they may not be needed Prolonged QTc - avoid all meds which prolong QTc F/U blood cultures urinalysis and urine culture not done so will send now but patient did receive ABx (meropenem) prior to urine studies being sent Hold anticoagulation Urology evaluation continue continuous bladder irrigation Patient given IVF boluses but since lactic acidosis resolved will hold off on further fluids and transfuse blood for now given crackles on lung exam Discussed case with Patient's Son Discussed case with Dr. Read CCTime 60min
[2018-09-11] MEDS: MORPHINE SULFATE 2 MG/ML VIAL IVPUSH PRN (21:30)
[2018-09-11 21:57] LABS: BASO % 0.2 % (0-2.0); HEMATOCRIT 17.9 % (35.4-49); LYMPH % 4.7 % (8-40); MCHC 33.9 g/dl (32.0-35.9); MEAN CELL VOLUME 97.2 fl (80-96); MEAN PLT VOLUME 8.9 fl (7.5-11.1); MONO % 3.6 % (3.8-10.2); NEUT % 91.5 % (42.8-82.8); PLATELET COUNT 163 K/MM3 (134-434); RBC 1.85 M/mm3 (4.00-5.60); RDW 14.8 % (11.9-15.9); WHITE BLOOD COUNT 5.6 K/mm3 (4.0-10.0)
[2018-09-11 22:03] LABS: HEMOGLOBIN 6.1 GM/dL (11.7-16.9)
[2018-09-11 22:37] LABS: ALBUMIN 2.5 g/dl (3.4-5.0); ALK PHOS 32 U/L (45-117); ANION GAP 9 MMOL/L (8-16); BILIRUBIN,TOTAL 0.4 mg/dL (0.2-1); BLOOD UREA NITROGEN 25 mg/dL (7-18); CHLORIDE 114 mmol/L (98-107); CO2 21 mmol/L (21-32); CREATININE 1.6 mg/dL (0.55-1.3); GLUCOSE,RANDOM 142 mg/dL (74-106); POTASSIUM 4.2 mmol/L (3.5-5.1); SGOT/AST 17 U/L (15-37); SGPT/ALT 15 U/L (13-61); SODIUM 144 mmol/L (136-145); TOT PROT 4.7 g/dl (6.4-8.2)
[2018-09-11 22:39] LABS: INR 1.19 (0.83-1.09); PROTHROMBIN TIME (PATIENT) 14.1 SEC (9.7-13.0)
[2018-09-11] MEDS: SODIUM CHLORIDE 1,000 ML IV SCH (22:47)
[2018-09-11 23:06] LABS: ANISOCYTOSIS 2+; MACROCYTOSIS 1+; PLATELET ESTIMATE ADEQUATE
[2018-09-12 01:10] LABS: URINE APPEARANCE CLOUDY; URINE BILIRUBIN NEGATIVE (<2.0 mg/dL); URINE COLOR RED; URINE GLUCOSE (UA) NEGATIVE (NEGATIVE); URINE KETONE NEGATIVE (NEGATIVE); URINE LEUK ESTERASE 1+ (NEGATIVE); URINE NITRITE NEGATIVE (NEGATIVE); URINE PROTEIN 2+ (NEGATIVE); URINE UROBILINOGEN NEGATIVE mg/dL (0.2-1.0)
[2018-09-12 01:43] LABS: URINE BACTERIA RARE /hpf (NONE SEEN)
[2018-09-12] MEDS ORDERED: MEROPENEM 1 GM in DEXTROSE 5%-WATER 100 ML IVPB ONE (02:00)
[2018-09-12] MEDS ORDERED: PT OWN MED DRAWER 7, Y5N ONE ×3 (02:03→11:59)
[2018-09-12 07:36] LABS: HEMATOCRIT 23.7 % (35.4-49); HEMOGLOBIN 8.2 GM/dL (11.7-16.9); MCH 31.1 pg (25.7-33.7); MCHC 34.6 g/dl (32.0-35.9); MEAN PLT VOLUME 9.2 fl (7.5-11.1); PLATELET COUNT 143 K/MM3 (134-434); RBC 2.64 M/mm3 (4.00-5.60); RDW 18.8 % (11.9-15.9); WHITE BLOOD COUNT 8.1 K/mm3 (4.0-10.0)
[2018-09-12 07:49] LABS: MEAN CELL VOLUME 89.8 fl (80-96)
[2018-09-12 08:28] LABS: ANION GAP 9 MMOL/L (8-16); BLOOD UREA NITROGEN 28 mg/dL (7-18); CALCIUM 7.4 mg/dL (8.5-10.1); CHLORIDE 114 mmol/L (98-107); CO2 21 mmol/L (21-32); CREATININE 1.6 mg/dL (0.55-1.3); GLUCOSE,RANDOM 115 mg/dL (74-106); POTASSIUM 4.8 mmol/L (3.5-5.1); SODIUM 143 mmol/L (136-145)
[2018-09-12] MEDS: MORPHINE SULFATE 2 MG/ML VIAL IVPUSH PRN ×2 (09:28→13:16)
--- NOTE | 2018-09-12 10:53 | HP ---
Admitting History and Physical - Primary Care Physician PCP: Venkatesh Sanches - Admission Chief Complaint: bloody urine History of Present Illness: pacer dep 88 YO/M with Htn & ASHD, Atf, Prostatism who re-developed acute copious bright red urinary bleeding mid day yesterday along wih worsening suprapubic pains. This occurred 1 day after he was released from [facility] when he was previously admitted for the same problem, except that he'd been on warfarin (for ATF) when he first developed the same type of urinary tract bleeding. Two weeks prior to the last admission he underwent a TUVP for acute obstructive uropathy along with gross hematuria. he had been dischrged and did well 2 about 2 weeks without obstructive symptoms or hematuria (until his prior admission). he arrived in the ER and a 3 way irrigation catheter was placed; BP was low, a drop in H/h was also noted and was transfused PC's. 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) Psych: Yes: Anxiety Musculoskeletal: Yes: Chronic low back pain, Osteoarthritis Dermatology: Yes: Other (skin neoplasms--recurrent) - Past Surgical History Past Surgical History: Yes: Colonoscopy, Nephrectomy, Splenectomy (skin grafts) , TURP - Smoking History Smoking history: Never smoked Have you smoked in the past 12 months: No Aproximately how many cigarettes per day: 0 - Alcohol/Substance Use Hx Alcohol Use: No History of Substance Use: reports: None - Social History Usual Living Arrangement: Yes: With Spouse ADL: Independent 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; 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 History of Recent Travel: No Home Medications - Allergies Allergies/Adverse Reactions: Allergies Allergy/AdvReac Type Severity Reaction Status Date / Time Penicillins Allergy Unknown Verified 09/11/18 16:05 codeine [Codeine] Allergy Verified 09/11/18 16:05 - Home Medications Home Medications: Ambulatory Orders Dorzolamide HCl/Timolol Maleat [Cosopt Eye Drops] 1 drop OU BID 07/21/15 Travoprost [Travatan Z] 1 drop OU HS 04/15/16 Brimonidine Tartrate [Alphagan 0.15% -] 1 drop OU BID drops 05/01/18 Tamsulosin HCl [Flomax -] 0.4 mg PO DAILY 08/02/18 Metoprolol Tartrate 12.5 mg PO DAILY #14 tablet 09/10/18 Polyethylene Glycol 3350 [Miralax 119 gm Btl -] 17 gm PO BID bottle 09/10/18 Family Disease History - Family Disease History Family History: Unremarkable Review of Systems - Review of Systems Constitutional: reports: No Symptoms Eyes: reports: Blurred Vision HENT: reports: No Symptoms Neck: reports: No Symptoms Cardiovascular: reports: No Symptoms Respiratory: reports: No Symptoms Gastrointestinal: reports: Abdominal Pain Genitourinary: reports: Hematuria Musculoskeletal: reports: No Symptoms Integumentary: reports: No Symptoms Neurological: reports: No Symptoms Endocrine: reports: No Symptoms Hematology/Lymphatic: reports: No Symptoms Psychiatric: reports: No Symptoms Physical Examination Vital Signs: Vital Signs Temperature 98.2 F 09/12/18 10:00 Pulse Rate 80 09/12/18 10:00 Respiratory Rate 17 09/12/18 10:00 Blood Pressure 150/76 09/12/18 10:00 O2 Sat by Pulse Oximetry (%) 98 09/12/18 08:22 Findings/Remarks: found in bed in ICU fully awake & alert; very anxious ``````````````````````````````````````````````` skin--sutures in skin under rt auricle eyes--anicteric neck--no masses, JVD heart--RR 1/6 M lungs--somewhat distant; unlabored abd--soft, BS+, some suprapubic tenderness --NL external anatomy; with Humphreys in place ext--no CCE; degen changes; ROm painless neuro--awake, alert, lucid, speech fluent; thoughts well organized; good insight ; moves all extrem purposefully CBCD WBC 8.1 K/mm3 (4.0-10.0) 09/12/18 07:25 RBC 2.64 M/mm3 (4.00-5.60) L 09/12/18 07:25 Hgb 8.2 GM/dL (11.7-16.9) L 09/12/18 07:25 Hct 23.7 % (35.4-49) L D 09/12/18 07:25 MCV 89.8 fl (80-96) D 09/12/18 07:25 MCHC 34.6 g/dl (32.0-35.9) 09/12/18 07:25 RDW 18.8 % (11.9-15.9) H 09/12/18 07:25 Plt Count 143 K/MM3 (134-434) 09/12/18 07:25 MPV 9.2 fl (7.5-11.1) 09/12/18 07:25 CMP Sodium 143 mmol/L (136-145) 09/12/18 07:25 Potassium 4.8 mmol/L (3.5-5.1) 09/12/18 07:25 Chloride 114 mmol/L (98-107) H 09/12/18 07:25 Carbon Dioxide 21 mmol/L (21-32) 09/12/18 07:25 Anion Gap 9 MMOL/L (8-16) 09/12/18 07:25 BUN 28 mg/dL (7-18) H 09/12/18 07:25 Creatinine 1.6 mg/dL (0.55-1.3) H 09/12/18 07:25 Creat Clearance w eGFR 41.09 (>60) 09/12/18 07:25 Random Glucose 115 mg/dL (74-106) H 09/12/18 07:25 Calcium 7.4 mg/dL (8.5-10.1) L 09/12/18 07:25 Total Bilirubin 0.4 mg/dL (0.2-1) 09/11/18 21:45 AST 17 U/L (15-37) 09/11/18 21:45 ALT 15 U/L (13-61) 09/11/18 21:45 Alkaline Phosphatase 32 U/L (45-117) L 09/11/18 21:45 Total Protein 4.7 g/dl (6.4-8.2) L 09/11/18 21:45 Albumin 2.5 g/dl (3.4-5.0) L 09/11/18 21:45 CARDIAC ENZYMES Troponin I 0.07 ng/ml (0.00-0.05) H 09/11/18 21:45 Urine Test Results Urine Color Red 09/11/18 23:55 Urine Appearance Cloudy 09/11/18 23:55 Urine pH 6.0 (5.0-8.0) 09/11/18 23:55 Ur Specific [place] 1.005 (1.010-1.035) L 09/11/18 23:55 Urine Protein 2+ (NEGATIVE) H 09/11/18 23:55 Urine Glucose (UA) Negative (NEGATIVE) 09/11/18 23:55 Urine Ketones Negative (NEGATIVE) 09/11/18 23:55 Urine Blood 3+ (NEGATIVE) H 09/11/18 23:55 Urine Nitrite Negative (NEGATIVE) 09/11/18 23:55 Urine Bilirubin Negative (<2.0 mg/dL) 09/11/18 23:55 Ur Leukocyte Esterase 1+ (NEGATIVE) H 09/11/18 23:55 Urine Bacteria Rare /hpf (NONE SEEN) 09/11/18 23:55 Labs: CBC, BMP 09/12/18 07:25 09/12/18 07:25 Imaging - Results Chest X-ray: Report Reviewed EKG: Report Reviewed Problem List - Problems (1) Hematuria Assessment/Plan: gross hematuria with bright red blood with hemodynamic instability and considerable blood loss followed; which is nearly a repitition of his prior event. PLAN: 3 way irrigation cath; but will likley need some type of procedure given the persistence & recurrence; check abd US; follow CBC & Chem; BP support Code(s): R31.9 - HEMATURIA, UNSPECIFIED Qualifiers: Hematuria type: gross Qualified Code(s): R31.0 - Gross hematuria (2) Atrial fibrillation Assessment/Plan: not new; had been on a/c but no longer a candidate given the copious blood loss he has experienced PLAN: cont BB, may need highher dose Code(s): I48.91 - UNSPECIFIED ATRIAL FIBRILLATION Qualifiers: Atrial fibrillation type: permanent Qualified Code(s): I48.2 - Chronic atrial fibrillation (3) Anemia due to blood loss, acute Assessment/Plan: 2nd gross hematuria; transfuse as needed Code(s): D62 - ACUTE POSTHEMORRHAGIC ANEMIA (4) Hypertensive heart and renal disease Assessment/Plan: BP mostly under control, and no signs of CHF; but tropinin again high; likley 2nd demand ischemia when hypotensive PLAN: will order Cardio f/u Qualifiers: Heart failure presence: without heart failure Hypertensive chronic kidney disease stage: stage 1-4 or unspecified chronic kidney disease Qualified Code( s): I13.10 - Hypertensive heart and chronic kidney disease without heart failure , with stage 1 through stage 4 chronic kidney disease, or unspecified chronic kidney disease (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 Code(s): 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 Assessment/Plan: appears to be stable; no intervention planned Code(s): D38.1 - NEOPLASM OF UNCERTAIN BEHAVIOR OF TRACHEA, BRONCHUS AND LUNG (7) Glaucoma Assessment/Plan: cont eye gtts Code(s): H40.9 - UNSPECIFIED GLAUCOMA Qualifiers: Glaucoma type: unspecified Laterality: bilateral Qualified Code(s): H40.9 - Unspecified glaucoma (8) History of skin cancer in adulthood Assessment/Plan: recurrent; has had numerous excisions Code(s): Z85.828 - PERSONAL HISTORY OF OTHER MALIGNANT NEOPLASM OF SKIN (9) Status cardiac pacemaker Assessment/Plan: stable Code(s): Z95.0 - PRESENCE OF CARDIAC PACEMAKER (10) History of artificial heart valve Assessment/Plan: s/p TAVR this year (11) 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
[2018-09-12] MEDS ORDERED: ALPRAZolam 0.25 MG TABLET PO PRN (11:18)
--- NOTE | 2018-09-12 11:18 | PN ---
Teaching Attending Note Name of Resident: Alisha Branham ATTENDING PHYSICIAN STATEMENT I saw and evaluated the patient. I reviewed the resident's note and discussed the case with the resident. I agree with the resident's findings and plan as documented. SUBJECTIVE: Pt seen and examined in the ICU. Blood pressure improved with PRBC transfusions. CBI in progress with blood tinged urine. OBJECTIVE: Vital Signs Period Temp Pulse Resp BP Sys/Juárez Pulse Ox Last 24 Hr 97.5 F-98.3 F 76-99 16-19 78-152/50-82 96-100 Intake & Output 09/09/18 09/10/18 09/11/18 09/12/18 23:59 23:59 23:59 23:59 Intake Total 9000 4120 Output Total 6830 4300 Balance 2170 -180 Weight 68.946 kg Gen: NAD at rest Heart: RRR Lung: scattered basilar rales Abd: soft, nontender Ext: no edema CBC, BMP 09/12/18 07:25 09/12/18 07:25 Active Medications Brimonidine Tartrate (Alphagan 0.15% -) 1 drop OU BID MARY Sodium Chloride (Normal Saline -) 1,000 mls @ 100 mls/hr IV ASDIR MARY Last Admin: 09/11/18 22:47 Dose: Not Given Metoprolol Tartrate (Lopressor -) 12.5 mg PO DAILY MARY Morphine Sulfate (Morphine Sulfate) 2 mg IVPUSH Q3H PRN PRN Reason: PAIN LEVEL 1-5 Last Admin: 09/12/18 09:28 Dose: 2 mg Morphine Sulfate (Morphine Sulfate) 4 mg IVPUSH Q3H PRN PRN Reason: PAIN LEVEL 6-10 Non-Formulary Medication (Dorzolamide Hcl/Timolol Maleat [Cosopt Eye Drops]) 1 drop OU BID MARY Non-Formulary Medication (Travoprost [Travatan Z]) 1 drop OU HS MARY Tamsulosin HCl (Flomax -) 0.4 mg PO DAILY [facility] ASSESSMENT AND PLAN: Hematuria Acute Blood Loss Anemia Hypovolemia improving Lactic Acidosis BPH s/p TURP Aortic Stenosis Atrial Fibrillation CKD Lung Nodule - monitor H/H - transfuse as needed - CBI in progress - urology eval - pain control - holding all antiplatelets, anticoagulation - rate controlled - can monitor on floor if next H/H stable - DVT prophylaxis
[2018-09-12] MEDS: TAMSULOSIN HCL 0.4 MG CAP PO SCH (11:26)
[2018-09-12] MEDS: METOPROLOL TARTRATE 25 MG TABLET (FP) PO SCH (11:26)
[2018-09-12] MEDS: DORZOLAMIDE 2% HCL OPHTHALMIC SOLUTION 10 ML BOTTLE OU SCH ×2 (11:50→21:59)
[2018-09-12] MEDS: BRIMONIDINE TARTRATE 0.15% OPHTHALMIC 5 ML BOTTLE OU SCH ×2 (11:51→22:00)
--- NOTE | 2018-09-12 12:50 | EKG ---
Test Reason : Blood Pressure : / mmHG Vent. Rate : 080 BPM Atrial Rate : 300 BPM P-R Int : 000 ms QRS Dur : 162 ms QT Int : 454 ms P-R-T Axes : 000 014 085 degrees QTc Int : 523 ms Ventricular-paced rhythm ABNORMAL ECG WHEN COMPARED WITH ECG OF 02-SEP-2018 11:56, VENT. RATE HAS INCREASED BY 20 BPM Confirmed by THOMPSON PORTILLO MD ([id number]) on 09/12/2018 12:50:35 PM Referred By: Confirmed By:THOMPSON PORTILLO MD
--- NOTE | 2018-09-12 13:01 | PN ---
Physical Exam: SUBJECTIVE: Patient seen and examined at bedside. No acute events overnight. Pt still complaining of mild suprapubic pain. Tolerating PO diet. Denies cordova/d, chest pain, sob. OBJECTIVE: Vital Signs Period Temp Pulse Resp BP Sys/Juárez Pulse Ox Last 24 Hr 97.5 F-98.6 F 76-99 16-19 78-152/50-82 96-100 GENERAL: AAOx3. NAD. Resting comfortably. Generalized pallor. HEENT: AT/NC. EOMI. YANY. Conjunctival pallor. Dry mucus membranes. NECK: Normal range of motion, supple without lymphadenopathy, JVD, or masses. LUNGS: CTA B/L. No wheezes noted. HEART: RRR. Normal S1, S2. No murmurs noted. ABDOMEN: Soft, ND. Tender in suprapubic region. +BS in all 4Qs. : Catalan catheter in place draining red urine, no clots seen. MUSCULOSKELETAL: Normal range of motion at all joints. No bony deformities or tenderness. No CVA tenderness. EXTREMITIES: No peripheral edema noted. 2+ dorsalis pedis pulses b/l. NEUROLOGICAL: Facial symmetry. Normal speech. Moves all extremities. PSYCHIATRIC: Cooperative. Good eye contact. Appropriate mood and affect. CBCD WBC 8.1 K/mm3 (4.0-10.0) 09/12/18 07:25 RBC 2.64 M/mm3 (4.00-5.60) L 09/12/18 07:25 Hgb 8.2 GM/dL (11.7-16.9) L 09/12/18 07:25 Hct 23.7 % (35.4-49) L D 09/12/18 07:25 MCV 89.8 fl (80-96) D 09/12/18 07:25 MCHC 34.6 g/dl (32.0-35.9) 09/12/18 07:25 RDW 18.8 % (11.9-15.9) H 09/12/18 07:25 Plt Count 143 K/MM3 (134-434) 09/12/18 07:25 MPV 9.2 fl (7.5-11.1) 09/12/18 07:25 CMP Sodium 143 mmol/L (136-145) 09/12/18 07:25 Potassium 4.8 mmol/L (3.5-5.1) 09/12/18 07:25 Chloride 114 mmol/L (98-107) H 09/12/18 07:25 Carbon Dioxide 21 mmol/L (21-32) 09/12/18 07:25 Anion Gap 9 MMOL/L (8-16) 09/12/18 07:25 BUN 28 mg/dL (7-18) H 09/12/18 07:25 Creatinine 1.6 mg/dL (0.55-1.3) H 09/12/18 07:25 Creat Clearance w eGFR 41.09 (>60) 09/12/18 07:25 Calcium 7.4 mg/dL (8.5-10.1) L 09/12/18 07:25 Total Bilirubin 0.4 mg/dL (0.2-1) 09/11/18 21:45 AST 17 U/L (15-37) 09/11/18 21:45 ALT 15 U/L (13-61) 09/11/18 21:45 Alkaline Phosphatase 32 U/L (45-117) L 09/11/18 21:45 Total Protein 4.7 g/dl (6.4-8.2) L 09/11/18 21:45 Albumin 2.5 g/dl (3.4-5.0) L 09/11/18 21:45 Active Medications Alprazolam (Xanax -) 0.25 mg PO BID PRN PRN Reason: ANXIETY Brimonidine Tartrate (Alphagan 0.15% -) 1 drop OU BID [facility] Last Admin: 09/12/18 11:51 Dose: 1 drop Dorzolamide HCl (Trusopt 2%) 1 drop OU BID [facility] Last Admin: 09/12/18 11:50 Dose: 1 drop Sodium Chloride (Normal Saline -) 1,000 mls @ 100 mls/hr IV ASDIR [facility] Last Admin: 09/11/18 22:47 Dose: Not Given Latanoprost (Xalatan 0.005% Eye Drops -) 1 drop OU [facility] Metoprolol Tartrate (Lopressor -) 12.5 mg PO DAILY [facility] Last Admin: 09/12/18 11:26 Dose: 12.5 mg Morphine Sulfate (Morphine Sulfate) 2 mg IVPUSH Q3H PRN PRN Reason: PAIN LEVEL 1-5 Last Admin: 09/12/18 09:28 Dose: 2 mg Morphine Sulfate (Morphine Sulfate) 4 mg IVPUSH Q3H PRN PRN Reason: PAIN LEVEL 6-10 Tamsulosin HCl (Flomax -) 0.4 mg PO DAILY@0830 [facility] Last Admin: 09/12/18 11:26 Dose: 0.4 mg Timolol Maleate (Timoptic 0.5%) 1 drop OU BID [facility] ASSESSMENT/PLAN: 88M w/ pmhx of HTN, HLD, BPH s/p TURP/TUVP, NHL (s/p chemo years ago), aortic valve replacement, glaucoma, pacemaker placement presents with recurrent episode of severe hematuria. Neurology -Currently stable. AAOx3. -Morphine 2mg Q3H PRN for pain #Anxiety -Xanax 0.25 mg PO BID PRN Cardiology #A. fib -Metoprolol 12.5 QD -EKG showed, AV dual-paced rhythm. QTc 523 ms; avoid all QT-prolonging meds #Aortic Valve replacement -s/p TAVR. Not currently on AC as patient has had multiple episodes of urinary retention and edgar hematuria. #HTN -Stable. -Metoprolol 12.5 QD GI #GERD -meds per primary team Renal #Gross hematuria, s/p TURP/TUVP -catalan catheter in place, urine now clearing, but still red -CBI in place, continue irrigation -s/p 2U, Hgb 8.2 today (yesterday 6.1 before transfusion) -UCx pending -Uro consulted (Dr. Samuel) #BPH s/p TURP/TUVP -Flomax 0.4 mg QD ID #? UTI -Meropenem 1g IV QD -UCx ordered #ALMAZ likely 2/2 dehydration -Cr 1.6 -renal u/s ordered -bladder u/s ordered Hematology #Anemia 2/2 persistent hematuria -Hgb 8.2 s/p 2U pRBCs; stable. -INR now 1.19 -recheck CBC Dermatology #Squamous Cell Carcinoma -s/p recent excision -outpatient follow up Prophylaxis DVT- SCDs, hold ACs FEN -NS @ 100 -recheck lytes in AM -sodium-controlled diet dispo -may transfer to med/surg if Hgb stable Visit type - Emergency Visit Emergency Visit: Yes ED Registration Date: 09/11/18 Care time: The patient presented to the Emergency Department on the above date and was hospitalized for further evaluation of their emergent condition. - New Patient This patient is new to me today: Yes Date on this admission: 09/12/18 - Critical Care Critical Care patient: Yes Total Critical Care Time (in minutes): 36 Critical Care Statement: The care of this patient involved high complexity decision making to prevent further life threatening deterioration of the patient 's condition and/or to evaluate & treat vital organ system(s) failure or risk of failure.
--- NOTE | 2018-09-12 15:27 | PN ---
Progress Note, Physician Chief Complaint: 88M M severe s/p TAVR, complete heart block s/p PPM, AF formerly on Coumadin recently stopped due to 2 episodes of gross hematuria requiring hospitalization and multiple transfusions for marked anemia. After his first episode several weeks ago he underwent TUVP. He was now admitted for third time to ICU with gross hematuria, having been off Coumadin for a week. Required admission to ICU, PRBCs. He is seen and examined in ICU- alert, oriented. Denies chest pain or SOB. Humphreys with maroon urine. - Current Medication List Current Medications: Active Medications Alprazolam (Xanax -) 0.25 mg PO BID PRN PRN Reason: ANXIETY Brimonidine Tartrate (Alphagan 0.15% -) 1 drop OU BID [facility] Last Admin: 09/12/18 11:51 Dose: 1 drop Dorzolamide HCl (Trusopt 2%) 1 drop OU BID [facility] Last Admin: 09/12/18 11:50 Dose: 1 drop Sodium Chloride (Normal Saline -) 1,000 mls @ 100 mls/hr IV ASDIR [facility] Last Admin: 09/11/18 22:47 Dose: Not Given Latanoprost (Xalatan 0.005% Eye Drops -) 1 drop OU [facility] Metoprolol Tartrate (Lopressor -) 12.5 mg PO DAILY [facility] Last Admin: 09/12/18 11:26 Dose: 12.5 mg Morphine Sulfate (Morphine Sulfate) 2 mg IVPUSH Q3H PRN PRN Reason: PAIN LEVEL 1-5 Last Admin: 09/12/18 13:16 Dose: 2 mg Morphine Sulfate (Morphine Sulfate) 4 mg IVPUSH Q3H PRN PRN Reason: PAIN LEVEL 6-10 Tamsulosin HCl (Flomax -) 0.4 mg PO DAILY@0830 [facility] Last Admin: 09/12/18 11:26 Dose: 0.4 mg Timolol Maleate (Timoptic 0.5%) 1 drop OU BID [facility] - Objective Vital Signs: Vital Signs Temperature 98.6 F 09/12/18 12:00 Pulse Rate 80 09/12/18 14:00 Respiratory Rate 17 09/12/18 14:00 Blood Pressure 106/77 09/12/18 14:00 O2 Sat by Pulse Oximetry (%) 98 09/12/18 08:22 Constitutional: Yes: No Distress, Calm Eyes: Yes: Conjunctiva Clear Cardiovascular: Yes: Regular Rate and Rhythm Respiratory: Yes: CTA Bilaterally (no wheezing, rales or rhonchi) Gastrointestinal: Yes: Soft Genitourinary: Yes: Other (Humphreys in place.) Edema: No Neurological: Yes: Alert, Oriented ...Motor Strength: WNL Labs: CBC, BMP 09/12/18 07:25 09/12/18 07:25 INR, PTT INR 1.19 (0.83-1.09) H 09/11/18 21:45 Laboratory Tests 09/12/18 09/12/18 07:25 07:25 WBC 8.1 Hgb 8.2 L Hct 23.7 L D Plt Count 143 Sodium 143 Potassium 4.8 BUN 28 H Creatinine 1.6 H Calcium 7.4 L Microbiology Laboratory Tests 09/11/18 09/11/18 09/11/18 17:20 21:45 21:45 WBC 4.5 5.6 Hgb 8.5 L 6.1 L* Plt Count 208 163 D INR 1.19 H Sodium Potassium BUN Creatinine Calcium Alkaline Phosphatase Troponin I 09/11/18 09/12/18 09/12/18 21:45 07:25 07:25 WBC 8.1 Hgb 8.2 L Plt Count 143 INR Sodium 143 Potassium 4.8 BUN 28 H Creatinine 1.6 H Calcium 7.4 L Alkaline Phosphatase 32 L Troponin I 0.07 H - ....Imaging Chest X-ray: Image Reviewed EKG: Image Reviewed Problem List - Problems (1) Anemia due to blood loss, acute Code(s): D62 - ACUTE POSTHEMORRHAGIC ANEMIA (2) Gross hematuria Code(s): R31.0 - GROSS HEMATURIA (3) BPH (benign prostatic hyperplasia) Code(s): N40.0 - BENIGN PROSTATIC HYPERPLASIA WITHOUT LOWER URINRY TRACT SYMP Qualifiers: Lower urinary tract symptom presence: symptoms present (4) Pacemaker Code(s): Z95.0 - PRESENCE OF CARDIAC PACEMAKER (5) S/P TAVR (transcatheter aortic valve replacement) Code(s): Z95.2 - PRESENCE OF PROSTHETIC HEART VALVE (6) Atrial fibrillation Code(s): I48.91 - UNSPECIFIED ATRIAL FIBRILLATION Qualifiers: Atrial fibrillation type: paroxysmal Qualified Code(s): I48.0 - Paroxysmal atrial fibrillation (7) Chronic renal insufficiency, stage II (mild) Code(s): N18.2 - CHRONIC KIDNEY DISEASE, STAGE 2 (MILD) (8) Hypertension Code(s): I10 - ESSENTIAL (PRIMARY) HYPERTENSION Qualifiers: Hypertension type: essential hypertension Qualified Code(s): I10 - Essential (primary) hypertension (9) Troponin I above reference range Code(s): R74.8 - ABNORMAL LEVELS OF OTHER SERUM ENZYMES Assessment/Plan IMP: Gross hematuria secondary to BPH resulting in marked anemia requiring transfusion, now in absence of anticoagulation Severe s/p TAVR Hx of PPM for high grade AV block Chronic renal insuffiency Borderline elevation TnI REC: 1. Humphreys; follow H/H. 2. f/u- no cardiac contraindication to repeat cystoscopy 3. No longer a candidate for full AC- was stopped last admission. Now off for about a week. group home plan is to use low dose ASA for AF once gross hematuria resolved. 4. Cont Metoprolol on telemetry (hold for SBP < 100mmHg). 5. Elevated TnI noted, also present last admission- does not reflect ACS. Likely due to demand ischemia in setting marked anemia. No specific therapy required other than maintaining Hb> 8 and avoiding hypotension. Will follow. Thank you.
[2018-09-12 16:25] LABS: HEMATOCRIT 21.6 % (35.4-49); HEMOGLOBIN 7.5 GM/dL (11.7-16.9); MCH 31.2 pg (25.7-33.7); MCHC 34.9 g/dl (32.0-35.9); MEAN CELL VOLUME 89.2 fl (80-96); MEAN PLT VOLUME 9.1 fl (7.5-11.1); PLATELET COUNT 150 K/MM3 (134-434); RBC 2.42 M/mm3 (4.00-5.60); RDW 19.7 % (11.9-15.9); WHITE BLOOD COUNT 8.6 K/mm3 (4.0-10.0)
[2018-09-12] MEDS: SODIUM CHLORIDE 1,000 ML IV SCH ×2 (18:11→21:59)
[2018-09-12] MEDS: LATANOPROST 0.005% OPHTH SOLN 2.5ML BOTTLE OU SCH (22:03)
[2018-09-12] MEDS: TIMOLOL 0.5% OPHTHALMIC SOL 5 ML BOTTLE OU SCH (22:03)
[2018-09-13 05:49] LABS: HEMATOCRIT 24.8 % (35.4-49); HEMOGLOBIN 8.2 GM/dL (11.7-16.9); MCH 29.4 pg (25.7-33.7); MCHC 33.2 g/dl (32.0-35.9); MEAN CELL VOLUME 88.6 fl (80-96); MEAN PLT VOLUME 8.9 fl (7.5-11.1); PLATELET COUNT 136 K/MM3 (134-434); RDW 18.9 % (11.9-15.9); WHITE BLOOD COUNT 9.3 K/mm3 (4.0-10.0)
[2018-09-13 06:07] LABS: ANION GAP 6 MMOL/L (8-16); BLOOD UREA NITROGEN 27 mg/dL (7-18); CALCIUM 7.6 mg/dL (8.5-10.1); CHLORIDE 114 mmol/L (98-107); CO2 24 mmol/L (21-32); CREATININE 1.5 mg/dL (0.55-1.3); GLUCOSE,RANDOM 98 mg/dL (74-106); POTASSIUM 4.5 mmol/L (3.5-5.1); SODIUM 144 mmol/L (136-145)
[2018-09-13] MEDS: MORPHINE SULFATE 2 MG/ML VIAL IVPUSH PRN (07:05)
--- NOTE | 2018-09-13 07:32 | PN ---
Physical Exam: SUBJECTIVE: Patient seen and examined at bedside. No acute events overnight. OBJECTIVE: Vital Signs Period Temp Pulse Resp BP Sys/Juárez Pulse Ox Last 24 Hr 98.2 F-98.6 F 80-86 16-20 106-156/58-82 98-98 GENERAL: AAOx3. NAD. Resting comfortably. Generalized pallor. HEENT: AT/NC. EOMI. YANY. Conjunctival pallor. Dry mucus membranes. NECK: Normal range of motion, supple without lymphadenopathy, JVD, or masses. LUNGS: CTA B/L. No wheezes noted. HEART: RRR. Normal S1, S2. No murmurs noted. ABDOMEN: Soft, ND. Tender in suprapubic region. +BS in all 4Qs. : Catalan catheter in place draining red urine, no clots seen. MUSCULOSKELETAL: Normal range of motion at all joints. No bony deformities or tenderness. No CVA tenderness. EXTREMITIES: No peripheral edema noted. 2+ dorsalis pedis pulses b/l. NEUROLOGICAL: Facial symmetry. Normal speech. Moves all extremities. PSYCHIATRIC: Cooperative. Good eye contact. Appropriate mood and affect. CBCD WBC 9.3 K/mm3 (4.0-10.0) 09/13/18 05:00 RBC 2.80 M/mm3 (4.00-5.60) L 09/13/18 05:00 Hgb 8.2 GM/dL (11.7-16.9) L 09/13/18 05:00 Hct 24.8 % (35.4-49) L 09/13/18 05:00 MCV 88.6 fl (80-96) 09/13/18 05:00 MCHC 33.2 g/dl (32.0-35.9) 09/13/18 05:00 RDW 18.9 % (11.9-15.9) H 09/13/18 05:00 Plt Count 136 K/MM3 (134-434) 09/13/18 05:00 MPV 8.9 fl (7.5-11.1) 09/13/18 05:00 CMP Sodium 144 mmol/L (136-145) 09/13/18 05:00 Potassium 4.5 mmol/L (3.5-5.1) 09/13/18 05:00 Chloride 114 mmol/L (98-107) H 09/13/18 05:00 Carbon Dioxide 24 mmol/L (21-32) 09/13/18 05:00 Anion Gap 6 MMOL/L (8-16) L 09/13/18 05:00 BUN 27 mg/dL (7-18) H 09/13/18 05:00 Creatinine 1.5 mg/dL (0.55-1.3) H 09/13/18 05:00 Creat Clearance w eGFR 44.27 (>60) 09/13/18 05:00 Calcium 7.6 mg/dL (8.5-10.1) L 09/13/18 05:00 Total Bilirubin 0.4 mg/dL (0.2-1) 09/11/18 21:45 AST 17 U/L (15-37) 09/11/18 21:45 ALT 15 U/L (13-61) 09/11/18 21:45 Alkaline Phosphatase 32 U/L (45-117) L 09/11/18 21:45 Total Protein 4.7 g/dl (6.4-8.2) L 09/11/18 21:45 Albumin 2.5 g/dl (3.4-5.0) L 09/11/18 21:45 Active Medications Alprazolam (Xanax -) 0.25 mg PO BID PRN PRN Reason: ANXIETY Brimonidine Tartrate (Alphagan 0.15% -) 1 drop OU BID [facility] Last Admin: 09/12/18 22:00 Dose: 1 drop Dorzolamide HCl (Trusopt 2%) 1 drop OU BID [facility] Last Admin: 09/12/18 21:59 Dose: 1 drop Sodium Chloride (Normal Saline -) 1,000 mls @ 100 mls/hr IV ASDIR MARY Last Admin: 09/12/18 21:59 Dose: Not Given Latanoprost (Xalatan 0.005% Eye Drops -) 1 drop OU HS [facility] Last Admin: 09/12/18 22:03 Dose: 1 drop Metoprolol Tartrate (Lopressor -) 12.5 mg PO DAILY [facility] Last Admin: 09/12/18 11:26 Dose: 12.5 mg Morphine Sulfate (Morphine Sulfate) 2 mg IVPUSH Q3H PRN PRN Reason: PAIN LEVEL 1-5 Last Admin: 09/13/18 07:05 Dose: 2 mg Morphine Sulfate (Morphine Sulfate) 4 mg IVPUSH Q3H PRN PRN Reason: PAIN LEVEL 6-10 Tamsulosin HCl (Flomax -) 0.4 mg PO DAILY@0830 [facility] Last Admin: 09/12/18 11:26 Dose: 0.4 mg Timolol Maleate (Timoptic 0.5%) 1 drop OU BID [facility] Last Admin: 09/12/18 22:03 Dose: 1 drop ASSESSMENT/PLAN: 88M w/ pmhx of HTN, HLD, BPH s/p TURP/TUVP, NHL (s/p chemo years ago), aortic valve replacement, glaucoma, pacemaker placement presents with recurrent episode of severe hematuria. Neurology -Currently stable. AAOx3. -Morphine 2mg Q3H PRN for pain #Anxiety -Xanax 0.25 mg PO BID PRN Pulmonary #R upper lobe lung nodule (seen on CT chest oh 05/27/18) -PET scan was done and showed hypometabolic lesion -Per patient, lung nodule was worked up by Dr. Morton in which no intervention was needed. -Pulm outpatient follow up Cardiology #A. fib -Metoprolol 12.5 QD -EKG showed, AV dual-paced rhythm. QTc 523 ms; avoid all QT-prolonging meds #Aortic Valve replacement -s/p TAVR. Not currently on AC as patient has had multiple episodes of urinary retention and edgar hematuria. #HTN -Stable. -Metoprolol 12.5 QD GI #GERD -meds per primary team Renal #Gross hematuria, s/p TURP/TUVP -catalan catheter in place, urine now clearing, but still red -CBI in place, continue irrigation -s/p 2U (09/11/18), Hgb 8.2 today -UCx pending -Uro consulted (Dr. Samuel); Cont bowel regimen to avoid constipation and straining; Will discuss w/ PCP and uro regarding potential need for further procedure to be done to resolve persistent hematuria in the future. #BPH s/p TURP/TUVP -Flomax 0.4 mg QD ID #? UTI -Meropenem 1g IV QD -UCx ordered #ALMAZ likely 2/2 dehydration -Cr 1.5 -renal u/s ordered -bladder u/s ordered Hematology #Anemia 2/2 persistent hematuria -Hgb 8.2 s/p 2U pRBCs; stable. -Last INR 1.19 -recheck CBC Ophthalmology #Glaucoma -cont home eye drops Dermatology #Squamous Cell Carcinoma -s/p recent excision -outpatient follow up Prophylaxis DVT- SCDs, hold ACs FEN -NS @ 100 -recheck lytes in AM -sodium-controlled diet dispo -may transfer to med/surg if Hgb stable Visit type - Emergency Visit Emergency Visit: Yes ED Registration Date: 09/11/18 Care time: The patient presented to the Emergency Department on the above date and was hospitalized for further evaluation of their emergent condition. - New Patient This patient is new to me today: No - Critical Care Critical Care patient: Yes Total Critical Care Time (in minutes): 40 Critical Care Statement: The care of this patient involved high complexity decision making to prevent further life threatening deterioration of the patient 's condition and/or to evaluate & treat vital organ system(s) failure or risk of failure.
[2018-09-13] MEDS: TAMSULOSIN HCL 0.4 MG CAP PO SCH (08:26)
--- NOTE | 2018-09-13 09:07 | PN ---
Progress Note, Physician Chief Complaint: Humphreys still with blood TELE: No sustained arrhythmias. - Current Medication List Current Medications: Active Medications Alprazolam (Xanax -) 0.25 mg PO BID PRN PRN Reason: ANXIETY Brimonidine Tartrate (Alphagan 0.15% -) 1 drop OU BID [facility] Last Admin: 09/12/18 22:00 Dose: 1 drop Docusate Sodium (Colace -) 100 mg PO DAILY [facility] Dorzolamide HCl (Trusopt 2%) 1 drop OU BID [facility] Last Admin: 09/12/18 21:59 Dose: 1 drop Sodium Chloride (Normal Saline -) 1,000 mls @ 100 mls/hr IV ASDIR [facility] Last Admin: 09/12/18 21:59 Dose: Not Given Latanoprost (Xalatan 0.005% Eye Drops -) 1 drop OU HS [facility] Last Admin: 09/12/18 22:03 Dose: 1 drop Metoprolol Tartrate (Lopressor -) 12.5 mg PO DAILY [facility] Last Admin: 09/12/18 11:26 Dose: 12.5 mg Morphine Sulfate (Morphine Sulfate) 2 mg IVPUSH Q3H PRN PRN Reason: PAIN LEVEL 1-5 Last Admin: 09/13/18 07:05 Dose: 2 mg Morphine Sulfate (Morphine Sulfate) 4 mg IVPUSH Q3H PRN PRN Reason: PAIN LEVEL 6-10 Polyethylene Glycol (Miralax (For Daily Use) -) 17 gm PO BID [facility] Tamsulosin HCl (Flomax -) 0.4 mg PO DAILY@0830 [facility] Last Admin: 09/13/18 08:26 Dose: 0.4 mg Timolol Maleate (Timoptic 0.5%) 1 drop OU BID [facility] Last Admin: 09/12/18 22:03 Dose: 1 drop - Objective Vital Signs: Vital Signs Temperature 98.4 F 09/13/18 06:00 Pulse Rate 80 09/13/18 07:38 Respiratory Rate 18 09/13/18 07:38 Blood Pressure 149/76 09/13/18 07:38 O2 Sat by Pulse Oximetry (%) 98 09/13/18 07:38 Constitutional: Yes: No Distress Eyes: Yes: Conjunctiva Clear Cardiovascular: Yes: Other (paced) Respiratory: Yes: CTA Bilaterally Gastrointestinal: Yes: Soft Edema: No Neurological: Yes: Alert ...Motor Strength: WNL Labs: CBC, BMP 09/13/18 05:00 09/13/18 05:00 INR, PTT INR 1.19 (0.83-1.09) H 09/11/18 21:45 Laboratory Tests 09/12/18 09/13/18 09/13/18 15:45 05:00 05:00 WBC 9.3 Hgb 8.2 L Hct 24.8 L Plt Count 136 Sodium 144 Potassium 4.5 BUN 27 H Creatinine 1.5 H Creatine Kinase 36 Troponin I 0.06 H 0.06 H - ....Imaging EKG: Image Reviewed Problem List - Problems (1) Anemia due to blood loss, acute Code(s): D62 - ACUTE POSTHEMORRHAGIC ANEMIA (2) Gross hematuria Code(s): R31.0 - GROSS HEMATURIA (3) BPH (benign prostatic hyperplasia) Code(s): N40.0 - BENIGN PROSTATIC HYPERPLASIA WITHOUT LOWER URINRY TRACT SYMP (4) Pacemaker Code(s): Z95.0 - PRESENCE OF CARDIAC PACEMAKER (5) S/P TAVR (transcatheter aortic valve replacement) Code(s): Z95.2 - PRESENCE OF PROSTHETIC HEART VALVE (6) Atrial fibrillation Code(s): I48.91 - UNSPECIFIED ATRIAL FIBRILLATION Qualifiers: Qualified Code(s): I48.0 - Paroxysmal atrial fibrillation (7) Chronic renal insufficiency, stage II (mild) Code(s): N18.2 - CHRONIC KIDNEY DISEASE, STAGE 2 (MILD) (8) Hypertension Code(s): I10 - ESSENTIAL (PRIMARY) HYPERTENSION Qualifiers: Qualified Code(s): I10 - Essential (primary) hypertension (9) Troponin I above reference range Code(s): R74.8 - ABNORMAL LEVELS OF OTHER SERUM ENZYMES Assessment/Plan IMP: Gross hematuria secondary to BPH resulting in marked anemia requiring transfusion, now in absence of anticoagulation Severe s/p TAVR Hx of PPM for high grade AV block Chronic renal insuffiency Borderline elevation TnI REC: 1. Humphreys; follow H/H. 2. f/u- no cardiac contraindication to repeat cystoscopy 3. No longer a candidate for full AC- was stopped last admission. Now off for about a week. medical terminologist plan is to use low dose ASA for AF once gross hematuria resolved. 4. Cont Metoprolol on telemetry (hold for SBP < 100mmHg). 5. Elevated TnI noted, also present last admission- does not reflect ACS. Likely due to demand ischemia in setting marked anemia. No specific therapy required other than maintaining Hb> 8 and avoiding hypotension.
[2018-09-13] MEDS ORDERED: PT OWN MED DRAWER 7, Y5N ONE (09:14)
--- NOTE | 2018-09-13 09:24 | CONSULT ---
Consult - text type - Consultation Consultation Note: CC; recurrent clot retention hpi: patient is admitted with hypotension and clot retention. patient currently on cbi which is blood tinged. Patient is more comfortable after transfusions. PE vss; afeb abd-soft nontender no palbable bladder genitalia-blood tinged cbi imp clot retention/gross hematuria plan continue cbi consider surgical cauterization of prostate if bleeding worsens will discuss with Dr. Sanches 25 minutes spent with patient and family
[2018-09-13] MEDS: DOCUSATE SODIUM 100 MG CAPSULE (FP) PO SCH (09:34)
[2018-09-13] MEDS: POLYETHYLENE GLYCOL 3350 119 GM BTL PO SCH ×2 (09:34→21:45)
[2018-09-13] MEDS: METOPROLOL TARTRATE 25 MG TABLET (FP) PO SCH (09:35)
[2018-09-13] MEDS: BRIMONIDINE TARTRATE 0.15% OPHTHALMIC 5 ML BOTTLE OU SCH ×2 (09:55→21:45)
[2018-09-13] MEDS: TIMOLOL 0.5% OPHTHALMIC SOL 5 ML BOTTLE OU SCH ×2 (09:56→21:46)
[2018-09-13] MEDS: DORZOLAMIDE 2% HCL OPHTHALMIC SOLUTION 10 ML BOTTLE OU SCH ×2 (10:07→21:46)
--- NOTE | 2018-09-13 12:27 | PN ---
Teaching Attending Note Name of Resident: Alisha Branham ATTENDING PHYSICIAN STATEMENT I saw and evaluated the patient. I reviewed the resident's note and discussed the case with the resident. I agree with the resident's findings and plan as documented. SUBJECTIVE: Patient seen and examined in the ICU. CBI continues. Some mild discomfort persists. H&H stable. OBJECTIVE: Intake & Output 09/10/18 09/11/18 09/12/18 09/13/18 23:59 23:59 23:59 23:59 Intake Total 9000 80449 79674 Output Total 6830 96591 09605 Balance 2170 920 -50 Weight 152 lb 152 lb Last Vital Signs Temp Pulse Resp BP Pulse Ox 98.4 F 80 17 147/72 98 09/13/18 06:00 09/13/18 09:00 09/13/18 09:00 09/13/18 09:00 09/13/18 07:38 Active Medications Alprazolam (Xanax -) 0.25 mg PO BID PRN PRN Reason: ANXIETY Brimonidine Tartrate (Alphagan 0.15% -) 1 drop OU BID [facility] Last Admin: 09/13/18 09:55 Dose: 1 drop Docusate Sodium (Colace -) 100 mg PO DAILY [facility] Last Admin: 09/13/18 09:34 Dose: 100 mg Dorzolamide HCl (Trusopt 2%) 1 drop OU BID [facility] Last Admin: 09/13/18 10:07 Dose: 1 drop Sodium Chloride (Normal Saline -) 1,000 mls @ 100 mls/hr IV ASDIR [facility] Last Admin: 09/12/18 21:59 Dose: Not Given Latanoprost (Xalatan 0.005% Eye Drops -) 1 drop OU HS [facility] Last Admin: 09/12/18 22:03 Dose: 1 drop Metoprolol Tartrate (Lopressor -) 12.5 mg PO DAILY [facility] Last Admin: 09/13/18 09:35 Dose: 12.5 mg Morphine Sulfate (Morphine Sulfate) 2 mg IVPUSH Q3H PRN PRN Reason: PAIN LEVEL 1-5 Last Admin: 09/13/18 07:05 Dose: 2 mg Morphine Sulfate (Morphine Sulfate) 4 mg IVPUSH Q3H PRN PRN Reason: PAIN LEVEL 6-10 Polyethylene Glycol (Miralax (For Daily Use) -) 17 gm PO BID [facility] Last Admin: 09/13/18 09:34 Dose: 17 gm Tamsulosin HCl (Flomax -) 0.4 mg PO DAILY@0830 [facility] Last Admin: 09/13/18 08:26 Dose: 0.4 mg Timolol Maleate (Timoptic 0.5%) 1 drop OU BID [facility] Last Admin: 09/13/18 09:56 Dose: Not Given Gen: NAD at rest Heart: RRR Lung: few scattered rhonchi Abd: soft, nontender Ext: no edema Laboratory Results - last 24 hr 09/11/18 09/12/18 09/12/18 19:01 15:45 15:45 WBC 8.6 RBC 2.42 L Hgb 7.5 L Hct 21.6 L MCV 89.2 MCH 31.2 MCHC 34.9 RDW 19.7 H Plt Count 150 MPV 9.1 Sodium Potassium Chloride Carbon Dioxide Anion Gap BUN Creatinine Creat Clearance w eGFR Random Glucose Calcium Creatine Kinase Troponin I 0.06 H Blood Type A POSITIVE Antibody Screen Negative Crossmatch See Detail 09/13/18 09/13/18 05:00 05:00 WBC 9.3 RBC 2.80 L Hgb 8.2 L Hct 24.8 L MCV 88.6 MCH 29.4 MCHC 33.2 RDW 18.9 H Plt Count 136 MPV 8.9 Sodium 144 Potassium 4.5 Chloride 114 H Carbon Dioxide 24 Anion Gap 6 L BUN 27 H Creatinine 1.5 H Creat Clearance w eGFR 44.27 Random Glucose 98 Calcium 7.6 L Creatine Kinase 36 Troponin I 0.06 H Blood Type Antibody Screen Crossmatch ASSESSMENT AND PLAN: Hematuria Acute Blood Loss Anemia Hypovolemia improving Lactic Acidosis BPH s/p TURP Aortic Stenosis Atrial Fibrillation CKD Lung Nodule - monitor H/H - Normal transfusion thresholds - CBI in progress - urology follow up - pain control - holding all antiplatelets, anticoagulation - rate controlled - Floor - Mechanical DVT prophylaxis Dr Read
--- NOTE | 2018-09-13 16:51 | PN ---
Progress Note (short form) - Note Progress Note: Current Medications Alprazolam (Xanax -) 0.25 mg PO BID PRN PRN Reason: ANXIETY Brimonidine Tartrate (Alphagan 0.15% -) 1 drop OU BID [facility] Last Admin: 09/13/18 09:55 Dose: 1 drop Docusate Sodium (Colace -) 100 mg PO DAILY [facility] Last Admin: 09/13/18 09:34 Dose: 100 mg Dorzolamide HCl (Trusopt 2%) 1 drop OU BID [facility] Last Admin: 09/13/18 10:07 Dose: 1 drop Sodium Chloride (Normal Saline -) 1,000 mls @ 100 mls/hr IV ASDIR [facility] Last Admin: 09/12/18 21:59 Dose: Not Given Latanoprost (Xalatan 0.005% Eye Drops -) 1 drop OU HS [facility] Last Admin: 09/12/18 22:03 Dose: 1 drop Metoprolol Tartrate (Lopressor -) 12.5 mg PO DAILY [facility] Last Admin: 09/13/18 09:35 Dose: 12.5 mg Morphine Sulfate (Morphine Sulfate) 2 mg IVPUSH Q3H PRN PRN Reason: PAIN LEVEL 1-5 Last Admin: 09/13/18 07:05 Dose: 2 mg Morphine Sulfate (Morphine Sulfate) 4 mg IVPUSH Q3H PRN PRN Reason: PAIN LEVEL 6-10 Polyethylene Glycol (Miralax (For Daily Use) -) 17 gm PO BID [facility] Last Admin: 09/13/18 09:34 Dose: 17 gm Tamsulosin HCl (Flomax -) 0.4 mg PO DAILY@0830 [facility] Last Admin: 09/13/18 08:26 Dose: 0.4 mg Timolol Maleate (Timoptic 0.5%) 1 drop OU BID [facility] Last Admin: 09/13/18 09:56 Dose: Not Given Laboratory Results - last 24 hr 09/11/18 09/12/18 09/13/18 19:01 15:45 05:00 WBC 9.3 RBC 2.80 L Hgb 8.2 L Hct 24.8 L MCV 88.6 MCH 29.4 MCHC 33.2 RDW 18.9 H Plt Count 136 MPV 8.9 Sodium Potassium Chloride Carbon Dioxide Anion Gap BUN Creatinine Creat Clearance w eGFR Random Glucose Calcium Creatine Kinase Troponin I 0.06 H Blood Type A POSITIVE Antibody Screen Negative Crossmatch See Detail 09/13/18 05:00 WBC RBC Hgb Hct MCV MCH MCHC RDW Plt Count MPV Sodium 144 Potassium 4.5 Chloride 114 H Carbon Dioxide 24 Anion Gap 6 L BUN 27 H Creatinine 1.5 H Creat Clearance w eGFR 44.27 Random Glucose 98 Calcium 7.6 L Creatine Kinase 36 Troponin I 0.06 H Blood Type Antibody Screen Crossmatch Vital Signs Temperature 97.6 F 09/13/18 11:00 Pulse Rate 80 09/13/18 13:00 Respiratory Rate 18 09/13/18 13:00 Blood Pressure 121/64 09/13/18 13:00 O2 Sat by Pulse Oximetry (%) 98 09/13/18 07:38 CC: suprapubic spasms `````````````````````````` skin--NL color eyes--anicteric lungs--grossly clear & breaths unlabored heart--RR abd--soft, BS+, NT, ND, some suprapubic tenderness ext--no edema neuro--awake, alert, verbal ``````````````````````````` Summ > Gross hematuria--persistent, despite being off a/c; seen by Urology today, who may likely intervene if bleeding continues over the weekend. PLAN: cont CBI ; IV Abs; cbc checks; pain control > Anemia--blood loss type; from ongoing severe hematuria; has requires PC transfusions and may require further PC if bleeding continues > Htn--with ASHD & CKdz; Bun/cr at near baseline; will cont NS for now, no signs of CHF but will check CXR > High Troponin--due to demand ischemia from hemodynamic instability on admission > Pacer status--stable > AtF--not new; no longer a-c candidate in view of profuse hematuria; HR in range w/ BB > Glaucoma--getting eye gtts ````````````````````````````` Dr Sancehs Problem List - Problems (1) Hematuria Code(s): R31.9 - HEMATURIA, UNSPECIFIED Qualifiers: Hematuria type: gross Qualified Code(s): R31.0 - Gross hematuria (2) Atrial fibrillation Code(s): I48.91 - UNSPECIFIED ATRIAL FIBRILLATION Qualifiers: Atrial fibrillation type: permanent Qualified Code(s): I48.2 - Chronic atrial fibrillation (3) Anemia due to blood loss, acute Code(s): D62 - ACUTE POSTHEMORRHAGIC ANEMIA (4) Hypertensive heart and renal disease Qualifiers: Heart failure presence: without heart failure Hypertensive chronic kidney disease stage: stage 1-4 or unspecified chronic kidney disease Qualified Code( s): I13.10 - Hypertensive heart and chronic kidney disease without heart failure , with stage 1 through stage 4 chronic kidney disease, or unspecified chronic kidney disease (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 (7) Glaucoma Code(s): H40.9 - UNSPECIFIED GLAUCOMA Qualifiers: Glaucoma type: unspecified Laterality: bilateral Qualified Code(s): H40.9 - Unspecified glaucoma (8) History of skin cancer in adulthood Code(s): Z85.828 - PERSONAL HISTORY OF OTHER MALIGNANT NEOPLASM OF SKIN (9) Status cardiac pacemaker Code(s): Z95.0 - PRESENCE OF CARDIAC PACEMAKER (11) 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 Code(s): K31.9 - DISEASE OF STOMACH AND DUODENUM, UNSPECIFIED; R10.13 - EPIGASTRIC PAIN (12) Anxiety as acute reaction to gross stress Code(s): F41.1 - GENERALIZED ANXIETY DISORDER; F43.0 - ACUTE STRESS REACTION
[2018-09-13] MEDS ORDERED: BACITRACIN 15 GM TUBE TOPICAL OINTMENT TP ONE (18:45)
[2018-09-13] MEDS: SODIUM CHLORIDE 1,000 ML IV SCH (21:44)
[2018-09-13] MEDS: LATANOPROST 0.005% OPHTH SOLN 2.5ML BOTTLE OU SCH (21:45)
[2018-09-14] MEDS: morphine SULFATE 4 MG/ML VIAL IVPUSH PRN ×2 (03:22→07:26)
[2018-09-14 05:48] LABS: BASO % 0.8 % (0-2.0); HEMATOCRIT 25.4 % (35.4-49); HEMOGLOBIN 8.3 GM/dL (11.7-16.9); LYMPH % 17.5 % (8-40); MCH 29.6 pg (25.7-33.7); MCHC 32.8 g/dl (32.0-35.9); MEAN CELL VOLUME 90.3 fl (80-96); MEAN PLT VOLUME 8.9 fl (7.5-11.1); MONO % 17.9 % (3.8-10.2); NEUT % 59.8 % (42.8-82.8); PLATELET COUNT 154 K/MM3 (134-434); RBC 2.81 M/mm3 (4.00-5.60); RDW 18.5 % (11.9-15.9); WHITE BLOOD COUNT 9.4 K/mm3 (4.0-10.0)
[2018-09-14 06:34] LABS: ALBUMIN 2.6 g/dl (3.4-5.0); ALK PHOS 37 U/L (45-117); ANION GAP 6 MMOL/L (8-16); BILIRUBIN,TOTAL 0.5 mg/dL (0.2-1); BLOOD UREA NITROGEN 19 mg/dL (7-18); CALCIUM 7.7 mg/dL (8.5-10.1); CHLORIDE 114 mmol/L (98-107); CO2 23 mmol/L (21-32); CREATININE 1.2 mg/dL (0.55-1.3); GLUCOSE,RANDOM 86 mg/dL (74-106); MAGNESIUM 2.1 mg/dL (1.8-2.4); PHOSPHOROUS 2.9 mg/dL (2.5-4.9); POTASSIUM 4.1 mmol/L (3.5-5.1); SGOT/AST 22 U/L (15-37); SGPT/ALT 15 U/L (13-61); SODIUM 143 mmol/L (136-145); TOT PROT 5.1 g/dl (6.4-8.2)
--- NOTE | 2018-09-14 07:52 | PN ---
Progress Note (short form) - Note Progress Note: PULM/CCM Pt seen & examined in the ICU. Tremendous problems w/ CBI O/N including but NOT limited to clots obstructing output causing circumferential leakage around catheter wetting entire room down, pt presents angry and frustrated. Active Medications Alprazolam (Xanax -) 0.25 mg PO BID PRN PRN Reason: ANXIETY Brimonidine Tartrate (Alphagan 0.15% -) 1 drop OU BID [facility] Last Admin: 09/14/18 09:17 Dose: 1 drop Docusate Sodium (Colace -) 100 mg PO DAILY [facility] Last Admin: 09/14/18 09:25 Dose: 100 mg Dorzolamide HCl (Trusopt 2%) 1 drop OU BID [facility] Last Admin: 09/14/18 09:18 Dose: 1 drop Furosemide (Lasix -) 20 mg PO DAILY [facility] Latanoprost (Xalatan 0.005% Eye Drops -) 1 drop OU HS [facility] Last Admin: 09/13/18 21:45 Dose: 1 drop Metoprolol Tartrate (Lopressor -) 12.5 mg PO DAILY [facility] Last Admin: 09/14/18 09:15 Dose: 12.5 mg Morphine Sulfate (Morphine Sulfate) 2 mg IVPUSH Q3H PRN PRN Reason: PAIN LEVEL 1-5 Last Admin: 09/13/18 07:05 Dose: 2 mg Morphine Sulfate (Morphine Sulfate) 4 mg IVPUSH Q3H PRN PRN Reason: PAIN LEVEL 6-10 Last Admin: 09/14/18 07:26 Dose: 4 mg Polyethylene Glycol (Miralax (For Daily Use) -) 17 gm PO BID [facility] Last Admin: 09/14/18 09:17 Dose: 17 gm Tamsulosin HCl (Flomax -) 0.4 mg PO DAILY@0830 [facility] Last Admin: 09/14/18 09:13 Dose: 0.4 mg Timolol Maleate (Timoptic 0.5%) 1 drop OU BID [facility] Last Admin: 09/14/18 09:17 Dose: Not Given Vital Signs Period Temp Pulse Resp BP Sys/Juárez Pulse Ox Last 24 Hr 97.9 F-98.9 F 68-80 16-18 121-160/56-84 98-98 Intake & Output 09/11/18 09/12/18 09/13/18 09/14/18 23:59 23:59 23:59 23:59 Intake Total 9000 25228 25540 49414 Output Total 6830 74060 78773 77178 Balance 2170 920 -1650 200 Weight 68.946 kg 68.946 kg GEN: Well nourished 88 y/o man in NAD, CA+OX3, frustrated that blood clot are NOT clearing despite CBI X4 Days HEENT: PERRL, an-icteric, MMM PULM: CTAB CV: Nml S1 S2, RR, quiet syst murmur ABD: + BS, S/S N/T N/D X4, bladder not palpable : CBI --> patient with clear urine with small residual clots EXT: + Pulses, WWP X4, (-) edema CBC, BMP 09/14/18 05:30 09/14/18 05:30 INR, PTT INR 1.19 (0.83-1.09) H 09/11/18 21:45 CXR 09/14: A single AP view the chest is been submitted. Since 09/11/2018 there are new congestive changes with questionable infiltrate or atelectasis at the left base. Follow-up recommended. ASSESS: Hematuria Acute Blood Loss Anemia Hypovolemia improving Lactic Acidosis BPH s/p TURP Aortic Stenosis Atrial Fibrillation CKD Lung Nodule PLAN: - Supp Fio2 prn for an SpO2 > 92% - D/c standing IVFs - Gentle Diuresis - Monitor H/H - Normal transfusion thresholds - Cont CBI - Manually aspirate bladder prn to clear any residual clots - Touch base w/ Dr. Dwayne Samuel (URO) RE: optimization of CBI - Pain control - This pt is no longer a candidate for full AC --> F/u w CARDS - Cont rate control - Mechanical DVT prophylaxis - Can X-mari to Med Surg DGL, ACNP-BC [facility] PUM/CCM [id number]
--- NOTE | 2018-09-14 08:56 | CONSULT ---
Consult - text type - Consultation Consultation Note: CC: Clot retention hpi: patient with clear urine with small residual clots PE vss;afeb abd-bladder not palpable procedure note bladder aspirated of residual clots cbi draining well imp clot retention gross hematuria plan continue cbi
[2018-09-14] MEDS: TAMSULOSIN HCL 0.4 MG CAP PO SCH (09:13)
[2018-09-14] MEDS: METOPROLOL TARTRATE 25 MG TABLET (FP) PO SCH (09:15)
[2018-09-14] MEDS: BRIMONIDINE TARTRATE 0.15% OPHTHALMIC 5 ML BOTTLE OU SCH ×2 (09:17→22:49)
[2018-09-14] MEDS: TIMOLOL 0.5% OPHTHALMIC SOL 5 ML BOTTLE OU SCH ×2 (09:17→22:49)
[2018-09-14] MEDS: POLYETHYLENE GLYCOL 3350 119 GM BTL PO SCH ×2 (09:17→22:49)
[2018-09-14] MEDS: DORZOLAMIDE 2% HCL OPHTHALMIC SOLUTION 10 ML BOTTLE OU SCH ×2 (09:18→22:49)
[2018-09-14] MEDS: DOCUSATE SODIUM 100 MG CAPSULE (FP) PO SCH (09:25)
--- NOTE | 2018-09-14 09:46 | PN ---
Progress Note, Physician Chief Complaint: Seen and examined in ICU No chest pain or SOB TELE: no sig ventricular arrhythmias - Current Medication List Current Medications: Active Medications Alprazolam (Xanax -) 0.25 mg PO BID PRN PRN Reason: ANXIETY Brimonidine Tartrate (Alphagan 0.15% -) 1 drop OU BID [facility] Last Admin: 09/14/18 09:17 Dose: 1 drop Docusate Sodium (Colace -) 100 mg PO DAILY [facility] Last Admin: 09/14/18 09:25 Dose: 100 mg Dorzolamide HCl (Trusopt 2%) 1 drop OU BID [facility] Last Admin: 09/14/18 09:18 Dose: 1 drop Sodium Chloride (Normal Saline -) 1,000 mls @ 100 mls/hr IV ASDIR [facility] Last Admin: 09/13/18 21:44 Dose: Not Given Latanoprost (Xalatan 0.005% Eye Drops -) 1 drop OU HS [facility] Last Admin: 09/13/18 21:45 Dose: 1 drop Metoprolol Tartrate (Lopressor -) 12.5 mg PO DAILY [facility] Last Admin: 09/14/18 09:15 Dose: 12.5 mg Morphine Sulfate (Morphine Sulfate) 2 mg IVPUSH Q3H PRN PRN Reason: PAIN LEVEL 1-5 Last Admin: 09/13/18 07:05 Dose: 2 mg Morphine Sulfate (Morphine Sulfate) 4 mg IVPUSH Q3H PRN PRN Reason: PAIN LEVEL 6-10 Last Admin: 09/14/18 07:26 Dose: 4 mg Polyethylene Glycol (Miralax (For Daily Use) -) 17 gm PO BID [facility] Last Admin: 09/14/18 09:17 Dose: 17 gm Tamsulosin HCl (Flomax -) 0.4 mg PO DAILY@0830 [facility] Last Admin: 09/14/18 09:13 Dose: 0.4 mg Timolol Maleate (Timoptic 0.5%) 1 drop OU BID [facility] Last Admin: 09/14/18 09:17 Dose: Not Given - Objective Vital Signs: Vital Signs Temperature 98.4 F 09/14/18 06:00 Pulse Rate 80 09/14/18 07:45 Respiratory Rate 16 09/14/18 07:45 Blood Pressure 154/75 09/14/18 07:45 O2 Sat by Pulse Oximetry (%) 98 09/14/18 07:45 Constitutional: Yes: No Distress Cardiovascular: Yes: Regular Rate and Rhythm Respiratory: Yes: CTA Bilaterally Gastrointestinal: Yes: Soft Neurological: Yes: Alert, Oriented ...Motor Strength: WNL Labs: CBC, BMP 09/14/18 05:30 09/14/18 05:30 INR, PTT INR 1.19 (0.83-1.09) H 09/11/18 21:45 Problem List - Problems (1) Anemia due to blood loss, acute Code(s): D62 - ACUTE POSTHEMORRHAGIC ANEMIA (2) Gross hematuria Code(s): R31.0 - GROSS HEMATURIA (3) BPH (benign prostatic hyperplasia) Code(s): N40.0 - BENIGN PROSTATIC HYPERPLASIA WITHOUT LOWER URINRY TRACT SYMP Qualifiers: Lower urinary tract symptom presence: symptoms present (4) Pacemaker Code(s): Z95.0 - PRESENCE OF CARDIAC PACEMAKER (5) S/P TAVR (transcatheter aortic valve replacement) Code(s): Z95.2 - PRESENCE OF PROSTHETIC HEART VALVE (6) Atrial fibrillation Code(s): I48.91 - UNSPECIFIED ATRIAL FIBRILLATION Qualifiers: Atrial fibrillation type: paroxysmal Qualified Code(s): I48.0 - Paroxysmal atrial fibrillation (7) Chronic renal insufficiency, stage II (mild) Code(s): N18.2 - CHRONIC KIDNEY DISEASE, STAGE 2 (MILD) (8) Hypertension Code(s): I10 - ESSENTIAL (PRIMARY) HYPERTENSION Qualifiers: Hypertension type: essential hypertension Qualified Code(s): I10 - Essential (primary) hypertension (9) Troponin I above reference range Code(s): R74.8 - ABNORMAL LEVELS OF OTHER SERUM ENZYMES Assessment/Plan IMP: Gross hematuria secondary to BPH resulting in marked anemia requiring transfusion, now in absence of anticoagulation Severe s/p TAVR Hx of PPM for high grade AV block Chronic renal insuffiency Borderline elevation TnI REC: 1. Humphreys; follow H/H. 2. f/u- no cardiac contraindication to repeat cystoscopy 3. No longer a candidate for full AC- was stopped last admission. Now off for about a week. snf plan is to use low dose ASA for AF once gross hematuria resolved. Risks/benefits of full AC discussed with patient and son Gerson. They understand the situation and how we have no option but to hold AC. 4. Cont Metoprolol on telemetry (hold for SBP < 100mmHg). 5. Elevated TnI noted, also present last admission- does not reflect ACS. Likely due to demand ischemia in setting marked anemia. No specific therapy required other than maintaining Hb> 8 and avoiding hypotension. 6. CXR findings noted. Clinically he appears comfortable. Will start PO Lasix. Follow renal function
[2018-09-14] MEDS: FUROSEMIDE 20 MG TABLET (FP) PO SCH (11:16)
--- NOTE | 2018-09-14 15:16 | PN ---
Progress Note (short form) - Note Progress Note: Current Medications Alprazolam (Xanax -) 0.25 mg PO BID PRN PRN Reason: ANXIETY Brimonidine Tartrate (Alphagan 0.15% -) 1 drop OU BID [facility] Last Admin: 09/14/18 09:17 Dose: 1 drop Docusate Sodium (Colace -) 100 mg PO DAILY [facility] Last Admin: 09/14/18 09:25 Dose: 100 mg Dorzolamide HCl (Trusopt 2%) 1 drop OU BID [facility] Last Admin: 09/14/18 09:18 Dose: 1 drop Furosemide (Lasix -) 20 mg PO DAILY [facility] Last Admin: 09/14/18 11:16 Dose: 20 mg Latanoprost (Xalatan 0.005% Eye Drops -) 1 drop OU HS [facility] Last Admin: 09/13/18 21:45 Dose: 1 drop Metoprolol Tartrate (Lopressor -) 12.5 mg PO DAILY [facility] Last Admin: 09/14/18 09:15 Dose: 12.5 mg Morphine Sulfate (Morphine Sulfate) 2 mg IVPUSH Q3H PRN PRN Reason: PAIN LEVEL 1-5 Last Admin: 09/13/18 07:05 Dose: 2 mg Morphine Sulfate (Morphine Sulfate) 4 mg IVPUSH Q3H PRN PRN Reason: PAIN LEVEL 6-10 Last Admin: 09/14/18 07:26 Dose: 4 mg Polyethylene Glycol (Miralax (For Daily Use) -) 17 gm PO BID [facility] Last Admin: 09/14/18 09:17 Dose: 17 gm Tamsulosin HCl (Flomax -) 0.4 mg PO DAILY@0830 [facility] Last Admin: 09/14/18 09:13 Dose: 0.4 mg Timolol Maleate (Timoptic 0.5%) 1 drop OU BID [facility] Last Admin: 09/14/18 09:17 Dose: Not Given Laboratory Results - last 24 hr 09/14/18 09/14/18 05:30 05:30 WBC 9.4 RBC 2.81 L Hgb 8.3 L Hct 25.4 L MCV 90.3 MCH 29.6 MCHC 32.8 RDW 18.5 H Plt Count 154 MPV 8.9 Absolute Neuts (auto) 5.6 Neutrophils % 59.8 D Lymphocytes % 17.5 D Monocytes % 17.9 H D Eosinophils % 4.0 D Basophils % 0.8 D Nucleated RBC % 1 H Sodium 143 Potassium 4.1 Chloride 114 H Carbon Dioxide 23 Anion Gap 6 L BUN 19 H Creatinine 1.2 Creat Clearance w eGFR 57.27 Random Glucose 86 Calcium 7.7 L Phosphorus 2.9 Magnesium 2.1 Total Bilirubin 0.5 AST 22 ALT 15 Alkaline Phosphatase 37 L Creatine Kinase 47 Troponin I 0.06 H Total Protein 5.1 L Albumin 2.6 L Vital Signs Temperature 98.4 F 09/14/18 06:00 Pulse Rate 80 09/14/18 07:45 Respiratory Rate 16 09/14/18 07:45 Blood Pressure 154/75 09/14/18 07:45 O2 Sat by Pulse Oximetry (%) 98 09/14/18 07:45 CC: suprapubic spasms & leakage (at night) `````````````````````````` skin--NL color eyes--anicteric lungs--grossly clear & breaths unlabored heart--RR abd--soft, BS+, NT, ND, some suprapubic tenderness ext--no edema neuro--awake, alert, verbal ``````````````````````````` Summ > Gross hematuria--persistent but less bloody; seen by Urology today. PLAN: cont CBI; IV Abs; cbc checks; pain control > Anemia--blood loss type; from ongoing severe hematuria; Hgb above 8 today; will transfuse if below 8 > Htn--with ASHD & CKdz; Bun/cr at near baseline; will cut down rate of NS: PlaN : add low dose CCB > High Troponin--due to demand ischemia from hemodynamic instability on admission; levels stable > Pacer status--stable > AtF--not new; no longer a-c candidate in view of profuse hematuria; HR in range w/ BB > Glaucoma--getting eye gtts ````````````````````````````` Dr Sanches Problem List - Problems (1) Hematuria Code(s): R31.9 - HEMATURIA, UNSPECIFIED Qualifiers: Hematuria type: gross Qualified Code(s): R31.0 - Gross hematuria (2) Atrial fibrillation Code(s): I48.91 - UNSPECIFIED ATRIAL FIBRILLATION Qualifiers: Atrial fibrillation type: permanent Qualified Code(s): I48.2 - Chronic atrial fibrillation (3) Anemia due to blood loss, acute Code(s): D62 - ACUTE POSTHEMORRHAGIC ANEMIA (4) Hypertensive heart and renal disease Qualifiers: Heart failure presence: without heart failure Hypertensive chronic kidney disease stage: stage 1-4 or unspecified chronic kidney disease Qualified Code( s): I13.10 - Hypertensive heart and chronic kidney disease without heart failure , with stage 1 through stage 4 chronic kidney disease, or unspecified chronic kidney disease (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 (7) Glaucoma Code(s): H40.9 - UNSPECIFIED GLAUCOMA Qualifiers: Glaucoma type: unspecified Laterality: bilateral Qualified Code(s): H40.9 - Unspecified glaucoma (8) History of skin cancer in adulthood Code(s): Z85.828 - PERSONAL HISTORY OF OTHER MALIGNANT NEOPLASM OF SKIN (9) Status cardiac pacemaker Code(s): Z95.0 - PRESENCE OF CARDIAC PACEMAKER (11) 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 Code(s): K31.9 - DISEASE OF STOMACH AND DUODENUM, UNSPECIFIED; R10.13 - EPIGASTRIC PAIN (12) Anxiety as acute reaction to gross stress Code(s): F41.1 - GENERALIZED ANXIETY DISORDER; F43.0 - ACUTE STRESS REACTION
[2018-09-14] MEDS: LATANOPROST 0.005% OPHTH SOLN 2.5ML BOTTLE OU SCH (22:49)
[2018-09-15] MEDS ORDERED: PT OWN MED DRAWER 7, Y5N ONE (08:26)
[2018-09-15] MEDS: MORPHINE SULFATE 2 MG/ML VIAL IVPUSH PRN (08:27)
[2018-09-15] MEDS: TAMSULOSIN HCL 0.4 MG CAP PO SCH (08:33)
--- NOTE | 2018-09-15 09:12 | PN ---
Progress Note (short form) - Note Progress Note: PULM/CCM Pt seen & examined in the ICU. Smooth flowing CBI O/N requiring only one bladder aspiration session. Pt much more happy today. Clots seems to be subsiding. Active Medications Alprazolam (Xanax -) 0.25 mg PO BID PRN PRN Reason: ANXIETY Amlodipine Besylate (Norvasc -) 2.5 mg PO DAILY [facility] Last Admin: 09/15/18 10:06 Dose: 2.5 mg Brimonidine Tartrate (Alphagan 0.15% -) 1 drop OU BID [facility] Last Admin: 09/14/18 22:49 Dose: 1 drop Docusate Sodium (Colace -) 100 mg PO DAILY [facility] Last Admin: 09/15/18 10:05 Dose: 100 mg Dorzolamide HCl (Trusopt 2%) 1 drop OU BID [facility] Last Admin: 09/14/18 22:49 Dose: 1 drop Furosemide (Lasix -) 20 mg PO DAILY [facility] Last Admin: 09/15/18 10:06 Dose: 20 mg Latanoprost (Xalatan 0.005% Eye Drops -) 1 drop OU HS [facility] Last Admin: 09/14/18 22:49 Dose: 1 drop Metoprolol Tartrate (Lopressor -) 12.5 mg PO DAILY [facility] Last Admin: 09/15/18 10:06 Dose: 12.5 mg Morphine Sulfate (Morphine Sulfate) 2 mg IVPUSH Q3H PRN PRN Reason: PAIN LEVEL 1-5 Last Admin: 09/15/18 08:27 Dose: 2 mg Morphine Sulfate (Morphine Sulfate) 4 mg IVPUSH Q3H PRN PRN Reason: PAIN LEVEL 6-10 Last Admin: 09/14/18 07:26 Dose: 4 mg Polyethylene Glycol (Miralax (For Daily Use) -) 17 gm PO BID [facility] Last Admin: 09/15/18 10:06 Dose: 17 gm Tamsulosin HCl (Flomax -) 0.4 mg PO DAILY@0830 [facility] Last Admin: 09/15/18 08:33 Dose: 0.4 mg Timolol Maleate (Timoptic 0.5%) 1 drop OU BID [facility] Last Admin: 09/14/18 22:49 Dose: 1 drop Vital Signs Period Temp Pulse Resp BP Sys/Juárez Pulse Ox Last 24 Hr 98.2 F-98.6 F 80-80 16-22 125-169/60-91 98 Intake & Output 09/12/18 09/13/18 09/14/18 09/15/18 23:59 23:59 23:59 23:59 Intake Total 94069 60886 68935 74557 Output Total 79268 93506 85993 31962 Balance 920 -1650 -1600 0 Weight 68.946 kg GEN: Well nourished 88 y/o man in NAD, CA+OX3, friendly, cooperative HEENT: PERRL, an-icteric, MMM PULM: CTAB CV: Nml S1 S2, RR, quiet syst murmur ABD: + BS, S/S N/T N/D X4, bladder not palpable : CBI --> patient with clear urine w/ stringy residual clots on bladder aspiration EXT: + Pulses, WWP X4, (-) edema CBC, BMP 09/14/18 05:30 09/14/18 05:30 INR, PTT INR 1.19 (0.83-1.09) H 09/11/18 21:45 CXR 09/14: A single AP view the chest is been submitted. Since 09/11/2018 there are new congestive changes with questionable infiltrate or atelectasis at the left base. Follow-up recommended. ASSESS: Hematuria Acute Blood Loss Anemia Hypovolemia improving Lactic Acidosis BPH s/p TURP Aortic Stenosis Atrial Fibrillation CKD Lung Nodule PLAN: - Supp Fio2 prn for an SpO2 > 92% - IS - D/c standing IVFs - Gentle Diuresis - Monitor H/H - Normal transfusion thresholds - Cont CBI - Manually aspirate bladder prn to clear any residual clots - Touch base w/ Dr. Dwayne Samuel (URO) RE: optimization of CBI - Pain control - This pt is no longer a candidate for full AC --> F/u w CARDS - Cont rate control - Mechanical DVT prophylaxis - Can X-mari to Med Surg DGL, [facility] [id number] Critical Care Total Critical Care Time (in minutes): 38 Critical Care Statement: The care of this patient involved high complexity decision making to prevent further life threatening deterioration of the patient 's condition and/or to evaluate & treat vital organ system(s) failure or risk of failure.
--- NOTE | 2018-09-15 09:21 | PN ---
Progress Note, Physician Chief Complaint: Seen and examined in ICU, no distress TELE: no sustained arrhythmias, paced. History of Present Illness: Humphreys clear urine this AM - Current Medication List Current Medications: Active Medications Alprazolam (Xanax -) 0.25 mg PO BID PRN PRN Reason: ANXIETY Amlodipine Besylate (Norvasc -) 2.5 mg PO DAILY [facility] Brimonidine Tartrate (Alphagan 0.15% -) 1 drop OU BID [facility] Last Admin: 09/14/18 22:49 Dose: 1 drop Docusate Sodium (Colace -) 100 mg PO DAILY [facility] Last Admin: 09/14/18 09:25 Dose: 100 mg Dorzolamide HCl (Trusopt 2%) 1 drop OU BID [facility] Last Admin: 09/14/18 22:49 Dose: 1 drop Furosemide (Lasix -) 20 mg PO DAILY [facility] Last Admin: 09/14/18 11:16 Dose: 20 mg Latanoprost (Xalatan 0.005% Eye Drops -) 1 drop OU HS [facility] Last Admin: 09/14/18 22:49 Dose: 1 drop Metoprolol Tartrate (Lopressor -) 12.5 mg PO DAILY [facility] Last Admin: 09/14/18 09:15 Dose: 12.5 mg Morphine Sulfate (Morphine Sulfate) 2 mg IVPUSH Q3H PRN PRN Reason: PAIN LEVEL 1-5 Last Admin: 09/15/18 08:27 Dose: 2 mg Morphine Sulfate (Morphine Sulfate) 4 mg IVPUSH Q3H PRN PRN Reason: PAIN LEVEL 6-10 Last Admin: 09/14/18 07:26 Dose: 4 mg Polyethylene Glycol (Miralax (For Daily Use) -) 17 gm PO BID [facility] Last Admin: 09/14/18 22:49 Dose: Not Given Tamsulosin HCl (Flomax -) 0.4 mg PO DAILY@0830 [facility] Last Admin: 09/15/18 08:33 Dose: 0.4 mg Timolol Maleate (Timoptic 0.5%) 1 drop OU BID [facility] Last Admin: 09/14/18 22:49 Dose: 1 drop - Objective Vital Signs: Vital Signs Temperature 98.6 F 09/15/18 06:00 Pulse Rate 80 09/15/18 08:00 Respiratory Rate 22 H 09/15/18 08:00 Blood Pressure 155/81 09/15/18 08:00 O2 Sat by Pulse Oximetry (%) 98 09/14/18 19:00 Constitutional: Yes: No Distress Cardiovascular: Yes: Regular Rate and Rhythm (paced) Respiratory: Yes: CTA Bilaterally (no rales or wheezing) Gastrointestinal: Yes: Soft Edema: No Labs: CBC, BMP 09/14/18 05:30 09/14/18 05:30 INR, PTT INR 1.19 (0.83-1.09) H 09/11/18 21:45 - ....Imaging EKG: Image Reviewed Problem List - Problems (1) Anemia due to blood loss, acute Code(s): D62 - ACUTE POSTHEMORRHAGIC ANEMIA (2) Gross hematuria Code(s): R31.0 - GROSS HEMATURIA (3) BPH (benign prostatic hyperplasia) Code(s): N40.0 - BENIGN PROSTATIC HYPERPLASIA WITHOUT LOWER URINRY TRACT SYMP Qualifiers: Lower urinary tract symptom presence: symptoms present (4) Pacemaker Code(s): Z95.0 - PRESENCE OF CARDIAC PACEMAKER (5) S/P TAVR (transcatheter aortic valve replacement) Code(s): Z95.2 - PRESENCE OF PROSTHETIC HEART VALVE (6) Atrial fibrillation Code(s): I48.91 - UNSPECIFIED ATRIAL FIBRILLATION Qualifiers: Atrial fibrillation type: paroxysmal Qualified Code(s): I48.0 - Paroxysmal atrial fibrillation (7) Chronic renal insufficiency, stage II (mild) Code(s): N18.2 - CHRONIC KIDNEY DISEASE, STAGE 2 (MILD) (8) Hypertension Code(s): I10 - ESSENTIAL (PRIMARY) HYPERTENSION Qualifiers: Hypertension type: essential hypertension Qualified Code(s): I10 - Essential (primary) hypertension (9) Troponin I above reference range Code(s): R74.8 - ABNORMAL LEVELS OF OTHER SERUM ENZYMES Assessment/Plan IMP: Gross hematuria secondary to BPH resulting in marked anemia requiring transfusion, now in absence of anticoagulation 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 Humphreys; follow H/H. Transfuse for HB < 8 2. f/u- no cardiac contraindication to repeat cystoscopy 3. No longer a candidate for full AC- was stopped last admission. Now off for about a week. prison plan is to use low dose ASA for AF once gross hematuria resolved. Risks/benefits of full AC discussed with patient and son Gerson. They understand the situation and how we have no option but to hold AC. 4. Cont Metoprolol on telemetry (hold for SBP < 100mmHg). 5. Elevated TnI noted, also present last admission- does not reflect ACS. Likely due to demand ischemia in setting marked anemia. No specific therapy required other than maintaining Hb> 8 and avoiding hypotension. 6. Started PO Lasix for mild increased PVC- renal function stable. Will follow daily BMP.
[2018-09-15] MEDS: DOCUSATE SODIUM 100 MG CAPSULE (FP) PO SCH (10:05)
[2018-09-15] MEDS: METOPROLOL TARTRATE 25 MG TABLET (FP) PO SCH (10:06)
[2018-09-15] MEDS: FUROSEMIDE 20 MG TABLET (FP) PO SCH (10:06)
[2018-09-15] MEDS: amLODIPine BESYLATE 2.5 MG TABLET (FP) PO SCH (10:06)
[2018-09-15] MEDS: POLYETHYLENE GLYCOL 3350 119 GM BTL PO SCH ×2 (10:06→21:40)
[2018-09-15] MEDS: BRIMONIDINE TARTRATE 0.15% OPHTHALMIC 5 ML BOTTLE OU SCH ×2 (11:35→21:41)
[2018-09-15] MEDS: TIMOLOL 0.5% OPHTHALMIC SOL 5 ML BOTTLE OU SCH ×2 (11:36→21:41)
[2018-09-15] MEDS: DORZOLAMIDE 2% HCL OPHTHALMIC SOLUTION 10 ML BOTTLE OU SCH ×2 (11:37→21:42)
--- NOTE | 2018-09-15 19:19 | PN ---
Progress Note, Physician History of Present Illness: stable - Current Medication List Current Medications: Active Medications Alprazolam (Xanax -) 0.25 mg PO BID PRN PRN Reason: ANXIETY Amlodipine Besylate (Norvasc -) 2.5 mg PO DAILY [facility] Last Admin: 09/15/18 10:06 Dose: 2.5 mg Brimonidine Tartrate (Alphagan 0.15% -) 1 drop OU BID [facility] Last Admin: 09/15/18 11:35 Dose: 1 drop Docusate Sodium (Colace -) 100 mg PO DAILY [facility] Last Admin: 09/15/18 10:05 Dose: 100 mg Dorzolamide HCl (Trusopt 2%) 1 drop OU BID [facility] Last Admin: 09/15/18 11:37 Dose: 1 drop Furosemide (Lasix -) 20 mg PO DAILY [facility] Last Admin: 09/15/18 10:06 Dose: 20 mg Latanoprost (Xalatan 0.005% Eye Drops -) 1 drop OU HS [facility] Last Admin: 09/14/18 22:49 Dose: 1 drop Metoprolol Tartrate (Lopressor -) 12.5 mg PO DAILY [facility] Last Admin: 09/15/18 10:06 Dose: 12.5 mg Morphine Sulfate (Morphine Sulfate) 2 mg IVPUSH Q3H PRN PRN Reason: PAIN LEVEL 1-5 Last Admin: 09/15/18 08:27 Dose: 2 mg Morphine Sulfate (Morphine Sulfate) 4 mg IVPUSH Q3H PRN PRN Reason: PAIN LEVEL 6-10 Last Admin: 09/14/18 07:26 Dose: 4 mg Polyethylene Glycol (Miralax (For Daily Use) -) 17 gm PO BID [facility] Last Admin: 09/15/18 10:06 Dose: 17 gm Tamsulosin HCl (Flomax -) 0.4 mg PO DAILY@0830 [facility] Last Admin: 09/15/18 08:33 Dose: 0.4 mg Timolol Maleate (Timoptic 0.5%) 1 drop OU BID [facility] Last Admin: 09/15/18 11:36 Dose: 1 drop - Objective Vital Signs: Vital Signs Temperature 98.2 F 09/15/18 18:00 Pulse Rate 80 09/15/18 18:00 Respiratory Rate 19 09/15/18 18:00 Blood Pressure 155/79 09/15/18 18:00 O2 Sat by Pulse Oximetry (%) 99 09/15/18 09:00 Constitutional: Yes: No Distress HENT: Yes: Atraumatic Neck: Yes: Supple Cardiovascular: Yes: Regular Rate and Rhythm Respiratory: Yes: CTA Bilaterally Gastrointestinal: Yes: Normal Bowel Sounds Extremities: Yes: WNL Edema: No Peripheral Pulses WNL: Yes Neurological: Yes: Alert Labs: CBC, BMP 09/14/18 05:30 09/14/18 05:30 INR, PTT INR 1.19 (0.83-1.09) H 09/11/18 21:45 Problem List - Problems (1) Atrial fibrillation Assessment/Plan: on BB not on anticoagulation due to hematuria Code(s): I48.91 - UNSPECIFIED ATRIAL FIBRILLATION Qualifiers: Atrial fibrillation type: permanent Qualified Code(s): I48.2 - Chronic atrial fibrillation (2) BPH (benign prostatic hyperplasia) Assessment/Plan: on flomax Code(s): N40.0 - BENIGN PROSTATIC HYPERPLASIA WITHOUT LOWER URINRY TRACT SYMP Qualifiers: Lower urinary tract symptom presence: symptoms present (3) Chronic renal insufficiency, stage II (mild) Assessment/Plan: cr now wnl Code(s): N18.2 - CHRONIC KIDNEY DISEASE, STAGE 2 (MILD) (4) Gross hematuria Code(s): R31.0 - GROSS HEMATURIA (6) Hypertension Assessment/Plan: on meds Code(s): I10 - ESSENTIAL (PRIMARY) HYPERTENSION Qualifiers: Hypertension type: essential hypertension Qualified Code(s): I10 - Essential (primary) hypertension (7) Pacemaker Code(s): Z95.0 - PRESENCE OF CARDIAC PACEMAKER (8) S/P TAVR (transcatheter aortic valve replacement) Code(s): Z95.2 - PRESENCE OF PROSTHETIC HEART VALVE (9) Glaucoma Assessment/Plan: on eye drops Code(s): H40.9 - UNSPECIFIED GLAUCOMA Qualifiers: Glaucoma type: unspecified Laterality: bilateral Qualified Code(s): H40.9 - Unspecified glaucoma Assessment/Plan Problem List - Problems (1) Hematuria Code(s): R31.9 - HEMATURIA, UNSPECIFIED Qualifiers: Hematuria type: gross Qualified Code(s): R31.0 - Gross hematuria (2) Atrial fibrillation Code(s): I48.91 - UNSPECIFIED ATRIAL FIBRILLATION Qualifiers: Atrial fibrillation type: permanent Qualified Code(s): I48.2 - Chronic atrial fibrillation (3) Anemia due to blood loss, acute Code(s): D62 - ACUTE POSTHEMORRHAGIC ANEMIA (4) Hypertensive heart and renal disease Qualifiers: Heart failure presence: without heart failure Hypertensive chronic kidney disease stage: stage 1-4 or unspecified chronic kidney disease Qualified Code( s): I13.10 - Hypertensive heart and chronic kidney disease without heart failure , with stage 1 through stage 4 chronic kidney disease, or unspecified chronic kidney disease (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 (7) Glaucoma Code(s): H40.9 - UNSPECIFIED GLAUCOMA Qualifiers: Glaucoma type: unspecified Laterality: bilateral Qualified Code(s): H40.9 - Unspecified glaucoma (8) History of skin cancer in adulthood Code(s): Z85.828 - PERSONAL HISTORY OF OTHER MALIGNANT NEOPLASM OF SKIN (9) Status cardiac pacemaker Code(s): Z95.0 - PRESENCE OF CARDIAC PACEMAKER (11) 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 Code(s): K31.9 - DISEASE OF STOMACH AND DUODENUM, UNSPECIFIED; R10.13 - EPIGASTRIC PAIN (12) Anxiety as acute reaction to gross stress Code(s): F41.1 - GENERALIZED ANXIETY DISORDER; F43.0 - ACUTE STRESS REACTION COVERING TODAY FOR DR DANIEL CC TIME 35 MIN
[2018-09-15] MEDS: LATANOPROST 0.005% OPHTH SOLN 2.5ML BOTTLE OU SCH (21:41)
[2018-09-15] MEDS: morphine SULFATE 4 MG/ML VIAL IVPUSH PRN (22:11)
[2018-09-16 06:02] LABS: HEMATOCRIT 26.6 % (35.4-49); HEMOGLOBIN 8.7 GM/dL (11.7-16.9); MCH 30.1 pg (25.7-33.7); MCHC 32.8 g/dl (32.0-35.9); MEAN CELL VOLUME 91.8 fl (80-96); MEAN PLT VOLUME 8.6 fl (7.5-11.1); PLATELET COUNT 172 K/MM3 (134-434); RBC 2.89 M/mm3 (4.00-5.60); RDW 17.3 % (11.9-15.9); WHITE BLOOD COUNT 8.7 K/mm3 (4.0-10.0)
[2018-09-16 06:21] LABS: INR 1.07 (0.83-1.09); PROTHROMBIN TIME (PATIENT) 12.6 SEC (9.7-13.0)
[2018-09-16 06:25] LABS: ANION GAP 7 MMOL/L (8-16); BLOOD UREA NITROGEN 20 mg/dL (7-18); CALCIUM 7.7 mg/dL (8.5-10.1); CHLORIDE 110 mmol/L (98-107); CO2 25 mmol/L (21-32); CREATININE 1.3 mg/dL (0.55-1.3); GLUCOSE,RANDOM 93 mg/dL (74-106); PHOSPHOROUS 3.9 mg/dL (2.5-4.9); POTASSIUM 3.7 mmol/L (3.5-5.1); SODIUM 142 mmol/L (136-145)
--- NOTE | 2018-09-16 08:30 | PN ---
Progress Note, Physician Chief Complaint: no distress TELE: no sustained arrhythmias - Current Medication List Current Medications: Active Medications Alprazolam (Xanax -) 0.25 mg PO BID PRN PRN Reason: ANXIETY Amlodipine Besylate (Norvasc -) 2.5 mg PO DAILY [facility] Last Admin: 09/15/18 10:06 Dose: 2.5 mg Brimonidine Tartrate (Alphagan 0.15% -) 1 drop OU BID [facility] Last Admin: 09/15/18 21:41 Dose: 1 drop Docusate Sodium (Colace -) 100 mg PO DAILY [facility] Last Admin: 09/15/18 10:05 Dose: 100 mg Dorzolamide HCl (Trusopt 2%) 1 drop OU BID [facility] Last Admin: 09/15/18 21:42 Dose: 1 drop Furosemide (Lasix -) 20 mg PO DAILY [facility] Last Admin: 09/15/18 10:06 Dose: 20 mg Latanoprost (Xalatan 0.005% Eye Drops -) 1 drop OU HS [facility] Last Admin: 09/15/18 21:41 Dose: 1 drop Metoprolol Tartrate (Lopressor -) 12.5 mg PO DAILY [facility] Last Admin: 09/15/18 10:06 Dose: 12.5 mg Morphine Sulfate (Morphine Sulfate) 2 mg IVPUSH Q3H PRN PRN Reason: PAIN LEVEL 1-5 Last Admin: 09/15/18 08:27 Dose: 2 mg Morphine Sulfate (Morphine Sulfate) 4 mg IVPUSH Q3H PRN PRN Reason: PAIN LEVEL 6-10 Last Admin: 09/15/18 22:11 Dose: 4 mg Polyethylene Glycol (Miralax (For Daily Use) -) 17 gm PO BID [facility] Last Admin: 09/15/18 21:40 Dose: Not Given Tamsulosin HCl (Flomax -) 0.4 mg PO DAILY@0830 [facility] Last Admin: 09/15/18 08:33 Dose: 0.4 mg Timolol Maleate (Timoptic 0.5%) 1 drop OU BID [facility] Last Admin: 09/15/18 21:41 Dose: 1 drop - Objective Vital Signs: Vital Signs Temperature 98.5 F 09/16/18 06:00 Pulse Rate 80 09/16/18 06:00 Respiratory Rate 18 09/16/18 06:00 Blood Pressure 148/78 09/16/18 06:00 O2 Sat by Pulse Oximetry (%) 99 09/15/18 19:37 Constitutional: Yes: No Distress Cardiovascular: Yes: Regular Rate and Rhythm Respiratory: Yes: CTA Bilaterally Gastrointestinal: Yes: Soft Edema: No Neurological: Yes: Alert Labs: CBC, BMP 09/16/18 05:00 09/16/18 05:00 INR, PTT INR 1.07 (0.83-1.09) 09/16/18 05:00 Microbiology 09/11/18 17:20 Blood - Peripheral Venous Blood Culture - Preliminary NO GROWTH OBTAINED AFTER 48 HOURS, INCUBATION TO CONTINUE FOR 3 DAYS. 09/11/18 17:20 Blood - Peripheral Venous Blood Culture - Preliminary NO GROWTH OBTAINED AFTER 48 HOURS, INCUBATION TO CONTINUE FOR 3 DAYS. Laboratory Tests 09/12/18 09/13/18 09/14/18 15:45 05:00 05:30 WBC Hgb Hct Plt Count Sodium 143 Potassium 4.1 BUN 19 H Creatinine 1.2 Creatine Kinase 36 47 Troponin I 0.06 H 0.06 H 0.06 H 09/14/18 09/16/18 09/16/18 05:30 05:00 05:00 WBC 9.4 8.7 Hgb 8.3 L 8.7 L Hct 25.4 L Plt Count 154 172 Sodium 142 Potassium 3.7 BUN 20 H Creatinine 1.3 Creatine Kinase Troponin I - ....Imaging EKG: Image Reviewed Problem List - Problems (1) Anemia due to blood loss, acute Code(s): D62 - ACUTE POSTHEMORRHAGIC ANEMIA (2) Gross hematuria Code(s): R31.0 - GROSS HEMATURIA (3) BPH (benign prostatic hyperplasia) Code(s): N40.0 - BENIGN PROSTATIC HYPERPLASIA WITHOUT LOWER URINRY TRACT SYMP Qualifiers: Lower urinary tract symptom presence: symptoms present (4) Pacemaker Code(s): Z95.0 - PRESENCE OF CARDIAC PACEMAKER (5) S/P TAVR (transcatheter aortic valve replacement) Code(s): Z95.2 - PRESENCE OF PROSTHETIC HEART VALVE (6) Atrial fibrillation Code(s): I48.91 - UNSPECIFIED ATRIAL FIBRILLATION Qualifiers: Atrial fibrillation type: paroxysmal Qualified Code(s): I48.0 - Paroxysmal atrial fibrillation (7) Chronic renal insufficiency, stage II (mild) Code(s): N18.2 - CHRONIC KIDNEY DISEASE, STAGE 2 (MILD) (8) Hypertension Code(s): I10 - ESSENTIAL (PRIMARY) HYPERTENSION Qualifiers: Hypertension type: essential hypertension Qualified Code(s): I10 - Essential (primary) hypertension (9) Troponin I above reference range Code(s): R74.8 - ABNORMAL LEVELS OF OTHER SERUM ENZYMES Assessment/Plan IMP: Gross hematuria secondary to BPH resulting in marked anemia requiring transfusion, now in absence of anticoagulation 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 Humphreys; follow H/H. Transfuse for HB < 8 2. f/u- no cardiac contraindication to repeat cystoscopy 3. No longer a candidate for full AC- was stopped last admission. Now off for about a week. [facility] plan is to use low dose ASA for AF once gross hematuria resolved. Risks/benefits of full AC discussed with patient and son Gerson. They understand the situation and how we have no option but to hold AC. 4. Cont Metoprolol on telemetry (hold for SBP < 100mmHg). 5. Elevated TnI noted, also present last admission- does not reflect ACS. Likely due to demand ischemia in setting marked anemia. No specific therapy required other than maintaining Hb> 8 and avoiding hypotension. 6. Started PO Lasix for mild increased PVC- renal function stable. Will follow daily BMP.
[2018-09-16] MEDS ORDERED: PT OWN MED DRAWER 7, Y5N ONE ×3 (09:30→21:33)
[2018-09-16] MEDS: FUROSEMIDE 20 MG TABLET (FP) PO SCH (09:47)
[2018-09-16] MEDS: DORZOLAMIDE 2% HCL OPHTHALMIC SOLUTION 10 ML BOTTLE OU SCH ×2 (09:47→21:29)
[2018-09-16] MEDS: amLODIPine BESYLATE 2.5 MG TABLET (FP) PO SCH (09:47)
[2018-09-16] MEDS: METOPROLOL TARTRATE 25 MG TABLET (FP) PO SCH (09:47)
[2018-09-16] MEDS: DOCUSATE SODIUM 100 MG CAPSULE (FP) PO SCH (09:47)
[2018-09-16] MEDS: TAMSULOSIN HCL 0.4 MG CAP PO SCH (09:47)
[2018-09-16] MEDS: TIMOLOL 0.5% OPHTHALMIC SOL 5 ML BOTTLE OU SCH ×2 (09:48→21:29)
[2018-09-16] MEDS: BRIMONIDINE TARTRATE 0.15% OPHTHALMIC 5 ML BOTTLE OU SCH ×2 (09:48→21:29)
[2018-09-16] MEDS: POLYETHYLENE GLYCOL 3350 119 GM BTL PO SCH ×2 (10:03→21:30)
--- NOTE | 2018-09-16 11:21 | PN ---
Physical Exam: SUBJECTIVE: Patient seen and examined. Endorses ambulating. Denies pain. Denies complaints other than stating he'd like to go home. OBJECTIVE: Vital Signs Period Temp Pulse Resp BP Sys/Juárez Pulse Ox Last 24 Hr 97.8 F-98.5 F 80-80 16-21 125-159/60-96 99-99 GENERAL: The patient is awake, alert, and fully oriented, in no acute distress. HEAD: Normal with no signs of trauma EYES: PERRL, extraocular movements intact, sclera anicteric, conjunctiva clear ENT: Ears normal, nares patent, oropharynx clear without exudates, moist mucous membranes NECK: Trachea midline, full range of motion, supple LUNGS: Breath sounds equal, clear to auscultation bilaterally, no wheezes, no crackles, no accessory muscle use HEART: Regular rate and rhythm, S1, S2 no murmur appreciated ABDOMEN: Soft, nontender, nondistended, normoactive bowel sounds, no guarding, no rebound : catalan in place, urine light yellow EXTREMITIES: 2+ pulses, warm, well-perfused, no edema. NEUROLOGICAL: Cranial nerves II through XII grossly intact. Normal speech, normal gait PSYCH: Normal mood, normal affect. SKIN: Warm, dry, normal turgor, no rashes or lesions noted Active Medications Generic Name Dose Route Start Last Admin Trade Name Freq PRN Reason Stop Dose Admin Alprazolam 0.25 mg 09/12/18 11:18 Xanax - PO BID PRN ANXIETY Amlodipine Besylate 2.5 mg 09/15/18 10:00 09/16/18 09:47 Norvasc - PO 2.5 mg DAILY MARY Administration Brimonidine Tartrate 1 drop 09/12/18 11:30 09/16/18 09:48 Alphagan 0.15% - OU 1 drop BID MARY Administration Docusate Sodium 100 mg 09/13/18 10:00 09/16/18 09:47 Colace - PO 100 mg DAILY MARY Administration Dorzolamide HCl 1 drop 09/12/18 10:15 09/16/18 09:47 Trusopt 2% OU 1 drop BID MARY Administration Furosemide 20 mg 09/14/18 10:00 09/16/18 09:47 Lasix - PO 20 mg DAILY MARY Administration Latanoprost 1 drop 09/12/18 22:00 09/15/18 21:41 Xalatan 0.005% Eye Drops - OU 1 drop HS MARY Administration Metoprolol Tartrate 12.5 mg 09/12/18 11:30 09/16/18 09:47 Lopressor - PO 12.5 mg DAILY MARY Administration Morphine Sulfate 2 mg 09/11/18 21:12 09/15/18 08:27 Morphine Sulfate IVPUSH 2 mg Q3H PRN Administration PAIN LEVEL 1-5 Morphine Sulfate 4 mg 09/11/18 21:12 09/15/18 22:11 Morphine Sulfate IVPUSH 4 mg Q3H PRN Administration PAIN LEVEL 6-10 Polyethylene Glycol 17 gm 09/13/18 10:00 09/16/18 10:03 Miralax (For Daily Use) - PO 17 gm BID MARY Administration Tamsulosin HCl 0.4 mg 09/12/18 11:30 09/16/18 09:47 Flomax - PO 0.4 mg DAILY@0830 MARY Administration Timolol Maleate 1 drop 09/12/18 22:00 09/16/18 09:48 Timoptic 0.5% OU 1 drop BID MARY Administration ASSESSMENT/PLAN: Neuro Acute pain -Morphine 2mg & 4mg IV Q3H PRN Anxiety -Xanax 0.25mg PO BID PRN HEENT Glaucoma -Timolol 1 drop OU BID -Lantanoprost 1 drop OU Qhs CV HTN -Metoprolol 12.5mg PO daily -Norvasc 2.5mg PO daily -Lasix 20mg PO daily PULM Breathing comfortably on RA Continue IS GI Na Control Diet Continue bowel regimen -Colase, Miralax Hematuria -Resolving -Triple lumen catalan in place (09/11/2018) BPH -Continue Tamsulosin I/O net -250 HEME Anemia -Hgb 8.7, no need for transfusion at this time -Hematuria resolving DVT Ppx -Ambulation -Will hold chemical ppx at this time 2/2 hematuria ID Afebrile, WBC 8.7 -CTM ENDO No issues MSK -Continue ambulation as tolerated Dispo: No longer requires ICU care, will transfer to floor Visit type - Emergency Visit Emergency Visit: Yes ED Registration Date: 09/11/18 Care time: The patient presented to the Emergency Department on the above date and was hospitalized for further evaluation of their emergent condition. - New Patient This patient is new to me today: Yes Date on this admission: 09/16/18 - Critical Care Critical Care patient: Yes Total Critical Care Time (in minutes): 35 Critical Care Statement: The care of this patient involved high complexity decision making to prevent further life threatening deterioration of the patient 's condition and/or to evaluate & treat vital organ system(s) failure or risk of failure.
--- NOTE | 2018-09-16 12:30 | PN ---
Teaching Attending Note Name of Resident: Imer Gill ATTENDING PHYSICIAN STATEMENT I saw and evaluated the patient. I reviewed the resident's note and discussed the case with the resident. I agree with the resident's findings and plan as documented. SUBJECTIVE: Pt seen and examined in the ICU. No specific complaints. Urine clear in bag. H/ H has been stable. Wants to go home. OBJECTIVE: Vital Signs Period Temp Pulse Resp BP Sys/Juárez Pulse Ox Last 24 Hr 97.8 F-98.5 F 80-80 16-21 125-159/60-96 99-99 Intake & Output 09/13/18 09/14/18 09/15/18 09/16/18 23:59 23:59 23:59 23:59 Intake Total 00894 58931 61659 3050 Output Total 87135 26379 06614 3300 Balance -1650 -1600 1960 -250 Weight 69.581 kg Gen: NAD at rest Heart: RRR Lung: decreased breath sounds at the bases Abd: soft, nontender Ext: no edema CBC, BMP 09/16/18 05:00 09/16/18 05:00 Active Medications Alprazolam (Xanax -) 0.25 mg PO BID PRN PRN Reason: ANXIETY Amlodipine Besylate (Norvasc -) 2.5 mg PO DAILY [facility] Last Admin: 09/16/18 09:47 Dose: 2.5 mg Brimonidine Tartrate (Alphagan 0.15% -) 1 drop OU BID [facility] Last Admin: 09/16/18 09:48 Dose: 1 drop Docusate Sodium (Colace -) 100 mg PO DAILY [facility] Last Admin: 09/16/18 09:47 Dose: 100 mg Dorzolamide HCl (Trusopt 2%) 1 drop OU BID [facility] Last Admin: 09/16/18 09:47 Dose: 1 drop Furosemide (Lasix -) 20 mg PO DAILY [facility] Last Admin: 09/16/18 09:47 Dose: 20 mg Latanoprost (Xalatan 0.005% Eye Drops -) 1 drop OU HS [facility] Last Admin: 09/15/18 21:41 Dose: 1 drop Metoprolol Tartrate (Lopressor -) 12.5 mg PO DAILY [facility] Last Admin: 09/16/18 09:47 Dose: 12.5 mg Morphine Sulfate (Morphine Sulfate) 2 mg IVPUSH Q3H PRN PRN Reason: PAIN LEVEL 1-5 Last Admin: 09/15/18 08:27 Dose: 2 mg Morphine Sulfate (Morphine Sulfate) 4 mg IVPUSH Q3H PRN PRN Reason: PAIN LEVEL 6-10 Last Admin: 09/15/18 22:11 Dose: 4 mg Polyethylene Glycol (Miralax (For Daily Use) -) 17 gm PO BID [facility] Last Admin: 09/16/18 10:03 Dose: 17 gm Tamsulosin HCl (Flomax -) 0.4 mg PO DAILY@0830 [facility] Last Admin: 09/16/18 09:47 Dose: 0.4 mg Timolol Maleate (Timoptic 0.5%) 1 drop OU BID [facility] Last Admin: 09/16/18 09:48 Dose: 1 drop ASSESSMENT AND PLAN: Hematuria resolved Acute Blood Loss Anemia Hypovolemia improving Lactic Acidosis resolved BPH s/p TURP Aortic Stenosis Atrial Fibrillation CKD Lung Nodule - monitor H/H - transfuse as needed - CBI per urology - urology f/u - pain control - holding all antiplatelets, anticoagulation - rate controlled - can monitor on floor - DVT prophylaxis
[2018-09-16 12:53] VITALS: BMI 24.7
[2018-09-16] MEDS ORDERED: morphine SULFATE 4 MG/ML VIAL IVPUSH PRN (14:42)
[2018-09-16] MEDS ORDERED: MORPHINE SULFATE 2 MG/ML VIAL IVPUSH PRN (14:42)
[2018-09-16] MEDS ORDERED: ALPRAZolam 0.25 MG TABLET PO PRN (14:42)
--- NOTE | 2018-09-16 15:01 | PN ---
Progress Note (short form) - Note Progress Note: Current Medications Alprazolam (Xanax -) 0.25 mg PO BID PRN PRN Reason: ANXIETY Amlodipine Besylate (Norvasc -) 2.5 mg PO DAILY [facility] Brimonidine Tartrate (Alphagan 0.15% -) 1 drop OU BID [facility] Docusate Sodium (Colace -) 100 mg PO DAILY [facility] Dorzolamide HCl (Trusopt 2%) 1 drop OU BID [facility] Furosemide (Lasix -) 20 mg PO DAILY [facility] Latanoprost (Xalatan 0.005% Eye Drops -) 1 drop OU HS [facility] Metoprolol Tartrate (Lopressor -) 12.5 mg PO DAILY [facility] Morphine Sulfate (Morphine Sulfate) 2 mg IVPUSH Q3H PRN PRN Reason: PAIN LEVEL 1-5 Morphine Sulfate (Morphine Sulfate) 4 mg IVPUSH Q3H PRN PRN Reason: PAIN LEVEL 6-10 Polyethylene Glycol (Miralax (For Daily Use) -) 17 gm PO BID [facility] Tamsulosin HCl (Flomax -) 0.4 mg PO DAILY@0830 [facility] Timolol Maleate (Timoptic 0.5%) 1 drop OU BID [facility] Laboratory Results - last 24 hr 09/11/18 09/16/18 09/16/18 19:01 05:00 05:00 WBC 8.7 RBC 2.89 L Hgb 8.7 L Hct 26.6 L MCV 91.8 MCH 30.1 MCHC 32.8 RDW 17.3 H Plt Count 172 MPV 8.6 PT with INR INR Sodium 142 Potassium 3.7 Chloride 110 H Carbon Dioxide 25 Anion Gap 7 L BUN 20 H Creatinine 1.3 Creat Clearance w eGFR 52.22 Random Glucose 93 Calcium 7.7 L Phosphorus 3.9 Magnesium 2.0 Blood Type A POSITIVE Antibody Screen Negative Crossmatch See Detail 09/16/18 05:00 WBC RBC Hgb Hct MCV MCH MCHC RDW Plt Count MPV PT with INR 12.60 INR 1.07 Sodium Potassium Chloride Carbon Dioxide Anion Gap BUN Creatinine Creat Clearance w eGFR Random Glucose Calcium Phosphorus Magnesium Blood Type Antibody Screen Crossmatch Vital Signs Temperature 97.4 F L 09/16/18 14:00 Pulse Rate 80 09/16/18 14:00 Respiratory Rate 16 09/16/18 14:00 Blood Pressure 135/77 09/16/18 14:00 O2 Sat by Pulse Oximetry (%) 99 09/16/18 09:06 CC: no new complaints `````````````````````````` skin--NL color; IV site not red eyes--anicteric lungs--grossly clear & breaths unlabored heart--RR abd--soft, BS+, NT, ND, some mild suprapubic tenderness --with CBI draining very faint blood tinged urine ext--no edema neuro--awake, alert, verbal; coherent ``````````````````````````` Summ > Gross hematuria--upon admission; has been on CBI; Urine now only faintly blood tinged: PLAN: as per Urology > Anemia--blood loss type; Hgb has been stable above 8 today > Htn--with ASHD & CKdz; Bun/cr at baseline; BP has been in fairly good range for the most part > Pacer status--stable > AtF--not new; no longer a-c candidate in view of profuse hematuria that he is prone to getting (and with the ensuing complications that he sustained resulting in hemodynamic instability & renal dysf of his one kidney) making it overly risky to use; HR in range w/ BB > AbNL Lung imaging--not new; not an issue and no interventions planned at this time. > Glaucoma--getting eye gtts ````````````````````````````` Dr Sanches Problem List - Problems (1) Hematuria Code(s): R31.9 - HEMATURIA, UNSPECIFIED Qualifiers: Hematuria type: gross Qualified Code(s): R31.0 - Gross hematuria (2) Atrial fibrillation Code(s): I48.91 - UNSPECIFIED ATRIAL FIBRILLATION Qualifiers: Atrial fibrillation type: permanent Qualified Code(s): I48.2 - Chronic atrial fibrillation (3) Anemia due to blood loss, acute Code(s): D62 - ACUTE POSTHEMORRHAGIC ANEMIA (4) Hypertensive heart and renal disease Qualifiers: Heart failure presence: without heart failure Hypertensive chronic kidney disease stage: stage 1-4 or unspecified chronic kidney disease Qualified Code( s): I13.10 - Hypertensive heart and chronic kidney disease without heart failure , with stage 1 through stage 4 chronic kidney disease, or unspecified chronic kidney disease (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 (7) Glaucoma Code(s): H40.9 - UNSPECIFIED GLAUCOMA Qualifiers: Glaucoma type: unspecified Laterality: bilateral Qualified Code(s): H40.9 - Unspecified glaucoma (8) History of skin cancer in adulthood Code(s): Z85.828 - PERSONAL HISTORY OF OTHER MALIGNANT NEOPLASM OF SKIN (9) Status cardiac pacemaker Code(s): Z95.0 - PRESENCE OF CARDIAC PACEMAKER (11) 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 Code(s): K31.9 - DISEASE OF STOMACH AND DUODENUM, UNSPECIFIED; R10.13 - EPIGASTRIC PAIN (12) Anxiety as acute reaction to gross stress Code(s): F41.1 - GENERALIZED ANXIETY DISORDER; F43.0 - ACUTE STRESS REACTION
[2018-09-16] MEDS: LATANOPROST 0.005% OPHTH SOLN 2.5ML BOTTLE OU SCH ×2 (21:31→21:37)
[2018-09-17] MEDS ORDERED: PT OWN MED DRAWER 7, Y5N ONE ×2 (05:27→21:14)
[2018-09-17 07:12] LABS: HEMATOCRIT 25.4 % (35.4-49); HEMOGLOBIN 8.8 GM/dL (11.7-16.9); MCH 31.5 pg (25.7-33.7); MCHC 34.5 g/dl (32.0-35.9); MEAN CELL VOLUME 91.3 fl (80-96); MEAN PLT VOLUME 8.8 fl (7.5-11.1); PLATELET COUNT 178 K/MM3 (134-434); RBC 2.78 M/mm3 (4.00-5.60); RDW 17.6 % (11.9-15.9); WHITE BLOOD COUNT 6.8 K/mm3 (4.0-10.0)
[2018-09-17 07:47] LABS: ANION GAP 4 MMOL/L (8-16); BLOOD UREA NITROGEN 22 mg/dL (7-18); CALCIUM 7.7 mg/dL (8.5-10.1); CHLORIDE 111 mmol/L (98-107); CO2 28 mmol/L (21-32); CREATININE 1.3 mg/dL (0.55-1.3); GLUCOSE,RANDOM 81 mg/dL (74-106); POTASSIUM 3.7 mmol/L (3.5-5.1); SODIUM 142 mmol/L (136-145)
--- NOTE | 2018-09-17 08:13 | CONSULT ---
Consult - text type - Consultation Consultation Note: CC: clot retention/gross hematuria hpi: patient is doing well with clear cbi and normal bowel movements PE vss; afeb pe without change imp gross hematuria clot retention plan d/c cbi. if continues to have minimal hematuria he may be d/c'ed home pending medical clearance. would recommend to be observed for 24 hours 20 minutes spent with patient and family
--- NOTE | 2018-09-17 08:31 | PN ---
Progress Note, Physician Chief Complaint: urine clear No distress Denies CP or SOB - Current Medication List Current Medications: Active Medications Alprazolam (Xanax -) 0.25 mg PO BID PRN PRN Reason: ANXIETY Last Admin: 09/16/18 22:13 Dose: 0.25 mg Amlodipine Besylate (Norvasc -) 2.5 mg PO DAILY [facility] Brimonidine Tartrate (Alphagan 0.15% -) 1 drop OU BID [facility] Last Admin: 09/16/18 21:29 Dose: 1 drop Docusate Sodium (Colace -) 100 mg PO DAILY [facility] Dorzolamide HCl (Trusopt 2%) 1 drop OU BID [facility] Last Admin: 09/16/18 21:29 Dose: 1 drop Furosemide (Lasix -) 20 mg PO DAILY [facility] Latanoprost (Xalatan 0.005% Eye Drops -) 1 drop OU HS [facility] Last Admin: 09/16/18 21:37 Dose: Not Given Metoprolol Tartrate (Lopressor -) 12.5 mg PO DAILY [facility] Morphine Sulfate (Morphine Sulfate) 2 mg IVPUSH Q3H PRN PRN Reason: PAIN LEVEL 1-5 Morphine Sulfate (Morphine Sulfate) 4 mg IVPUSH Q3H PRN PRN Reason: PAIN LEVEL 6-10 Polyethylene Glycol (Miralax (For Daily Use) -) 17 gm PO BID [facility] Last Admin: 09/16/18 21:30 Dose: Not Given Tamsulosin HCl (Flomax -) 0.4 mg PO DAILY@0830 [facility] Timolol Maleate (Timoptic 0.5%) 1 drop OU BID [facility] Last Admin: 09/16/18 21:29 Dose: 1 drop - Objective Vital Signs: Vital Signs Temperature 98.0 F 09/17/18 05:00 Pulse Rate 71 09/17/18 05:00 Respiratory Rate 18 09/17/18 05:00 Blood Pressure 125/65 09/17/18 05:00 O2 Sat by Pulse Oximetry (%) 98 09/16/18 19:48 Constitutional: Yes: No Distress, Calm Cardiovascular: Yes: Regular Rate and Rhythm Respiratory: Yes: CTA Bilaterally (no rales or wheezing) Gastrointestinal: Yes: Soft Edema: No Neurological: Yes: Alert, Oriented Labs: CBC, BMP 09/17/18 06:15 09/17/18 06:15 INR, PTT INR 1.07 (0.83-1.09) 09/16/18 05:00 Problem List - Problems (1) Anemia due to blood loss, acute Code(s): D62 - ACUTE POSTHEMORRHAGIC ANEMIA (2) Gross hematuria Code(s): R31.0 - GROSS HEMATURIA (3) BPH (benign prostatic hyperplasia) Code(s): N40.0 - BENIGN PROSTATIC HYPERPLASIA WITHOUT LOWER URINRY TRACT SYMP Qualifiers: Lower urinary tract symptom presence: symptoms present (4) Pacemaker Code(s): Z95.0 - PRESENCE OF CARDIAC PACEMAKER (5) S/P TAVR (transcatheter aortic valve replacement) Code(s): Z95.2 - PRESENCE OF PROSTHETIC HEART VALVE (6) Atrial fibrillation Code(s): I48.91 - UNSPECIFIED ATRIAL FIBRILLATION Qualifiers: Atrial fibrillation type: paroxysmal Qualified Code(s): I48.0 - Paroxysmal atrial fibrillation (7) Chronic renal insufficiency, stage II (mild) Code(s): N18.2 - CHRONIC KIDNEY DISEASE, STAGE 2 (MILD) (8) Hypertension Code(s): I10 - ESSENTIAL (PRIMARY) HYPERTENSION Qualifiers: Hypertension type: essential hypertension Qualified Code(s): I10 - Essential (primary) hypertension (9) Troponin I above reference range Code(s): R74.8 - ABNORMAL LEVELS OF OTHER SERUM ENZYMES Assessment/Plan IMP: Gross hematuria secondary to BPH resulting in marked anemia requiring transfusion, now in absence of anticoagulation--> resolved 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 Humphreys; follow H/H. Transfuse for HB < 8. Urine cleared. 2. f/u- no cardiac contraindication to repeat cystoscopy 3. No longer a candidate for full AC- was stopped last admission. Now off for about a week. intermediate plan is to use low dose ASA for AF once gross hematuria resolved. Risks/benefits of full AC discussed with patient and son Gerson. They understand the situation and how we have no option but to hold AC. Resume Aspirin 81mg daily when ok from standpoint.
[2018-09-17] MEDS: TAMSULOSIN HCL 0.4 MG CAP PO SCH (09:42)
[2018-09-17] MEDS: FUROSEMIDE 20 MG TABLET (FP) PO SCH (09:42)
[2018-09-17] MEDS: METOPROLOL TARTRATE 25 MG TABLET (FP) PO SCH (09:42)
[2018-09-17] MEDS: DOCUSATE SODIUM 100 MG CAPSULE (FP) PO SCH (09:42)
[2018-09-17] MEDS: BRIMONIDINE TARTRATE 0.15% OPHTHALMIC 5 ML BOTTLE OU SCH ×2 (09:43→21:11)
[2018-09-17] MEDS: amLODIPine BESYLATE 2.5 MG TABLET (FP) PO SCH (09:43)
[2018-09-17] MEDS: TIMOLOL 0.5% OPHTHALMIC SOL 5 ML BOTTLE OU SCH ×2 (09:43→21:12)
[2018-09-17] MEDS: DORZOLAMIDE 2% HCL OPHTHALMIC SOLUTION 10 ML BOTTLE OU SCH ×2 (09:44→21:11)
[2018-09-17] MEDS: POLYETHYLENE GLYCOL 3350 119 GM BTL PO SCH ×3 (09:45→21:12)
--- NOTE | 2018-09-17 13:13 | CON.GU ---
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), BPH, Hematuria, UTI Psych: Yes: Anxiety Musculoskeletal: Yes: Chronic low back pain, Osteoarthritis Dermatology: Yes: Other (skin neoplasms--recurrent) - Past Surgical History Past Surgical History: Yes: Colonoscopy, Nephrectomy, Splenectomy (skin grafts) , TURP - Alcohol/Substance Use Hx Alcohol Use: No History of Substance Use: reports: None - Smoking History Smoking history: Never smoked Have you smoked in the past 12 months: No Aproximately how many cigarettes per day: 0 - Social History ADL: Independent 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; 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 History of Recent Travel: No Home Medications - Allergies Allergies/Adverse Reactions: Allergies Allergy/AdvReac Type Severity Reaction Status Date / Time Penicillins Allergy Unknown Verified 09/11/18 16:05 codeine [Codeine] Allergy Verified 09/11/18 16:05 - Home Medications Home Medications: Ambulatory Orders Dorzolamide HCl/Timolol Maleat [Cosopt Eye Drops] 1 drop OU BID 07/21/15 Travoprost [Travatan Z] 1 drop OU HS 04/15/16 Brimonidine Tartrate [Alphagan 0.15% -] 1 drop OU BID drops 05/01/18 Tamsulosin HCl [Flomax -] 0.4 mg PO DAILY 08/02/18 Metoprolol Tartrate 12.5 mg PO DAILY #14 tablet 09/10/18 Polyethylene Glycol 3350 [Miralax 119 gm Btl -] 17 gm PO BID bottle 09/10/18 Physical Exam- Vital Signs: Vital Signs Temperature 97.5 F L 09/17/18 09:00 Pulse Rate 80 09/17/18 09:00 Respiratory Rate 18 09/17/18 09:00 Blood Pressure 126/74 09/17/18 09:00 O2 Sat by Pulse Oximetry (%) 98 09/16/18 19:48 Labs: CBC, BMP 09/17/18 06:15 09/17/18 06:15 Assessment/Plan Pt. was seen in ER with gross hematuria and clot retention. ER staff could not pass the catheter. Urology was called. Able to pass the only available coude catalan, irrigated the catalan. Pt experianced considerable relief. This was on the night of . Sorry for the late dictation. Thank you
--- NOTE | 2018-09-17 14:23 | DS ---
Physical Examination Vital Signs: Vital Signs Temperature 97.5 F L 09/17/18 09:00 Pulse Rate 80 09/17/18 09:00 Respiratory Rate 18 09/17/18 09:00 Blood Pressure 126/74 09/17/18 09:00 O2 Sat by Pulse Oximetry (%) 98 09/16/18 19:48 Constitutional: Yes: No Distress, Calm Eyes: Yes: Conjunctiva Clear, EOM Intact Neck: Yes: Supple Cardiovascular: Yes: Regular Rate and Rhythm, Murmur Respiratory: Yes: CTA Bilaterally Gastrointestinal: Yes: Normal Bowel Sounds, Soft Musculoskeletal: Yes: WNL Edema: No Integumentary: Yes: WNL Wound/Incision: Yes: Clean/Dry (subjacent to Rt ear) Neurological: Yes: WNL ...Motor Strength: WNL Psychiatric: Yes: WNL Labs: CBC, BMP 09/17/18 06:15 09/17/18 06:15 Discharge Summary Reason For Visit: HEMATURIA; A FIB; ANEMIA DUE TO BLOOD LOSS Current Active Problems Atrial fibrillation (Acute) BPH (benign prostatic hyperplasia) (Acute) Chronic renal insufficiency, stage II (mild) (Acute) Gross hematuria (Acute) Hypertension (Acute) Hypertensive heart and renal disease (Acute) Pacemaker (Acute) S/P TAVR (transcatheter aortic valve replacement) (Acute) Troponin I above reference range (Acute) Urinary retention (Acute) Glaucoma fungal rash on groin Other Procedures: CBI; Multiple transfusions Hospital Course: 88 YO/M with Htn & ASHD, Atf, Prostatism who was readmitted for acute copious bright red hematuria followed by acute obstruction requiring re-catheterization of his bladder to relieve the obstruction. His H/h was again noted to have dropped from his pre-discharge baseline and required at least 2 transfusions of PC; his coags were NL and was not on a/c. His BP was low initally and his Troponin again carole a bit likely 2nd to demand ischemia but normalized as did his BP. His HR remained stable on the BB. He was agin seen by Urology who opted to contiune CBI and several days later his urine cleared. His cultures were negative for infection; the Humphreys was pulled on 09/17/18 and he voiced no c/o suprapubic pains; and his H/H remained stable as was his chemistry. Condition: Improved - Instructions Diet, Activity, Other Instructions: low salt diet; drink plenty of fluids; avoid strenuous activities Referrals: Venkatesh Sanches MD [Primary Care Provider] - Disposition: HOME - Home Medications Comprehensive Discharge Medication List: Ambulatory Orders Dorzolamide HCl/Timolol Maleat [Cosopt Eye Drops] 1 drop OU BID 07/21/15 Brimonidine Tartrate [Alphagan 0.15% -] 1 drop OU BID drops 05/01/18 Tamsulosin HCl [Flomax -] 0.4 mg PO DAILY 08/02/18 Metoprolol Tartrate 12.5 mg PO DAILY #14 tablet 09/10/18 Docusate Sodium [Colace -] 100 mg PO DAILY capsule 09/17/18 Metoprolol Tartrate [Lopressor -] 12.5 mg PO DAILY tablet 09/17/18 Nystatin Ointment [Mycostatin Ointment -] 1 applic TP DAILY applic 09/17/18 Timolol 0.5% [Timoptic 0.5%] 1 drop OU BID drops 09/17/18
[2018-09-17] MEDS: LATANOPROST 0.005% OPHTH SOLN 2.5ML BOTTLE OU SCH ×2 (21:14→21:18)
[2018-09-18 06:32] VITALS: TEMP 97.6
[2018-09-18 09:33] VITALS: BP 135/74; PULSE 82
[2018-09-18] MEDS: DORZOLAMIDE 2% HCL OPHTHALMIC SOLUTION 10 ML BOTTLE OU SCH (09:34)
[2018-09-18] MEDS: BRIMONIDINE TARTRATE 0.15% OPHTHALMIC 5 ML BOTTLE OU SCH (09:34)
[2018-09-18] MEDS: TIMOLOL 0.5% OPHTHALMIC SOL 5 ML BOTTLE OU SCH (09:34)
[2018-09-18] MEDS: METOPROLOL TARTRATE 25 MG TABLET (FP) PO SCH (09:43)
[2018-09-18] MEDS: DOCUSATE SODIUM 100 MG CAPSULE (FP) PO SCH (09:43)
[2018-09-18] MEDS: TAMSULOSIN HCL 0.4 MG CAP PO SCH (09:43)
[2018-09-18] MEDS: amLODIPine BESYLATE 2.5 MG TABLET (FP) PO SCH (09:43)
[2018-09-18] MEDS: FUROSEMIDE 20 MG TABLET (FP) PO SCH (09:43)
[2018-09-18] MEDS ORDERED: NYSTATIN 100000 UNIT/GM TOPICAL OINTMENT 15 GM TUBE TP SCH (10:00)
[2018-09-18] MEDS: POLYETHYLENE GLYCOL 3350 119 GM BTL PO SCH (11:45)
--- NOTE | 2018-09-18 12:38 | PN ---
Progress Note (short form) - Note Progress Note: Addendum to D/C summary Current Medications Alprazolam (Xanax -) 0.25 mg PO BID PRN PRN Reason: ANXIETY Last Admin: 09/16/18 22:13 Dose: 0.25 mg Amlodipine Besylate (Norvasc -) 2.5 mg PO DAILY [facility] Last Admin: 09/18/18 09:43 Dose: 2.5 mg Brimonidine Tartrate (Alphagan 0.15% -) 1 drop OU BID [facility] Last Admin: 09/18/18 09:34 Dose: 1 drop Docusate Sodium (Colace -) 100 mg PO DAILY [facility] Last Admin: 09/18/18 09:43 Dose: 100 mg Dorzolamide HCl (Trusopt 2%) 1 drop OU BID [facility] Last Admin: 09/18/18 09:34 Dose: 1 drop Furosemide (Lasix -) 20 mg PO DAILY [facility] Last Admin: 09/18/18 09:43 Dose: 20 mg Latanoprost (Xalatan 0.005% Eye Drops -) 1 drop OU HS [facility] Last Admin: 09/17/18 21:18 Dose: Not Given Metoprolol Tartrate (Lopressor -) 12.5 mg PO DAILY [facility] Last Admin: 09/18/18 09:43 Dose: 12.5 mg Morphine Sulfate (Morphine Sulfate) 2 mg IVPUSH Q3H PRN PRN Reason: PAIN LEVEL 1-5 Morphine Sulfate (Morphine Sulfate) 4 mg IVPUSH Q3H PRN PRN Reason: PAIN LEVEL 6-10 Nystatin (Mycostatin Ointment -) 1 applic TP DAILY [facility] Last Admin: 09/18/18 09:45 Dose: 1 applic Polyethylene Glycol (Miralax (For Daily Use) -) 17 gm PO BID [facility] Last Admin: 09/18/18 11:45 Dose: Not Given Tamsulosin HCl (Flomax -) 0.4 mg PO DAILY@0830 [facility] Last Admin: 09/18/18 09:43 Dose: 0.4 mg Timolol Maleate (Timoptic 0.5%) 1 drop OU BID [facility] Last Admin: 09/18/18 09:34 Dose: 1 drop Vital Signs Temperature 97.6 F 09/18/18 09:32 Pulse Rate 82 09/18/18 09:32 Respiratory Rate 18 09/18/18 09:32 Blood Pressure 135/74 09/18/18 09:32 O2 Sat by Pulse Oximetry (%) 97 09/17/18 21:00 CC: no blood colored urine today ``````````````````````````` skin--no lesions eyes--eomi lungs--cleAR heart--RR 2/6 M abd--benign ext--no edema neuro--alert, coherent, ambulatory; no focal deficits ``````````````````````````````````````````````` > Obstructive uropathy---with gross hematuria and bladder araceli obstruction; now relieved and seems to be urinating freely without presence of blood. > Atf--rate in good range; on BB alone; cannot be give a/c or asa right at this time; will be f/u with myself & cardiology in due time. > Anemia--largely due to blood loss; hgb on the upswing. He is no longer having gross hematuria and is off all a/c. > Htn--has no needed BP meds; he was advised to do f/u BPs at home and keep record. ~~~~~~~~~~~~~~~~~~~~~~~~~~~ Dr Sanches Problem List - Problems (1) Hematuria Code(s): R31.9 - HEMATURIA, UNSPECIFIED Qualifiers: Hematuria type: gross Qualified Code(s): R31.0 - Gross hematuria (2) Atrial fibrillation Code(s): I48.91 - UNSPECIFIED ATRIAL FIBRILLATION Qualifiers: Atrial fibrillation type: permanent Qualified Code(s): I48.2 - Chronic atrial fibrillation (3) Anemia due to blood loss, acute Code(s): D62 - ACUTE POSTHEMORRHAGIC ANEMIA (4) Hypertensive heart and renal disease Qualifiers: Heart failure presence: without heart failure Hypertensive chronic kidney disease stage: stage 1-4 or unspecified chronic kidney disease Qualified Code( s): I13.10 - Hypertensive heart and chronic kidney disease without heart failure , with stage 1 through stage 4 chronic kidney disease, or unspecified chronic kidney disease (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 (7) Glaucoma Code(s): H40.9 - UNSPECIFIED GLAUCOMA Qualifiers: Glaucoma type: unspecified Laterality: bilateral Qualified Code(s): H40.9 - Unspecified glaucoma (8) History of skin cancer in adulthood Code(s): Z85.828 - PERSONAL HISTORY OF OTHER MALIGNANT NEOPLASM OF SKIN (9) Status cardiac pacemaker Code(s): Z95.0 - PRESENCE OF CARDIAC PACEMAKER (11) 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 Code(s): K31.9 - DISEASE OF STOMACH AND DUODENUM, UNSPECIFIED; R10.13 - EPIGASTRIC PAIN (12) Anxiety as acute reaction to gross stress Code(s): F41.1 - GENERALIZED ANXIETY DISORDER; F43.0 - ACUTE STRESS REACTION
== END 2018-09-18 13:38 | disposition home or self-care (01) | DRG 726 ==
LOC: JER 15:49 → JERBED 18:41 → JICU 21:32 → J8W 09-16 14:31
PROVIDERS: ADMIT Internal Medicine; ATTEND Internal Medicine
PROC: 30233N1 Transfusion of Nonautologous Red Blood Cells into Peripheral Vein, Percutaneous Approach (ICD-10-PCS; 2018-09-11)
PROC: 0T9B8ZZ Drainage of Bladder, Via Natural or Artificial Opening Endoscopic (ICD-10-PCS; principal; 2018-09-14)
DX: N40.1 Benign prostatic hyperplasia with lower urinary tract symptoms (principal); N13.8 Other obstructive and reflux uropathy; D62 Acute posthemorrhagic anemia; E87.2 Acidosis; I13.0 Hypertensive heart and chronic kidney disease with heart failure and stage 1 through stage 4 chronic kidney disease, or unspecified chronic kidney disease; I24.8 Other forms of acute ischemic heart disease; J98.11 Atelectasis; N17.9 Acute kidney failure, unspecified; I50.32 Chronic diastolic (congestive) heart failure; R33.9 Retention of urine, unspecified; H40.9 Unspecified glaucoma; Z95.0 Presence of cardiac pacemaker; F41.1 Generalized anxiety disorder; F43.0 Acute stress reaction; R31.0 Gross hematuria; I25.10 Atherosclerotic heart disease of native coronary artery without angina pectoris; I48.0 Paroxysmal atrial fibrillation; I35.0 Nonrheumatic aortic (valve) stenosis; R91.1 Solitary pulmonary nodule; K21.9 Gastro-esophageal reflux disease without esophagitis; E86.0 Dehydration; I95.9 Hypotension, unspecified
CPT/HCPCS: 36415; 36430; 71045-TC-FY; 76775-TC; 76856-TC; 80048; 80053; 81003; 81015; 82550; 82803; 83605; 83735; 84100; 84484; 85025; 85027; 85610; 85730; 86850; 86900; 86901; 86922; 87040; 87086; 93005; 93010; 99285-25; J7030; P9038; P9058

== ENCOUNTER 2019-04-22 21:35 | Inpatient (IN) | payer OTHER, MEDICARE ==
[2019-04-22] MEDS ORDERED: SODIUM CHLORIDE 500 ML IV STA (22:15)
[2019-04-22] MEDS ORDERED: ONDANSETRON 4 MG/2 ML VIAL IVPUSH ONE (22:19)
[2019-04-22] MEDS ORDERED: FAMOTIDINE 20 MG/50 ML IVPB 20 MG/50 ML MG IVPB ONE ×2 (22:30→23:02)
[2019-04-22] MEDS ORDERED: ONDANSETRON 4 MG/2 ML VIAL ONE (22:32)
--- NOTE | 2019-04-22 22:54 | PDOC ---
Documentation entered by Pablo Morrell SCRIBE, acting as scribe for Essie Mora MD. Essie Mora MD: This documentation has been prepared by the Petros lyman Joel, SCRIBE, under my direction and personally reviewed by me in its entirety. I confirm that the documentation accurately reflects all work, treatment, procedures, and medical decision making performed by me. History of Present Illness - General Chief Complaint: Nausea Stated Complaint: ABD PAIN Time Seen by Provider: 04/22/19 22:17 History Source: Patient, Family, Other (Neighbor) Exam Limitations: No Limitations - History of Present Illness Initial Comments: 04/22/19 22:38 The patient is an 88 year old male with a Afib, CKD, HTN, aortic stenosis (s/p TAVR), pacemaker BPH (s/p TURP), skin neoplasm, and lymphoma who presents to the emergency department with right sided abdominal discomfort and nausea approximately 4 hours ago. The patients family and neighbor (Dr. Paige) state the patient finished dinner at about 6pm and walked to the living room, after which he experienced some dizziness and RUQ abdominal discomfort with associated nausea. The patient endorses nausea but denies dizziness on presentation. As per the neighbor, the patient has been taking Miralax the past few days. The patient denies chest pain, shortness of breath, headache. Denies fever, chills, vomit, diarrhea and constipation. Denies dysuria, frequency, urgency and hematuria. Allergies: Penicillins, Codeine. Past surgical history: Pacemaker placement. TAVR. L nephrectomy. TURP. Splenectomy. Social history: No reported cigarette, alcohol, or drug use. PCP: Dr. Sanches Cardio: Dr. Solano GI: Dr. Moser Past History - Past Medical History Allergies/Adverse Reactions: Allergies Allergy/AdvReac Type Severity Reaction Status Date / Time Penicillins Allergy Unknown Verified 04/22/19 22:04 codeine [Codeine] Allergy Verified 04/22/19 22:04 Home Medications: Ambulatory Orders Brimonidine Tartrate [Alphagan 0.15% -] 1 drop OU BID drops 05/01/18 Tamsulosin HCl [Flomax -] 0.4 mg PO DAILY 08/02/18 Docusate Sodium [Colace -] 100 mg PO DAILY capsule 09/17/18 Amlodipine Besylate [Norvasc -] 10 mg PO DAILY 04/22/19 Aspirin [[place] Chewable] 81 mg PO DAILY 04/22/19 Dorzolamide HCl/Timolol Maleat [Cosopt Eye Drops] 10 ml OP DAILY 04/22/19 Metoprolol Tartrate [Lopressor -] 10 mg PO DAILY 04/22/19 Travoprost [Travatan Z] 2.5 ml OP DAILY 04/22/19 Anemia: No Asthma: No Cancer: Yes (LYMPHOMA) Cardiac Disorders: Yes (aortic stenosis) CVA: No COPD: No CHF: No DVT: No Dementia: No Diabetes: No GI Disorders: No Disorders: Yes (BPH) HTN: Yes Hypercholesterolemia: Yes Liver Disease: No Seizures: No Thyroid Disease: No - Surgical History Abdominal Surgery: Yes (HERNIA.) Appendectomy: Yes Cardiac Surgery: Yes (pacemaker) GI Surgery: Yes (SPLENECTOMY.) - Immunization History Immunization Up to Date: Yes - Suicide/Smoking/Psychosocial Hx Smoking Status: No Smoking History: Never smoked Have you smoked in the past 12 months: No Number of Cigarettes Smoked Daily: 0 Hx Alcohol Use: No Drug/Substance Use Hx: No Substance Use Type: None Hx Substance Use Treatment: No Review of Systems - Review of Systems Able to Perform ROS?: Yes Comments:: 04/22/19 22:39 GENERAL/CONSTITUTIONAL: No fever or chills. No weakness. HEAD, EYES, EARS, NOSE AND THROAT: No change in vision. No ear pain or discharge. No sore throat. CARDIOVASCULAR: No chest pain or shortness of breath. RESPIRATORY: No cough, wheezing, or hemoptysis. GASTROINTESTINAL: (+) Nausea (+) Right side abdominal discomfort. No vomiting, diarrhea or constipation. GENITOURINARY: No dysuria, frequency, or change in urination. MUSCULOSKELETAL: No joint or muscle swelling or pain. No neck or back pain. SKIN: No rash NEUROLOGIC: No headache, vertigo, loss of consciousness, or change in strength/ sensation. ENDOCRINE: No increased thirst. No abnormal weight change. HEMATOLOGIC/LYMPHATIC: No anemia, easy bleeding, or history of blood clots. ALLERGIC/IMMUNOLOGIC: No hives or skin allergy. *Physical Exam - Vital Signs Last Vital Signs Temp Pulse Resp BP Pulse Ox 96.5 F L 81 15 142/85 99 04/22/19 21:53 04/22/19 21:53 04/22/19 21:40 04/22/19 21:53 04/22/19 21:53 - Physical Exam Comments: 04/22/19 22:39 GENERAL: Awake, alert, and fully oriented, in no acute distress HEAD: No signs of trauma EYES: PERRLA, EOMI, sclera anicteric, conjunctiva clear ENT: Auricles normal inspection, hearing grossly normal, nares patent, oropharynx clear without exudates. Moist mucosa NECK: Normal ROM, supple, no lymphadenopathy, JVD, or masses LUNGS: Breath sounds equal, clear to auscultation bilaterally. No wheezes, and no crackles HEART: (+) Pacemaker to left anterior chest wall. Regular rate and rhythm, normal S1 and S2, no murmurs, rubs or gallops ABDOMEN: Soft, nontender, normoactive bowel sounds. No guarding, no rebound. No masses EXTREMITIES: (+) +1 pitting edema in bilateral LE. Normal range of motion. No clubbing or cyanosis. No cords, erythema, or tenderness NEUROLOGICAL: Cranial nerves II through XII grossly intact. Normal speech, normal gait ED Treatment Course - LABORATORY CBC & Chemistry Diagram: 04/22/19 22:50 04/22/19 22:50 Medical Decision Making - Medical Decision Making 04/22/19 22:31 88-year-old male brought in by ambulance from home for nausea and epigastric and upper right abdominal pain following dinner. PMH includes CKD,BPH,Aortic stenosis, afib,TAVR, L nephrectomy, splenectomy.colonscopy 04/22/19 22:52 Diff diag included cholecystitis,ACS, gastritis ekg,cbc,comp,lipase,cardiac enzymes,ct scan abd/pel ordered 04/23/19 01:49 lipase is 547 ABDOMINAL US : showed slightly dilated pancreatic duct 3.6 mmThere multiple gallstones and thickened gallbladder wall, 3.6 mm, may be due to chronic cholecystitis Multiple right renal cysts largest measuring 4.2 cmNormal common bile duct diameter 6 mm Unremarkable. Liver and visualized aorta cAT scan of the abdomen and pelvis without contrast showed a splenectomy, moderately dilated stomach, codeine the physis, unremarkablepancreas, no bowel obstruction, no colitis, and no free air Prominent left upper quadrant mesenteric lymph nodes, nonspecific. There is haziness in the left upper and left lower quadrant mesentery, possibly mesentericedema Surgical clips and left inguinal soft tissues. Small right inguinal hernia containing fat Coronary artery disease. Stent and ascending aorta, pacemaker patient received IV fluids, antiemetics and will be admitted for cholelithiasis / meds for nausea and vomiting 04/23/19 02:07 is discussed with Myron Junior and requested the patient be admitted to [facility]. Patient to get half normal saline at 50 mL an hour *DC/Admit/Observation/Transfer Diagnosis at time of Disposition: Epigastric pain, Chronic renal insufficiency, stage II (mild), History of artificial heart valve Gallstone Qualifiers: Cholecystitis presence: with cholecystitis Cholecystitis acuity: acute and chronic Biliary obstruction: without biliary obstruction Qualified Code(s): K80.12 - Calculus of gallbladder with acute and chronic cholecystitis without obstruction Nausea & vomiting Qualifiers: Vomiting type: unspecified Vomiting Intractability: non-intractable Qualified Code(s): R11.2 - Nausea with vomiting, unspecified - Discharge Dispostion Condition at time of disposition: Improved Decision to Admit order: Yes - Referrals - Patient Instructions - Post Discharge Activity
[2019-04-22 23:03] LABS: BASO % 0.4 % (0-2.0); EOS % 1.1 % (0-4.5); HEMATOCRIT 39.6 % (35.4-49); HEMOGLOBIN 13.4 GM/dL (11.7-16.9); LYMPH % 5.4 % (8-40); MCH 33.1 pg (25.7-33.7); MCHC 33.7 g/dl (32.0-35.9); MEAN CELL VOLUME 98.2 fl (80-96); MEAN PLT VOLUME 9.2 fl (7.5-11.1); MONO % 5.1 % (3.8-10.2); PLATELET COUNT 185 K/MM3 (134-434); RBC 4.04 M/mm3 (4.00-5.60); RDW 14.1 % (11.9-15.9); WHITE BLOOD COUNT 9.3 K/mm3 (4.0-10.0)
[2019-04-22 23:15] LABS: INR 1.11 (0.83-1.09); PROTHROMBIN TIME (PATIENT) 13.1 SEC (9.7-13.0)
[2019-04-22 23:34] LABS: BILIRUBIN,TOTAL 0.7 mg/dL (0.2-1); BLOOD UREA NITROGEN 27.1 mg/dL (7-18); CALCIUM 9.3 mg/dL (8.5-10.1); CREATININE 1.5 mg/dL (0.55-1.3); POTASSIUM 3.8 mmol/L (3.5-5.1); TOT PROT 7.8 g/dl (6.4-8.2)
[2019-04-23] MEDS ORDERED: SODIUM CHLORIDE 0.45% 1,000 ML IV SCH (02:30)
[2019-04-23 05:20] VITALS: BMI 25.3
--- NOTE | 2019-04-23 08:23 | EKG ---
Test Reason : Blood Pressure : / mmHG Vent. Rate : 080 BPM Atrial Rate : 029 BPM P-R Int : 000 ms QRS Dur : 182 ms QT Int : 478 ms P-R-T Axes : 000 019 106 degrees QTc Int : 551 ms POOR DATA QUALITY, INTERPRETATION MAY BE ADVERSELY AFFECTED Ventricular-paced rhythm ABNORMAL ECG WHEN COMPARED WITH ECG OF 11-SEP-2018 18:21, NO SIGNIFICANT CHANGE WAS FOUND Confirmed by MASOOD GORDON, ADRIANNA ([id number]) on 04/23/2019 8:23:08 AM Referred By: Confirmed By:ADRIANNA CORREIA MD
[2019-04-23] MEDS ORDERED: DEXTROSE 5%-0.45% SALINE 1,000 ML IV SCH (15:30)
[2019-04-23] MEDS ORDERED: PANTOPRAZOLE SODIUM 40 MG VIAL IVPB SCH (15:30)
--- NOTE | 2019-04-23 15:47 | HP ---
Admitting History and Physical - Primary Care Physician PCP: Venkatesh Sanches - Admission Chief Complaint: severe abd discomfort History of Present Illness: 88 YO M with hx of stable ASHD; AtF,with chronic dyspepsia who was in his usual state of "reasonable" health until last PM after dinner when he developed upper GI upset & nausea (but no vomiting) 1/2 hr after eating a meal consisting of pasta; vegetables and sausage. The discomfort grew worse into the evening. He tried to self induce nausea but was not successful. He then decided to go into the ER. He denied use of NSAIDs; etoh, or other substances. he denied being in contact with ill persons; and there were no other people who felt acutely in the way he described. He denied diarrhea but has been constipated. he c/o some fatigue since the hot weather set in in the past week but has not felt ill or restricted. History Source: Patient, Family Member Limitations to Obtaining History: No Limitations - Past Medical History NICK SETTER: Yes: Vertigo Cardiovascular: Yes: Aortic Stenosis, CAD, HTN, Murmur Pulmonary: Yes: Other (recent LT spont Pneumothorax; Rt mid peripheral (as of yet) undefined neoplasm) Gastrointestinal: Yes: Other (dyspepsia (chronic)) Hepatobiliary: Yes: Cholelithiasis Renal/: Yes: Renal Inusuff (s/p Lt nephrectomy 2nd cancer), BPH, Hematuria, UTI Heme/Onc: Yes: Bleeding Disorder (occasional hematuria (while on a-c)), Cancer ( s/p splenectomy 2nd lymphoma) Psych: Yes: Anxiety Musculoskeletal: Yes: Chronic low back pain, Osteoarthritis Dermatology: Yes: Other (skin neoplasms--recurrent) - Past Surgical History Past Surgical History: Yes: Colonoscopy, Nephrectomy, Splenectomy (skin grafts) , TURP Additional Past Surgical History: TAVR in mid 2018 - Smoking History Smoking history: Never smoked Have you smoked in the past 12 months: No Aproximately how many cigarettes per day: 0 - Alcohol/Substance Use Hx Alcohol Use: No History of Substance Use: reports: None - Social History Usual Living Arrangement: Yes: With Spouse ADL: Independent 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; 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 History of Recent Travel: No Home Medications - Allergies Allergies/Adverse Reactions: Allergies Allergy/AdvReac Type Severity Reaction Status Date / Time Penicillins Allergy Unknown Verified 04/22/19 22:04 codeine [Codeine] Allergy Verified 04/22/19 22:04 - Home Medications Home Medications: Ambulatory Orders Brimonidine Tartrate [Alphagan 0.15% -] 1 drop OU BID drops 05/01/18 Tamsulosin HCl [Flomax -] 0.4 mg PO DAILY 08/02/18 Docusate Sodium [Colace -] 100 mg PO DAILY capsule 09/17/18 Amlodipine Besylate [Norvasc -] 10 mg PO DAILY 04/22/19 Aspirin [[place] Chewable] 81 mg PO DAILY 04/22/19 Dorzolamide HCl/Timolol Maleat [Cosopt Eye Drops] 10 ml OP DAILY 04/22/19 Metoprolol Tartrate [Lopressor -] 10 mg PO DAILY 04/22/19 Travoprost [Travatan Z] 2.5 ml OP DAILY 04/22/19 Family Disease History - Family Disease History Family History: Unremarkable Review of Systems - Review of Systems Constitutional: reports: Weakness Eyes: reports: No Symptoms HENT: reports: No Symptoms Neck: reports: No Symptoms Cardiovascular: reports: No Symptoms Respiratory: reports: No Symptoms Gastrointestinal: reports: Abdominal Pain, Bloating, Constipation, Indigestion ( see HPI), Nausea Genitourinary: reports: No Symptoms Musculoskeletal: reports: No Symptoms Integumentary: reports: No Symptoms Neurological: reports: No Symptoms Endocrine: reports: No Symptoms Hematology/Lymphatic: reports: No Symptoms Psychiatric: reports: No Symptoms Physical Examination Vital Signs: Vital Signs Temperature 98 F 04/23/19 10:00 Pulse Rate 80 04/23/19 10:00 Respiratory Rate 20 04/23/19 10:00 Blood Pressure 130/72 04/23/19 10:00 O2 Sat by Pulse Oximetry (%) 98 04/23/19 09:00 Constitutional: Yes: Well Nourished, No Distress Eyes: Yes: Conjunctiva Clear, EOM Intact HENT: Yes: Atraumatic Neck: Yes: Supple Cardiovascular: Yes: Regular Rate and Rhythm Respiratory: Yes: CTA Bilaterally Gastrointestinal: Yes: Normal Bowel Sounds, Soft, Other (mild tenderness in lower abd both sides; no rebound. No RUQ tenderness) ...Rectal Exam: Yes: Deferred Renal/: Yes: WNL Musculoskeletal: Yes: WNL Extremities: Yes: WNL Edema: Yes Edema: LLE: Trace, RLE: Trace Peripheral Pulses WNL: Yes Integumentary: Yes: Incision (multiple; old) Neurological: Yes: WNL ...Motor Strength: WNL Labs: CBC, BMP 04/22/19 22:50 04/22/19 22:50 Imaging - Results Chest X-ray: Report Reviewed Cat Scan: Report Reviewed Ultrasound: Report Reviewed EKG: Report Reviewed Problem List - Problems (1) Epigastric pain Assessment/Plan: acute onset; post meal. Bloodwork shows NL wbc; NL chems/LFTs but has elevated Lipase. Imaging shows gallstones but no wall thickening or dilated ducts and no RUQ tenderness, thus making acute cholecystitis less likely. High Lipase could stem from severe gastritic process but should consider (mild) pancreatitis, however has no mild abd tenderness on palpation. PLAN: IV PPI; GI consult; clear liquid diet; follow Lipase trend. Code(s): R10.13 - EPIGASTRIC PAIN (2) Gallstone Assessment/Plan: Not a new finding; on clinical grounds or lab grounds does not appear to have acute cholecystitis at present. Code(s): K80.20 - CALCULUS OF GALLBLADDER W/O CHOLECYSTITIS W/O OBSTRUCTION Qualifiers: Cholecystitis presence: without cholecystitis (3) Hypertensive heart and renal disease Assessment/Plan: has been stable; BP well controlled on outPt regimen Qualifiers: Heart failure presence: without heart failure Hypertensive chronic kidney disease stage: stage 1-4 or unspecified chronic kidney disease Qualified Code( s): I13.10 - Hypertensive heart and chronic kidney disease without heart failure , with stage 1 through stage 4 chronic kidney disease, or unspecified chronic kidney disease (4) Atrial fibrillation Assessment/Plan: noted post TAVR; but did not fare well while on a/c (he developed consecutive severe hemorrhagic episodes requiring multiple hospitalization & transfusion) ; and had to be stopped. HR has been well controlled. 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 he denies any coough; malaise; sweats. This is likley unrelated to his abrupt GI episode and suggests the possibility of an atypical PNA (Mycoplasma). 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 PET was negative; further intervention not advised unless lesion becomes more prominent Code(s): D38.1 - NEOPLASM OF UNCERTAIN BEHAVIOR OF TRACHEA, BRONCHUS AND LUNG (9) BPH (benign prostatic hyperplasia) Assessment/Plan: currently stable; is post urologic procedure Code(s): N40.0 - BENIGN PROSTATIC HYPERPLASIA WITHOUT LOWER URINRY TRACT SYMP Qualifiers: Lower urinary tract symptom presence: symptoms absent Qualified Code(s): N40.0 - Benign prostatic hyperplasia without lower urinary tract symptoms (10) Status cardiac pacemaker Assessment/Plan: stable; under cardio supervision Code(s): Z95.0 - PRESENCE OF CARDIAC PACEMAKER (11) 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 Assessment/Plan: chronic; waxes & wanes Code(s): K31.9 - DISEASE OF STOMACH AND DUODENUM, UNSPECIFIED; R10.13 - EPIGASTRIC PAIN (12) History of malignant neoplasm of kidney Assessment/Plan: s/p Lt nephrectomy various yrs ago at [facility]; cell type unknown Code(s): Z85.528 - PERSONAL HISTORY OF OTHER MALIGNANT NEOPLASM OF KIDNEY (13) History of skin cancer in adulthood Assessment/Plan: 2nd to chronic sun exposure; has required mutlple excisions Code(s): Z85.828 - PERSONAL HISTORY OF OTHER MALIGNANT NEOPLASM OF SKIN (14) Glaucoma Assessment/Plan: requires use of multiple eye gtts Code(s): H40.9 - UNSPECIFIED GLAUCOMA Qualifiers: Glaucoma type: unspecified Laterality: bilateral Qualified Code(s): H40.9 - Unspecified glaucoma Assessment/Plan 88 YOM with multiple co-morbidities who presents with abrupt onset of aupper abd pain post dinner with high Lipase. MgMt as described above. ~~~~~~~~~~~~~~~~~~ dr Sanches
[2019-04-23] MEDS ORDERED: ONDANSETRON 4 MG/2 ML VIAL IVPUSH PRN (16:14)
[2019-04-23] MEDS ORDERED: PROMETHAZINE HCL 50 MG/1 ML AMP IM PRN (16:17)
[2019-04-23] MEDS ORDERED: AZITHROMYCIN IVPB 250 MG in DEXTROSE 5%-WATER - 250 ML IVPB SCH (16:30)
[2019-04-23] MEDS ORDERED: PROMETHAZINE HCL 25 MG/1 ML VIAL IM PRN (16:34)
[2019-04-23] MEDS: AZITHROMYCIN IVPB 250 MG in DEXTROSE 5%-WATER - 250 ML IVPB SCH (17:52)
--- NOTE | 2019-04-23 17:54 | PN ---
Progress Note (short form) - Note Progress Note: 88 year old man known to me with over 2 decades of upper abdominal discomfort and constipation. Has had known gallstones for all this time with negative HIDA scan in past and never having jaundice or any clear biliary colic. He tells me now that his symptoms began last evening when he stood up, went outside and felt dizzy. After feeling dizzy his helped him to sit down, at which point he felt nauseated and had clear vomitus. He denies any abdominal pain, says he was just nauseated. I have reviewed his CT scan (images and report), sonogram, labs. A lipase elevation of less than 2x normal is not considered significant and is probably the result of his episode of vomiting. This morning his lipase is in the normal range. He has no elevation of WBC, no fever, and he would like to eat. On exam his abdomen is soft and nontender. He has been on Miralax for years for his chronic constipation. Impression: 1) Vasovagal episode resulting in nausea and vomiting. 2) Chronic constipation. 3) Multiple other comorbidities as detailed in Dr Sanches's excellent summary. Recommend: 1) Begin low salt diet. 2) Resume Miralax. 3) D/C pantoprazole.
[2019-04-23] MEDS: POLYETHYLENE GLYCOL 3350 119 GM BTL PO SCH (21:18)
[2019-04-23] MEDS: TIMOLOL 0.5% OPHTHALMIC SOL 5 ML BOTTLE OU SCH (21:19)
[2019-04-23] MEDS: DORZOLAMIDE 2% HCL OPHTHALMIC SOLUTION 10 ML BOTTLE OU SCH (21:21)
[2019-04-23] MEDS: BRIMONIDINE TARTRATE 0.15% OPHTHALMIC 5 ML BOTTLE OU SCH (21:22)
[2019-04-23] MEDS ORDERED: LATANOPROST 0.005% OPHTH SOLN 2.5ML BOTTLE OU SCH (22:00)
[2019-04-24 06:31] VITALS: PULSE 80
[2019-04-24 08:14] LABS: ALBUMIN 3.4 g/dl (3.4-5.0); BILIRUBIN,TOTAL 0.8 mg/dL (0.2-1); BLOOD UREA NITROGEN 19.9 mg/dL (7-18); CALCIUM 8.9 mg/dL (8.5-10.1); CREATININE 1.4 mg/dL (0.55-1.3); POTASSIUM 3.7 mmol/L (3.5-5.1); TOT PROT 6.8 g/dl (6.4-8.2)
[2019-04-24 08:47] LABS: HEMATOCRIT 39.8 % (35.4-49); HEMOGLOBIN 13.4 GM/dL (11.7-16.9); MCH 33.3 pg (25.7-33.7); MCHC 33.7 g/dl (32.0-35.9); MEAN CELL VOLUME 98.6 fl (80-96); MEAN PLT VOLUME 10.2 fl (7.5-11.1); PLATELET COUNT 184 K/MM3 (134-434); RBC 4.03 M/mm3 (4.00-5.60); RDW 14.4 % (11.9-15.9); WHITE BLOOD COUNT 5.2 K/mm3 (4.0-10.0)
[2019-04-24] MEDS ORDERED: metoPROLOL SUCCINATE 25 MG TAB.SR.24H (FP) PO SCH (10:00)
[2019-04-24] MEDS: POLYETHYLENE GLYCOL 3350 119 GM BTL PO SCH (10:32)
[2019-04-24] MEDS: AZITHROMYCIN IVPB 250 MG in DEXTROSE 5%-WATER - 250 ML IVPB SCH (10:33)
[2019-04-24] MEDS: DORZOLAMIDE 2% HCL OPHTHALMIC SOLUTION 10 ML BOTTLE OU SCH (10:34)
[2019-04-24] MEDS: TIMOLOL 0.5% OPHTHALMIC SOL 5 ML BOTTLE OU SCH (10:35)
[2019-04-24] MEDS: BRIMONIDINE TARTRATE 0.15% OPHTHALMIC 5 ML BOTTLE OU SCH (10:35)
[2019-04-24 11:49] VITALS: BP 138/77; TEMP 97.6
--- NOTE | 2019-04-24 14:17 | DS ---
Physical Examination Vital Signs: Vital Signs Temperature 97.6 F 04/24/19 11:48 Pulse Rate 80 04/24/19 11:48 Respiratory Rate 16 04/24/19 11:48 Blood Pressure 138/77 04/24/19 11:48 O2 Sat by Pulse Oximetry (%) 98 04/23/19 21:00 Constitutional: Yes: Well Nourished, No Distress, Anxious Eyes: Yes: Conjunctiva Clear HENT: Yes: Normocephalic Neck: Yes: Supple Cardiovascular: Yes: Regular Rate and Rhythm Respiratory: Yes: Regular Gastrointestinal: Yes: Normal Bowel Sounds, Soft ...Rectal Exam: Yes: Deferred Edema: No Integumentary: Yes: WNL Neurological: Yes: WNL ...Motor Strength: WNL Psychiatric: Yes: WNL Labs: CBC, BMP 04/24/19 06:20 04/24/19 06:20 Discharge Summary Reason For Visit: CALCULUS OF GALLBLADDER, CHRONIC RENAL INSUFF Current Active Problems Chronic renal insufficiency, stage II (mild) (Acute) Epigastric pain (Acute) Gallstone (Acute) History of artificial heart valve (Acute) Infiltrate noted on imaging study (Acute) Nausea 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 He tried to self induce nausea but was not successful. He then decided to go into the ER. He denied use of NSAIDs; etoh, or other substances. While in ER he was given IV [id number] and pain subsided. he was alkso given amnti-emetics. Imagaing showed the presence of gallstones w/o thickened wall or bile tract abnormalities. His LFts were WNL. On exam he lacked RUQ tenderness, and the lung exam was benign. he did not appear ill or toxic but his Lipase level was high. He was seen by GI who did not feel he anything acute with his biliary tract, and was pain free. Today he tolerated a regular consistency meal w/o complaints. He was incidentally found to have a LL infiltrate on the CT scan ( that was taken of the abd) which was not seen on the previous CT.he denied any coughing; sweats or fever, was feeling "run down" several days that preceded this episode. He was Rx'dIV zithromax. he was well on day of discharge w/o any complaints and with stable VS Condition: Improved - Instructions Diet, Activity, Other Instructions: low salt diet; no excessive intake of oily or fatty foods; limit diary products Disposition: HOME - Home Medications Comprehensive Discharge Medication List: Ambulatory Orders Brimonidine Tartrate [Alphagan 0.15% -] 1 drop OU BID drops 05/01/18 Tamsulosin HCl [Flomax -] 0.4 mg PO DAILY 08/02/18 Docusate Sodium [Colace -] 100 mg PO DAILY capsule 09/17/18 Amlodipine Besylate [Norvasc -] 10 mg PO DAILY 04/22/19 Aspirin [[place] Chewable Aspirin] 81 mg PO DAILY 04/22/19 Dorzolamide HCl/Timolol Maleat [Cosopt Eye Drops] 10 ml OP DAILY 04/22/19 Metoprolol Tartrate [Lopressor -] 10 mg PO DAILY 04/22/19 Travoprost [Travatan Z] 2.5 ml OP DAILY 04/22/19 Azithromycin 250 mg PO DAILY #6 tablet 04/24/19
== END 2019-04-24 15:02 | disposition home or self-care (01) | DRG 446 ==
LOC: JER 21:35 → JERBED 04-23 02:22 → J8W 04-23 04:16
PROVIDERS: ADMIT Internal Medicine; ATTEND Internal Medicine
DX: K80.12 Calculus of gallbladder with acute and chronic cholecystitis without obstruction (principal); I12.9 Hypertensive chronic kidney disease with stage 1 through stage 4 chronic kidney disease, or unspecified chronic kidney disease; N18.2 Chronic kidney disease, stage 2 (mild); I48.91 Unspecified atrial fibrillation; I25.10 Atherosclerotic heart disease of native coronary artery without angina pectoris; N28.1 Cyst of kidney, acquired; R55 Syncope and collapse; Z95.0 Presence of cardiac pacemaker; N40.0 Benign prostatic hyperplasia without lower urinary tract symptoms; Z85.528 Personal history of other malignant neoplasm of kidney; Z85.828 Personal history of other malignant neoplasm of skin; H40.9 Unspecified glaucoma; K59.09 Other constipation; R91.8 Other nonspecific abnormal finding of lung field; Z88.0 Allergy status to penicillin; K31.9 Disease of stomach and duodenum, unspecified; Z90.81 Acquired absence of spleen; Z90.5 Acquired absence of kidney
CPT/HCPCS: 36415; 74176-TC; 76705-TC; 80053; 82550; 82553; 83605; 83690; 84443; 84484; 85025; 85027; 85610; 86157; 93005; 93010; 99285-25

== ENCOUNTER 2020-06-07 10:05 | Emergency (ER) | payer OTHER, MEDICARE ==
[2020-06-07 10:25] VITALS: BP 141/78; PULSE 80; TEMP 97.8; BMI 27.4
--- NOTE | 2020-06-07 11:01 | PDOC ---
History of Present Illness - General Chief Complaint: RX Refill Stated Complaint: SENT BY DOCTOR/EYE PROBLEM Time Seen by Provider: 06/07/20 10:31 History Source: Patient - History of Present Illness Timing/Duration: other Past History - Medical History Allergies/Adverse Reactions: Allergies Allergy/AdvReac Type Severity Reaction Status Date / Time Penicillins Allergy Unknown Verified 06/07/20 10:25 codeine [Codeine] Allergy Verified 06/07/20 10:25 Home Medications: Ambulatory Orders Brimonidine Tartrate [Alphagan 0.15% -] 1 drop OU BID drops 05/01/18 Tamsulosin HCl [Flomax -] 0.4 mg PO DAILY 08/02/18 Docusate Sodium [Colace -] 100 mg PO DAILY capsule 09/17/18 Amlodipine Besylate [Norvasc -] 10 mg PO DAILY 04/22/19 Aspirin [[place] Chewable Aspirin] 81 mg PO DAILY 04/22/19 Dorzolamide HCl/Timolol Maleat [Cosopt Eye Drops] 10 ml OP DAILY 04/22/19 Metoprolol Tartrate [Lopressor -] 10 mg PO DAILY 04/22/19 Travoprost [Travatan Z] 2.5 ml OP DAILY 04/22/19 Azithromycin 250 mg PO DAILY #6 tablet 04/24/19 Anemia: No Asthma: No Cancer: Yes (LYMPHOMA) Cardiac Disorders: Yes (aortic stenosis) CVA: No COPD: No CHF: No DVT: No Dementia: No Diabetes: No GI Disorders: No Disorders: Yes (BPH) HTN: Yes Hypercholesterolemia: Yes Liver Disease: No Seizures: No Thyroid Disease: No - Surgical History Abdominal Surgery: Yes (HERNIA.) Appendectomy: Yes Cardiac Surgery: Yes (pacemaker) GI Surgery: Yes (SPLENECTOMY.) - Immunization History Immunization Up to Date: Yes - Psycho-Social/Smoking History Smoking Status: No Smoking History: Never smoked Have you smoked in the past 12 months: No Number of Cigarettes Smoked Daily: 0 - Substance Abuse Hx (Audit-C & DAST Scrn) How often the patient has a drink containing alcohol: Monthly or less Score: In Men: 4 or > Positive; In Women: 3 or > Positive: 1 Screen Result (Pos requires Nsg. Audit-10AR): Negative In the last yr the pt used illegal drug/Rx for NonMed reason: No Score: Yes response is considered Positive: 0 Screen Result (Positive result requires Nsg. DAST-10): Negative Review of Systems - Review of Systems Constitutional: No: Fever Respiratory: No: Cough, Shortness of Breath Cardiac (ROS): No: Chest Pain ABD/GI: No: Constipated, Diarrhea, Nausea, Vomiting, Abdominal cramping : No: Dysuria, Flank Pain, Hematuria Neurological: No: Headache, Numbness, Tingling, Weakness, Dizziness *Physical Exam - Vital Signs Last Vital Signs Temp Pulse Resp BP Pulse Ox 97.8 F 80 20 141/78 100 06/07/20 10:22 06/07/20 10:22 06/07/20 10:22 06/07/20 10:22 06/07/20 10:22 - Physical Exam General Appearance: Yes: Appropriately Dressed. No: Apparent Distress HEENT: positive: Normal Voice Neck: positive: Supple Respiratory/Chest: positive: Lungs Clear, Normal Breath Sounds. negative: Respiratory Distress Cardiovascular: positive: Regular Rate, S1, S2 Gastrointestinal/Abdominal: positive: Soft. negative: Tender Musculoskeletal: negative: CVA Tenderness Integumentary: positive: Dry, Warm Neurologic: positive: Fully Oriented, Alert, Normal Mood/Affect Medical Decision Making - Medical Decision Making 06/07/20 10:39 89-year-old male, with history of longstanding macular degeneration and glaucoma, currently receiving intraocular injections with Dr. Gonzalez and here requesting blood work for unclear reasons. Denies any medical complaints in this time and has no upcoming procedures/surgeries. Patient becomes easily agitated when asked questions as to why he is here in ED and why he needs blood work and at some point got up and walked out of ER without being discharged or given discharge papers Discharge - Discharge Information Problems reviewed: Yes Clinical Impression/Diagnosis: Evaluation by medical service required Condition: Stable Disposition: HOME - Follow up/Referral Referrals: Venkatesh Sanches MD [Primary Care Provider] - - Patient Discharge Instructions Additional Instructions: Please follow up with your PMD - Post Discharge Activity
== END 2020-06-07 10:40 | disposition home or self-care (01) ==
LOC: JERFT 10:05 → JER 10:05 → JERFT 10:40
DX: Z04.6 Encounter for general psychiatric examination, requested by authority (principal)
CPT/HCPCS: 99281-25